=== PATIENT | female | born 1950 | race Caucasian/White ===

== ENCOUNTER 2017-05-29 13:49 | Inpatient (IN) | payer MEDICARE, OTHER, SELFPAY ==
[2017-05-29] VITALS (7 sets, daily range): BP systolic 123–148; BP diastolic 69–90; PULSE 71–97; RESP 14–24; TEMP 36.8–37.7; O2SAT 93–97; BMI 26.6; BMI 25.5
--- NOTE | 2017-05-29 13:55 | RAD_ITS ---
STUDY: X-RAY CHEST REASON FOR EXAM: Female, 66 years old. Fever after chemotherapy treatment for small cell lung cancer. TECHNIQUE: PA and lateral views of the chest. COMPARISON: May 13, 2017. FINDINGS: Cardiac monitoring leads are present. Right-sided PICC line is present with the tip the catheter in the atriocaval region. The lungs are clear and expanded. There is no demonstrated pleural abnormality. Normal size heart. Normal mediastinum and tj. There is prominence of the pulmonary hilar arteries without peripheral pulmonary vascular congestion. There is atherosclerotic tortuosity of the aortic arch and descending thoracic aorta. There is demineralization of the osseous structures. Appears to be mild compression of a lower thoracic vertebral body. There is no demonstrated abnormality of the visualized soft tissue structures of the upper abdomen. RAD/Chest PA and Lateral IMPRESSION: 1. No radiographic evidence of acute cardiopulmonary disease. 2. The pulmonary mass is not well seen on this study. Electronically Signed: Shirin Hunt MD at 15:57 EST , Service support ,
--- NOTE | 2017-05-29 14:17 | EKG12_ITS ---
Test Reason : FEVER SOB Blood Pressure : / mmHG Vent. Rate : 092 BPM Atrial Rate : 092 BPM P-R Int : 132 ms QRS Dur : 084 ms QT Int : 382 ms P-R-T Axes : 081 064 078 degrees QTc Int : 472 ms Normal sinus rhythm Normal ECG Confirmed by BRITNEY HOUSE, LINO ([id number]), movie editor LILLIANA CALVO ([id number] on 06/01/2017 10:39:03 AM Referred By: ARTUR Confirmed By:LINO TAN MD
[2017-05-29] MEDS: Ondansetron 4 MG/2 ML Vial IV (14:48)
[2017-05-29] MEDS: 0.9% Normal Saline 1,000 ML 999 ML IV (14:48)
[2017-05-29] MEDS: Acetaminophen 650 MG/20 ML UDC PO (14:54)
[2017-05-29 15:05] LABS: Absolute Lymphocyte Count 0.08 X10^3/ul (0.83-4.51); Absolute Neutrophil Count 0.1 X10^3/uL (2.0-7.7); Basophil# 0.01 X10^3/uL; Hematocrit 17.9 % (37-47); Lymphocyte # 0.08 X10^3/ul (4.0); Mean Corp Hgb Conc 33.5 g/gl (32-36); Mean Corpuscular Hgb 28.2 pg (27.0-32.0); Mean Platelet Vol. 9.3 fl (6.2-12.0); Monocyte# 0.03 X10^3/uL; Neutrophil # 0.09 X10^3/uL (2.7-7.7); Platelet Count 16 K/mm3 (150-450); RBC Distribution Width CV 16.6 % (11.6-14.6); RBC Distribution Width SD 51.3 fl (35.1-43.9); Red Blood Count 2.13 M/mm3 (4.2-5.4)
[2017-05-29 15:06] LABS: AST(SGOT) 8 U/L (15-37); Alanine Aminotransfer ALT/SGPT 15 U/L (12-78); Albumin, Serum 2.5 g/dL (3.4-5.0); Alkaline Phosphatase 75 U/L (45-117); Anion Gap 9 (5-15); BUN 16 mg/dL (7-18); Calcium,Total 7.7 mg/dL (8.5-10.1); Chloride 103 mmol/L (98-107); Creatinine, Serum 0.67 mg/dL (0.55-1.02); EST Glomerular Filtration Rate 94 mL/min (>60); Est Glom Filt Rate - Afr Amer 114 mL/min (>60); Estimated Creatinine Clearance 84.44 ml/min; Globulin 2.6 g/dL (2.2-4.2); Glucose 107 mg/dL (70-110); Magnesium 1.4 mg/dL (1.6-2.6); Phosphorus 2.3 mg/dL (2.5-4.9); Potassium 3.1 mmol/L (3.5-5.1); Protein, Total 5.1 g/dL (6.4-8.2); Sodium Level 140 mmol/L (136-145)
[2017-05-29 15:08] LABS: POSITIVE COUNT YES; POSITIVE DIFFERENTIAL YES; POSITIVE MORPHOLOGY YES; White Blood Count 0.3 K/mm3 (4.4-11.0)
[2017-05-29 15:09] LABS: International Normalized Ratio 1.3; Prothrombin Time (Protime)PT. 15.7 SECONDS (11.7-14.9)
[2017-05-29 15:10] LABS: Differential Indicated SCAN CRITERIA MET; Lactic Acid 0.7 mmol/L (0.4-2.0); Partial Thromboplast Time 31.7 Seconds (24.1-36.2)
--- NOTE | 2017-05-29 15:12 | ED.RN ---
DR. SIDDIQUI AWARE OF ABNORMAL LABS- WBC-0.3, HGB 6.0. PLT 16
[2017-05-29 15:48] LABS: Basophil 4 % (0-1); Lymphocyte 26 % (19-41); Monocyte 13 % (0-10); Neutrophil-Band 6 % (0-5); Neutrophil-Segmented 51 % (47-70); Total Cells Counted 100 (MANUAL DIFF)
[2017-05-29 15:49] LABS: Hypochromasia 1+
[2017-05-29 15:50] LABS: Platelet Estimate MKD DEC (ADEQ); Red Cell Morphology N CYTIC NORMAL (NORM C&C)
--- NOTE | 2017-05-29 16:12 | ED.VISSUMM ---
- ER Visit Summary Date of Service: 05/29/17 Chief Complaint: Fever History of Present Illness: The patient is a [address] Soto and Dr. Swan. She has a history of small cell lung cancer and is on chemotherapy. Her last dose of chemo was 8 days ago. States that today she developed a fever to 101.2?. She reports that she has a chronic sore throat that is unchanged. She has left ear pain is 4 out of 10 in severity. She reports that she has a cough productive clear sputum. She denies shortness of breath with this. She denies any abdominal pain. States she has been nauseated and vomited 6 times today. No blood in her emesis. She denies any diarrhea. No dysuria or frequency. She does complain of generalized weakness. Patient reports on the way to the emergency department she had an episode of chest pain while driving that was 8 out of 10 at worst and she is pain-free currently. It lasted approximately 5 minutes. There was associated shortness of breath. Physical Examination: Vitals: Stable. Afebrile. General: Well-nourished and well-developed. Head: Normocephalic atraumatic. Neck: Supple, no lymphadenopathy. No JVD. Nontender. Cardiovascular: Regular rate and rhythm. No murmurs. Respiratory: No respiratory distress. Clear to auscultation bilaterally. Abdominal: Soft, mild diffuse tenderness to palpation, nondistended, normal bowel sounds. No guarding, rebound, or peritoneal signs. Back: Nontender. Extremities: Nontender, no edema. Skin: Normal color, no rash. Neurologic: Alert and oriented ?3. Cranial nerves II through XII are intact. Normal strength and sensation. Psych: Normal affect. Test Results: Chest x-ray is normal. EKG is sinus at 92 with no acute changes. Troponin 0 0.06. LFTs marked for total protein of 5.1 and albumin 2.5, AST of 8. INR is 1.3. PTT is 31.7. Lactic acid is 0.7. Influenza is negative. Phosphorus is 2.3. Magnesium is 1.4. Chem-7 is marked for potassium 3.1 calcium 7.7. CBC shows a white count of 0.3 with 36% segmented neutrophils giving an absolute neutrophil count of 108. H&H of 6.0 and 17.9, platelets of 16. Emergency Department Course and Treatment: Patient had an IV placed. She was given Tylenol p.o., morphine and Zofran IV, blood cultures were obtained and the patient was given meropenem IV. Treatment Plan: Patient was discussed with Dr. Vuong and Dr. Gonzalez. She will be admitted to the hospital for further evaluation and treatment. She was typed and crossed for 2 units of packed red blood cells. Disposition: Admitted in serious condition. Impression: 1. Neutropenic fever. 2. Pancytopenia. 3. Anemia. 4. Small cell lung cancer on chemotherapy. This note was generated with [employer] dictation software. It may contain incorrect words, spelling, and punctuation that were not noted in review of the chart prior to signing ED Disposition - Plan for ED Patient: Chief Complaint: Fever Referrals: Mihir Swan DO [Primary Care Provider] -
[2017-05-29 16:30] LABS: Color, Urine Yellow (Yellow); Glucose, Dipstick Normal (Normal); Ketone-Dipstick 5 mg/dl (Negative); Leukocyte Esterase-Dipstick 25 /ul (Negative); Nitrite-Dipstick Negative (Negative); Occult Blood-Urine 25 /ul (Negative); Protein-Dipstick 500 mg/dl (Negative); Urine Bilirubin Dipstick Negative (Negative); Urine Clarity Sl. Cloudy (Clear); Urine Urobilinogen 1 mg/dl (Normal)
[2017-05-29 16:47] LABS: Bacteria 2+ /hpf (None Seen); Red Blood Cells-Urine 0-5 SEEN /hpf (0-5); Squamous Epithelial Cells - UA 0-5 SEEN /hpf (5-10); White Blood Cells 0-5 SEEN /hpf (0-5)
[2017-05-29 16:48] LABS: Amorphous Sediment 1+; Hyaline Cast 0-5 SEEN /lpf (0-5); Mucous, Urine RARE /hpf (<or=2+)
--- NOTE | 2017-05-29 18:02 | HP.PCM_ITS ---
Problem List (1) Neutropenic fever Status: Acute (2) Pancytopenia Status: Chronic (3) HTN (hypertension) Status: Chronic (4) GERD (gastroesophageal reflux disease) Status: Chronic (5) Small cell lung cancer Status: Chronic (6) Afib Status: Chronic (7) COPD (chronic obstructive pulmonary disease) Status: Acute History of Present Illness Date of Admission: 05/29/17 Chief Complaint: fever The patient is a 66 year old F with a hx of small cell lung cancer, patient of Dr. Soto, last chemo 8 days ago, last radiation 5 days ago, who presented to the ER with fever of 101 today at home. She was found to be pancytopenic with marked reduction in leukocytes, absolute neutrophils, hemoglobin, and platelets. She was here with neutropenic fever about 2 weeks ago as well, and was treating with meropenem transitioned to levaquin, neulasta. She currently has no SOB, but does have cough and chest pain she states is from the tumor pressing on her esophagus. She has been having difficulty swallowing foods, liquids, and her pills. She vomits her pills back up and has been vomiting at least 6 times today. She has been placed on antacids and karafate but has not felt any relief. She has also had watery diarrhea. She reports dysuria as well. She has no abdominal pain. No reported blood in stool or vomit. [] Past Medical History Past Medical History (Chronic Problems): Chronic Problems Small cell lung cancer (Chronic) Pancytopenia (Chronic) Afib (Chronic) HTN (hypertension) (Chronic) GERD (gastroesophageal reflux disease) (Chronic) Allergies oxycodone Adverse Reaction (Verified 05/26/17 12:51) Vomiting Home Medications: Ambulatory Orders Medication Instructions Recorded Ondansetron [Zofran Odt] 4 mg PO Q8H PRN PRN #10 tablet 06/13/16 Fluticasone 0.05% [Flonase Nasal 2 spray NASAL DAILY PRN PRN 05/05/17 Dike] Lisinopril 20 mg PO DAILY 05/05/17 Metoprolol Succinate [Toprol Xl] 75 mg PO DAILY 05/05/17 Omeprazole [Prilosec] 20 mg PO DAILY 05/05/17 Sertraline HCl [Zoloft] 25 mg PO DAILY 05/05/17 Tramadol HCl [Ultram] 50 mg PO Q6H PRN PRN 05/05/17 Triamcinolone 0.025% Cream 1 applic TOPICAL TID 05/05/17 [Kenalog] Mineral Oil/Petrolatum Cr 1 applic TOPICAL 4X/DAY PRN PRN 05/07/17 [Aquaphor] Rivaroxaban [Xarelto] 25 mg PO DAILY 05/29/17 Surgical History: cholecystectomy, hysterectomy Psychiatric History: No pertinent psych hx 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 Denies: Chills, Weight Change HEENT: Denies: Head Aches, Sinus Congestion, Sinus Drainage Cardiovascular: Reports: Chest Pain. Denies: Chest Pressure, Chest Tightness, Heaviness, Palpitations, Syncope Respiratory: Reports: Cough. Denies: Shortness of Breath, Shortness of breath at rest, Sputum production Gastrointestinal: Reports: Abdominal Pain. Denies: Nausea, Vomiting Genitourinary: Denies: Dysuria Musculoskeletal: Denies: Joint Pain, Joint Tenderness Skin: Denies: Rash, Wounds Neurological: Denies: Numbness, Tingling, Focal weakness Psychiatric: Denies: Anxiety, Depression, Homicidal Ideations, Suicidal Ideations Hematologic/ Lymphatic: Denies: Easy Bruising, Easy Bleeding VTE Information - Inpt Only VTE Present on Admission: No VTE Mechan Device Prophylaxis: SCD's VTE Pharm Prophylaxis ordered?: No Reason prophylaxis not ordered:: Medical Contraindication Patient Problems: Active and Suspected Problems COPD (chronic obstructive pulmonary disease) (Acute) - Physical Exam General: Alert, Oriented x3, Cooperative, - - frail, malnourished HEENT: Atraumatic, PERRLA, EOMI, Normocephalic Neck: Supple, No JVD, Negative Carotid Bruits Lungs: Normal air movement, Rales - fine crackles BL bases, Wheezes Cardiovascular: Regular rate, No murmurs Abdomen: Bowel Sounds Present, Soft, Non Tender Extremities: No edema, Capillary Refill Less than 3 Seconds Skin: No rashes, No breakdown Musculoskeletal: No Tenderness to Palpation of Joints or Extremities Neurological: Cranial nerves II-XII grossly intact Psych/Mental Status: Normal Affect, Appropriate, Alert and oriented to time, place, person, mood and affect Vital Signs Temp Pulse Resp BP Pulse Ox 98.9 F 82 19 H 123/69 H 93 05/29/17 17:27 05/29/17 17:27 05/29/17 17:27 05/29/17 17:27 05/29/17 17:27 Oxygen Delivery Method Room Air Weight: 79.379 kg Body Mass Index (BMI) 26.6 Intake and Output for Last 24 Hours 05/27/17 05/28/17 05/29/17 23:59 23:59 23:59 Intake Total 0 / 0 Balance 0 / 0 Microbiology Past 72 Hours 05/29/17 14:10 Influenza Types A,B Direct FA (ANA) - Final Mucosa - Nasopharyngeal Laboratory Tests Past 24 Hrs 05/29/17 05/29/17 05/29/17 14:30 14:30 14:30 WBC 0.3 L* RBC 2.13 L Hgb 6.0 L Hct 17.9 L MCV 84.0 MCH 28.2 MCHC 33.5 RDW 16.6 H RDW Differential 51.3 H Plt Count 16 L* MPV 9.3 Immature Gran % (Auto) 16.000 H Neut % (Auto) 36.0 L Lymph % (Auto) 32.0 [place] % (Auto) 12.0 H Eos % (Auto) 0.0 Baso % (Auto) 4.0 H Absolute Neuts (auto) 0.1 L Absolute Lymphs (auto) 0.08 L Total Counted 100 Neutrophils % (Manual) 51 Band Neutrophils % 6 H Lymphocytes % (Manual) 26 Monocytes % (Manual) 13 H Basophils % (Manual) 4 H Diff Path Review May foll Platelet Estimate MKD DEC RBC Morphology N CYTIC Hypochromasia 1+ PT 15.7 H INR 1.3 APTT 31.7 Sodium 140 Potassium 3.1 L Chloride 103 Carbon Dioxide 28.0 Anion Gap 9 BUN 16 Creatinine 0.67 Estim Creat Clear Calc 84.44 Est GFR (MDRD) Af Amer 114 Est GFR (MDRD) Non-Af 94 BUN/Creatinine Ratio 24.0 H Glucose 107 Lactic Acid Calcium 7.7 L Phosphorus 2.3 L Magnesium 1.4 L Total Bilirubin 0.80 AST 8 L ALT 15 Alkaline Phosphatase 75 Troponin I 0.06 Total Protein 5.1 L Albumin 2.5 L Globulin 2.6 Albumin/Globulin Ratio 1.0 Urine Color Urine Clarity Urine pH Ur Specific Devers Urine Protein Urine Glucose (UA) Urine Ketones Urine Occult Blood Urine Nitrite Urine Bilirubin Urine Urobilinogen Ur Leukocyte Esterase Urine RBC Urine WBC Ur Squamous Epith Cells Amorphous Sediment Urine Bacteria Hyaline Casts Urine Mucus Blood Type Antibody Screen Crossmatch 05/29/17 05/29/17 05/29/17 14:30 15:40 16:15 WBC RBC Hgb Hct MCV MCH MCHC RDW RDW Differential Plt Count MPV Immature Gran % (Auto) Neut % (Auto) Lymph % (Auto) [place] % (Auto) Eos % (Auto) Baso % (Auto) Absolute Neuts (auto) Absolute Lymphs (auto) Total Counted Neutrophils % (Manual) Band Neutrophils % Lymphocytes % (Manual) Monocytes % (Manual) Basophils % (Manual) Diff Path Review Platelet Estimate RBC Morphology Hypochromasia PT INR APTT Sodium Potassium Chloride Carbon Dioxide Anion Gap BUN Creatinine Estim Creat Clear Calc Est GFR (MDRD) Af Amer Est GFR (MDRD) Non-Af BUN/Creatinine Ratio Glucose Lactic Acid 0.7 Calcium Phosphorus Magnesium Total Bilirubin AST ALT Alkaline Phosphatase Troponin I Total Protein Albumin Globulin Albumin/Globulin Ratio Urine Color Yellow Urine Clarity Sl. Cloudy Urine pH 5.0 Ur Specific [place] 1.020 Urine Protein 500 H Urine Glucose (UA) Normal Urine Ketones 5 H Urine Occult Blood 25 H Urine Nitrite Negative Urine Bilirubin Negative Urine Urobilinogen 1 H Ur Leukocyte Esterase 25 H Urine RBC 0-5 SEEN Urine WBC 0-5 SEEN Ur Squamous Epith Cells 0-5 SEEN Amorphous Sediment 1+ Urine Bacteria 2+ Hyaline Casts 0-5 SEEN Urine Mucus RARE Blood Type A POSITIVE Antibody Screen NEGATIVE Crossmatch See Detail Assessment/Plan Active and Suspected Problems COPD (chronic obstructive pulmonary disease) (Acute) 1. Neutropenic fever - 2/2 chemo/radiation from [place] lung cancer - pt of Dr. Soot. Will consult. Start meropenem. Check urine culture, UA+, + dysuria, also send stool for C diff as she has had watery diarrhea and been on broad spectrum abx with recent hospital admission for the same. She has a cough but negative XR , wheezy on exam. She is at risk of aspiration with reported dysphagia and multiple episodes of vomiting. LA negative at this time. -WBC 0.3, abs neuts 0.1. 2. Pancytopenia - granix, transfuse PRBCs x 2 units per ER, transfuse platelets Plts 16 Hgb 6.0 no active bleeding 3. COPD - wheezy, duonebs, IS, defer steroids. No O2 requirement currently. 4. Hypokalemia, hypophosphatemia, hypomagnesemia - replete all and recheck in AM 5. Dysphagia - ST eval. 6. GERD - home meds 7. PAF - rate controlled, Hold Xarelto with marked anemia/thrombocytopenia 8. HTN - stable DVT ppx : SCDs, chemoppx contraindicated DC planning: PTOTST This patient was seen by Khris Church PA-C under the supervision of Doctor Gonzalez
[2017-05-29] MEDS: 0.9% Normal Saline 1,000 ML 125 ML IV (19:39)
[2017-05-29] MEDS: TBO-FILGRASTIM 480 MCG/0.8 ML ML SC (19:44)
[2017-05-29] MEDS: 0.9% NaCl PICC Flush IV (21:20)
[2017-05-29] MEDS: Atenolol 25 MG Tablet PO (21:28)
[2017-05-30] VITALS (15 sets, daily range): BP systolic 131–158; BP diastolic 73–96; PULSE 69–97; RESP 16–20; TEMP 36.8–37.7; O2SAT 95–98
[2017-05-30] MEDS: BENZOCAINE/MENTHOL 1 LOZENGE 2 LOZENGE MUCOUS MEM (01:44)
[2017-05-30] MEDS: guaiFENesin 10 ML UDC (200MG/10ML) PO ×3 (01:44→17:32)
[2017-05-30] MEDS: 0.9% NaCl PICC Flush IV ×7 (04:29→15:52)
--- NOTE | 2017-05-30 04:36 | NURSING ---
vital signs documented on tar are for the wrong time. unable to edit to correct.
[2017-05-30 07:17] LABS: ALB/GLOB Ratio 0.9 RATIO (0.9-2.4); AST(SGOT) 11 U/L (15-37); Alanine Aminotransfer ALT/SGPT 15 U/L (12-78); Albumin, Serum 2.3 g/dL (3.4-5.0); Alkaline Phosphatase 77 U/L (45-117); Anion Gap 9 (5-15); BUN 16 mg/dL (7-18); BUN/Creat Ratio 26.1 RATIO (10-20); Calcium,Total 7.4 mg/dL (8.5-10.1); Chloride 107 mmol/L (98-107); Creatinine, Serum 0.61 mg/dL (0.55-1.02); EST Glomerular Filtration Rate 104 mL/min (>60); Est Glom Filt Rate - Afr Amer 126 mL/min (>60); Estimated Creatinine Clearance 92.75 ml/min; Globulin 2.7 g/dL (2.2-4.2); Glucose 108 mg/dL (70-110); Magnesium 2.1 mg/dL (1.6-2.6); Phosphorus 3.9 mg/dL (2.5-4.9); Potassium 3.7 mmol/L (3.5-5.1); Sodium Level 143 mmol/L (136-145)
[2017-05-30 07:22] LABS: Hemoglobin 7.7 g/dl (12.0-15.0); Mean Corp Hgb Conc 33.5 g/gl (32-36); Mean Corpuscular Hgb 28.8 pg (27.0-32.0); Mean Corpuscular Volume 86.1 fL (81-99); Mean Platelet Vol. 9.2 fl (6.2-12.0); Platelet Count 40 K/mm3 (150-450); RBC Distribution Width CV 15.7 % (11.6-14.6); RBC Distribution Width SD 49.5 fl (35.1-43.9); Red Blood Count 2.67 M/mm3 (4.2-5.4)
[2017-05-30 07:24] LABS: White Blood Count 0.3 K/mm3 (4.4-11.0)
[2017-05-30 07:25] LABS: Differential Indicated MANUAL DIFF; POSITIVE COUNT YES; POSITIVE DIFFERENTIAL YES; POSITIVE MORPHOLOGY YES
[2017-05-30 07:53] LABS: Lymphocyte 23 % (19-41); Monocyte 17 % (0-10); Neutrophil-Band 2 % (0-5); Neutrophil-Segmented 58 % (47-70); Total Cells Counted 100 (MANUAL DIFF)
[2017-05-30 07:54] LABS: Platelet Estimate MOD (ADEQ); Platelet Morphology LARG; Red Cell Morphology NORM C+C NORMAL (NORM C&C)
[2017-05-30 07:55] LABS: Absolute Lymphocyte Count 0.07 X10^3/ul (0.83-4.51); Absolute Neutrophil Count 0.2 X10^3/uL (2.0-7.7)
[2017-05-30] MEDS: Atenolol 25 MG Tablet PO (09:54)
[2017-05-30] MEDS: Lisinopril 20 MG Tablet PO (09:54)
[2017-05-30] MEDS: Sertraline 50 MG Tablet 25 MG PO (09:54)
[2017-05-30] MEDS: TBO-FILGRASTIM 480 MCG/0.8 ML ML SC (09:54)
[2017-05-30] MEDS: 0.9% Normal Saline 1,000 ML 125 ML IV ×2 (10:48→22:02)
--- NOTE | 2017-05-30 13:33 | PN_ITS ---
Patient Problems: Active and Suspected Problems COPD (chronic obstructive pulmonary disease) (Acute) Subjective: Pt has remained afebrile since admission. She continues to have a sore throat, cough, and mild dysuria. She denies SOB and has had no BM since admission. She feels only slightly better. She does however report no further nausea/vomiting or diarrhea - Physical Exam General: Alert, Oriented x3, Cooperative HEENT: Atraumatic, PERRLA, EOMI, Normocephalic Neck: Supple, No JVD, Negative Carotid Bruits Lungs: Clear to auscultation - no further wheezing heard today, Normal air movement Cardiovascular: Regular rate, No murmurs Abdomen: Bowel Sounds Present, Soft, Non Tender Extremities: No edema, Capillary Refill Less than 3 Seconds Skin: No rashes, No breakdown, - - pallor is less prominent Musculoskeletal: No Tenderness to Palpation of Joints or Extremities Neurological: Cranial nerves II-XII grossly intact Psych/Mental Status: Normal Affect, Appropriate Vital Signs Temp Pulse Resp BP Pulse Ox 98.3 F 79 18 145/84 H 97 05/30/17 12:30 05/30/17 12:30 05/30/17 12:30 05/30/17 12:30 05/30/17 12:30 Oxygen Delivery Method Room Air Weight: 76.2 kg Body Mass Index (BMI) 25.5 Intake and Output for Last 24 Hours 05/28/17 05/29/17 05/30/17 23:59 23:59 23:59 Intake Total 400 / 400 2728 / 2728 Output Total 575 / 575 Balance 400 / 400 2153 / 2153 Laboratory Tests Past 24 Hrs 05/30/17 05/30/17 06:40 06:40 WBC 0.3 L* RBC 2.67 L Hgb 7.7 L Hct 23.0 L MCV 86.1 MCH 28.8 MCHC 33.5 RDW 15.7 H RDW Differential 49.5 H Plt Count 40 L* MPV 9.2 Neut % (Auto) Not Reportable Absolute Neuts (auto) 0.2 L Absolute Lymphs (auto) 0.07 L Total Counted 100 Neutrophils % (Manual) 58 Band Neutrophils % 2 Lymphocytes % (Manual) 23 Monocytes % (Manual) 17 H Diff Path Review May foll Platelet Estimate MOD Plt Morphology Comment LARG RBC Morphology NORM C+C Sodium 143 Potassium 3.7 Chloride 107 Carbon Dioxide 27.0 Anion Gap 9 BUN 16 Creatinine 0.61 Estim Creat Clear Calc 92.75 Est GFR (MDRD) Af Amer 126 Est GFR (MDRD) Non-Af 104 BUN/Creatinine Ratio 26.1 H Glucose 108 Calcium 7.4 L Phosphorus 3.9 Magnesium 2.1 Total Bilirubin 1.00 AST 11 L ALT 15 Alkaline Phosphatase 77 Total Protein 5.0 L Albumin 2.3 L Globulin 2.7 Albumin/Globulin Ratio 0.9 Assessment/Plan Active and Suspected Problems COPD (chronic obstructive pulmonary disease) (Acute) 1. Neutropenic fever - 2/2 chemo/radiation from [place] lung cancer - Now afebrile. pt of Dr. Soto - consulted. meropenem. Check urine culture, UA+, + dysuria, She has a cough but negative XR, wheezy on exam. She is at risk of aspiration with reported dysphagia and multiple episodes of vomiting. No further vomiting or diarrhea. LA negative. -WBC 0.3, abs neuts 0.2. 2. Pancytopenia - granix, s/p platelets and 2 units prbc WBCs/Neuts minimal change Hgb 6.0-7.7 Plt 16-40 3. COPD - wheezy, duonebs, IS, defer steroids. No O2 requirement currently. 4. Hypokalemia, hypophosphatemia, hypomagnesemia - replete all and recheck in AM 5. Dysphagia - ST eval. 6. GERD - home meds 7. PAF - rate controlled, not in fib on monitor. Hold Xarelto with marked anemia /thrombocytopenia 8. HTN - stable 9. Radiation esophagitis - will try bmx solution today. No thrush present on exam. DVT ppx : SCDs, chemoppx contraindicated DC planning: PTOTST This patient was seen by Khris Church PA-C under the supervision of Doctor Gonzalez
--- NOTE | 2017-05-30 13:52 | PCM.CONS.GEN ---
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 Diaggnosed in Mar 2017 and has been receiving chemotherapy with Cisplatinum and etoposide with Radiation with a curative intent. The patient revived her 3rs cycle 10 days back and did not get any growth factor support. She completed the RT 1 week ago. The patient comes in with fevers since past 24 hrs and was noted to be neutropenic with WBC count of 0.3 and plts of 14K with a HB of 6.2. Started on filgrastim and meropanam. The patient having symptoms of radiation esophagitis. Having difficulty bringing out sputum as well. No dysurea, No diarrhea, Nochest pain and sob. The patient was admitted 3 weeks back for similar episode of neutropenic fevers. She did not get any neulasta with the last cycle. Transfused 1 unit of blood and platelets yesterday, History of atrial fibrillation when the diagnosis of the lung cancer was made, On Xetalto. Past Medical History Past Medical History (Chronic Problems): Chronic Problems Small cell lung cancer (Chronic) Pancytopenia (Chronic) Afib (Chronic) HTN (hypertension) (Chronic) GERD (gastroesophageal reflux disease) (Chronic) Allergies oxycodone Adverse Reaction (Verified 05/26/17 12:51) Vomiting Home Medications: Ambulatory Orders Medication Instructions Recorded Ondansetron [Zofran Odt] 4 mg PO Q8H PRN PRN #10 tablet 06/13/16 Fluticasone 0.05% [Flonase Nasal 2 spray NASAL DAILY PRN PRN 05/05/17 [place]] Lisinopril 20 mg PO DAILY 05/05/17 Metoprolol Succinate [Toprol Xl] 75 mg PO DAILY 05/05/17 Omeprazole [Prilosec] 20 mg PO DAILY 05/05/17 Sertraline HCl [Zoloft] 25 mg PO DAILY 05/05/17 Tramadol HCl [Ultram] 50 mg PO Q6H PRN PRN 05/05/17 Triamcinolone 0.025% Cream 1 applic TOPICAL TID 05/05/17 [Kenalog] Mineral Oil/Petrolatum Cr 1 applic TOPICAL 4X/DAY PRN PRN 05/07/17 [Aquaphor] Rivaroxaban [Xarelto] 25 mg PO DAILY 05/29/17 Sucralfate [Carafate] 10 ml PO 4X/DAY 05/30/17 Surgical History: cholecystectomy, hysterectomy 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 Pain not well controlled on the current regimine. Patient Problems: Active and Suspected Problems COPD (chronic obstructive pulmonary disease) (Acute) - Physical Exam General: Alert, Oriented x3, Cooperative HEENT: Atraumatic, PERRLA, EOMI, Normocephalic Neck: Supple, No JVD, Negative Carotid Bruits Lungs: Clear to auscultation, Normal air movement Cardiovascular: Regular rate, No murmurs Abdomen: Bowel Sounds Present, Soft, Non Tender Extremities: No edema, Capillary Refill Less than 3 Seconds Skin: No rashes, No breakdown Musculoskeletal: No Tenderness to Palpation of Joints or Extremities Neurological: Cranial nerves II-XII grossly intact Psych/Mental Status: Normal Affect, Appropriate Vital Signs Temp Pulse Resp BP Pulse Ox 98.3 F 79 18 145/84 H 97 05/30/17 12:30 05/30/17 12:30 05/30/17 12:30 05/30/17 12:30 05/30/17 12:30 Oxygen Delivery Method Room Air Weight: 76.2 kg Body Mass Index (BMI) 25.5 Intake and Output for Last 24 Hours 05/28/17 05/29/17 05/30/17 23:59 23:59 23:59 Intake Total 400 / 400 2728 / 2728 Output Total 575 / 575 Balance 400 / 400 2153 / 2153 Laboratory Tests Past 24 Hrs 05/30/17 05/30/17 06:40 06:40 WBC 0.3 L* RBC 2.67 L Hgb 7.7 L Hct 23.0 L MCV 86.1 MCH 28.8 MCHC 33.5 RDW 15.7 H RDW Differential 49.5 H Plt Count 40 L* MPV 9.2 Neut % (Auto) Not Reportable Absolute Neuts (auto) 0.2 L Absolute Lymphs (auto) 0.07 L Total Counted 100 Neutrophils % (Manual) 58 Band Neutrophils % 2 Lymphocytes % (Manual) 23 Monocytes % (Manual) 17 H Diff Path Review May foll Platelet Estimate MOD Plt Morphology Comment LARG RBC Morphology NORM C+C Sodium 143 Potassium 3.7 Chloride 107 Carbon Dioxide 27.0 Anion Gap 9 BUN 16 Creatinine 0.61 Estim Creat Clear Calc 92.75 Est GFR (MDRD) Af Amer 126 Est GFR (MDRD) Non-Af 104 BUN/Creatinine Ratio 26.1 H Glucose 108 Calcium 7.4 L Phosphorus 3.9 Magnesium 2.1 Total Bilirubin 1.00 AST 11 L ALT 15 Alkaline Phosphatase 77 Total Protein 5.0 L Albumin 2.3 L Globulin 2.7 Albumin/Globulin Ratio 0.9 Assessment/Plan Active and Suspected Problems COPD (chronic obstructive pulmonary disease) (Acute) 1. Small cell lung cancer . Limited stage . On chemotherapy with cisplatinum and etoposide. Completed 3 cycles of therepy with RT. 2. Neutropenic fevers. Pancultured. Results pending. Continue with the meropenam and filgrastim. 3. Radiation esophagitis. BMX +carafate. Start duragesic for pain control with roxanol. 4. H/O [place] fibrillation. Hold xeralto will the platelets are above 50 K Code Visit Inpatient E&M: 29189 Init Hosp L3
--- NOTE | 2017-05-30 14:03 | CON.PCM_ITS ---
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 Diaggnosed in Mar 2017 and has been receiving chemotherapy with Cisplatinum and etoposide with Radiation with a curative intent. The patient revived her 3rs cycle 10 days back and did not get any growth factor support. She completed the RT 1 week ago. The patient comes in with fevers since past 24 hrs and was noted to be neutropenic with WBC count of 0.3 and plts of 14K with a HB of 6.2. Started on filgrastim and meropanam. The patient having symptoms of radiation esophagitis. Having difficulty bringing out sputum as well. No dysurea, No diarrhea, Nochest pain and sob. The patient was admitted 3 weeks back for similar episode of neutropenic fevers. She did not get any neulasta with the last cycle. Transfused 1 unit of blood and platelets yesterday, History of atrial fibrillation when the diagnosis of the lung cancer was made, On Xetalto. Past Medical History Past Medical History (Chronic Problems): Chronic Problems Small cell lung cancer (Chronic) Pancytopenia (Chronic) Afib (Chronic) HTN (hypertension) (Chronic) GERD (gastroesophageal reflux disease) (Chronic) Allergies oxycodone Adverse Reaction (Verified 05/26/17 12:51) Vomiting Home Medications: Ambulatory Orders Medication Instructions Recorded Ondansetron [Zofran Odt] 4 mg PO Q8H PRN PRN #10 tablet 06/13/16 Fluticasone 0.05% [Flonase Nasal 2 spray NASAL DAILY PRN PRN 05/05/17 [place]] Lisinopril 20 mg PO DAILY 05/05/17 Metoprolol Succinate [Toprol Xl] 75 mg PO DAILY 05/05/17 Omeprazole [Prilosec] 20 mg PO DAILY 05/05/17 Sertraline HCl [Zoloft] 25 mg PO DAILY 05/05/17 Tramadol HCl [Ultram] 50 mg PO Q6H PRN PRN 05/05/17 Triamcinolone 0.025% Cream 1 applic TOPICAL TID 05/05/17 [Kenalog] Mineral Oil/Petrolatum Cr 1 applic TOPICAL 4X/DAY PRN PRN 05/07/17 [Aquaphor] Rivaroxaban [Xarelto] 25 mg PO DAILY 05/29/17 Sucralfate [Carafate] 10 ml PO 4X/DAY 05/30/17 Surgical History: cholecystectomy, hysterectomy Psychiatric History: No pertinent psych hx 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 Pain not well controlled on the current regimine. Patient Problems: Active and Suspected Problems COPD (chronic obstructive pulmonary disease) (Acute) - Physical Exam General: Alert, Oriented x3, Cooperative HEENT: Atraumatic, PERRLA, EOMI, Normocephalic Neck: Supple, No JVD, Negative Carotid Bruits Lungs: Clear to auscultation, Normal air movement Cardiovascular: Regular rate, No murmurs Abdomen: Bowel Sounds Present, Soft, Non Tender Extremities: No edema, Capillary Refill Less than 3 Seconds Skin: No rashes, No breakdown Musculoskeletal: No Tenderness to Palpation of Joints or Extremities Neurological: Cranial nerves II-XII grossly intact Psych/Mental Status: Normal Affect, Appropriate Vital Signs Temp Pulse Resp BP Pulse Ox 98.3 F 79 18 145/84 H 97 05/30/17 12:30 05/30/17 12:30 05/30/17 12:30 05/30/17 12:30 05/30/17 12:30 Oxygen Delivery Method Room Air Weight: 76.2 kg Body Mass Index (BMI) 25.5 Intake and Output for Last 24 Hours 05/28/17 05/29/17 05/30/17 23:59 23:59 23:59 Intake Total 400 / 400 2728 / 2728 Output Total 575 / 575 Balance 400 / 400 2153 / 2153 Laboratory Tests Past 24 Hrs 05/30/17 05/30/17 06:40 06:40 WBC 0.3 L* RBC 2.67 L Hgb 7.7 L Hct 23.0 L MCV 86.1 MCH 28.8 MCHC 33.5 RDW 15.7 H RDW Differential 49.5 H Plt Count 40 L* MPV 9.2 Neut % (Auto) Not Reportable Absolute Neuts (auto) 0.2 L Absolute Lymphs (auto) 0.07 L Total Counted 100 Neutrophils % (Manual) 58 Band Neutrophils % 2 Lymphocytes % (Manual) 23 Monocytes % (Manual) 17 H Diff Path Review May foll Platelet Estimate MOD Plt Morphology Comment LARG RBC Morphology NORM C+C Sodium 143 Potassium 3.7 Chloride 107 Carbon Dioxide 27.0 Anion Gap 9 BUN 16 Creatinine 0.61 Estim Creat Clear Calc 92.75 Est GFR (MDRD) Af Amer 126 Est GFR (MDRD) Non-Af 104 BUN/Creatinine Ratio 26.1 H Glucose 108 Calcium 7.4 L Phosphorus 3.9 Magnesium 2.1 Total Bilirubin 1.00 AST 11 L ALT 15 Alkaline Phosphatase 77 Total Protein 5.0 L Albumin 2.3 L Globulin 2.7 Albumin/Globulin Ratio 0.9 Assessment/Plan Active and Suspected Problems COPD (chronic obstructive pulmonary disease) (Acute) 1. Small cell lung cancer . Limited stage . On chemotherapy with cisplatinum and etoposide. Completed 3 cycles of therepy with RT. 2. Neutropenic fevers. Pancultured. Results pending. Continue with the meropenam and filgrastim. 3. Radiation esophagitis. BMX +carafate. Start duragesic for pain control with roxanol. 4. H/O [place] fibrillation. Hold xeralto will the platelets are above 50 K Code Visit Inpatient E&M: 73780 Init Hosp L3
[2017-05-30] MEDS: fentaNYL 25 MCG Patch TRANSDERM. (14:20)
[2017-05-31] VITALS (9 sets, daily range): BP systolic 117–159; BP diastolic 63–94; PULSE 74–137; RESP 18–20; TEMP 36.6–37; O2SAT 94–99
[2017-05-31] MEDS: guaiFENesin 10 ML UDC (200MG/10ML) PO ×2 (01:58→08:23)
[2017-05-31] MEDS: 0.9% NaCl PICC Flush IV ×5 (05:19→16:32)
[2017-05-31] MEDS: 0.9% Normal Saline 1,000 ML 125 ML IV ×3 (05:25→21:53)
[2017-05-31 06:11] LABS: Anion Gap 7 (5-15); BUN 15 mg/dL (7-18); BUN/Creat Ratio 25.6 RATIO (10-20); Calcium,Total 7.5 mg/dL (8.5-10.1); Chloride 108 mmol/L (98-107); Creatinine, Serum 0.58 mg/dL (0.55-1.02); EST Glomerular Filtration Rate 110 mL/min (>60); Est Glom Filt Rate - Afr Amer 133 mL/min (>60); Estimated Creatinine Clearance 97.55 ml/min; Glucose 95 mg/dL (70-110); Potassium 3.4 mmol/L (3.5-5.1); Sodium Level 142 mmol/L (136-145)
[2017-05-31 06:14] LABS: Absolute Lymphocyte Count 0.11 X10^3/ul (0.83-4.51); Absolute Neutrophil Count 0.1 X10^3/uL (2.0-7.7); Basophil# 0.01 X10^3/uL; Eosinophil# 0.01 X10^3/uL; Hematocrit 21.2 % (37-47); Hemoglobin 7.1 g/dl (12.0-15.0); Lymphocyte # 0.11 X10^3/ul (4.0); Mean Corp Hgb Conc 33.5 g/gl (32-36); Mean Corpuscular Hgb 29.6 pg (27.0-32.0); Mean Corpuscular Volume 88.3 fL (81-99); Mean Platelet Vol. 9.8 fl (6.2-12.0); Monocyte# 0.06 X10^3/uL; Neutrophil # 0.06 X10^3/uL (2.7-7.7); RBC Distribution Width CV 15.3 % (11.6-14.6); RBC Distribution Width SD 47.2 fl (35.1-43.9)
[2017-05-31 06:32] LABS: Differential Indicated SCAN CRITERIA MET; POSITIVE COUNT YES; POSITIVE DIFFERENTIAL YES; POSITIVE MORPHOLOGY YES; Platelet Count 30 K/mm3 (150-450); White Blood Count 0.3 K/mm3 (4.4-11.0)
[2017-05-31 06:51] LABS: Differential Comment SCANNED
[2017-05-31] MEDS: BENZOCAINE/MENTHOL 1 LOZENGE 2 LOZENGE MUCOUS MEM (08:20)
[2017-05-31] MEDS: Atenolol 25 MG Tablet PO (08:22)
[2017-05-31] MEDS: Sertraline 50 MG Tablet 25 MG PO (08:22)
[2017-05-31] MEDS: Lisinopril 20 MG Tablet PO (08:22)
[2017-05-31] MEDS: Ondansetron 4 MG/2 ML Vial IV (08:23)
--- NOTE | 2017-05-31 09:53 | RAD_ITS ---
STUDY: X-RAY CHEST REASON FOR EXAM: Female, 66 years old. Cough. Neutropenic fever and anemia. TECHNIQUE: AP and lateral views of the chest. COMPARISON: Comparison is made with prior study dated May 29, 2017. FINDINGS: A right-sided PICC line catheter is in situ. The tip is at the junction of superior vena cava and right atrium. Hyperinflation. No acute infiltration is seen. Blunting of both cause phrenic angles posteriorly. Normal size heart. Normal mediastinum and tj. Normal visualized pulmonary arteries. Normal visualized aortic arch and descending thoracic aorta. Normal visualized thoracic spine. There is degenerative osteoarthritis of the bilateral shoulders. There is no demonstrated abnormality of the visualized soft tissue structures of the upper abdomen. RAD/Chest PA and Lateral IMPRESSION: Hyperinflation. No acute infiltrate is seen. Electronically Signed: Parminder Riggs MD at 10:30 EST Tel [phone], Service support ,
[2017-05-31] MEDS: Acetaminophen 650 MG/20 ML UDC PO (10:39)
[2017-05-31] MEDS: TBO-FILGRASTIM 480 MCG/0.8 ML ML SC (10:40)
--- NOTE | 2017-05-31 13:05 | PCM.PROGNOTE ---
Patient Problems: Active and Suspected Problems COPD (chronic obstructive pulmonary disease) (Acute) Subjective: Urinary discomfort continues. Pt also coughed up some yellow mucus this AM. No fevers or chills. Overall she feels better. No dizziness or LH. No diarrhea, no vomiting. Still some nausea. Still with painful swallowing. Passed swallow eval. - Physical Exam General: Alert, Oriented x3, Cooperative HEENT: Atraumatic, PERRLA, EOMI, Normocephalic Neck: Supple, No JVD, Negative Carotid Bruits Lungs: Clear to auscultation, Normal air movement, Wheezes - there is a wheeze over the LSB anteriorly, clear throughout rest of lungs. Cardiovascular: Regular rate, No murmurs Abdomen: Bowel Sounds Present, Soft, Non Tender Extremities: No edema, Capillary Refill Less than 3 Seconds Skin: No rashes, No breakdown Musculoskeletal: No Tenderness to Palpation of Joints or Extremities Neurological: Cranial nerves II-XII grossly intact Psych/Mental Status: Normal Affect, Appropriate Vital Signs Temp Pulse Resp BP Pulse Ox 98.2 F 110 H 20 H 150/63 H 94 05/31/17 08:09 05/31/17 08:09 05/31/17 08:09 05/31/17 08:09 05/31/17 08:09 Oxygen Delivery Method Room Air Weight: 76.2 kg Body Mass Index (BMI) 25.5 Intake and Output for Last 24 Hours 05/29/17 05/30/17 05/31/17 23:59 23:59 23:59 Intake Total 400 / 400 3548 / 3548 1681 / 1681 Output Total 575 / 575 400 / 400 Balance 400 / 400 2973 / 2973 1281 / 1281 Laboratory Tests Past 24 Hrs 05/31/17 05/31/17 05:25 05:25 WBC 0.3 L* RBC 2.40 L Hgb 7.1 L Hct 21.2 L MCV 88.3 MCH 29.6 MCHC 33.5 RDW 15.3 H RDW Differential 47.2 H Plt Count 30 L* MPV 9.8 Immature Gran % (Auto) 0.000 Neut % (Auto) 24.0 L Lymph % (Auto) 44.0 H [place] % (Auto) 24.0 H Eos % (Auto) 4.0 Baso % (Auto) 4.0 H Absolute Neuts (auto) 0.1 L Absolute Lymphs (auto) 0.11 L Total Counted Not Reportable Differential Comment SCANNED Diff Path Review August foll Sodium 142 Potassium 3.4 L Chloride 108 H Carbon Dioxide 27.0 Anion Gap 7 BUN 15 Creatinine 0.58 Estim Creat Clear Calc 97.55 Est GFR (MDRD) Af Amer 133 Est GFR (MDRD) Non-Af 110 BUN/Creatinine Ratio 25.6 H Glucose 95 Calcium 7.5 L Assessment/Plan Active and Suspected Problems COPD (chronic obstructive pulmonary disease) (Acute) 1. Neutropenic fever - 2/2 chemo/radiation from [place] lung cancer - Now afebrile. pt of Dr. Soto - consulted. meropenem. Check urine culture, UA+, + dysuria, however her urine culture has no growth. She has a cough but negative XR, wheezy on exam. No further vomiting or diarrhea. LA negative. -WBC 0.3, abs neuts back to 0.1 -Repeat CXR. 2. Pancytopenia - granix, s/p platelets and 2 units prbc WBCs/Neuts without significant change. Hgb 6.0-7.7 Plt 16-40-30 3. COPD - respiratory status stable. duonebs, IS, defer steroids. No O2 requirement currently. 4. Hypokalemia, hypophosphatemia, hypomagnesemia - repleted 5. 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 improved with bmx 6. GERD - home meds 7. PAF - rate controlled, not in fib on monitor. Hold Xarelto with marked anemia/thrombocytopenia. She was changed to atenolol as it is a smaller and easier to swallow. 8. HTN - stable DVT ppx : SCDs, chemoppx contraindicated DC planning: PTOTST This patient was seen by Khris Church PA-C under the supervision of Doctor Alexandra
--- NOTE | 2017-05-31 14:16 | EKG12_ITS ---
Test Reason : CONVERTED TO NSR Blood Pressure : / mmHG Vent. Rate : 074 BPM Atrial Rate : 074 BPM P-R Int : 136 ms QRS Dur : 084 ms QT Int : 410 ms P-R-T Axes : 062 048 068 degrees QTc Int : 455 ms Normal sinus rhythm Normal ECG When compared with ECG of 31-MAY-2017 14:35, MANUAL COMPARISON REQUIRED, DATA IS UNCONFIRMED Confirmed by GUZMAN WEATHERS ([id number]), editor producer LILLIANA CALVO ([id number]) on 06/03/2017 12:03:50 PM Referred By: JACQUELINE Confirmed By:GUZMAN WEATHERS
[2017-05-31 15:49] LABS: Magnesium 1.7 mg/dL (1.6-2.6)
--- NOTE | 2017-05-31 16:15 | ECHOD_ITS ---
Reason For Study: AFIB/FLUTTER Procedure This was a 2D Doppler, Color Flow transthoracic echocardiogram. The exam was of poor technical quality due to diminished acoustic windows. The study was technically difficult. Exam performed portable in patient room. Left Ventricle Normal LV size. Apical false tendon noted. Left ventricular systolic function is normal. The estimated ejection fraction is 55 %. No regional wall motion abnormalities noted. Right Ventricle Normal RV size. Normal systolic function. Atria The left atrium is mildly enlarged. Normal right atrium. Aneurysmal atrial septum. No doppler evidence for ASD. Bubble contrast study negative for right to left interatrial shunt. Mitral Valve There is mild mitral annular calcification. Anterior leaflet diffuse mitral valve thickening. Mild- Moderate (1-2+) mitral valve insufficiency. Tricuspid Valve Normal tricuspid valve. Trivial tricuspid valve insufficiency. Right ventricular systolic pressure estimated to be 28 mmHg. Aortic Valve The aortic valve is not well visualized. Pulmonic Valve The pulmonic valve is not well visualized. Great Vessels The aortic root is not well visualized. Pericardium/Pleural No pericardial effusion. Medication Performed a rapid injection of agitated mix of 9 cc saline and 1cc air to assess for atrial septal defect. MMode/2D Measurements & Calculations LVIDd: 5.9 cm IVSd: 1.0 cm LA dimension: 3.6 cm LVIDs: 4.2 cm LVPWd: 1.1 cm RVDd: 2.8 cm FS: 27.6 % LAV(MOD-bp): 77.6 ml LA A4 area: 20.8 cm2 RA A4 area: 19.4 cm2 LAV(MOD-sp2): 86.5 ml LAV(MOD-sp4): 60.1 ml Doppler Measurements & Calculations MV E max butch: 119.5 cm/sec Lat Peak E' Butch: 10.3 cm/sec Med Peak E' Butch: 10.9 cm/sec MV A max butch: 102.9 cm/sec E/E' lat: 11.6 E/E' med: 11.0 MV E/A: 1.2 Ao V2 max: 146.1 cm/sec LV V1 max: 97.1 cm/sec PA V2 max: 100.1 cm/sec Ao max P.5 mmHg LV V1 max P.8 mmHg TR max butch: 248.6 cm/sec TR max P.9 mmHg Interpretation Summary The study was technically difficult. Left ventricular systolic function is normal. The estimated ejection fraction is 55 %. Apical false tendon noted. The left atrium is mildly enlarged. Aneurysmal atrial septum. There is mild mitral annular calcification. Anterior leaflet diffuse mitral valve thickening. Mild-Moderate (1-2+) mitral valve insufficiency. Trivial tricuspid valve insufficiency. Right ventricular systolic pressure estimated to be 28 mmHg. Bubble contrast study negative for right to left interatrial shunt. Ordering Physician: Sandra Alexandra Referring Physician: Rashad Soto Performed By: Ana Zaragoza RDCS, RVT
[2017-05-31] MEDS: dilTIAZem 25 MG/5 ML Vial 20 MG IV BOLUS (16:30)
[2017-05-31 16:45] LABS: Thyroid Stim Hormone (TSH) 1.03 uIU/mL (0.358-3.74)
--- NOTE | 2017-05-31 17:39 | EKG12_ITS ---
Test Reason : TACHY Blood Pressure : / mmHG Vent. Rate : 129 BPM Atrial Rate : 138 BPM P-R Int : 000 ms QRS Dur : 082 ms QT Int : 328 ms P-R-T Axes : 000 050 051 degrees QTc Int : 480 ms Atrial fibrillation Abnormal ECG Confirmed by BRITNEY HOUSE, LINO ([id number]), desk editor LILLIANA CALVO ([id number] on 06/09/2017 2:33:34 PM Referred By: REINA Confirmed By:LINO TAN MD
[2017-06-01] VITALS (19 sets, daily range): BP systolic 135–180; BP diastolic 47–99; PULSE 72–140; RESP 16–20; TEMP 36.4–37.3; O2SAT 95–100
[2017-06-01 06:13] LABS: Anion Gap 5 (5-15); BUN 13 mg/dL (7-18); BUN/Creat Ratio 23.8 RATIO (10-20); Calcium,Total 7.7 mg/dL (8.5-10.1); Chloride 112 mmol/L (98-107); Creatinine, Serum 0.55 mg/dL (0.55-1.02); EST Glomerular Filtration Rate 119 mL/min (>60); Est Glom Filt Rate - Afr Amer 144 mL/min (>60); Estimated Creatinine Clearance 102.87 ml/min; Glucose 101 mg/dL (70-110); Potassium 3.4 mmol/L (3.5-5.1); Sodium Level 145 mmol/L (136-145)
[2017-06-01] MEDS: 0.9% NaCl PICC Flush IV ×4 (06:16→22:47)
[2017-06-01] MEDS: 0.9% Normal Saline 1,000 ML 125 ML IV ×3 (06:16→22:46)
[2017-06-01 06:19] LABS: Absolute Lymphocyte Count 0.12 X10^3/ul (0.83-4.51); Absolute Neutrophil Count 0.1 X10^3/uL (2.0-7.7); Eosinophil# 0.01 X10^3/uL; Eosinophils% 2.9 % (0-5); Hematocrit 21.3 % (37-47); Lymphocyte # 0.12 X10^3/ul (4.0); Lymphocyte % 35.3 % (19-41); Mean Corp Hgb Conc 32.9 g/gl (32-36); Mean Corpuscular Hgb 29.2 pg (27.0-32.0); Mean Corpuscular Volume 88.8 fL (81-99); Mean Platelet Vol. 10.2 fl (6.2-12.0); Monocyte# 0.12 X10^3/uL; Monocyte% 35.3 % (0-10); Neutrophil # 0.09 X10^3/uL (2.7-7.7); Neutrophil % 26.5 % (47-70); RBC Distribution Width CV 15.3 % (11.6-14.6); RBC Distribution Width SD 48.1 fl (35.1-43.9)
[2017-06-01 06:30] LABS: Platelet Count 23 K/mm3 (150-450); White Blood Count 0.3 K/mm3 (4.4-11.0)
[2017-06-01 06:31] LABS: Differential Indicated SCAN CRITERIA MET; POSITIVE COUNT YES; POSITIVE DIFFERENTIAL YES; POSITIVE MORPHOLOGY YES
[2017-06-01 07:05] LABS: Differential Comment SCAN; Platelet Estimate MKD DEC (ADEQ)
[2017-06-01 09:48] LABS: Pathologist Review Reviewed
[2017-06-01] MEDS: Lisinopril 20 MG Tablet PO (09:48)
[2017-06-01] MEDS: Atenolol 25 MG Tablet PO (09:49)
[2017-06-01] MEDS: Sertraline 50 MG Tablet 25 MG PO (09:50)
[2017-06-01 09:52] LABS: Pathologist Review Reviewed
[2017-06-01 10:03] LABS: Pathologist Review Reviewed
--- NOTE | 2017-06-01 11:45 | NURSING ---
Pt ambulated to the bathroom to wipe down with a back pack. She laid back down in bed after wiping down and then vomited and said That was too much for one day.
[2017-06-01] MEDS: TBO-FILGRASTIM 480 MCG/0.8 ML ML SC (12:42)
--- NOTE | 2017-06-01 13:16 | CASEMGMT ---
READMISSION NOTE: Patient was previously admitted on 05/07/17 - 05/10/17 for neutropenic fever. 05/29/17: Patient admitted with neutropenic fever, anemia and thrombocytopenia. No change in demographics, care providers, pharmacy. Patient states she wears oxygen at home with a rate of 2-3 lpm. Patient denies HHS and DME needs. Patient states she does not yet have a living will/poa but that she has set up arrangements to begin planning. Disposition Plan: Patient states she would like to return home with support of family. RN CM will need to continue to follow for transition needs.
--- NOTE | 2017-06-01 14:22 | PCM.PROGNOTE ---
Patient Problems: Active and Suspected Problems Neutropenic fever (Acute) COPD (chronic obstructive pulmonary disease) (Acute) Subjective: Patient still complain of esophagitis pain with swallowing. So has nausea, but no diarrhea. No fever since admission. Blood cultures & urine culture also negative. No clinical bleeding despite thrombocytopenia - Physical Exam General: Alert, Oriented x3 HEENT: Atraumatic, PERRLA, EOMI Oral: Moist Mucosa, No Gingival or Mucosal Lesions/ Ulcerations, - - no thrush Neck: Supple, No JVD Lungs: Clear to auscultation Cardiovascular: Regular rate, Regular Rhythm Abdomen: Bowel Sounds Present, Soft, Non Tender, Non-Distended Extremities: No clubbing, No cyanosis, No edema Skin: No rashes Lymphatic: No Cervical, Supraclavicular, or Inguinal Adenopathy Neurological: Neuro grossly intact Vital Signs Temp Pulse Resp BP Pulse Ox 98.4 F 72 16 159/88 H 97 06/01/17 13:03 06/01/17 13:03 06/01/17 13:03 06/01/17 13:03 06/01/17 13:03 Oxygen Flow Rate 3 Oxygen Delivery Method Room Air Weight: 167 lb 15.876 oz Body Mass Index (BMI) 25.5 Intake and Output for Last 24 Hours 05/30/17 05/31/17 06/01/17 23:59 23:59 23:59 Intake Total 3548 / 3548 4637 / 4637 1160 / 1160 Output Total 575 / 575 700 / 700 350 / 350 Balance 2973 / 2973 3937 / 3937 810 / 810 Laboratory Tests Past 24 Hrs 05/30/17 05/31/17 05/31/17 06:40 05:25 05:25 WBC RBC Hgb Hct MCV MCH MCHC RDW RDW Differential Plt Count MPV Immature Gran % (Auto) Neut % (Auto) Lymph % (Auto) [place] % (Auto) Eos % (Auto) Baso % (Auto) Absolute Neuts (auto) Absolute Lymphs (auto) Total Counted Differential Comment Diff Path Review Reviewed Reviewed Platelet Estimate Sodium Potassium Chloride Carbon Dioxide Anion Gap BUN Creatinine Estim Creat Clear Calc Est GFR (MDRD) Af Amer Est GFR (MDRD) Non-Af BUN/Creatinine Ratio Glucose Calcium Magnesium 1.7 TSH 05/31/17 06/01/17 06/01/17 05:25 05:45 05:45 WBC 0.3 L* RBC 2.40 L Hgb 7.0 L Hct 21.3 L MCV 88.8 MCH 29.2 MCHC 32.9 RDW 15.3 H RDW Differential 48.1 H Plt Count 23 L* MPV 10.2 Immature Gran % (Auto) 0.000 Neut % (Auto) 26.5 L Lymph % (Auto) 35.3 [place] % (Auto) 35.3 H Eos % (Auto) 2.9 Baso % (Auto) 0.0 Absolute Neuts (auto) 0.1 L Absolute Lymphs (auto) 0.12 L Total Counted Not Reportable Differential Comment SCAN Diff Path Review May foll Platelet Estimate MKD DEC Sodium 145 Potassium 3.4 L Chloride 112 H Carbon Dioxide 28.0 Anion Gap 5 BUN 13 Creatinine 0.55 Estim Creat Clear Calc 102.87 Est GFR (MDRD) Af Amer 144 Est GFR (MDRD) Non-Af 119 BUN/Creatinine Ratio 23.8 H Glucose 101 Calcium 7.7 L Magnesium TSH 1.03 Assessment/Plan Active and Suspected Problems Neutropenic fever (Acute) COPD (chronic obstructive pulmonary disease) (Acute) 1) neutropenic fever- afebrile on broad-spectrum antibiotics. - Cultures are negative so far. Plan: - Continue antibiotics & G-CSF - Monitor CBC 2) pancytopenia secondary to chemotherapy & XRT for limited small cell lung cancer Plan: - Blood transfusion today for symptomatic anemia - Give platelet transfusion if platelet < 10,000 or for clinical bleeding 3) esophagitis secondary to chemotherapy and radiation Plan: - Continue morphine & Carafate suspension - BMX suspension when necessary - Nutrition consult 4) small cell lung cancer status post chemotherapy and radiation - Hypokalemia secondary to chemotherapy Plan: - Replace potassium - Follow-up with Dr. Soto next week.
[2017-06-01] MEDS: Ondansetron 4 MG/2 ML Vial IV (15:30)
[2017-06-01 16:47] LABS: Pathologist Review Reviewed
--- NOTE | 2017-06-01 16:51 | PN_ITS ---
Patient Problems: Active and Suspected Problems Neutropenic fever (Acute) COPD (chronic obstructive pulmonary disease) (Acute) Subjective: Patient continues to have the difficulty swallowing pills and refused her potassium this morning spite offering to grind it up. She has significant pain with swallowing of anything at this point. She is coughing up some mucus still today. No shortness of breath. No fevers or chills. She did have an episode of nausea and vomiting this morning as well. No blood reported. No diarrhea. She still reports that overall she feels somewhat better. - Physical Exam General: Alert, Oriented x3, Cooperative HEENT: Atraumatic, PERRLA, EOMI, Normocephalic Neck: Supple, No JVD, Negative Carotid Bruits Lungs: Clear to auscultation, Normal air movement Cardiovascular: Regular rate, No murmurs Abdomen: Bowel Sounds Present, Soft, Non Tender Extremities: No edema, Capillary Refill Less than 3 Seconds Skin: No rashes, No breakdown Musculoskeletal: No Tenderness to Palpation of Joints or Extremities Neurological: Cranial nerves II-XII grossly intact Psych/Mental Status: Normal Affect, Appropriate, Alert and oriented to time, place, person, mood and affect Vital Signs Temp Pulse Resp BP Pulse Ox 98.9 F 85 16 170/90 H 96 06/01/17 15:18 06/01/17 15:18 06/01/17 15:18 06/01/17 15:18 06/01/17 15:18 Oxygen Flow Rate 3 Oxygen Delivery Method Room Air Weight: 76.2 kg Body Mass Index (BMI) 25.5 Intake and Output for Last 24 Hours 05/30/17 05/31/17 06/01/17 23:59 23:59 23:59 Intake Total 3548 / 3548 4637 / 4637 2433 / 2433 Output Total 575 / 575 700 / 700 350 / 350 Balance 2973 / 2973 3937 / 3937 2083 / 2083 Laboratory Tests Past 24 Hrs 05/30/17 05/31/17 05/31/17 06:40 05:25 05:25 WBC RBC Hgb Hct MCV MCH MCHC RDW RDW Differential Plt Count MPV Immature Gran % (Auto) Neut % (Auto) Lymph % (Auto) [place] % (Auto) Eos % (Auto) Baso % (Auto) Absolute Neuts (auto) Absolute Lymphs (auto) Total Counted Differential Comment Diff Path Review Reviewed Reviewed Platelet Estimate Sodium Potassium Chloride Carbon Dioxide Anion Gap BUN Creatinine Estim Creat Clear Calc Est GFR (MDRD) Af Amer Est GFR (MDRD) Non-Af BUN/Creatinine Ratio Glucose Calcium TSH 1.03 06/01/17 06/01/17 05:45 05:45 WBC 0.3 L* RBC 2.40 L Hgb 7.0 L Hct 21.3 L MCV 88.8 MCH 29.2 MCHC 32.9 RDW 15.3 H RDW Differential 48.1 H Plt Count 23 L* MPV 10.2 Immature Gran % (Auto) 0.000 Neut % (Auto) 26.5 L Lymph % (Auto) 35.3 [place] % (Auto) 35.3 H Eos % (Auto) 2.9 Baso % (Auto) 0.0 Absolute Neuts (auto) 0.1 L Absolute Lymphs (auto) 0.12 L Total Counted Not Reportable Differential Comment SCAN Diff Path Review May foll Platelet Estimate MKD DEC Sodium 145 Potassium 3.4 L Chloride 112 H Carbon Dioxide 28.0 Anion Gap 5 BUN 13 Creatinine 0.55 Estim Creat Clear Calc 102.87 Est GFR (MDRD) Af Amer 144 Est GFR (MDRD) Non-Af 119 BUN/Creatinine Ratio 23.8 H Glucose 101 Calcium 7.7 L TSH Assessment/Plan Active and Suspected Problems Neutropenic fever (Acute) COPD (chronic obstructive pulmonary disease) (Acute) 1. Neutropenic fever - 2/2 chemo/radiation from [place] lung cancer - Now afebrile. pt of Dr. Soto - Dr. Mays following. meropenem will be discontinued as her cultures are all negative at this point and she will be transitioned to levaquin. She has a cough but negative XR. She has some crackles in her right base but her repeat XR remains negative - suspect some atelectasis. Some vomiting today. -If she does not tolerate the PO levaquin she may need placed on liquid antibiotics. If this is the case will plan to discuss with the pharmacist in the AM. -WBC 0.3, abs neuts back to 0.1 -Repeat CXR negative 2. Pancytopenia - granix, s/p platelets and 2 units prbc, followed by another 1 unit transfused today. Per discussion with Dr. Mays today, her platelet platelets should increase on their own and currently there is no need for transfusing more platelets, however if they continue to drop there is a concern that she may be having esophageal bleeding. WBCs/Neuts without significant change. Hgb 7.0 - transfuse 1 unit prbc Plt 16-40-30-23 3. PAF/AF with RVR - patient transferred to PCU yesterday for AF with RVR treated with diltiazem bolus. Now NSR, atenolol increased. Hold Xarelto with marked anemia/thrombocytopenia. She was changed to atenolol as it is a smaller and easier to swallow. 4. COPD - respiratory status stable. duonebs, IS, defer steroids. No O2 requirement currently. 5. Hypokalemia, hypophosphatemia, hypomagnesemia - pt refused potassium today. Will need liquid potassium. 6. 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 improved with bmx, however remains significant. Monitor for bleeding. 7. GERD - home meds 8. HTN - remains elevated. Start low dose norvasc. DVT ppx : SCDs, chemoppx contraindicated DC planning: PTOTST This patient was seen by Khris Church PA-C under the supervision of Doctor Alexandra
--- NOTE | 2017-06-01 18:20 | NURSING ---
REVIEWED Shamir GUTIERREZ'S CHARTING.
[2017-06-01] MEDS: guaiFENesin 10 ML UDC (200MG/10ML) PO (19:47)
--- NOTE | 2017-06-01 21:02 | EKG12_ITS ---
Test Reason : RHYTHM CHANGE Blood Pressure : / mmHG Vent. Rate : 142 BPM Atrial Rate : 125 BPM P-R Int : 000 ms QRS Dur : 082 ms QT Int : 322 ms P-R-T Axes : 000 068 029 degrees QTc Int : 495 ms Atrial fibrillation Nonspecific ST and T wave abnormality Abnormal ECG When compared with ECG of 31-MAY-2017 17:24, MANUAL COMPARISON REQUIRED, DATA IS UNCONFIRMED Confirmed by TOYIN HOUSE, LINETTE ([id number]), newspaper or periodical editor LILLIANA CALVO ([id number]) on 06/08/2017 8:55:26 AM Referred By: VIVIAN Confirmed By:LINETTE DEAL MD
[2017-06-01] MEDS: dilTIAZem 25 MG/5 ML Vial 20 MG IV BOLUS (22:46)
[2017-06-02] VITALS (33 sets, daily range): BP systolic 116–165; BP diastolic 64–120; PULSE 64–125; RESP 14–21; TEMP 36.4–36.9; O2SAT 95–100; BMI 25.5
--- NOTE | 2017-06-02 | EKG12_ITS ---
Test Reason : RHYTHM Blood Pressure : / mmHG Vent. Rate : 069 BPM Atrial Rate : 069 BPM P-R Int : 144 ms QRS Dur : 080 ms QT Int : 432 ms P-R-T Axes : 081 063 081 degrees QTc Int : 462 ms Normal sinus rhythm Normal ECG When compared with ECG of 02-JUN-2017 00:43, MANUAL COMPARISON REQUIRED, DATA IS UNCONFIRMED Confirmed by TOYIN HOUSE, LINETTE ([id number]), development editor LILLIANA CALVO ([id number]) on 06/08/2017 8:48:22 AM Referred By: VIVIAN Confirmed By:LINETTE DEAL MD
[2017-06-02 06:11] LABS: Absolute Lymphocyte Count 0.16 X10^3/ul (0.83-4.51); Absolute Neutrophil Count 0.3 X10^3/uL (2.0-7.7); Eosinophil# 0.01 X10^3/uL; Eosinophils% 1.2 % (0-5); Hematocrit 22.8 % (37-47); Hemoglobin 7.7 g/dl (12.0-15.0); Lymphocyte # 0.16 X10^3/ul (4.0); Lymphocyte % 19.5 % (19-41); Mean Corp Hgb Conc 33.8 g/gl (32-36); Mean Corpuscular Hgb 29.5 pg (27.0-32.0); Mean Corpuscular Volume 87.4 fL (81-99); Monocyte# 0.22 X10^3/uL; Monocyte% 26.8 % (0-10); Neutrophil # 0.33 X10^3/uL (2.7-7.7); Neutrophil % 40.3 % (47-70); RBC Distribution Width CV 15.2 % (11.6-14.6); RBC Distribution Width SD 46.3 fl (35.1-43.9); Red Blood Count 2.61 M/mm3 (4.2-5.4)
[2017-06-02 06:14] LABS: Differential Indicated SCAN CRITERIA MET; POSITIVE COUNT YES; POSITIVE DIFFERENTIAL YES; POSITIVE MORPHOLOGY YES; Platelet Count 15 K/mm3 (150-450); White Blood Count 0.8 K/mm3 (4.4-11.0)
[2017-06-02] MEDS: levoFLOXacin 750 MG Tablet PO (06:33)
[2017-06-02] MEDS: 0.9% Normal Saline 1,000 ML 125 ML IV ×3 (06:33→23:22)
[2017-06-02] MEDS: dilTIAZem 25 MG/5 ML Vial 10 MG IV BOLUS (06:33)
[2017-06-02] MEDS: 0.9% NaCl PICC Flush IV ×3 (06:35→17:07)
[2017-06-02 06:46] LABS: Anion Gap 6 (5-15); BUN 10 mg/dL (7-18); BUN/Creat Ratio 22.7 RATIO (10-20); Calcium,Total 7.5 mg/dL (8.5-10.1); Chloride 110 mmol/L (98-107); Creatinine, Serum 0.44 mg/dL (0.55-1.02); EST Glomerular Filtration Rate 152 mL/min (>60); Est Glom Filt Rate - Afr Amer 184 mL/min (>60); Estimated Creatinine Clearance 128.59 ml/min; Glucose 90 mg/dL (70-110); Potassium 2.7 mmol/L (3.5-5.1); Sodium Level 144 mmol/L (136-145)
[2017-06-02 06:57] LABS: Differential Comment SCAN; Platelet Estimate MKD DEC (ADEQ)
--- NOTE | 2017-06-02 09:03 | EKG12_ITS ---
Test Reason : RYTHYM CHANGE Blood Pressure : / mmHG Vent. Rate : 088 BPM Atrial Rate : 088 BPM P-R Int : 150 ms QRS Dur : 086 ms QT Int : 390 ms P-R-T Axes : 077 052 066 degrees QTc Int : 471 ms Normal sinus rhythm Normal ECG When compared with ECG of 01-JUN-2017 21:28, MANUAL COMPARISON REQUIRED, DATA IS UNCONFIRMED Confirmed by TOYIN HOUSE, LINETTE ([id number]), supervising editor trailer LILLIANA CALVO ([id number]) on 06/08/2017 8:47:25 AM Referred By: VIVIAN Confirmed By:LINETTE DEAL MD
[2017-06-02] MEDS: Atenolol 50 MG Tablet PO (09:26)
[2017-06-02] MEDS: amLODIPine 2.5 MG Tablet PO (09:26)
[2017-06-02] MEDS: Sertraline 50 MG Tablet 25 MG PO (09:26)
[2017-06-02] MEDS: TBO-FILGRASTIM 480 MCG/0.8 ML ML SC (09:27)
[2017-06-02] MEDS: Lisinopril 20 MG Tablet PO (09:27)
[2017-06-02 09:33] LABS: Magnesium 1.2 mg/dL (1.6-2.6); Phosphorus 1.9 mg/dL (2.5-4.9)
[2017-06-02 10:41] LABS: Pathologist Review Reviewed
[2017-06-02] MEDS: Pantoprazole Sodium 40 MG Tablet PO ×2 (10:47→21:24)
[2017-06-02] MEDS: dilTIAZem CD 120 MG Capsule PO (10:47)
--- NOTE | 2017-06-02 13:55 | PCM.CONS.C ---
Problem List (1) Small cell lung cancer Status: Chronic (2) Afib Status: Chronic (3) HTN (hypertension) Status: Chronic Reason for Consult Date of Consultation: 06/02/17 Reason for Consultation: Paroxysmal atrial fibrillation, non-small cell lung cancer, hypertension History of Present Illness: The patient is a 66 year old F, who presented in March 2017 with palpitations and was found to be in atrial fibrillation. At that time she was also found to have newly discovered small lung cancer, and has undergone x-ray therapy and completed that phase of her treatment. She is currently undergoing chemotherapy and is undergone 9 days so far and has approximately 3 days to go. Patient is keenly aware when she goes in and out of atrial fibrillation. In addition the patient is a previous smoker of approximately 1-1/2 packs per day for the past 40 years, nondiabetic, positive for hypertension. To her knowledge she has never had a stress test or a catheterization. Patient is recently been admitted for neutropenic fever after she developed a fever of 101 with an unknown source. She was found while being admitted to have paroxysmal atrial fibrillation requiring intermittent doses of IV Cardizem therapy. She is currently in normal sinus rhythm. Her EKG during atrial fibrillation showed atrial fibrillation with rapid ventricular response, nonspecific ST and T-wave changes, no ST elevation noted. Patient underwent an echocardiogram on 06/01/17 which showed an EF of 55-60%, mild to moderate mitral regurgitation, RVSP of 20 mmHg, with a negative bubble study. The patient also was found to be significantly anemic, thrombocytopenic, hypokalemic, and hypomagnesemic. It appears that her atrial fibrillation occurs when she has low potassium and low magnesium. [] Past Medical History Allergies/Adverse Reactions: Allergies oxycodone Adverse Reaction (Verified 05/26/17 12:51) Vomiting Home Medications: Ambulatory Orders Medication Instructions Recorded Ondansetron [Zofran Odt] 4 mg PO Q8H PRN PRN #10 tablet 06/13/16 Fluticasone 0.05% [Flonase Nasal 2 spray NASAL DAILY PRN PRN 05/05/17 [place]] Lisinopril 20 mg PO DAILY 05/05/17 Metoprolol Succinate [Toprol Xl] 75 mg PO DAILY 05/05/17 Omeprazole [Prilosec] 20 mg PO DAILY 05/05/17 Sertraline HCl [Zoloft] 25 mg PO DAILY 05/05/17 Tramadol HCl [Ultram] 50 mg PO Q6H PRN PRN 05/05/17 Triamcinolone 0.025% Cream 1 applic TOPICAL TID 05/05/17 [Kenalog] Mineral Oil/Petrolatum Cr 1 applic TOPICAL 4X/DAY PRN PRN 05/07/17 [Aquaphor] Rivaroxaban [Xarelto] 25 mg PO DAILY 05/29/17 Sucralfate [Carafate] 10 ml PO 4X/DAY 05/30/17 Past Medical History (Chronic Problems): Chronic Problems Small cell lung cancer (Chronic) Pancytopenia (Chronic) Afib (Chronic) HTN (hypertension) (Chronic) GERD (gastroesophageal reflux disease) (Chronic) Surgical History: cholecystectomy, hysterectomy Psychiatric History: No pertinent psych hx 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 INSTRUCTOR history - *Family History Paternal History Items: Diabetes, Heart Disease Maternal History Items: - - RA Lives: Spouse/ Significant Other Smoking Status: Former smoker Tobacco Use: Non-smoker Alcohol: None Drugs: None Review of Systems - Review of Systems General: Reports: Fever, Fatigue, Malaise Cardiovascular: Denies: Chest Discomfort, Shortness of Breath, Orthopnea, PND, Peripheral Edema, Palpitations, Lightheadedness, Dizziness, Near Syncope, Syncope Respiratory: Denies: Cough, Sputum Production, Hemoptysis Gastrointestinal: Denies: Hematemesis, Hematochezia, Melena Genitourinary: Denies: Dysuria, Hematuria Skin: Denies: Rash Subjectve: Patient laying in bed, answers questions appropriately. No acute distress. Objective: Vital Signs Temp Pulse Resp BP Pulse Ox 98.5 F 74 20 H 134/80 H 99 06/02/17 12:10 06/02/17 12:10 06/02/17 12:10 06/02/17 12:10 06/02/17 12:10 Oxygen Flow Rate 2 Oxygen Delivery Method Nasal Cannula Weight: 167 lb 15.876 oz Body Mass Index (BMI) 25.5 Intake and Output for Last 24 Hours 05/31/17 06/01/17 06/02/17 23:59 23:59 23:59 Intake Total 4637 / 4637 4346 / 4346 1951 / 1951 Output Total 700 / 700 800 / 800 600 / 600 Balance 3937 / 3937 3546 / 3546 1352 / 1352 General: Awake, Alert, Oriented x 3 HEENT: PERRL, EOMI, Sclera Non Icteric Neck: Supple, Good ROM, No Lymph Node Enlargement Lungs: Clear to auscultation Cardiovascular: Regular Rhythm, Normal S1, Normal S2, No Rubs, No Gallops Murmur Murmur: Grade 2/6, Holosystolic Vascular: No Carotid Bruits, Normal Femoral Pulses, Normal Radial Pulses, Normal Dorsalis Pedal Pulse, Normal Posterior Tibial Pulses Abdomen: Bowel Sounds Present, Soft, Non Tender, No HSM, No Organomegaly Extremities: No Cyanosis, No Clubbing, No edema Neurological: No Focal Motor or Sensory Deficit 06/02/17 05:55: WBC 0.8 L*, RBC 2.61 L, Hgb 7.7 L, Hct 22.8 L, MCV 87.4, MCH 29.5, MCHC 33.8, RDW 15.2 H, RDW Differential 46.3 H, Plt Count 15 L*, MPV 9.0, Immature Gran % (Auto) 12.200 H, Neut % (Auto) 40.3 L, Lymph % (Auto) 19.5, [place] % (Auto) 26.8 H, Eos % (Auto) 1.2, Baso % (Auto) 0.0, Absolute Neuts (auto) 0.3 L, Total Counted Not Reportable 06/02/17 05:55: Sodium 144, Potassium 2.7 L*, Chloride 110 H, Carbon Dioxide 28.0, Anion Gap 6, BUN 10, Creatinine 0.44 L, Est GFR (MDRD) Af Amer 184, Est GFR (MDRD) Non-Af 152, BUN/Creatinine Ratio 22.7 H, Glucose 90, Calcium 7.5 L 06/02/17 05:55: Phosphorus 1.9 L, Magnesium 1.2 L Rhythm: Currently normal sinus rhythm. EKG: Normal sinus rhythm, normal axis, within normal limits. EKG dated 06/01/17 showed atrial fibrillation with RVR and nonspecific ST and T-wave changes. ECHO: As above Stress Test: Cardiac Cath: PCI: CT Surgery: Holter monitor: EPS: PPM: CXR: Chest CT Scan: Assessment/Plan 1. Paroxysmal atrial fibrillation: The patient has a history of paroxysmal atrial fibrillation which was her original presenting symptoms in March 2017 at which time she was discovered to have small cell lung cancer. Patient is neutropenic from her chemotherapy as well as thrombocytopenic. I would not recommend anticoagulation at this time given her low platelets. Patient appears to oscillate between normal sinus rhythm and atrial fibrillation when she becomes hypomagnesemic and hypokalemic. Recommend keeping her potassium above 4.0 and her magnesium of 2.0 going forward. She may need to postpone her chemotherapy until she has recovered. I would not recommend any further cardiac testing such as stress testing or catheterization at this time. She appears to be responding well to Cardizem, would recommend transitioning her to Cardizem CD 120 mg p.o. daily and titrating up from there. Her TSH appears to be normal at this time. Her echocardiogram shows normal LV function, mild to moderate mitral regurgitation and normal pulmonary pressures. 2. Thank you very much for the opportunity to participate in the cardiac care of your patient. Consultation time took place between 130 and 2:05 PM. Code Visit Inpatient E&M: 92164 Init Hosp L2
--- NOTE | 2017-06-02 14:15 | PN_ITS ---
Patient Problems: Active and Suspected Problems COPD (chronic obstructive pulmonary disease) (Acute) Subjective: Pt continues to have vomiting, significant pain in the throat with any swallowing. She only ate a few bites of soft food yesterday, she did not take her potassium yesterday. Regardless she states she feels slightly better. No fevers or chills. She is still coughing up mucus. She denies noticing any blood or rust colored sputum and has not noticed any blood in her vomitus. No BM yesterday or today. - Physical Exam General: Alert, Oriented x3, Cooperative HEENT: Atraumatic, PERRLA, EOMI, Normocephalic Neck: Supple, No JVD, Negative Carotid Bruits Lungs: Clear to auscultation, Normal air movement Cardiovascular: Regular rate, Regular Rhythm, No murmurs Abdomen: Bowel Sounds Present, Soft, Non Tender Extremities: No edema, Capillary Refill Less than 3 Seconds Skin: No rashes, No breakdown Musculoskeletal: No Tenderness to Palpation of Joints or Extremities Neurological: Cranial nerves II-XII grossly intact Psych/Mental Status: Normal Affect, Appropriate, Alert and oriented to time, place, person, mood and affect Vital Signs Temp Pulse Resp BP Pulse Ox 98.5 F 74 20 H 134/80 H 99 06/02/17 12:10 06/02/17 12:10 06/02/17 12:10 06/02/17 12:10 06/02/17 12:10 Oxygen Flow Rate 2 Oxygen Delivery Method Nasal Cannula Weight: 76.2 kg Body Mass Index (BMI) 25.5 Intake and Output for Last 24 Hours 05/31/17 06/01/17 06/02/17 23:59 23:59 23:59 Intake Total 4637 / 4637 4346 / 4346 1951 / 1951 Output Total 700 / 700 800 / 800 600 / 600 Balance 3937 / 3937 3546 / 3546 1352 / 1352 Laboratory Tests Past 24 Hrs 06/01/17 06/02/17 06/02/17 05:45 05:55 05:55 WBC 0.8 L* RBC 2.61 L Hgb 7.7 L Hct 22.8 L MCV 87.4 MCH 29.5 MCHC 33.8 RDW 15.2 H RDW Differential 46.3 H Plt Count 15 L* MPV 9.0 Immature Gran % (Auto) 12.200 H Neut % (Auto) 40.3 L Lymph % (Auto) 19.5 [place] % (Auto) 26.8 H Eos % (Auto) 1.2 Baso % (Auto) 0.0 Absolute Neuts (auto) 0.3 L Absolute Lymphs (auto) 0.16 L Total Counted Not Reportable Differential Comment SCAN Diff Path Review Reviewed Reviewed Platelet Estimate MKD DEC Sodium 144 Potassium 2.7 L* Chloride 110 H Carbon Dioxide 28.0 Anion Gap 6 BUN 10 Creatinine 0.44 L Estim Creat Clear Calc 128.59 Est GFR (MDRD) Af Amer 184 Est GFR (MDRD) Non-Af 152 BUN/Creatinine Ratio 22.7 H Glucose 90 Calcium 7.5 L Phosphorus Magnesium 06/02/17 05:55 WBC RBC Hgb Hct MCV MCH MCHC RDW RDW Differential Plt Count MPV Immature Gran % (Auto) Neut % (Auto) Lymph % (Auto) [place] % (Auto) Eos % (Auto) Baso % (Auto) Absolute Neuts (auto) Absolute Lymphs (auto) Total Counted Differential Comment Diff Path Review Platelet Estimate Sodium Potassium Chloride Carbon Dioxide Anion Gap BUN Creatinine Estim Creat Clear Calc Est GFR (MDRD) Af Amer Est GFR (MDRD) Non-Af BUN/Creatinine Ratio Glucose Calcium Phosphorus 1.9 L Magnesium 1.2 L Assessment/Plan Active and Suspected Problems COPD (chronic obstructive pulmonary disease) (Acute) 1. Neutropenic fever - 2/2 chemo/radiation from [place] lung cancer - Now afebrile. pt of Dr. Soto - Dr. Mays following. meropenem will be discontinued as her cultures are all negative at this point and she will be transitioned to levaquin. She has a cough but negative XR. She has some crackles in her right base but her repeat XR remains negative - suspect some atelectasis. Continues to vomit and have severe pain and difficulty eating and swallowing pills. -She is not tolerating large pills and cannot swallow the Levaquin. I called the pharmacy and talk to Gigi who did advise that the Levaquin could be crushed however this will probably taste terrible and she has had significant GI upset, we do have liquid Omnicef, Augmentin, and azithromycin we could use instead. Will await oncology recommendation for duration and type of dosing -WBC improved slightly to 0.8, abs neuts 0.3 2. Pancytopenia - granix, s/p platelets and 3 units prbc. Per onc, her platelet platelets should increase on their own and currently there is no need for transfusing more platelets, however if they continue to drop there is a concern that she may be having esophageal bleeding - he has not seen any blood in cough or vomitus. WBCs/Neuts without significant change. Hgb 7.0 - transfuse 1 unit prbc Plt continue to decline to 3. PAF/AF with RVR -initially converted with diltiazem bolus, overnight she developed further A. fib with RVR and was given additional boluses followed by being placed on a Cardizem drip. She then converted on the Cardizem drip her atenolol was discontinued and she was started on oral Cardizem. Will place a consult to cardiology for recommendation going forward. 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 Kerr. 4. COPD - respiratory status stable. duonebs, IS, defer steroids. No O2 requirement currently. 5. Hypokalemia, hypophosphatemia, hypomagnesemia - IV potassium given. Will need PO potassium effervescent if she needs to go home on potassium. Mag and phos are low again so will replete these as well and recheck in AM. She needs to eat more. 6. 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 improved with bmx, however remains significant. Monitor for bleeding. 7. GERD -PPI, Carafate 8. HTN - remains elevated. Start low Norvasc started DVT ppx : SCDs, chemoppx contraindicated DC planning: PTOTST This patient was seen by Khris Church PA-C under the supervision of Doctor Alexandra
[2017-06-02] MEDS: fentaNYL 25 MCG Patch TRANSDERM. (14:29)
--- NOTE | 2017-06-02 14:34 | NURSING ---
FLUSHED OLD [place] PATCH DOWN TOILET. H. DRAKE WITNESS.
--- NOTE | 2017-06-02 17:21 | PCM.PROGNOTE ---
Patient Problems: Active and Suspected Problems COPD (chronic obstructive pulmonary disease) (Acute) Subjective: Patient is slowly improving overall. She still has esophagitis with nausea and pain, able to swallow better today with no active bleeding. - Physical Exam General: Alert, Oriented x3, Cooperative, No apparent distress Oral: Moist Mucosa, No Gingival or Mucosal Lesions/ Ulcerations Neck: Supple, No JVD Lungs: Clear to auscultation, Normal air movement Cardiovascular: Irregular Rate Abdomen: Bowel Sounds Present, Soft, Non Tender, Non-Distended Extremities: No clubbing, No cyanosis, No edema Skin: No rashes Lymphatic: No Cervical, Supraclavicular, or Inguinal Adenopathy Neurological: Neuro grossly intact Psych/Mental Status: Normal Affect Vital Signs Temp Pulse Resp BP Pulse Ox 98.4 F 77 18 148/76 H 99 06/02/17 17:08 06/02/17 17:08 06/02/17 17:08 06/02/17 17:08 06/02/17 17:08 Oxygen Flow Rate 2 Oxygen Delivery Method Nasal Cannula Weight: 167 lb 15.876 oz Body Mass Index (BMI) 25.5 Intake and Output for Last 24 Hours 05/31/17 06/01/17 06/02/17 23:59 23:59 23:59 Intake Total 4637 / 4637 4346 / 4346 2969 / 2969 Output Total 700 / 700 800 / 800 1100 / 1100 Balance 3937 / 3937 3546 / 3546 1869 / 1869 Laboratory Tests Past 24 Hrs 06/02/17 06/02/17 06/02/17 05:55 05:55 05:55 WBC 0.8 L* RBC 2.61 L Hgb 7.7 L Hct 22.8 L MCV 87.4 MCH 29.5 MCHC 33.8 RDW 15.2 H RDW Differential 46.3 H Plt Count 15 L* MPV 9.0 Immature Gran % (Auto) 12.200 H Neut % (Auto) 40.3 L Lymph % (Auto) 19.5 [place] % (Auto) 26.8 H Eos % (Auto) 1.2 Baso % (Auto) 0.0 Absolute Neuts (auto) 0.3 L Absolute Lymphs (auto) 0.16 L Total Counted Not Reportable Differential Comment SCAN Diff Path Review Reviewed Platelet Estimate MKD DEC Sodium 144 Potassium 2.7 L* Chloride 110 H Carbon Dioxide 28.0 Anion Gap 6 BUN 10 Creatinine 0.44 L Estim Creat Clear Calc 128.59 Est GFR (MDRD) Af Amer 184 Est GFR (MDRD) Non-Af 152 BUN/Creatinine Ratio 22.7 H Glucose 90 Calcium 7.5 L Phosphorus 1.9 L Magnesium 1.2 L Assessment/Plan Active and Suspected Problems COPD (chronic obstructive pulmonary disease) (Acute) 1) neutropenic fever- afebrile on broad-spectrum antibiotics. - Cultures are negative so far & WBC improving. Plan: - Continue antibiotics & G-CSF - Monitor CBC 2) pancytopenia secondary to chemotherapy & XRT for limited small cell lung cancer Plan: - Blood and platelet transfusion today 3) esophagitis secondary to chemotherapy and radiation Protein malnutrition. Plan: - Continue Morphine & Carafate suspension - BMX suspension when necessary - Nutrition consult 4) small cell lung cancer status post chemotherapy and radiation - Hypokalemia secondary to chemotherapy Plan: - Replace potassium - Follow-up with Dr. Soto next week.
--- NOTE | 2017-06-02 18:35 | PCM.CONS.GEN ---
Problem List (1) Radiation esophagitis Status: Acute (2) GERD (gastroesophageal reflux disease) Status: Chronic Reason for Consult Date of Consultation: 06/02/17 History of Present Illness: The patient is a 66 year old F who was admitted on May 29, 2017 with neutropenic fever. I have been asked to see this patient by physician child welfare assistant Khris Church for upper endoscopy for suspected radiation esophagitis and upper GI bleed causing progressive anemia and thrombocytopenia. Electronic copy of my surgical consult will be present in the chart. according to the patient she had 3 months of twice daily radiation treatment because of small cell lung cancer. She states that after the first month she complained of significant dysphasia. She states that she was treated with proton pump inhibitors and Carafate with out improvement. She finds it very difficult to swallow. On this presentation she was found to be pancytopenic. This is felt to be secondary to radiation and chemotherapy. The patient has had nausea with some emesis. She says that she has not had hematemesis. I am instructed however that oncology and primary care believe that the patient's worsening thrombocytopenia is secondary to ongoing blood loss and suspected radiation esophagitis with esophageal bleeding. The patient has not had a recent upper endoscopy at least not one since she started the radiation chemotherapy for her lung cancer. In addition she has chronic atrial fibrillation. She is not on anticoagulation due to her severe thrombocytopenia. She has hypertension. She presented with hypokalemia and hypomagnesemia and hypophosphatemia. Today her white blood cell count was 0.8 thousand and her hemoglobin 7.7 and hematocrit 22.8 and platelet count 15,000 Past Medical History Past Medical History (Chronic Problems): Chronic Problems Small cell lung cancer (Chronic) Pancytopenia (Chronic) Afib (Chronic) HTN (hypertension) (Chronic) GERD (gastroesophageal reflux disease) (Chronic) Allergies oxycodone Adverse Reaction (Verified 05/26/17 12:51) Vomiting Home Medications: Ambulatory Orders Medication Instructions Recorded Ondansetron [Zofran Odt] 4 mg PO Q8H PRN PRN #10 tablet 06/13/16 Fluticasone 0.05% [Flonase Nasal 2 spray NASAL DAILY PRN PRN 05/05/17 [place]] Lisinopril 20 mg PO DAILY 05/05/17 Metoprolol Succinate [Toprol Xl] 75 mg PO DAILY 05/05/17 Omeprazole [Prilosec] 20 mg PO DAILY 05/05/17 Sertraline HCl [Zoloft] 25 mg PO DAILY 05/05/17 Tramadol HCl [Ultram] 50 mg PO Q6H PRN PRN 05/05/17 Triamcinolone 0.025% Cream 1 applic TOPICAL TID 05/05/17 [Kenalog] Mineral Oil/Petrolatum Cr 1 applic TOPICAL 4X/DAY PRN PRN 05/07/17 [Aquaphor] Rivaroxaban [Xarelto] 25 mg PO DAILY 05/29/17 Sucralfate [Carafate] 10 ml PO 4X/DAY 05/30/17 Surgical History: cholecystectomy, hysterectomy Psychiatric History: No pertinent psych hx 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 Denies: Hematemesis, Hematochezia Neurological: Denies: Balance problems Patient Problems: Active and Suspected Problems Radiation esophagitis (Acute) COPD (chronic obstructive pulmonary disease) (Acute) - Physical Exam General: Alert, Oriented x3, - - Cachectic HEENT: - - Hair loss noted Lungs: Clear to auscultation Cardiovascular: Irregular Rate Abdomen: Bowel Sounds Present, Soft, Non Tender, Non-Distended Extremities: No Calf Tenderness Neurological: Cranial nerves II-XII grossly intact Psych/Mental Status: Normal Affect Vital Signs Temp Pulse Resp BP Pulse Ox 98.4 F 77 18 148/76 H 99 06/02/17 17:08 06/02/17 17:08 06/02/17 17:08 06/02/17 17:08 06/02/17 17:08 Oxygen Flow Rate 2 Oxygen Delivery Method Nasal Cannula Weight: 167 lb 15.876 oz Body Mass Index (BMI) 25.5 Intake and Output for Last 24 Hours 05/31/17 06/01/17 06/02/17 23:59 23:59 23:59 Intake Total 4637 / 4637 4346 / 4346 2969 / 2969 Output Total 700 / 700 800 / 800 1100 / 1100 Balance 3937 / 3937 3546 / 3546 1869 / 1869 Laboratory Tests Past 24 Hrs 06/02/17 06/02/17 06/02/17 05:55 05:55 05:55 WBC 0.8 L* RBC 2.61 L Hgb 7.7 L Hct 22.8 L MCV 87.4 MCH 29.5 MCHC 33.8 RDW 15.2 H RDW Differential 46.3 H Plt Count 15 L* MPV 9.0 Immature Gran % (Auto) 12.200 H Neut % (Auto) 40.3 L Lymph % (Auto) 19.5 [place] % (Auto) 26.8 H Eos % (Auto) 1.2 Baso % (Auto) 0.0 Absolute Neuts (auto) 0.3 L Absolute Lymphs (auto) 0.16 L Total Counted Not Reportable Differential Comment SCAN Diff Path Review Reviewed Platelet Estimate MKD DEC Sodium 144 Potassium 2.7 L* Chloride 110 H Carbon Dioxide 28.0 Anion Gap 6 BUN 10 Creatinine 0.44 L Estim Creat Clear Calc 128.59 Est GFR (MDRD) Af Amer 184 Est GFR (MDRD) Non-Af 152 BUN/Creatinine Ratio 22.7 H Glucose 90 Calcium 7.5 L Phosphorus 1.9 L Magnesium 1.2 L Blood Type 06/02/17 06/02/17 18:05 18:05 WBC RBC Hgb Hct MCV MCH MCHC RDW RDW Differential Plt Count MPV Immature Gran % (Auto) Neut % (Auto) Lymph % (Auto) [place] % (Auto) Eos % (Auto) Baso % (Auto) Absolute Neuts (auto) Absolute Lymphs (auto) Total Counted Differential Comment Diff Path Review Platelet Estimate Sodium Potassium Chloride Carbon Dioxide Anion Gap BUN Creatinine Estim Creat Clear Calc Est GFR (MDRD) Af Amer Est GFR (MDRD) Non-Af BUN/Creatinine Ratio Glucose Calcium Phosphorus Pending Magnesium Pending Blood Type Pending Assessment/Plan Active and Suspected Problems Radiation esophagitis (Acute) COPD (chronic obstructive pulmonary disease) (Acute) Patient with pancytopenia secondary to chemotherapy and radiation. It sounds like starting after her very first month of radiation treatment that she developed significant dysphasia which is now been ongoing for at least 3 months. There is no hematemesis. The patient since admission has not moved her bowels so it is unlikely that she is having a significant upper GI bleed. It is unlikely that she has bleeding that is perpetuating her thrombocytopenia and much more likely that it is chemotherapy induced. That being said she has not had an upper endoscopy since the onset of her suspected radiation esophagitis. Her current symptoms may be complicated by candidiasis. I believe that it would be reasonable to attempt a diagnostic esophagogastroduodenoscopy. The patient is aware to the technique, benefits, risks, alternatives. She ate beef tips and mashed potatoes today which has been more than she has been able to do recently. Because of her food intake and lack of n.p.o. status I canceled the procedure for today and will reschedule for tomorrow morning. Appreciate the opportunity of assisting with her surgical care Stefan Dominguez M.D., F.A.C.S.
[2017-06-02 18:40] LABS: Phosphorus 1.8 mg/dL (2.5-4.9)
[2017-06-03] VITALS (23 sets, daily range): BP systolic 136–169; BP diastolic 78–94; PULSE 64–118; RESP 16–18; TEMP 35.9–37.6; O2SAT 91–99
[2017-06-03 00:30] LABS: BUN 11 mg/dL (7-18); BUN/Creat Ratio 21.7 RATIO (10-20); Calcium,Total 7.6 mg/dL (8.5-10.1); Chloride 109 mmol/L (98-107); Creatinine, Serum 0.51 mg/dL (0.55-1.02); EST Glomerular Filtration Rate 129 mL/min (>60); Est Glom Filt Rate - Afr Amer 156 mL/min (>60); Estimated Creatinine Clearance 110.94 ml/min; Glucose 112 mg/dL (70-110); Magnesium 1.8 mg/dL (1.6-2.6); Phosphorus 1.6 mg/dL (2.5-4.9); Potassium 3.2 mmol/L (3.5-5.1); Sodium Level 145 mmol/L (136-145)
[2017-06-03 00:31] LABS: Anion Gap 9 (5-15)
[2017-06-03] MEDS: 0.9% NaCl PICC Flush IV ×6 (01:18→14:10)
[2017-06-03 05:30] LABS: Hematocrit 26.4 % (37-47); Mean Corp Hgb Conc 34.1 g/gl (32-36); Mean Corpuscular Hgb 29.9 pg (27.0-32.0); Mean Corpuscular Volume 87.7 fL (81-99); Mean Platelet Vol. 9.7 fl (6.2-12.0); RBC Distribution Width SD 46.1 fl (35.1-43.9); Red Blood Count 3.01 M/mm3 (4.2-5.4); White Blood Count 2.1 K/mm3 (4.4-11.0)
[2017-06-03 05:32] LABS: Differential Indicated MANUAL DIFF; POSITIVE COUNT YES; POSITIVE DIFFERENTIAL YES; POSITIVE MORPHOLOGY YES; Platelet Count 45 K/mm3 (150-450)
[2017-06-03 05:35] LABS: Anion Gap 8 (5-15); BUN 12 mg/dL (7-18); BUN/Creat Ratio 24.5 RATIO (10-20); Calcium,Total 7.6 mg/dL (8.5-10.1); Chloride 109 mmol/L (98-107); Creatinine, Serum 0.49 mg/dL (0.55-1.02); EST Glomerular Filtration Rate 135 mL/min (>60); Est Glom Filt Rate - Afr Amer 163 mL/min (>60); Estimated Creatinine Clearance 115.47 ml/min; Glucose 97 mg/dL (70-110); Potassium 3.2 mmol/L (3.5-5.1); Sodium Level 144 mmol/L (136-145)
[2017-06-03 05:50] LABS: Phosphorus 2.4 mg/dL (2.5-4.9)
[2017-06-03 06:07] LABS: International Normalized Ratio 1.2; Prothrombin Time (Protime)PT. 14.6 SECONDS (11.7-14.9)
[2017-06-03 06:08] LABS: Partial Thromboplast Time 37.5 Seconds (24.1-36.2)
[2017-06-03 06:34] LABS: Eosinophil 2 % (0-5); Lymphocyte 10 % (19-41); Monocyte 6 % (0-10); Neutrophil-Band 20 % (0-5); Neutrophil-Segmented 62 % (47-70); Total Cells Counted 50 (MANUAL DIFF)
[2017-06-03 06:35] LABS: Anisocytosis 1+; Hypochromasia 1+; Platelet Estimate MKD DEC (ADEQ); Polychromasia 1+
[2017-06-03 06:36] LABS: Microcytosis 1+
[2017-06-03 06:38] LABS: Absolute Lymphocyte Count 0.21 X10^3/ul (0.83-4.51); Absolute Neutrophil Count 1.7 X10^3/uL (2.0-7.7)
--- NOTE | 2017-06-03 06:40 | EGD_PTH ---
PATIENT: MESSI CEBALLOS LOC: U U#:[id number] AGE/SX: 66/F ROOM: [facility] RE05/29/[address]: Dr. Sandra Alexandra MD : [id number] BED: 1 DIS: 06/06/2017 SPEC #: [id number] RECD: 06/03/17 09:36 STATUS: TATYANA REValerie #: [id number] DENNIS: 06/03/17 06:[address]: Stefan Dominguez DEPT: SURGICAL PATHOLOGY RECD BY: Kyree Shen ENTERED: 06/03/17 10:05 SP TYPE: EGD BIOPSY OTHR DR: MD Dr. Josh Rose MD Dr. Mir Ali, MD Dr. Mark Stutzman DO Dr. Mihir Gonzalez, DO Tissues: A - Duodenum, NOS B - Gastric mucous membrane C - Esophageal mucous membrane D - Esophageal mucous membrane Procedures: Special Stain Group I Surgery Specimen Level IV AFB Stain (control) GMS Stain (control) Comments: @ Ordering doctor for RADHA edited from to @ dagmar JUNG at 06/03/17 1504 @ Submitting doctor edited from to @ dagmar JUNG at 06/03/17 1504 HEADER OPERATION: EGD with biopsy PRE-OP DIAGNOSIS: Radiation esophagitis TISSUE SUBMITTED: A ? Biopsy duodenum, B ? Biopsy antrum, C ? Biopsy distal esophagus, D ? Biopsy mid esophagus MICROSCOPIC DIAGNOSIS A. Duodenum, biopsy: No pathologic diagnosis. B. Gastric antrum, biopsy: Minimal chronic inflammation. C. Distal esophagus, biopsy: Fragments of benign squamous mucosa. No evidence of esophagitis. D. Mid esophagus, biopsy: Fibrinopurulent material with fungal organisms consistent with kushal. No evidence of malignancy. AM:stacy 06/04/17 COMMENT The specimen contains no squamous epithelium. An array of fragments of fibrous tissue is present. The specimen primarily consists of fibrinopurulent material. Clinical correlation is necessary. D. AFB and GMS stains with matched controls were used in the evaluation of this case and reveal kushal organisms. Acid fast bacilli are not present. MICROSCOPIC DESCRIPTION Slides are reviewed. GROSS DESCRIPTION A - Received in fixative is one container labeled with the patient's name and designated biopsy duodenum. The specimen consists of one irregular fragment of light major soft tissue that measures 0.3 x 0.2 x 0.1 cm. The specimen is totally submitted in one cassette. B - Received in fixative is one container labeled with the patient's name and designated biopsy antrum. The specimen consists of one irregular fragment of light major soft tissue that measures 0.3 x 0.2 x 0.1 cm. The specimen is totally submitted in one cassette. C - Received in fixative is one container labeled with the patient's name and designated distal esophagus. The specimen consists of one irregular fragment of light major soft tissue that measures 0.3 x 0.3 x 0.1 cm. The specimen is totally submitted in one cassette. D - Received in fixative is one container labeled with the patient's name and designated mid esophagus. The specimen consists of multiple irregular fragments of light major soft tissue that in aggregate measure 1.5 x 0.2 x 0.1 cm. The specimen is totally submitted in one cassette. / SJ:stacy 06/03/17 TC:2 CPT: 33369 x4, 24405 x2
--- NOTE | 2017-06-03 06:56 | PCM.OPRPT ---
Problem List (1) Radiation esophagitis Status: Acute (2) GERD (gastroesophageal reflux disease) Status: Chronic Report of Operation Date of Procedure: 06/03/17 Pre-Operative Diagnosis: Dysphasia and radiation esophagitis Post-Operative Diagnosis: Mid esophagus findings consistent with radiation esophagitis. Moderate hiatal hernia. Friable esophageal tissues. Antral gastritis Surgery/Procedure Performed:: Esophagogastroduodenoscopy with duodenal and antral and distal esophageal and mid esophageal biopsies with distal esophageal epinephrine injection Description of Surgical Findings:: Timeout and informed consent was obtained. 66-year-old female was taken to the endoscopy suite. She received 25 mg Demerol and 1 mg of Versed is intravenous sedation. Videogastroscope was inserted into this outlet inlet. Advanced without difficulty. There was some mucosal slough mucousy tissue in the midesophagus which had to be cleared with water. Was able to advance the scope to the junction at 40 cm. Moderate hiatal hernia noted. EG junction had no bleeding at the time of visualization with the scope. The scope was advanced in the stomach diffuse bile staining was noted of the stomach with erythema of the antrum. The scope was advanced into the pylorus. Minimal changes of the duodenum noted. Duodenal biopsy obtained. The scope withdrawn back in the stomach antral biopsy obtained. Scope was retroflexed there is evidence of the hernia and now friability of the distal esophagus with bleeding noted around the scope. The scope was withdrawn there was some slight mucosal tears of the distal esophagus that were bleeding. I then used epinephrine injection total of 5 cc in this area to resolve that bleeding. Irrigation demonstrated resolution. Patient did develop a mild hypertensive tachycardic response. She was carefully observed as the procedure was then expeditiously completed. In the midesophagus there is a diffuse mucosal sloughing photographs were obtained. Biopsies were obtained but the mucosa simply wanted to slough. There is no excessive bleeding in the midesophagus at the site of the esophagitis. There was no bleeding at the initiation of the scope it was simply the scope passing through the GE junction that caused the friability and tear. Procedure was completed. The patient states that she was feeling improved with the scope out. Heart rate blood pressure resolving. Patient appear to be hemodynamically stable. She will be observed. Impression Midesophagus changes consistent with radiation esophagitis. Biopsies obtained will inspect for possible Sidra infection. Hiatal hernia. Very friable distal esophageal tissues just with passage of the scope bleeding occurred there but there was no bleeding at the initiation of the procedure. Antral gastritis. Biopsies are pending. Recommend ongoing maximization of her medical care. I do not suspect that upper GI bleeding was the source of her anemia or thrombocytopenia. Stefan Dominguez M.D., F.A.C.S. Type of Anesthesia:: IV Sedation
--- NOTE | 2017-06-03 07:50 | NURSING ---
return from EGD
--- NOTE | 2017-06-03 07:57 | RAD_ITS ---
STUDY: X-RAY CHEST REASON FOR EXAM: Female, 66 years old. Shortness of breath. Neutropenic fever. TECHNIQUE: PA and lateral views of the chest. COMPARISON: Comparison is made with prior study dated May 31, 2017. FINDINGS: EKG electrodes are seen. A right-sided PICC line catheter is seen with the tip at the junction of the superior vena cava and right atrium. EKG electrodes are seen. There now is evidence of blunting of both costophrenic angles posteriorly as well as a mild degree of increased markings at both lung bases likely worse on the left side suggestive bibasilar atelectasis. Stable mild degree of increased markings in the right upper lobe. Normal size heart. Normal mediastinum and tj. Normal visualized pulmonary arteries. There is atherosclerotic tortuosity of the aortic arch and descending thoracic aorta. There is demineralization of the osseous structures. Normal visualized ribs, clavicles, and shoulders. There is no demonstrated abnormality of the visualized soft tissue structures of the upper abdomen. RAD/Chest PA and Lateral IMPRESSION: Blunting of both costophrenic angles with increased markings at the lung bases suggests bibasilar atelectasis and/or early infiltrates. Stable mild increased markings in the right upper lobe. Electronically Signed: Parminder Riggs MD at 12:31 EST Tel [phone], Service support ,
--- NOTE | 2017-06-03 08:04 | PN_ITS ---
Patient Problems: Active and Suspected Problems Radiation esophagitis (Acute) COPD (chronic obstructive pulmonary disease) (Acute) Subjective: She is slowly improving. No active bleeding on EGD except for radiation- induced esophagitis and gastritis. Patient has some cough and shortness of breath this morning. No fever. Blood Counts also slowly improving. - Physical Exam General: No apparent distress Oral: No Gingival or Mucosal Lesions/ Ulcerations Neck: Supple, No JVD Lungs: Diminished, Rhonchi Cardiovascular: Regular rate, Regular Rhythm Abdomen: Bowel Sounds Present, Soft, Non Tender, Non-Distended Extremities: No clubbing, No cyanosis, No edema Skin: No rashes Lymphatic: No Cervical, Supraclavicular, or Inguinal Adenopathy Neurological: Neuro grossly intact Vital Signs Temp Pulse Resp BP Pulse Ox 98.5 F 104 H 18 142/78 H 94 06/03/17 07:31 06/03/17 07:31 06/03/17 07:31 06/03/17 07:31 06/03/17 07:31 Oxygen Flow Rate 4 Oxygen Delivery Method Nasal Cannula Weight: 167 lb 15.876 oz Body Mass Index (BMI) 25.5 Intake and Output for Last 24 Hours 06/01/17 06/02/17 06/03/17 23:59 23:59 23:59 Intake Total 4346 / 4346 3867 / 3867 1414 / 1414 Output Total 800 / 800 1100 / 1100 550 / 550 Balance 3546 / 3546 2767 / 2767 864 / 864 Laboratory Tests Past 24 Hrs 06/02/17 06/02/17 06/02/17 05:55 05:55 18:05 WBC RBC Hgb Hct MCV MCH MCHC RDW RDW Differential Plt Count MPV Neut % (Auto) Absolute Neuts (auto) Absolute Lymphs (auto) Total Counted Neutrophils % (Manual) Band Neutrophils % Lymphocytes % (Manual) Monocytes % (Manual) Eosinophils % (Manual) Diff Path Review Reviewed Platelet Estimate Polychromasia Hypochromasia Anisocytosis Microcytosis PT INR APTT Sodium Potassium Chloride Carbon Dioxide Anion Gap BUN Creatinine Estim Creat Clear Calc Est GFR (MDRD) Af Amer Est GFR (MDRD) Non-Af BUN/Creatinine Ratio Glucose Calcium Phosphorus 1.9 L 1.8 L Magnesium 1.2 L 2.0 Blood Type A1 Antigen Typing Rho(D) Type Antibody Screen Crossmatch 06/02/17 06/02/17 06/03/17 18:05 18:05 00:10 WBC RBC Hgb Hct MCV MCH MCHC RDW RDW Differential Plt Count MPV Neut % (Auto) Absolute Neuts (auto) Absolute Lymphs (auto) Total Counted Neutrophils % (Manual) Band Neutrophils % Lymphocytes % (Manual) Monocytes % (Manual) Eosinophils % (Manual) Diff Path Review Platelet Estimate Polychromasia Hypochromasia Anisocytosis Microcytosis PT INR APTT Sodium 145 Potassium 3.2 L Chloride 109 H Carbon Dioxide 27.0 Anion Gap 9 BUN 11 Creatinine 0.51 L Estim Creat Clear Calc 110.94 Est GFR (MDRD) Af Amer 156 Est GFR (MDRD) Non-Af 129 BUN/Creatinine Ratio 21.7 H Glucose 112 H Calcium 7.6 L Phosphorus 1.6 L Magnesium 1.8 Blood Type A POSITIVE Cancelled A1 Antigen Typing Cancelled Rho(D) Type Cancelled Antibody Screen NEGATIVE Crossmatch See Detail 06/03/17 06/03/17 06/03/17 05:05 05:05 05:05 WBC 2.1 L RBC 3.01 L Hgb 9.0 L Hct 26.4 L MCV 87.7 MCH 29.9 MCHC 34.1 RDW 15.0 H RDW Differential 46.1 H Plt Count 45 L* MPV 9.7 Neut % (Auto) Not Reportable Absolute Neuts (auto) 1.7 L Absolute Lymphs (auto) 0.21 L Total Counted 50 Neutrophils % (Manual) 62 Band Neutrophils % 20 H Lymphocytes % (Manual) 10 L Monocytes % (Manual) 6 Eosinophils % (Manual) 2 Diff Path Review May foll Platelet Estimate MKD DEC Polychromasia 1+ Hypochromasia 1+ Anisocytosis 1+ Microcytosis 1+ PT 14.6 INR 1.2 APTT 37.5 H Sodium 144 Potassium 3.2 L Chloride 109 H Carbon Dioxide 27.0 Anion Gap 8 BUN 12 Creatinine 0.49 L Estim Creat Clear Calc 115.47 Est GFR (MDRD) Af Amer 163 Est GFR (MDRD) Non-Af 135 BUN/Creatinine Ratio 24.5 H Glucose 97 Calcium 7.6 L Phosphorus Magnesium Blood Type A1 Antigen Typing Rho(D) Type Antibody Screen Crossmatch 06/03/17 05:05 WBC RBC Hgb Hct MCV MCH MCHC RDW RDW Differential Plt Count MPV Neut % (Auto) Absolute Neuts (auto) Absolute Lymphs (auto) Total Counted Neutrophils % (Manual) Band Neutrophils % Lymphocytes % (Manual) Monocytes % (Manual) Eosinophils % (Manual) Diff Path Review Platelet Estimate Polychromasia Hypochromasia Anisocytosis Microcytosis PT INR APTT Sodium Potassium Chloride Carbon Dioxide Anion Gap BUN Creatinine Estim Creat Clear Calc Est GFR (MDRD) Af Amer Est GFR (MDRD) Non-Af BUN/Creatinine Ratio Glucose Calcium Phosphorus 2.4 L Magnesium Blood Type A1 Antigen Typing Rho(D) Type Antibody Screen Crossmatch Assessment/Plan Active and Suspected Problems Radiation esophagitis (Acute) COPD (chronic obstructive pulmonary disease) (Acute) 1) neutropenic fever- afebrile on broad-spectrum antibiotics. - Cultures are negative so far & WBC improving. Plan: - Continue G-CSF; his continue if ANC > 1500 - Monitor CBC 2) pancytopenia secondary to chemotherapy & XRT for limited small cell lung cancer Plan: - Repeat chest x-ray today for shortness of breath - If chest x-ray is normal, then DC antibiotics. 3) esophagitis secondary to chemotherapy and radiation Protein malnutrition. Plan: - Continue Morphine & Carafate suspension - BMX suspension when necessary - Nutrition consult 4) small cell lung cancer status post chemotherapy and radiation - Hypokalemia secondary to chemotherapy Plan: - Replace potassium - Follow-up with Dr. Soto next week.
--- NOTE | 2017-06-03 08:46 | NURSING ---
off floor for CXR
--- NOTE | 2017-06-03 08:57 | PN.CARD_ITS ---
Subjectve: Patient had EGD this morning, telemetry showed normal sinus rhythm with 70 run of wide-complex tachycardia. Patient did receive some mild local injected at the due to bleeding and friability during EGD. This may explain her wide- complex tachycardia and hypertension this morning. No chest pain or anginal symptoms. Chest x-ray pending. Objective: Vital Signs Temp Pulse Resp BP Pulse Ox 98.5 F 104 H 18 142/78 H 94 06/03/17 07:31 06/03/17 07:31 06/03/17 07:31 06/03/17 07:31 06/03/17 07:31 Oxygen Flow Rate 2 Oxygen Delivery Method Nasal Cannula Weight: 167 lb 15.876 oz Body Mass Index (BMI) 25.5 Intake and Output for Last 24 Hours 06/01/17 06/02/17 06/03/17 23:59 23:59 23:59 Intake Total 4346 / 4346 3867 / 3867 1414 / 1414 Output Total 800 / 800 1100 / 1100 550 / 550 Balance 3546 / 3546 2767 / 2767 864 / 864 General: Awake, Alert, Oriented x 3 HEENT: PERRL, EOMI, Sclera Non Icteric Neck: Supple, Good ROM, No Lymph Node Enlargement Lungs: Clear to auscultation Cardiovascular: Regular Rhythm, Normal S1, Normal S2, No Murmurs, No Rubs, No Gallops Vascular: No Carotid Bruits, Normal Femoral Pulses, Normal Radial Pulses, Normal Dorsalis Pedal Pulse, Normal Posterior Tibial Pulses Abdomen: Bowel Sounds Present, Soft, Non Tender, No HSM, No Organomegaly Extremities: No Cyanosis, No Clubbing, No edema Neurological: No Focal Motor or Sensory Deficit 06/02/17 05:55: Phosphorus 1.9 L, Magnesium 1.2 L 06/02/17 18:05: Phosphorus 1.8 L, Magnesium 2.0 06/03/17 00:10: Sodium 145, Potassium 3.2 L, Chloride 109 H, Carbon Dioxide 27.0 , Anion Gap 9, BUN 11, Creatinine 0.51 L, Est GFR (MDRD) Af Amer 156, Est GFR ( MDRD) Non-Af 129, BUN/Creatinine Ratio 21.7 H, Glucose 112 H, Calcium 7.6 L, Phosphorus 1.6 L, Magnesium 1.8 06/03/17 05:05: WBC 2.1 L, RBC 3.01 L, Hgb 9.0 L, Hct 26.4 L, MCV 87.7, MCH 29.9 , MCHC 34.1, RDW 15.0 H, RDW Differential 46.1 H, Plt Count 45 L*, MPV 9.7, Neut % (Auto) Not Reportable, Absolute Neuts (auto) 1.7 L, Total Counted 50, Neutrophils % (Manual) 62, Band Neutrophils % 20 H, Lymphocytes % (Manual) 10 L , Monocytes % (Manual) 6, Eosinophils % (Manual) 2 06/03/17 05:05: Sodium 144, Potassium 3.2 L, Chloride 109 H, Carbon Dioxide 27.0 , Anion Gap 8, BUN 12, Creatinine 0.49 L, Est GFR (MDRD) Af Amer 163, Est GFR ( MDRD) Non-Af 135, BUN/Creatinine Ratio 24.5 H, Glucose 97, Calcium 7.6 L 06/03/17 05:05: PT 14.6, INR 1.2, APTT 37.5 H 06/03/17 05:05: Phosphorus 2.4 L Rhythm: EKG: ECHO: Stress Test: Cardiac Cath: PCI: CT Surgery: Holter monitor: EPS: PPM: CXR: Chest CT Scan: Assessment/Plan 1. Paroxysmal atrial fibrillation: The patient has a history of paroxysmal atrial fibrillation which was her original presenting symptoms in March 2017 at which time she was discovered to have small cell lung cancer. Patient is neutropenic from her chemotherapy as well as thrombocytopenic, however these are improving as of today's labs.. I would not recommend anticoagulation at this time given her low platelets. Patient appears to oscillate between normal sinus rhythm and atrial fibrillation when she becomes hypomagnesemic and hypokalemic. Recommend keeping her potassium above 4.0 and her magnesium of 2.0 going forward. She may need to postpone her chemotherapy until she has recovered. I would not recommend any further cardiac testing such as stress testing or catheterization at this time. She appears to be responding well to Cardizem, would recommend transitioning her to Cardizem CD 120 mg p.o. daily and titrating up from there. Her TSH appears to be normal at this time. Her echocardiogram shows normal LV function, mild to moderate mitral regurgitation and normal pulmonary pressures. 2. Thank you very much for the opportunity to participate in the cardiac care of your patient. We will sign off. Please call with any questions. Code Visit Inpatient E&M: 79321 Subs Hosp L2
[2017-06-03] MEDS: 0.9% Normal Saline 1,000 ML 125 ML IV ×2 (10:49→23:14)
[2017-06-03 13:15] LABS: Pathologist Review Reviewed
[2017-06-03] MEDS: TBO-FILGRASTIM 480 MCG/0.8 ML ML SC (13:33)
[2017-06-03 14:33] LABS: Hematocrit 26.7 % (37-47); Hemoglobin 9.2 g/dl (12.0-15.0); Mean Corp Hgb Conc 34.5 g/gl (32-36); Mean Corpuscular Hgb 29.9 pg (27.0-32.0); Mean Corpuscular Volume 86.7 fL (81-99); Mean Platelet Vol. 9.8 fl (6.2-12.0); RBC Distribution Width CV 15.1 % (11.6-14.6); RBC Distribution Width SD 45.7 fl (35.1-43.9); Red Blood Count 3.08 M/mm3 (4.2-5.4); White Blood Count 3.1 K/mm3 (4.4-11.0)
[2017-06-03 14:35] LABS: Platelet Count 39 K/mm3 (150-450); Scan Indicated on CBC? Y/N YES- FLAGS NOTED
[2017-06-03 14:49] LABS: Differential Comment SCANNED
--- NOTE | 2017-06-03 15:31 | PN_ITS ---
Patient Problems: Active and Suspected Problems Radiation esophagitis (Acute) COPD (chronic obstructive pulmonary disease) (Acute) Subjective: Patient seen and examined. Patient denies fever, chills. Denies nausea, vomiting. Complains of difficulty swallowing pills. Complains of generalized fatigue. Denies other complaints. - Physical Exam General: Alert, Oriented x3, Cooperative, No apparent distress HEENT: Atraumatic, PERRLA, EOMI, Normocephalic Oral: Dry Mucosa Neck: Supple, No JVD, Negative Carotid Bruits Lungs: Clear to auscultation, Diminished Cardiovascular: Regular rate, Regular Rhythm, Normal S1, Normal S2, No murmurs Abdomen: Bowel Sounds Present, Soft, Non Tender, Non-Distended Extremities: No clubbing, No cyanosis, No edema, Capillary Refill Less than 3 Seconds Skin: No rashes, No breakdown Musculoskeletal: No Tenderness to Palpation of Joints or Extremities Neurological: Cranial nerves II-XII grossly intact, Neuro grossly intact Psych/Mental Status: Normal Affect, Appropriate Vital Signs Temp Pulse Resp BP Pulse Ox 98.8 F 90 18 140/78 H 93 06/03/17 08:00 06/03/17 08:00 06/03/17 08:00 06/03/17 08:00 06/03/17 08:00 Oxygen Flow Rate 2 Oxygen Delivery Method Nasal Cannula Weight: 76.2 kg Body Mass Index (BMI) 25.5 Intake and Output for Last 24 Hours 06/01/17 06/02/17 06/03/17 23:59 23:59 23:59 Intake Total 4346 / 4346 3867 / 3867 1675 / 1675 Output Total 800 / 800 1100 / 1100 550 / 550 Balance 3546 / 3546 2767 / 2767 1125 / 1125 Laboratory Tests Past 24 Hrs 06/02/17 06/02/17 06/02/17 18:05 18:05 18:05 WBC RBC Hgb Hct MCV MCH MCHC RDW RDW Differential Plt Count MPV Neut % (Auto) Absolute Neuts (auto) Absolute Lymphs (auto) Total Counted Neutrophils % (Manual) Band Neutrophils % Lymphocytes % (Manual) Monocytes % (Manual) Eosinophils % (Manual) Differential Comment Diff Path Review Platelet Estimate Polychromasia Hypochromasia Anisocytosis Microcytosis PT INR APTT Sodium Potassium Chloride Carbon Dioxide Anion Gap BUN Creatinine Estim Creat Clear Calc Est GFR (MDRD) Af Amer Est GFR (MDRD) Non-Af BUN/Creatinine Ratio Glucose Calcium Phosphorus 1.8 L Magnesium 2.0 Blood Type A POSITIVE Cancelled A1 Antigen Typing Cancelled Rho(D) Type Cancelled Antibody Screen NEGATIVE Crossmatch See Detail 06/03/17 06/03/17 06/03/17 00:10 05:05 05:05 WBC 2.1 L RBC 3.01 L Hgb 9.0 L Hct 26.4 L MCV 87.7 MCH 29.9 MCHC 34.1 RDW 15.0 H RDW Differential 46.1 H Plt Count 45 L* MPV 9.7 Neut % (Auto) Not Reportable Absolute Neuts (auto) 1.7 L Absolute Lymphs (auto) 0.21 L Total Counted 50 Neutrophils % (Manual) 62 Band Neutrophils % 20 H Lymphocytes % (Manual) 10 L Monocytes % (Manual) 6 Eosinophils % (Manual) 2 Differential Comment Diff Path Review Reviewed Platelet Estimate MKD DEC Polychromasia 1+ Hypochromasia 1+ Anisocytosis 1+ Microcytosis 1+ PT INR APTT Sodium 145 144 Potassium 3.2 L 3.2 L Chloride 109 H 109 H Carbon Dioxide 27.0 27.0 Anion Gap 9 8 BUN 11 12 Creatinine 0.51 L 0.49 L Estim Creat Clear Calc 110.94 115.47 Est GFR (MDRD) Af Amer 156 163 Est GFR (MDRD) Non-Af 129 135 BUN/Creatinine Ratio 21.7 H 24.5 H Glucose 112 H 97 Calcium 7.6 L 7.6 L Phosphorus 1.6 L Magnesium 1.8 Blood Type A1 Antigen Typing Rho(D) Type Antibody Screen Crossmatch 06/03/17 06/03/17 06/03/17 05:05 05:05 14:20 WBC 3.1 L RBC 3.08 L Hgb 9.2 L Hct 26.7 L MCV 86.7 MCH 29.9 MCHC 34.5 RDW 15.1 H RDW Differential 45.7 H Plt Count 39 L* MPV 9.8 Neut % (Auto) Absolute Neuts (auto) Absolute Lymphs (auto) Total Counted Neutrophils % (Manual) Band Neutrophils % Lymphocytes % (Manual) Monocytes % (Manual) Eosinophils % (Manual) Differential Comment SCANNED Diff Path Review May foll Platelet Estimate Polychromasia Hypochromasia Anisocytosis Microcytosis PT 14.6 INR 1.2 APTT 37.5 H Sodium Potassium Chloride Carbon Dioxide Anion Gap BUN Creatinine Estim Creat Clear Calc Est GFR (MDRD) Af Amer Est GFR (MDRD) Non-Af BUN/Creatinine Ratio Glucose Calcium Phosphorus 2.4 L Magnesium Blood Type A1 Antigen Typing Rho(D) Type Antibody Screen Crossmatch Assessment/Plan Active and Suspected Problems Radiation esophagitis (Acute) COPD (chronic obstructive pulmonary disease) (Acute) Patient is a 66-year-old female admitted 05/29/2017 due to fever. Patient follows with Dr. Soto for small cell lung cancer, currently undergoing chemo and radiation. Her other past medical history includes hypertension, GERD, COPD , paroxysmal atrial fibrillation. 1. Neutropenic fever, unclear etiology-suspected secondary to chemotherapy and radiation. Patient is currently undergoing treatment for small cell lung cancer. No further fever. Dr. Mays following. Patient transitioned to IV Levaquin given difficulty swallowing pills. WBC improved to 3.1. Repeat chest x-ray this morning shows increased markings at the lung bases suggestive of bibasilar atelectasis and/or early infiltrates. Stable mild increased markings in the right upper lobe. 2. Pancytopenia-secondary to chemotherapy and radiation. Patient received platelets and packed red blood cells during admission. Continue granix. Hold off on further platelets given no source of acute bleeding. Patient underwent EGD to 118 which showed radiation esophagitis and moderate hiatal hernia. No source of acute bleeding. Biopsies were taken, pending. Continue to monitor CBC. 3. Oral pharyngeal dysphagia secondary to radiation esophagitis-patient continues to have difficulty swallowing pills. Patient was seen by speech therapy yesterday and patient did well with regular diet and thin liquids. However, patient has been refusing to take any pills for nursing staff today. Cookie swallow ordered which will take place tomorrow. 4. Paroxysmal atrial fibrillation-patient had episode of RVR during admission which was corrected with Cardizem bolus. Heart rate currently sinus rhythm. Cardiology consulted. Patient will continue Cardizem 120 mg daily and continue to monitor. Echocardiogram shows an estimated ejection fraction of 55%, apical fall stent is noted, mildly enlarged left atrium, mild to moderate mitral valve insufficiency, trivial tricuspid valve insufficiency, RVSP estimated to be 28 mmHg. 5. COPD-no acute exacerbation. Continue albuterol DuoNeb aerosols. 6. GERD-continue PPI, Carafate. 7. Hypertension-stable, continue current regimen. Discharge planning-Consult made to palliative care. DVT prophylaxis- SCDs. This patient was seen by VENKAT Hammond under the supervision of Dr. Alexandra.
--- NOTE | 2017-06-03 17:05 | NURSING ---
pt refused ed on AFib, not feeling good enough today let me sleep please
[2017-06-04] VITALS (39 sets, daily range): BP systolic 118–168; BP diastolic 71–129; PULSE 81–157; RESP 13–22; TEMP 36.7–37.6; O2SAT 93–99
[2017-06-04] MEDS: 0.9% NaCl PICC Flush IV ×4 (03:21→20:29)
[2017-06-04 05:34] LABS: Absolute Lymphocyte Count 0.19 X10^3/ul (0.83-4.51); Absolute Neutrophil Count 2.9 X10^3/uL (2.0-7.7); Eosinophil# 0.01 X10^3/uL; Eosinophils% 0.3 % (0-5); Hematocrit 27.1 % (37-47); Hemoglobin 9.2 g/dl (12.0-15.0); Lymphocyte # 0.19 X10^3/ul (4.0); Lymphocyte % 5.4 % (19-41); Mean Corp Hgb Conc 33.9 g/gl (32-36); Mean Corpuscular Hgb 29.3 pg (27.0-32.0); Mean Corpuscular Volume 86.3 fL (81-99); Mean Platelet Vol. 9.1 fl (6.2-12.0); Monocyte# 0.29 X10^3/uL; Monocyte% 8.3 % (0-10); Neutrophil # 2.93 X10^3/uL (2.7-7.7); Neutrophil % 83.4 % (47-70); RBC Distribution Width CV 15.2 % (11.6-14.6); RBC Distribution Width SD 46.2 fl (35.1-43.9); Red Blood Count 3.14 M/mm3 (4.2-5.4); White Blood Count 3.5 K/mm3 (4.4-11.0)
[2017-06-04 05:38] LABS: Differential Indicated SCAN CRITERIA MET; POSITIVE COUNT YES; POSITIVE DIFFERENTIAL YES; POSITIVE MORPHOLOGY YES; Platelet Count 32 K/mm3 (150-450)
[2017-06-04 05:48] LABS: Anion Gap 6 (5-15); BUN 10 mg/dL (7-18); BUN/Creat Ratio 22.4 RATIO (10-20); Calcium,Total 7.6 mg/dL (8.5-10.1); Chloride 106 mmol/L (98-107); Creatinine, Serum 0.45 mg/dL (0.55-1.02); EST Glomerular Filtration Rate 150 mL/min (>60); Est Glom Filt Rate - Afr Amer 181 mL/min (>60); Estimated Creatinine Clearance 125.73 ml/min; Glucose 100 mg/dL (70-110); Magnesium 1.4 mg/dL (1.6-2.6); Phosphorus 1.7 mg/dL (2.5-4.9); Potassium 2.7 mmol/L (3.5-5.1); Sodium Level 141 mmol/L (136-145)
[2017-06-04 06:33] LABS: Differential Comment SCAN; Platelet Estimate MKD DEC (ADEQ)
[2017-06-04] MEDS: dilTIAZem 25 MG/5 ML Vial 20 MG IV BOLUS (07:42)
--- NOTE | 2017-06-04 08:01 | EKG12_ITS ---
Test Reason : Blood Pressure : / mmHG Vent. Rate : 097 BPM Atrial Rate : 097 BPM P-R Int : 148 ms QRS Dur : 086 ms QT Int : 402 ms P-R-T Axes : 082 072 075 degrees QTc Int : 510 ms Normal sinus rhythm Prolonged QT Abnormal ECG Confirmed by BRITNEY HOUSE, LINO ([id number]), desk editor LILLIANA CALVO ([id number] on 06/09/2017 3:04:45 PM Referred By: ZIGGY Confirmed By:LINO TAN MD
--- NOTE | 2017-06-04 08:12 | PN_ITS ---
Patient Problems: Active and Suspected Problems Radiation esophagitis (Acute) COPD (chronic obstructive pulmonary disease) (Acute) Subjective: Slowly improving. Mild pain with swallowing. She still has some cough and shortness of breath. Remained afebrile on Levaquin. He has some nausea and vomiting this morning. No diarrhea or bleeding. - Physical Exam General: Alert, Oriented x3 HEENT: Atraumatic, PERRLA, EOMI Oral: No Gingival or Mucosal Lesions/ Ulcerations Neck: Supple, No JVD Lungs: Diminished, Wheezes Cardiovascular: Regular rate, Regular Rhythm Abdomen: Bowel Sounds Present, Soft, Non Tender, Non-Distended Extremities: No clubbing, No cyanosis, No edema Skin: No rashes Musculoskeletal: No Muscle Wasting Lymphatic: No Cervical, Supraclavicular, or Inguinal Adenopathy Neurological: Neuro grossly intact Psych/Mental Status: Normal Affect Vital Signs Temp Pulse Resp BP Pulse Ox 98.3 F 98 15 153/85 H 95 06/04/17 04:29 06/04/17 04:29 06/04/17 04:29 06/04/17 04:29 06/04/17 04:29 Oxygen Flow Rate 2 Oxygen Delivery Method Nasal Cannula Weight: 167 lb 15.876 oz Body Mass Index (BMI) 25.5 Intake and Output for Last 24 Hours 06/02/17 06/03/17 06/04/17 23:59 23:59 23:59 Intake Total 3867 / 3867 2549 / 2549 1612 / 1612 Output Total 1100 / 1100 1450 / 1450 1250 / 1250 Balance 2767 / 2767 1099 / 1099 362 / 362 Laboratory Tests Past 24 Hrs 06/03/17 06/03/17 06/04/17 05:05 14:20 05:15 WBC 3.1 L 3.5 L RBC 3.08 L 3.14 L Hgb 9.2 L 9.2 L Hct 26.7 L 27.1 L MCV 86.7 86.3 MCH 29.9 29.3 MCHC 34.5 33.9 RDW 15.1 H 15.2 H RDW Differential 45.7 H 46.2 H Plt Count 39 L* 32 L* MPV 9.8 9.1 Immature Gran % (Auto) 2.600 H Neut % (Auto) 83.4 H Lymph % (Auto) 5.4 L [place] % (Auto) 8.3 Eos % (Auto) 0.3 Baso % (Auto) 0.0 Absolute Neuts (auto) 2.9 Absolute Lymphs (auto) 0.19 L Total Counted Not Reportable Differential Comment SCANNED SCAN Diff Path Review Reviewed August foll August foll Platelet Estimate MKD DEC Sodium Potassium Chloride Carbon Dioxide Anion Gap BUN Creatinine Estim Creat Clear Calc Est GFR (MDRD) Af Amer Est GFR (MDRD) Non-Af BUN/Creatinine Ratio Glucose Calcium Phosphorus Magnesium 06/04/17 05:15 WBC RBC Hgb Hct MCV MCH MCHC RDW RDW Differential Plt Count MPV Immature Gran % (Auto) Neut % (Auto) Lymph % (Auto) [place] % (Auto) Eos % (Auto) Baso % (Auto) Absolute Neuts (auto) Absolute Lymphs (auto) Total Counted Differential Comment Diff Path Review Platelet Estimate Sodium 141 Potassium 2.7 L* Chloride 106 Carbon Dioxide 29.0 Anion Gap 6 BUN 10 Creatinine 0.45 L Estim Creat Clear Calc 125.73 Est GFR (MDRD) Af Amer 181 Est GFR (MDRD) Non-Af 150 BUN/Creatinine Ratio 22.4 H Glucose 100 Calcium 7.6 L Phosphorus 1.7 L Magnesium 1.4 L Assessment/Plan Active and Suspected Problems Radiation esophagitis (Acute) COPD (chronic obstructive pulmonary disease) (Acute) 1) neutropenic fever- afebrile on broad-spectrum antibiotics. - Cultures are negative so far & WBC improving. 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 No need for blood or platelet transfusion. 3) esophagitis secondary to chemotherapy and radiation Protein malnutrition. Plan: - Continue Morphine & Carafate suspension - BMX suspension when necessary - Nutrition consult 4) small cell lung cancer status post chemotherapy and radiation - Hypokalemia secondary to chemotherapy - Cough and shortness of breath 2/2 atelectasis & reactive airway disease? Plan: - Replace potassium & Mg - Incentive spirometer and breathing treatment - Swallowing study today - Follow-up with Dr. Soto next week. Possible discharge home this weekend.
[2017-06-04] MEDS: dilTIAZem CD 120 MG Capsule PO (08:32)
--- NOTE | 2017-06-04 08:46 | NURSING ---
0830 pt vomited shortly after giving PO Cardizem. Did not see pill in emesis. Will monitor.
[2017-06-04] MEDS: 0.9% Normal Saline 1,000 ML 125 ML IV ×2 (09:09→17:57)
--- NOTE | 2017-06-04 09:27 | EKG12_ITS ---
Test Reason : Blood Pressure : / mmHG Vent. Rate : 139 BPM Atrial Rate : 147 BPM P-R Int : 000 ms QRS Dur : 082 ms QT Int : 338 ms P-R-T Axes : 000 066 069 degrees QTc Int : 514 ms Atrial fibrillation Nonspecific ST abnormality Abnormal ECG Confirmed by BRITNEY HOUSE, LINO ([id number]), editor city LILLIANA CALVO ([id number] on 06/09/2017 3:05:33 PM Referred By: ZIGGY Confirmed By:LINO TAN MD
[2017-06-04] MEDS: TBO-FILGRASTIM 480 MCG/0.8 ML ML SC (11:10)
--- NOTE | 2017-06-04 12:48 | PN_ITS ---
Patient Problems: Active and Suspected Problems Radiation esophagitis (Acute) COPD (chronic obstructive pulmonary disease) (Acute) Subjective: Patient seen and examined. Continues to have nausea and emesis, although greatly improved. States since she had EGD, she has had increased difficulty swallowing and is not able to swallow pills. Patient is to have cookie swallow this afternoon. Discussed with patient and palliative care/hospice. She states she has not yet given this much thought but is open to talking with palliative care. She denies fever, chills. Denies chest pain, shortness of breath. Denies other complaints. - Physical Exam General: Alert, Oriented x3, Cooperative, No apparent distress HEENT: Atraumatic, PERRLA, EOMI, Normocephalic Oral: Dry Mucosa Neck: Supple, No JVD, Negative Carotid Bruits Lungs: Clear to auscultation, Diminished Cardiovascular: Normal S1, Normal S2, No murmurs, Tachycardic, - - a. fib Abdomen: Bowel Sounds Present, Soft, Non Tender, Non-Distended Extremities: No clubbing, No cyanosis, No edema, Capillary Refill Less than 3 Seconds Skin: No rashes, No breakdown Musculoskeletal: No Tenderness to Palpation of Joints or Extremities Neurological: Cranial nerves II-XII grossly intact, Neuro grossly intact Psych/Mental Status: Normal Affect, Appropriate Vital Signs Temp Pulse Resp BP Pulse Ox 98.3 F 113 H 17 144/92 H 98 06/04/17 10:00 06/04/17 12:24 06/04/17 10:30 06/04/17 10:30 06/04/17 10:30 Oxygen Flow Rate 2 Oxygen Delivery Method Nasal Cannula Weight: 76.2 kg Body Mass Index (BMI) 25.5 Intake and Output for Last 24 Hours 06/02/17 06/03/17 06/04/17 23:59 23:59 23:59 Intake Total 3867 / 3867 2549 / 2549 1612 / 1612 Output Total 1100 / 1100 1450 / 1450 1250 / 1250 Balance 2767 / 2767 1099 / 1099 362 / 362 Laboratory Tests Past 24 Hrs 06/03/17 06/03/17 06/04/17 05:05 14:20 05:15 WBC 3.1 L 3.5 L RBC 3.08 L 3.14 L Hgb 9.2 L 9.2 L Hct 26.7 L 27.1 L MCV 86.7 86.3 MCH 29.9 29.3 MCHC 34.5 33.9 RDW 15.1 H 15.2 H RDW Differential 45.7 H 46.2 H Plt Count 39 L* 32 L* MPV 9.8 9.1 Immature Gran % (Auto) 2.600 H Neut % (Auto) 83.4 H Lymph % (Auto) 5.4 L [place] % (Auto) 8.3 Eos % (Auto) 0.3 Baso % (Auto) 0.0 Absolute Neuts (auto) 2.9 Absolute Lymphs (auto) 0.19 L Total Counted Not Reportable Differential Comment SCANNED SCAN Diff Path Review Reviewed August foll Platelet Estimate MKD DEC Sodium Potassium Chloride Carbon Dioxide Anion Gap BUN Creatinine Estim Creat Clear Calc Est GFR (MDRD) Af Amer Est GFR (MDRD) Non-Af BUN/Creatinine Ratio Glucose Calcium Phosphorus Magnesium 06/04/17 05:15 WBC RBC Hgb Hct MCV MCH MCHC RDW RDW Differential Plt Count MPV Immature Gran % (Auto) Neut % (Auto) Lymph % (Auto) [place] % (Auto) Eos % (Auto) Baso % (Auto) Absolute Neuts (auto) Absolute Lymphs (auto) Total Counted Differential Comment Diff Path Review Platelet Estimate Sodium 141 Potassium 2.7 L* Chloride 106 Carbon Dioxide 29.0 Anion Gap 6 BUN 10 Creatinine 0.45 L Estim Creat Clear Calc 125.73 Est GFR (MDRD) Af Amer 181 Est GFR (MDRD) Non-Af 150 BUN/Creatinine Ratio 22.4 H Glucose 100 Calcium 7.6 L Phosphorus 1.7 L Magnesium 1.4 L Assessment/Plan Active and Suspected Problems Radiation esophagitis (Acute) COPD (chronic obstructive pulmonary disease) (Acute) Patient is a 66-year-old female admitted 05/29/2017 due to fever. Patient follows with Dr. Soto for small cell lung cancer, currently undergoing chemo and radiation. Her other past medical history includes hypertension, GERD, COPD , paroxysmal atrial fibrillation. 1. Neutropenic fever, unclear etiology-suspected secondary to chemotherapy and radiation. Patient is currently undergoing treatment for small cell lung cancer. No further fever. Dr. Mays following. Patient transitioned to IV Levaquin given difficulty swallowing pills. WBC improved to 3.5. Repeat chest x-ray showed increased markings at the lung bases suggestive of bibasilar atelectasis and/or early infiltrates. Stable mild increased markings in the right upper lobe. 2. Pancytopenia-secondary to chemotherapy and radiation. Patient received platelets and packed red blood cells during admission. Continue granix. Hold off on further platelets given no source of acute bleeding. Patient underwent EGD 06/03/17 which showed radiation esophagitis and moderate hiatal hernia. No source of acute bleeding. Biopsies were taken, pending. Continue to monitor CBC. 3. Oral pharyngeal dysphagia secondary to radiation esophagitis-patient continues to have difficulty swallowing pills. Cookie swallow ordered which will take place this afternoon. 4. Paroxysmal atrial fibrillation-patient has had recurrent episodes of A. fib with RVR. Patient's heart rate 150s-160s this morning. She was started on IV Cardizem drip and converted back to sinus rhythm. Cardiology following. Patient previously placed on oral Cardizem which she reportedly did not take yesterday morning due to difficulty swallowing. Continue Cardizem 120 mg daily and continue to monitor. Echocardiogram shows an estimated ejection fraction of 55%, apical fall stent is noted, mildly enlarged left atrium, mild to moderate mitral valve insufficiency, trivial tricuspid valve insufficiency, RVSP estimated to be 28 mmHg. 5. COPD-no acute exacerbation. Continue albuterol DuoNeb aerosols. 6. GERD-continue PPI, Carafate. 7. Hypertension-stable, continue current regimen. Discharge planning-Consult made to palliative care. Plan to DC tomorrow. DVT prophylaxis- SCDs. This patient was seen by VENKAT Hammond under the supervision of Dr. Alexandra.
[2017-06-04] MEDS: Ipratropium/Albuterol Sulfate 3 ML AMPUL.NEB INHALATION ×2 (13:11→19:32)
--- NOTE | 2017-06-04 14:10 | RAD_ITS ---
STUDY: SWALLOWING STUDY REASON FOR EXAM: Female, 66 years old. Dysphasia. History of small cell lung cancer. TECHNIQUE: The examination was performed with Speech Pathology in attendance. Under fluoroscopic observation, the patient ingested thin barium, thick barium, barium pudding, and barium coated cracker. FLUOROSCOPY TIME: 1:41 minutes/seconds. 1562 spot images were obtained. RADIOLOGIST INVOLVEMENT: Radiologist was present and providing direct supervision. COMPARISON: None. FINDINGS: The following was observed during swallowing of the various mixtures of barium: Thin Barium: There was no evidence of aspiration or laryngeal penetration. Thick Barium: There was no evidence of aspiration or laryngeal penetration. Barium Pudding: There was no evidence of aspiration or laryngeal penetration. Barium Coated Cracker: There was no evidence of aspiration or laryngeal penetration. There is evidence of reflux from the esophagus into the hypopharynx. The patient was unable to swallow a 12 mm tablet of barium. RAD/Swallowing Function w/Video IMPRESSION: Normal tailored barium swallow study. Retrograde reflux from the esophagus into the hypopharynx. The swallow study findings were discussed with the patient by the speech pathologist at the conclusion of the examination. Please see speech pathology report for more information and recommendations. Electronically Signed: Parminder Riggs MD at 14:49 EST Tel [phone], Service support ,
--- NOTE | 2017-06-04 14:10 | SP.MBSS_ITS ---
PRIMARY / SECONDARY DIAGNOSIS: dysphagia (R13.10) REFERRING PHYSICIAN: Dr. Sandra Alexandra MD CURRENT DIET: regular textures, thin liquids DENTITION: WFL MENTAL STATUS: WNL RESPIRATORY STATUS: O2 via room air PREVIOUS MODIFIED BARIUM SWALLOW STUDY: none REASON FOR REFERRAL: Patient is a 66 year old female referred for a modified barium swallow (MBS) study to objectively assess the Patients oropharyngeal swallow function under fluoroscopy secondary to the diagnosis of radiation esophagitis with odynophagia associated with chemoradiation targeting limited stage small cell cancer involving the left supraclavicular LNs and a left literary agent hilar and suprahilar mass diagnosed in March 2017. Physician report details ongoing intake difficulties, including 06/03/2017 difficulty with pills getting suck in the back of her throat, subsequently transitioned to clear liquid diet with recommendations for MBS completion. Both the Patient and Patients family have reported dysphagia with both solids and liquids, gradual / progressing presentation, reports odynophagia with substernal discomfort, frequent belching required to facilitate clearance, intermittent reflux into oral cavity, leading to suboptimal PO intake / hydration, all indicative of esophageal dysfunction. Patient further reports recent prolonged intubation (3-4 days) in March during admission to [facility]. Subjective bedside assessment suggests esophageal dysphagia, MBS recommended upon completion of BSE, recent barium swallow study completed, unlikely to glean any beneficial information; suspected benefit from upper endoscopy to identify presence / extent of esophageal stricture / ulceration impacting PO intake. 03/08/2017 CT soft tissue revealed 3.4 cm x 3.1 cm x 3.7 cm soft tissue mass in the anterior superior mediastinum arising at the level of the aortic arch and extends in between the left common carotid artery and left subclavian artery. 03/08/2017 barium swallow study unremarkable; Patient ingested a 12 mm tablet of barium with tablet is trapped at the gastroesophageal junction. 05/29/2017 CXR revealed no radiographic evidence of acute cardiopulmonary disease; pulmonary mass is not well seen on this study. 05/31/2017 CXR revealed hyperinflation; no acute infiltrate is seen. 06/03/2017 esophagogastroduodenoscopy with duodenal and antral and distal esophageal and mid esophageal biopsies with distal esophageal epinephrine injection revealed midesophagus changes consistent with radiation esophagitis; biopsies obtained will inspect for possible Sidra infection; hiatal hernia; very friable distal esophageal MEDICAL HISTORY: Small cell lung cancer with chemoradiation intervention, pancytopenia, atrial fibrillation, hypertension, gastroesophageal reflux disease STUDY FINDINGS: Patient participated in a Modified Barium Swallow (MBS) study on 06/04/2017. Dr. Riggs was the radiologist present for this evaluation. This study was recorded in the lateral view and images were sent to PACs for storage. The following consistencies were presented to this patient for analysis of oropharyngeal swallow function: thin liquids, pudding, along with trials of 12mm tablet. Results of the MBS are as follows: PENETRATION / ASPIRATION SCALE ([place]): 1 = does not enter airway 2 = enters airway/above vocal folds/ejected 3 = enters airway/above vocal folds/not ejected 4 = enters airway/contacts vocal folds/ejected 5 = enters airway/contacts vocal folds/not ejected 6 = enters airway/below vocal folds/ejected 7 = enters airway/below vocal folds/not ejected despite effort 8 = enters airway/below vocal folds/no effort PENETRATION / ASPIRATION SCALE (SCORE): Thin liquids via cup (single sip): 1 Thin liquids via cup (single sip): 1 Pudding via spoon: 1 Pudding with 12mm tablet: 1* Thin liquids with 12 mm tablet: 1*, 2 * unable to complete ingestion of tablet post prandial penetration of esophageal regurgitation, leading to emesis, no contrast post emesis IMPRESSION: DIAGNOSIS: mild oropharyngeal dysphagia (R13.12), severe pharyngoesophageal dysphagia (R13.14) ORAL PHASE CHARACTERIZED BY: LABIAL SEAL: no labial escape TONGUE CONTROL DURING BOLUS MANIPULATION: intermittent posterior escape of less than half of bolus BOLUS TRANSPORT / LINGUAL MOTION: repetitive/disorganized tongue motion during trials including 12mm tablet only, suspect exacerbation associated with phagophobia; otherwise mild slowed tongue motion ORAL RESIDUE: trace residue lining oral structures PHARYNGEAL PHASE CHARACTERIZED BY: INITIATION OF PHARYNGEAL SWALLOW: bolus head in pyriforms at first hyoid excursion SOFT PALATE ELEVATION: no bolus between soft palate and pharyngeal wall LARYNGEAL ELEVATION: complete superior movement of thyroid cartilage with complete approximation of arytenoids cartilage to epiglottic petiole ANTERIOR HYOID EXCURSION: partial anterior movement EPIGLOTTIC MOVEMENT: complete epiglottic inversion LARYNGEAL VESTIBULE CLOSURE AT HEIGHT OF SWALLOW: complete laryngeal vestibule closure with no air/contrast in laryngeal vestibule PHARYNGEAL STRIPPING WAVE: pharyngeal stripping wave present / complete PHARYNGOESOPHAGEAL SEGMENT OPENING: partial distension and partial duration; partial obstruction of flow TONGUE BASE RETRACTION: no contrast between tongue base and posterior pharyngeal wall PHARYNGEAL RESIDUE: trace residue within or on pharyngeal structures immediately post deglutition; rather significant collection of residue within or on pharyngeal structures FOLLOWING reflux through the pharyngoesophageal segment collecting within the pyriforms ESOPHAGEAL PHASE CHARACTERIZED BY: ESOPHAGEAL BOLUS CLEARANCE IN THE UPRIGHT POSITION: esophageal retention with retrograde flow through PES across all trials, with reflux at times occurring immediately post deglutition while the airway was still in the process of opening, resulting in post prandial penetration, eliciting strong gag reflex eventually leading to emesis and cessation of trials EFFECTS OF TREATMENT STRATEGIES ATTEMPTED: Reduced bolus size = ineffective Tablet with purees = ineffective DIET TEXTURE RECOMMENDATIONS: Cannot definitively identify appropriate diet texture recommendations, with no difference in tolerance between all textures. May require considerations for NPO status and alternative means of nutrition COMPENSATORY STRATEGIES RECOMMENDED: If PO intake is desired, would provide supervision, seated upright at 90 degrees during PO intake, remain upright for 30-60 minutes post meal (GERD precaution) INTERPRETATION OF RESULTS: Patient presents with mild oropharyngeal dysphagia (R13.12) and severe pharyngoesophageal dysphagia (R13.14) secondary to the diagnosis of radiation esophagitis with odynophagia associated with chemoradiation targeting limited stage small cell cancer. Oral phase primarily marked by intermittent suboptimal lingual control with noted intermittent premature bolus loss and mild slowing of oral phase bolus transport; noted uptake in premature bolus loss quantity with inconsistent lingual movements and rather early elicitation of the gag reflex (mid oral cavity) during bolus trials including a barium tablet, likely associated with phagophobia, with the Patient reporting significant anxiety prior to and following the study. Pharyngeal phase marked by rather consistent delayed pharyngeal swallow onset timing; adequate closure of the airway during deglutition; and mild reduction in pharyngoesophageal segment relaxation / duration of relaxation, though adequate pharyngeal motility, with no penetration or aspiration during the initial act of deglutition. Esophageal phase marked by retention with retrograde flow through PES across all trials, with reflux at times occurring immediately post deglutition while the airway was still in the process of opening, resulting in post prandial penetration, eliciting strong gag reflex eventually leading to emesis and cessation of trials. Esophageal findings not dissimilar to similar in nature to those with more severe radiation esophagitis, with subjective analysis similar to objective findings under fluoroscopy with exception of uptake in severity of noted esophageal reflux. Would attribute persistent sensation of bolus stasis during ingestion of pills to globus sensation vs. oropharyngeal stasis, as the Patients swallow function was relatively functional when excluding esophageal phase findings. RECOMMENDATIONS: Unable to determine least restrictive means of nutrition based on the findings obtained under fluoroscopy. If the current severity of reflux persists, the Patient is at risk for not only immediate post prandial penetration and aspiration of esophageal contents, but also tracheobronchial aspiration of gastroesophageal contents, as the Patients gag reflex is clearly maintained, with multiple bouts of emesis reported this date with attempted deglutition. The Patient is at higher risk of malnutrition and dehydration due to the marked impact on PO intake safety and quantity. May need to consider alternative means of nutrition within the near future, as the Patients current presentation clearly is not sufficient to assume that the Patient can consume an adequate amount of nutrition by mouth safely. Patient requires continued intensive skilled speech-language intervention targeting continued diet texture management and training and implementation of recommended compensatory strategies; though overall limited impact is to be expected with involvement. If reflux improves, can proceed with diet texture advancement at bedside. ADDITIONAL COMMENTS/RECOMMENDATIONS: Results and recommendations were discussed with the Patient immediately following MBS completion, with the Patient verbalizing understanding and agreement with all recommendations and education provided. IMAGE COUNT: [id number]
--- NOTE | 2017-06-04 14:23 | CASEMGMT ---
SW spoke with STICKER OPERATOR Sachi and she said she spoke with patient about Palliative and she was in agreement with talking with them. SW attempted to talk with patient, but she was not in the room. SW will check back with patient. She did tell Sachi she wanted her son to be a part of the discussion. Laurence BARRIENTOS MSW
[2017-06-04 15:23] LABS: Pathologist Review Reviewed
[2017-06-04 15:26] LABS: Pathologist Review Reviewed
--- NOTE | 2017-06-04 15:46 | CASEMGMT ---
AQUILINO spoke to ARTI Karimi who said that she spoke to patient about Palliative Care and she is in agreement with talking with them. AQUILINO faxed the referral and called [facility] with referral. They will follow up with patient. Plan: referral made to Palliative Care. Laurence BARRIENTOS MSW
--- NOTE | 2017-06-04 18:34 | PCM.PN.SRG ---
Patient Problems: Active and Suspected Problems Radiation esophagitis (Acute) COPD (chronic obstructive pulmonary disease) (Acute) Subjective: No hematemesis, no melena, no stools. Pt has retrosternal pain as she has had since almost the start of her chemo/radiation Swallow c/w reflux Severe thrombocytopenia persists - Physical Exam Vital Signs Temp Pulse Resp BP Pulse Ox 99.6 F H 88 19 H 161/87 H 96 06/04/17 18:04 06/04/17 18:04 06/04/17 18:04 06/04/17 18:04 06/04/17 18:04 Oxygen Flow Rate 2 Oxygen Delivery Method Nasal Cannula Weight: 167 lb 15.876 oz Body Mass Index (BMI) 25.5 Intake and Output for Last 24 Hours 06/02/17 06/03/17 06/04/17 23:59 23:59 23:59 Intake Total 3867 / 3867 2549 / 2549 3546 / 3546 Output Total 1100 / 1100 1450 / 1450 2725 / 2725 Balance 2767 / 2767 1099 / 1099 821 / 821 Laboratory Tests Past 24 Hrs 06/03/17 06/04/17 06/04/17 14:20 05:15 05:15 WBC 3.5 L RBC 3.14 L Hgb 9.2 L Hct 27.1 L MCV 86.3 MCH 29.3 MCHC 33.9 RDW 15.2 H RDW Differential 46.2 H Plt Count 32 L* MPV 9.1 Immature Gran % (Auto) 2.600 H Neut % (Auto) 83.4 H Lymph % (Auto) 5.4 L [place] % (Auto) 8.3 Eos % (Auto) 0.3 Baso % (Auto) 0.0 Absolute Neuts (auto) 2.9 Absolute Lymphs (auto) 0.19 L Total Counted Not Reportable Differential Comment SCAN Diff Path Review Reviewed Reviewed Platelet Estimate MKD DEC Sodium 141 Potassium 2.7 L* Chloride 106 Carbon Dioxide 29.0 Anion Gap 6 BUN 10 Creatinine 0.45 L Estim Creat Clear Calc 125.73 Est GFR (MDRD) Af Amer 181 Est GFR (MDRD) Non-Af 150 BUN/Creatinine Ratio 22.4 H Glucose 100 Calcium 7.6 L Phosphorus 1.7 L Magnesium 1.4 L Assessment/Plan Active and Suspected Problems Radiation esophagitis (Acute) COPD (chronic obstructive pulmonary disease) (Acute) Just the passage of the endoscope past her GE junction caused bleeding. Pathology from mid esophagus is pending I do not recommend a PEG tube out of significant concerns for hemorrhage without means of operative correction She needs to have maximization of medical care and her pancytopenia needs to have an opportunity to recover If required, could consider TPN via PICC line If she recovers in the future, could consider an outpt PEG prior to further oncology treatment.
--- NOTE | 2017-06-04 18:38 | PN.SURG_ITS ---
Patient Problems: Active and Suspected Problems Radiation esophagitis (Acute) COPD (chronic obstructive pulmonary disease) (Acute) Subjective: No hematemesis, no melena, no stools. Pt has retrosternal pain as she has had since almost the start of her chemo/ radiation Swallow c/w reflux Severe thrombocytopenia persists - Physical Exam Vital Signs Temp Pulse Resp BP Pulse Ox 99.6 F H 88 19 H 161/87 H 96 06/04/17 18:04 06/04/17 18:04 06/04/17 18:04 06/04/17 18:04 06/04/17 18:04 Oxygen Flow Rate 2 Oxygen Delivery Method Nasal Cannula Weight: 167 lb 15.876 oz Body Mass Index (BMI) 25.5 Intake and Output for Last 24 Hours 06/02/17 06/03/17 06/04/17 23:59 23:59 23:59 Intake Total 3867 / 3867 2549 / 2549 3546 / 3546 Output Total 1100 / 1100 1450 / 1450 2725 / 2725 Balance 2767 / 2767 1099 / 1099 821 / 821 Laboratory Tests Past 24 Hrs 06/03/17 06/04/17 06/04/17 14:20 05:15 05:15 WBC 3.5 L RBC 3.14 L Hgb 9.2 L Hct 27.1 L MCV 86.3 MCH 29.3 MCHC 33.9 RDW 15.2 H RDW Differential 46.2 H Plt Count 32 L* MPV 9.1 Immature Gran % (Auto) 2.600 H Neut % (Auto) 83.4 H Lymph % (Auto) 5.4 L [place] % (Auto) 8.3 Eos % (Auto) 0.3 Baso % (Auto) 0.0 Absolute Neuts (auto) 2.9 Absolute Lymphs (auto) 0.19 L Total Counted Not Reportable Differential Comment SCAN Diff Path Review Reviewed Reviewed Platelet Estimate MKD DEC Sodium 141 Potassium 2.7 L* Chloride 106 Carbon Dioxide 29.0 Anion Gap 6 BUN 10 Creatinine 0.45 L Estim Creat Clear Calc 125.73 Est GFR (MDRD) Af Amer 181 Est GFR (MDRD) Non-Af 150 BUN/Creatinine Ratio 22.4 H Glucose 100 Calcium 7.6 L Phosphorus 1.7 L Magnesium 1.4 L Assessment/Plan Active and Suspected Problems Radiation esophagitis (Acute) COPD (chronic obstructive pulmonary disease) (Acute) Just the passage of the endoscope past her GE junction caused bleeding. Pathology from mid esophagus is pending I do not recommend a PEG tube out of significant concerns for hemorrhage without means of operative correction She needs to have maximization of medical care and her pancytopenia needs to have an opportunity to recover If required, could consider TPN via PICC line If she recovers in the future, could consider an outpt PEG prior to further oncology treatment.
[2017-06-04] MEDS: Ondansetron 4 MG/2 ML Vial IV (20:18)
[2017-06-04 21:02] LABS: Magnesium 1.7 mg/dL (1.6-2.6); Phosphorus 2.4 mg/dL (2.5-4.9); Potassium 2.5 mmol/L (3.5-5.1)
[2017-06-04] MEDS: Pantoprazole Sodium 40 MG Tablet PO (22:40)
[2017-06-05] VITALS (25 sets, daily range): BP systolic 123–153; BP diastolic 72–88; PULSE 78–106; RESP 12–21; TEMP 36.7–36.9; O2SAT 95–97
[2017-06-05] MEDS: guaiFENesin 10 ML UDC (200MG/10ML) PO (04:26)
[2017-06-05] MEDS: 0.9% NaCl PICC Flush IV ×3 (05:37→21:56)
[2017-06-05 05:54] LABS: Absolute Lymphocyte Count 0.29 X10^3/ul (0.83-4.51); Absolute Neutrophil Count 1.7 X10^3/uL (2.0-7.7); Basophil# 0.01 X10^3/uL; Basophil% 0.5 % (0-1); Eosinophil# 0.01 X10^3/uL; Eosinophils% 0.5 % (0-5); Hematocrit 24.7 % (37-47); Hemoglobin 8.5 g/dl (12.0-15.0); Lymphocyte # 0.29 X10^3/ul (4.0); Lymphocyte % 13.4 % (19-41); Mean Corp Hgb Conc 34.4 g/gl (32-36); Mean Corpuscular Hgb 29.7 pg (27.0-32.0); Mean Corpuscular Volume 86.4 fL (81-99); Mean Platelet Vol. 9.8 fl (6.2-12.0); Monocyte# 0.17 X10^3/uL; Monocyte% 7.8 % (0-10); Neutrophil # 1.67 X10^3/uL (2.7-7.7); Neutrophil % 76.9 % (47-70); RBC Distribution Width CV 15.4 % (11.6-14.6); RBC Distribution Width SD 46.5 fl (35.1-43.9); Red Blood Count 2.86 M/mm3 (4.2-5.4); White Blood Count 2.2 K/mm3 (4.4-11.0)
[2017-06-05] MEDS: 0.9% Normal Saline 1,000 ML 125 ML IV (05:56)
[2017-06-05 06:07] LABS: Anion Gap 10 (5-15); BUN 7 mg/dL (7-18); BUN/Creat Ratio 17.5 RATIO (10-20); Calcium,Total 7.6 mg/dL (8.5-10.1); Chloride 103 mmol/L (98-107); EST Glomerular Filtration Rate 170 mL/min (>60); Est Glom Filt Rate - Afr Amer 206 mL/min (>60); Estimated Creatinine Clearance 141.45 ml/min; Glucose 98 mg/dL (74-106); Magnesium 1.5 mg/dL (1.6-2.6); Phosphorus 2.8 mg/dL (2.5-4.9); Potassium 3.1 mmol/L (3.5-5.1); Sodium Level 141 mmol/L (136-145)
[2017-06-05 06:22] LABS: Differential Indicated SCAN CRITERIA MET; POSITIVE COUNT YES; POSITIVE DIFFERENTIAL YES; POSITIVE MORPHOLOGY YES; Platelet Count 26 K/mm3 (150-450)
[2017-06-05 06:43] LABS: Platelet Estimate MKD DEC (ADEQ)
[2017-06-05] MEDS: Ipratropium/Albuterol Sulfate 3 ML AMPUL.NEB INHALATION ×3 (06:55→19:00)
[2017-06-05] MEDS: Magnesium Oxide 400 MG Tablet PO (08:38)
[2017-06-05] MEDS: Na Biphos/Potassium Phosphate PACKET 1 PACKET PO ×4 (08:39→21:56)
[2017-06-05] MEDS: dilTIAZem CD 120 MG Capsule PO (08:42)
[2017-06-05] MEDS: Pantoprazole Sodium 40 MG Tablet PO ×2 (08:45→21:57)
[2017-06-05] MEDS: Sertraline 50 MG Tablet 25 MG PO (08:45)
[2017-06-05] MEDS: amLODIPine 2.5 MG Tablet PO (08:45)
[2017-06-05] MEDS: Lisinopril 20 MG Tablet PO (08:45)
[2017-06-05] MEDS: Spironolactone 25 MG Tablet PO (08:49)
[2017-06-05] MEDS: TBO-FILGRASTIM 480 MCG/0.8 ML ML SC (08:49)
[2017-06-05] MEDS: Metoclopramide 10 MG/10 ML UDC 5 MG PO ×2 (11:29→16:09)
[2017-06-05] MEDS: dilTIAZem 60 MG Tablet PO (11:29)
--- NOTE | 2017-06-05 13:19 | CASEMGMT ---
Addendum entered by Sunny Lane 06/05/17 14:14: PT worked with pt. Recommendation is for further skilled therapy either home with HHS or if pt not able to have assistance at home, possible SNF. Original Note: Addendum entered by Sunny Lane 06/05/17 13:40: Pt is agreeable to [facility] or [facility] if needed. Original Note: Pt presented on 05/29/16 with fevers, anemia, WBC 0.3. Treatment for small cell carcinoma outpt including radiation and chemotherapy. [employer] suggestion that pt may be dc'd this weekend, recommending Home Health. Reviewed PT notes, has not worked with physical therapy since evaluation on 06/01/17. Per nursing pt is getting up to [facility]. Pt states she feels very weak and short of breath with activity. 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 is able to ambulate, do self care, but cannot tolerate activity for long. discussed that if pt returns home, she would need rest and to care for self. Children work during the day and cannot be with pt. Discussed Home Health services for patient and vocational aide assistance for if needed. Also noted Palliative Care is coming this afternoon. Discussed that Palliative Care would be beneficial service, however this does not provide aide services to home on dc- this could be provided through home health or private pay. Pt also considered TCU for short term stay. -CM will f/u on Wednesday if pt is still in house to re-evaluate dc needs. If pt is discharged Wednesday and home health is recommended, will need to be set up on Wednesday. Please leave message with CLAUDIA Fiedls CM @ ext [phone]
[2017-06-05] MEDS: fentaNYL 25 MCG Patch TRANSDERM. (13:42)
--- NOTE | 2017-06-05 13:51 | NURSING ---
1345: FLUSHED OLD FENTYNAL PATCH DOWN THE TOILET. Billie BRUNNER RN WITNESSED.
--- NOTE | 2017-06-05 15:09 | PCM.PROGNOTE ---
Patient Problems: Active and Suspected Problems Radiation esophagitis (Acute) COPD (chronic obstructive pulmonary disease) (Acute) Subjective: Patient seen and examined. Much more alert appearing today. States she feels improved overall. She was able to swallow small pills this morning and is able to intake liquids without difficulty. The patient is to meet with palliative care this afternoon. She denies other complaints. - Physical Exam General: Alert, Oriented x3, Cooperative, No apparent distress HEENT: Atraumatic, PERRLA, EOMI, Normocephalic Oral: Dry Mucosa Neck: Supple, No JVD, Negative Carotid Bruits Lungs: Clear to auscultation, Diminished Cardiovascular: Regular rate, Regular Rhythm, Normal S1, Normal S2, No murmurs Abdomen: Bowel Sounds Present, Soft, Non Tender, Non-Distended Extremities: No clubbing, No cyanosis, No edema, Capillary Refill Less than 3 Seconds Skin: No rashes, No breakdown Musculoskeletal: No Tenderness to Palpation of Joints or Extremities Neurological: Cranial nerves II-XII grossly intact, Neuro grossly intact Psych/Mental Status: Normal Affect, Appropriate Vital Signs Temp Pulse Resp BP Pulse Ox 98.2 F 84 20 H 148/83 H 95 06/05/17 11:00 06/05/17 13:27 06/05/17 13:27 06/05/17 11:00 06/05/17 11:00 Oxygen Flow Rate 2 Oxygen Delivery Method Nasal Cannula Weight: 76.2 kg Body Mass Index (BMI) 25.5 Intake and Output for Last 24 Hours 06/03/17 06/04/17 06/05/17 23:59 23:59 23:59 Intake Total 2549 / 2549 3546 / 3546 2595.1 / 2595.1 Output Total 1450 / 1450 2725 / 2725 1050 / 1050 Balance 1099 / 1099 821 / 821 1545.1 / 1545.1 Laboratory Tests Past 24 Hrs 06/03/17 06/04/17 06/04/17 14:20 05:15 20:30 WBC RBC Hgb Hct MCV MCH MCHC RDW RDW Differential Plt Count MPV Immature Gran % (Auto) Neut % (Auto) Lymph % (Auto) [place] % (Auto) Eos % (Auto) Baso % (Auto) Absolute Neuts (auto) Absolute Lymphs (auto) Total Counted Differential Comment Diff Path Review Reviewed Reviewed Platelet Estimate Sodium Potassium 2.5 L* Chloride Carbon Dioxide Anion Gap BUN Creatinine Estim Creat Clear Calc Est GFR (MDRD) Af Amer Est GFR (MDRD) Non-Af BUN/Creatinine Ratio Glucose Calcium Phosphorus 2.4 L Magnesium 1.7 06/05/17 06/05/17 05:30 05:30 WBC 2.2 L RBC 2.86 L Hgb 8.5 L Hct 24.7 L MCV 86.4 MCH 29.7 MCHC 34.4 RDW 15.4 H RDW Differential 46.5 H Plt Count 26 L* MPV 9.8 Immature Gran % (Auto) 0.900 Neut % (Auto) 76.9 H Lymph % (Auto) 13.4 L [place] % (Auto) 7.8 Eos % (Auto) 0.5 Baso % (Auto) 0.5 Absolute Neuts (auto) 1.7 L Absolute Lymphs (auto) 0.29 L Total Counted Not Reportable Differential Comment Diff Path Review May foll Platelet Estimate MKD DEC Sodium 141 Potassium 3.1 L Chloride 103 Carbon Dioxide 28.0 Anion Gap 10 BUN 7 Creatinine 0.40 L Estim Creat Clear Calc 141.45 Est GFR (MDRD) Af Amer 206 Est GFR (MDRD) Non-Af 170 BUN/Creatinine Ratio 17.5 Glucose 98 Calcium 7.6 L Phosphorus 2.8 Magnesium 1.5 L Assessment/Plan Active and Suspected Problems Radiation esophagitis (Acute) COPD (chronic obstructive pulmonary disease) (Acute) Patient is a 66-year-old female admitted 05/29/2017 due to fever. Patient follows with Dr. Soto for small cell lung cancer, currently undergoing chemo and radiation. Her other past medical history includes hypertension, GERD, COPD, paroxysmal atrial fibrillation. 1. Neutropenic fever, unclear etiology-suspected secondary to chemotherapy and radiation. Patient is currently undergoing treatment for small cell lung cancer. No further fever. Dr. Mays following. Continue IV Levaquin given difficulty swallowing pills. Repeat chest x-ray showed increased markings at the lung bases suggestive of bibasilar atelectasis and/or early infiltrates. Stable mild increased markings in the right upper lobe. 2. Pancytopenia-secondary to chemotherapy and radiation. Patient received platelets and packed red blood cells during admission. Continue granix. Hold off on further platelets given no source of acute bleeding. Patient underwent EGD 06/03/17 which showed radiation esophagitis and moderate hiatal hernia. No source of acute bleeding. Biopsies were taken, pending. Continue to monitor CBC. 3. 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 Study showed normal barium swallow study. Did note retrograde reflux from the esophagus into the hypopharynx. She will continue Protonix 40 mg twice daily. Continue speech therapy. She is progressing with her diet as tolerated and is improving. Feel her acute difficulty swallowing is related to recent EGD. Patient has had chronic dysphasia prior to admission. 4. Paroxysmal atrial fibrillation-patient has had recurrent episodes of A. fib with RVR. Patient has received IV Cardizem bolus and drip during admission. She was again taken off Cardizem drip due to converted to sinus rhythm and oral Cardizem was increased. She previously missed her morning Cardizem dose yesterday due to difficulty swallowing which is when she went back into atrial fibrillation. Heart rate and rhythm now stable. Continue Cardizem 180 mg daily. Echocardiogram shows an estimated ejection fraction of 55%, apical fall stent is noted, mildly enlarged left atrium, mild to moderate mitral valve insufficiency, trivial tricuspid valve insufficiency, RVSP estimated to be 28 mmHg. 5. COPD-no acute exacerbation. Continue albuterol DuoNeb aerosols. 6. GERD-continue PPI, Carafate. 7. Hypertension-stable, continue current regimen. 8. Electrolyte imbalance-potassium, magnesium, phosphorus replaced. Continue to monitor. Discharge planning-Patient is stable for discharge per oncology perspective. Discharge pending tolerance of oral intake. Patient is to meet with palliative care this afternoon. She may also require home health/short-term SNF. Pending physical therapy evaluation. DVT prophylaxis- SCDs. This patient was seen by VENKAT Hammond under the supervision of Dr. Alexandra.
[2017-06-05 20:46] LABS: Magnesium 2.1 mg/dL (1.6-2.6); Phosphorus 1.9 mg/dL (2.5-4.9); Potassium 3.7 mmol/L (3.5-5.1)
[2017-06-06] VITALS (10 sets, daily range): BP systolic 147–153; BP diastolic 81–91; PULSE 89–104; RESP 16–21; TEMP 36.6–36.8; O2SAT 95–96
[2017-06-06] MEDS: 0.9% NaCl PICC Flush IV ×5 (03:41→16:05)
[2017-06-06] MEDS: Metoclopramide 10 MG/10 ML UDC 5 MG PO ×2 (06:07→11:52)
[2017-06-06] MEDS: Ipratropium/Albuterol Sulfate 3 ML AMPUL.NEB INHALATION (06:56)
[2017-06-06 08:00] LABS: Absolute Lymphocyte Count 0.26 X10^3/ul (0.83-4.51); Absolute Neutrophil Count 2.2 X10^3/uL (2.0-7.7); Eosinophil# 0.02 X10^3/uL; Eosinophils% 0.7 % (0-5); Hematocrit 27.7 % (37-47); Hemoglobin 9.2 g/dl (12.0-15.0); Lymphocyte # 0.26 X10^3/ul (4.0); Lymphocyte % 9.5 % (19-41); Mean Corp Hgb Conc 33.2 g/gl (32-36); Mean Corpuscular Hgb 28.8 pg (27.0-32.0); Mean Corpuscular Volume 86.8 fL (81-99); Mean Platelet Vol. 9.6 fl (6.2-12.0); Monocyte# 0.27 X10^3/uL; Monocyte% 9.9 % (0-10); Neutrophil # 2.17 X10^3/uL (2.7-7.7); Neutrophil % 79.5 % (47-70); RBC Distribution Width CV 16.1 % (11.6-14.6); RBC Distribution Width SD 50.7 fl (35.1-43.9); Red Blood Count 3.19 M/mm3 (4.2-5.4); White Blood Count 2.7 K/mm3 (4.4-11.0)
[2017-06-06 08:02] LABS: Differential Indicated SCAN CRITERIA MET; POSITIVE COUNT YES; POSITIVE DIFFERENTIAL YES; POSITIVE MORPHOLOGY YES; Platelet Count 22 K/mm3 (150-450)
[2017-06-06 08:24] LABS: Anion Gap 8 (5-15); BUN 5 mg/dL (7-18); BUN/Creat Ratio 9.9 RATIO (10-20); Calcium,Total 8.2 mg/dL (8.5-10.1); Chloride 103 mmol/L (98-107); Creatinine, Serum 0.51 mg/dL (0.55-1.02); EST Glomerular Filtration Rate 129 mL/min (>60); Est Glom Filt Rate - Afr Amer 156 mL/min (>60); Estimated Creatinine Clearance 110.94 ml/min; Glucose 92 mg/dL (74-106); Magnesium 1.8 mg/dL (1.6-2.6); Phosphorus 2.7 mg/dL (2.5-4.9); Potassium 3.6 mmol/L (3.5-5.1); Sodium Level 139 mmol/L (136-145)
[2017-06-06] MEDS: Na Biphos/Potassium Phosphate PACKET 1 PACKET PO ×2 (09:08→11:51)
[2017-06-06] MEDS: Magnesium Oxide 400 MG Tablet PO (09:08)
[2017-06-06 09:09] LABS: Differential Comment SCAN; Platelet Estimate MKD DEC (ADEQ)
[2017-06-06] MEDS: Spironolactone 25 MG Tablet PO (09:09)
[2017-06-06] MEDS: amLODIPine 2.5 MG Tablet PO (09:10)
[2017-06-06] MEDS: Lisinopril 20 MG Tablet PO (09:10)
[2017-06-06] MEDS: Pantoprazole Sodium 40 MG Tablet PO (09:10)
[2017-06-06] MEDS: Sertraline 50 MG Tablet 25 MG PO (09:11)
[2017-06-06] MEDS: dilTIAZem CD 180 MG Capsule PO (09:23)
--- NOTE | 2017-06-06 09:46 | PCM.DC ---
- Discharge Diagnoses Current Active Problems: Current Active and Chronic Problems Radiation esophagitis (Acute) COPD (chronic obstructive pulmonary disease) (Acute) You will use the following diet at home:: No restrictions, Other - Sit upright 90 degrees during oral intake and remain sitting upright 60 mintutes after meals. Your food should be the consistency of: Puree Your liquids should be the consistency of: Regular/Thin Discharge Activity: Return to Normal Activity - As tolerated., May not drive while taking narcotic pain medications. Call your doctor if you observe: Fever of 101 or Higher, Shortness of breath, Dizziness, Fainting spells, Chest pain, Increased palpitations (irregular heartbeat) Additional Instructions: Please have labwork completed as you normally do tomorrow, 06/07/17. Your potassium, magnesium and phosphorus have been low and will need to be monitored. You were placed on supplementation at discharge. You received granix injection during admission. This will need ordered by Dr. Soto at discharge. Allergies/Adverse Reactions: Allergies oxycodone Adverse Reaction (Verified 05/26/17 12:51) Vomiting Medications to take at Discharge Ondansetron [Zofran Odt] 4 mg PO Q8H PRN PRN #10 tablet 06/13/16 Fluticasone 0.05% [Flonase Nasal [place]] 2 spray NASAL DAILY PRN PRN 05/05/17 Lisinopril 20 mg PO DAILY 05/05/17 Sertraline HCl [Zoloft] 25 mg PO DAILY 05/05/17 Tramadol HCl [Ultram] 50 mg PO Q6H PRN PRN 05/05/17 Triamcinolone 0.025% Cream [Kenalog] 1 applic TOPICAL TID 05/05/17 Mineral Oil/Petrolatum Cr [Aquaphor] 1 applic TOPICAL 4X/DAY PRN PRN 05/07/17 Sucralfate [Carafate] 10 ml PO 4X/DAY 05/30/17 Amlodipine [Norvasc] 2.5 mg PO DAILY #30 tab 06/06/17 Diltiazem CD [Cardizem CD] 180 mg PO DAILY #30 cap 06/06/17 Fentanyl [Duragesic] 25 mcg TRANSDERM. Q3D #2 patch 06/06/17 Magnesium Oxide [Mag-Ox 400] 400 mg PO DAILYCM #30 tab 06/06/17 Metoclopramide [Reglan Solution] 5 mg PO TIDAC #90 udc 06/06/17 MorphINE Soln [Roxanol] 10 mg PO Q4H PRN PRN #12 po.syringe 06/06/17 Na Biphos/Potassium Phosphate [Neutra-Phos Packet] 1 packet PO 4X/DAYCM #120 packet 06/06/17 Pantoprazole Sodium [Protonix] 40 mg PO BID #60 tab 06/06/17 Potassium Cloride Effervescent [Potassium Chl 25 Meq Eff (For Liquid)] 50 meq PO BIDCM #120 tablet.eff 06/06/17 Spironolactone [Aldactone] 25 mg PO DAILY #30 tab 06/06/17 The following prescriptions were given: MorphINE Soln [Roxanol] 10 mg PO Q4H PRN PRN #12 po.syringe PRN Reason: Severe Pain (-02/09) Amlodipine [Norvasc] 2.5 mg PO DAILY #30 tab Diltiazem CD [Cardizem CD] 180 mg PO DAILY #30 cap Fentanyl [Duragesic] 25 mcg TRANSDERM. Q3D #2 patch Magnesium Oxide [Mag-Ox 400] 400 mg PO DAILYCM #30 tab Metoclopramide [Reglan Solution] 5 mg PO TIDAC #90 udc Spironolactone [Aldactone] 25 mg PO DAILY #30 tab Pantoprazole Sodium [Protonix] 40 mg PO BID #60 tab Potassium Cloride Effervescent [Potassium Chl 25 Meq Eff (For Liquid)] 50 meq PO BIDCM #120 tablet.eff Na Biphos/Potassium Phosphate [Neutra-Phos Packet] 1 packet PO 4X/DAYCM #120 packet Primary Care Physician: Mihir Swan DO [Primary Care Provider] - Please follow up with your Primary Care Physician in: 1-2 Weeks Please Follow Up With: Rashad Soto DO When: As scheduled 06/07/17. Please Follow Up With: Josh Anderson MD When: 1-2 Weeks Proposed Discharge Date: 06/06/17
--- NOTE | 2017-06-06 10:33 | DS.PCM_ITS ---
Discharge Date and Diagnosis Date of Admission: 05/29/17 Date of Discharge: 06/06/17 - Primary Discharge Diagnosis Active and Suspected Problems 1. Neutropenic fever suspected secondary to chemotherapy and radiation as a result of small cell lung CA. 2. Pancytopenia secondary to chemotherapy and radiation. 3. Acute on chronic oral pharyngeal dysphasia secondary to radiation esophagitis 4. Paroxysmal atrial fibrillation with RVR 5. Electrolyte imbalance-secondary to chemotherapy. - Secondary Discharge Diagnosis Chronic Problems Small cell lung cancer (Chronic) Pancytopenia (Chronic) Afib (Chronic) HTN (hypertension) (Chronic) GERD (gastroesophageal reflux disease) (Chronic) COPD Hospital Course and Treatment Imaging Results: Diagnostic Data Chest X-Ray 06/03/17 07:57 IMPRESSION: Blunting of both costophrenic angles with increased markings at the lung bases suggests bibasilar atelectasis and/or early infiltrates. Stable mild increased markings in the right upper lobe. Electronically Signed: Parminder Riggs MD at 12:31 EST Tel [phone], Service support , Videofluoroscopic Swallow 06/04/17 14:10 IMPRESSION: Normal tailored barium swallow study. Retrograde reflux from the esophagus into the hypopharynx. The swallow study findings were discussed with the patient by the speech pathologist at the conclusion of the examination. Please see speech pathology report for more information and recommendations. Electronically Signed: Parminder Riggs MD at 14:49 EST Tel [phone], Service support , Dr. Mays- Oncology Dr. Anderson- Cardiology Dr. Dominguez- General surgery Operations: None Procedures: 2-D Echocardiogram, - - Videofluoroscopic swallow/modified barium swallow Summary of Care Provided: Patient is a 66-year-old female admitted 05/29/2017 due to fever. Patient follows with Dr. Soto for small cell lung cancer, currently undergoing chemo and radiation. Her other past medical history includes hypertension, GERD, COPD , paroxysmal atrial fibrillation. 1. Neutropenic fever-suspected secondary to chemotherapy and radiation. Patient is currently undergoing treatment for small cell lung cancer. No further fever. Patient follows with Dr. Soto. Chest x-ray showed increased markings at the lung bases suggestive of bibasilar atelectasis and/or early infiltrates. Stable mild increased markings in the right upper lobe. Patient received oral and IV Levaquin during admission. Continue IV Levaquin given difficulty swallowing pills. Repeat chest x-ray showed increased markings at the lung bases suggestive of bibasilar atelectasis and/or early infiltrates. Stable mild increased markings in the right upper lobe. 2. Pancytopenia-secondary to chemotherapy and radiation. Patient received platelets and packed red blood cells during admission. Continue granix at discharge to be ordered by oncology. Patient underwent EGD 06/03/17 which showed radiation esophagitis and moderate hiatal hernia. No source of acute bleeding. No further platelet administration was found to be necessary given no acute source of bleeding. Continue to monitor CBC as outpatient. 3. Acute on chronic oral pharyngeal dysphagia secondary to radiation esophagitis-patient underwent cookie swallow 06/04/17. Study showed normal barium swallow study. Did note retrograde reflux from the esophagus into the hypopharynx. She will continue Protonix 40 mg twice daily. Continue speech therapy. She is tolerating pur?ed diet without difficulty. Suspect acute swallowing difficulty is secondary to EGD procedure. 4. Paroxysmal atrial fibrillation-patient has had recurrent episodes of A. fib with RVR. Heart rate now in sinus rhythm. Patient received IV Cardizem bolus and Cardizem drip during admission. She will continue Cardizem 180 mg daily. She will follow-up with Dr. Anderson in 1-2 weeks as outpatient. Echocardiogram shows an estimated ejection fraction of 55%, apical fall stent is noted, mildly enlarged left atrium, mild to moderate mitral valve insufficiency, trivial tricuspid valve insufficiency, RVSP estimated to be 28 mmHg. 5. COPD-no acute exacerbation. 6. GERD-continue PPI, Carafate. 7. Hypertension-stable, continue current regimen. 8. Electrolyte imbalance-potassium, magnesium, phosphorus replaced. Patient will go home on daily supplementation. Continue to monitor electrolytes as outpatient by oncology. General: Alert, Oriented x3, Cooperative, No apparent distress HEENT: Atraumatic, PERRLA, EOMI, Normocephalic Oral: Dry Mucosa Neck: Supple, No JVD, Negative Carotid Bruits Lungs: Clear to auscultation, Diminished Cardiovascular: Regular rate, Regular Rhythm, Normal S1, Normal S2, No murmurs Abdomen: Bowel Sounds Present, Soft, Non Tender, Non-Distended Extremities: No clubbing, No cyanosis, No edema, Capillary Refill Less than 3 Seconds Skin: No rashes, No breakdown Musculoskeletal: No Tenderness to Palpation of Joints or Extremities Neurological: Cranial nerves II-XII grossly intact, Neuro grossly intact Psych/Mental Status: Normal Affect, Appropriate Patient seen and examined prior to discharge. Physical assessment as noted above. Patient is tolerating pur?ed diet without difficulty. She has routine lab work with oncology Wednesday, Wednesday, Wednesday. She will follow-up with oncology tomorrow, 06/07/17 for labwork and oncology appointment. Patient is stable for discharge home with home health. This patient was seen by VENKAT Hammond under the supervision of Dr. Alexandra. Discharge Diet: - - No restrictions, Other - Sit upright 90 degrees during oral intake and remain sitting upright 60 mintutes after meals. Pur?e consistency, thin liquids. Discharge Activity: Return to Normal Activity - As tolerated., May not drive while taking narcotic pain medications. Call your doctor if you observe: Fever of 101 or Higher, Shortness of breath, Dizziness, Fainting spells, Chest pain, Increased palpitations (irregular heartbeat) Home Medications: Medications to take at Discharge Ondansetron [Zofran Odt] 4 mg PO Q8H PRN PRN #10 tablet 06/13/16 Fluticasone 0.05% [Flonase Nasal [place]] 2 spray NASAL DAILY PRN PRN 05/05/17 Lisinopril 20 mg PO DAILY 05/05/17 Sertraline HCl [Zoloft] 25 mg PO DAILY 05/05/17 Tramadol HCl [Ultram] 50 mg PO Q6H PRN PRN 05/05/17 Triamcinolone 0.025% Cream [Kenalog] 1 applic TOPICAL TID 05/05/17 Mineral Oil/Petrolatum Cr [Aquaphor] 1 applic TOPICAL 4X/DAY PRN PRN 05/07/17 Sucralfate [Carafate] 10 ml PO 4X/DAY 05/30/17 Amlodipine [Norvasc] 2.5 mg PO DAILY #30 tab 06/06/17 Diltiazem CD [Cardizem CD] 180 mg PO DAILY #30 cap 06/06/17 Fentanyl [Duragesic] 25 mcg TRANSDERM. Q3D #2 patch 06/06/17 Magnesium Oxide [Mag-Ox 400] 400 mg PO DAILYCM #30 tab 06/06/17 Metoclopramide [Reglan Solution] 5 mg PO TIDAC #90 udc 06/06/17 MorphINE Soln [Roxanol] 10 mg PO Q4H PRN PRN #12 po.syringe 06/06/17 Na Biphos/Potassium Phosphate [Neutra-Phos Packet] 1 packet PO 4X/DAYCM #120 packet 06/06/17 Pantoprazole Sodium [Protonix] 40 mg PO BID #60 tab 06/06/17 Potassium Cloride Effervescent [Potassium Chl 25 Meq Eff (For Liquid)] 50 meq PO BIDCM #120 tablet.eff 06/06/17 Spironolactone [Aldactone] 25 mg PO DAILY #30 tab 06/06/17 Following Prescrptions Were Given to Patient: MorphINE Soln [Roxanol] 10 mg PO Q4H PRN PRN #12 po.syringe PRN Reason: Severe Pain (6-02/09) Amlodipine [Norvasc] 2.5 mg PO DAILY #30 tab Diltiazem CD [Cardizem CD] 180 mg PO DAILY #30 cap Fentanyl [Duragesic] 25 mcg TRANSDERM. Q3D #2 patch Magnesium Oxide [Mag-Ox 400] 400 mg PO DAILYCM #30 tab Metoclopramide [Reglan Solution] 5 mg PO TIDAC #90 udc Spironolactone [Aldactone] 25 mg PO DAILY #30 tab Pantoprazole Sodium [Protonix] 40 mg PO BID #60 tab Potassium Cloride Effervescent [Potassium Chl 25 Meq Eff (For Liquid)] 50 meq PO BIDCM #120 tablet.eff Na Biphos/Potassium Phosphate [Neutra-Phos Packet] 1 packet PO 4X/DAYCM #120 packet Primary Care Physician: Mihir Swan DO [Primary Care Provider] - Please follow up with your Primary Care Physician in: 1-2 Weeks Please Follow Up With: Rashad Soto DO When: As scheduled 06/07/17. Please Follow Up With: Josh Anderson MD When: 1-2 Weeks Disposition: Home with Home Health Minutes spent on discharge:: 35 Patient Condition:: Stable Meaningful Use Info Meaningful Use Diagnoses (Choose all that apply): None applicable
[2017-06-06] MEDS: TBO-FILGRASTIM 480 MCG/0.8 ML ML SC (10:38)
[2017-06-07 15:06] LABS: Pathologist Review Reviewed
[2017-06-07 15:10] LABS: Pathologist Review Reviewed
--- NOTE | 2017-06-07 16:01 | CASEMGMT ---
This RN CM placed call to pt at this time in regards to HHC. Pt states that she has not decided yet whether she needs it or not and states that she will contact this RN CM tomorrow if she thinks she does. Pt states no concerns since she was discharged yesterday. SStanca TAYLOR CM
== END 2017-06-06 16:12 | disposition home or self-care (01) | DRG 809 ==
LOC: ED 14:07 → MS3 18:03 → MS2 18:19 → PCU 06-01 08:23
PROVIDERS: Physician Assistant; Surgery; Admitting Provider Internal Medicine; Emergency Provider Emergency Medicine; Family Provider Family Medicine; PCP Family Medicine; Visit Provider Family Medicine
PROC: 0DB68ZX Excision of Stomach, Via Natural or Artificial Opening Endoscopic, Diagnostic (ICD-10-PCS; principal; 2017-06-03 06:25)
DX: D70.1 Agranulocytosis secondary to cancer chemotherapy (principal); C34.90 Malignant neoplasm of unspecified part of unspecified bronchus or lung; J96.11 Chronic respiratory failure with hypoxia; E46 Unspecified protein-calorie malnutrition; I48.0 Paroxysmal atrial fibrillation; E83.39 Other disorders of phosphorus metabolism; E83.42 Hypomagnesemia; R13.12 Dysphagia, oropharyngeal phase; J44.9 Chronic obstructive pulmonary disease, unspecified; T45.1X5A Adverse effect of antineoplastic and immunosuppressive drugs, initial encounter; R50.81 Fever presenting with conditions classified elsewhere; E87.6 Hypokalemia; Z79.899 Other long term (current) drug therapy; Z87.891 Personal history of nicotine dependence; K21.0 Gastro-esophageal reflux disease with esophagitis; I10 Essential (primary) hypertension; D61.818 Other pancytopenia; K20.8 Other esophagitis; Y84.2 Radiological procedure and radiotherapy as the cause of abnormal reaction of the patient, or of later complication, without mention of misadventure at the time of the procedure; E78.5 Hyperlipidemia, unspecified; Z68.25 Body mass index [BMI] 25.0-25.9, adult; K44.9 Diaphragmatic hernia without obstruction or gangrene; K29.60 Other gastritis without bleeding
CPT/HCPCS: 36415; 36592; 71046; 74230; 80048; 80053; 81001; 83605; 83735; 84100; 84132; 84443; 84484; 85025; 85027; 85610; 85730; 86644; 86850; 86900; 86920; 86922; 86965; 87040; 87086; 87804; 88305; 88312; 92526; 92610; 92611; 93005; 93306; 94640; 94762; 97110; 97116; 97162; 97165; 97530; 97802; 99282; J2185; J7030; J7040; J7050; P9016; P9035; P9037; P9040; A4216; J1447; J2405; J3490

== ENCOUNTER → 2017-06-09 11:54 | Outpatient (CLI) | payer MEDICARE, OTHER, SELFPAY ==
[2017-06-09 11:08] LABS: Phosphorus 2.8 mg/dL (2.5-4.9)
[2017-06-09 12:04] VITALS: BP 164/85; PULSE 80; RESP 16; TEMP 36.4; O2SAT 98; BMI 27.5
== END ==
PROVIDERS: Family Provider Family Medicine; PCP Family Medicine; Visit Provider Internal Medicine Hematology & Oncology
DX: E87.6 Hypokalemia (principal); E83.42 Hypomagnesemia; C34.90 Malignant neoplasm of unspecified part of unspecified bronchus or lung
CPT/HCPCS: 96365; 96366 ×2; 96367; 84100; 86850; 86900; 86920; 86922

== ENCOUNTER → 2017-06-10 08:32 | Outpatient (CLI) | payer MEDICARE, OTHER, SELFPAY ==
[2017-06-10 08:40] VITALS: BP 150/94; PULSE 90; RESP 20; TEMP 36.7; O2SAT 98; BMI 27.5
[2017-06-10 09:25] VITALS: BP 141/77; PULSE 80; RESP 18; TEMP 37; O2SAT 97
[2017-06-10 10:19] VITALS: BP 153/85; PULSE 79; RESP 18; TEMP 36.5; O2SAT 96
[2017-06-10 11:58] VITALS: BP 148/84; PULSE 80; RESP 16; TEMP 36.4; O2SAT 96
== END ==
PROVIDERS: Family Provider Family Medicine; PCP Family Medicine; Visit Provider Internal Medicine Hematology & Oncology
DX: Z51.89 Encounter for other specified aftercare (principal)
CPT/HCPCS: 36430; 86850; 86900; 86920; 86922; J7040; P9016; A4216

== ENCOUNTER → 2017-06-11 09:48 | Outpatient (CLI) | payer MEDICARE, OTHER, SELFPAY ==
[2017-06-05 10:00] VITALS: BP 142/83
[2017-06-10 08:40] VITALS: BMI 27.5
[2017-06-10 11:58] VITALS: BP 148/84
[2017-06-11 10:25] VITALS: BP 155/86; PULSE 73; RESP 18; TEMP 36.3; O2SAT 100; BMI 25.2
== END ==
PROVIDERS: Family Provider Family Medicine; PCP Family Medicine; Visit Provider Internal Medicine Hematology & Oncology
DX: E87.6 Hypokalemia (principal); E83.42 Hypomagnesemia; C34.90 Malignant neoplasm of unspecified part of unspecified bronchus or lung
CPT/HCPCS: 96365; 96366; 96367; J7050; A4216

== ENCOUNTER → 2017-06-14 09:48 | Outpatient (CLI) | payer MEDICARE, OTHER, SELFPAY ==
[2017-06-14 09:55] VITALS: BP 143/78; PULSE 59; RESP 16; TEMP 37.4; O2SAT 98; BMI 25.2
== END ==
PROVIDERS: Family Provider Family Medicine; PCP Family Medicine; Visit Provider Internal Medicine Hematology & Oncology
DX: E83.42 Hypomagnesemia (principal); E87.6 Hypokalemia; C34.90 Malignant neoplasm of unspecified part of unspecified bronchus or lung
CPT/HCPCS: 96365; 96366 ×2; 96367; J7040; A4216

== ENCOUNTER → 2017-06-16 10:46 | Outpatient (CLI) | payer MEDICARE, OTHER, SELFPAY ==
[2017-06-16 10:54] VITALS: BP 148/75; PULSE 51; RESP 16; TEMP 36.2; O2SAT 99; BMI 25.2
== END ==
PROVIDERS: Family Provider Family Medicine; PCP Family Medicine; Visit Provider Internal Medicine Hematology & Oncology
DX: E83.42 Hypomagnesemia (principal); E87.6 Hypokalemia; C34.90 Malignant neoplasm of unspecified part of unspecified bronchus or lung
CPT/HCPCS: 96365; 96366 ×2; 96367

== ENCOUNTER → 2017-06-22 09:21 | Outpatient (CLI) | payer MEDICARE, OTHER, SELFPAY ==
[2017-06-22] VITALS (7 sets, daily range): BP systolic 136–154; BP diastolic 81–88; PULSE 58–70; RESP 16–18; TEMP 36.4–37.1; O2SAT 97–99; BMI 22.9
== END ==
PROVIDERS: Family Provider Family Medicine; PCP Family Medicine; Visit Provider Internal Medicine Hematology & Oncology
DX: D64.81 Anemia due to antineoplastic chemotherapy (principal)
CPT/HCPCS: 36430; 86850; 86900; 86920; 86922; J7040; J7050; P9016; A4216

== ENCOUNTER 2017-06-24 09:50 | Day surgery (SDC) | payer MEDICARE, OTHER, SELFPAY ==
[2017-06-24] VITALS (11 sets, daily range): BP systolic 162–185; BP diastolic 85–99; PULSE 48–62; RESP 14–16; TEMP 36.8–37.3; O2SAT 98–100; BMI 22.4
[2017-06-24 10:29] LABS: Hematocrit 35.2 % (37-47); Hemoglobin 12.1 g/dl (12.0-15.0); Mean Corp Hgb Conc 34.4 g/gl (32-36); Mean Corpuscular Hgb 29.6 pg (27.0-32.0); Mean Corpuscular Volume 86.1 fL (81-99); Mean Platelet Vol. 9.5 fl (6.2-12.0); Platelet Count 172 K/mm3 (150-450); RBC Distribution Width CV 15.6 % (11.6-14.6); RBC Distribution Width SD 45.4 fl (35.1-43.9); Red Blood Count 4.09 M/mm3 (4.2-5.4); White Blood Count 2.7 K/mm3 (4.4-11.0)
[2017-06-24 10:32] LABS: Scan Indicated on CBC? Y/N NO
--- NOTE | 2017-06-24 11:49 | OP.PCM_ITS ---
Problem List (1) Monilial esophagitis Status: Acute Report of Operation Date of Procedure: 06/24/17 Pre-Operative Diagnosis: Monilial esophagitis/radiation esophagitis Post-Operative Diagnosis: Same Surgery/Procedure Performed:: Esophagogastroduodenoscopy with percutaneous endoscopic gastrostomy tube placement Description of Surgical Findings:: Timeout and informed consent was obtained. 66-year-old female was taken to the endoscopy suite. Her oropharynx anesthetized with Cetacaine. She was placed in left loud skin position. Anesthesia provided monitored anesthesia care. Flexible GF gastroscope was inserted into the esophageal inlet. That appear to be clear of disease. The proximal distal esophagus not remarkable except for small hiatal hernia. The midesophagus did demonstrate some mild esophagitis this is been previously biopsied and was consistent with monilial esophagitis. Patient's changes currently are likely a combination of that and post radiation change. There is significant improvement noted from the previous examination. EG junction is at 40 cm. The scope was easily advanced in the stomach. A small amount of bile staining within the stomach. The scope was advanced through the duodenum. Slight tortuosity of the duodenal bulb but I did not see any evidence of bleeding or ulceration. Mucosa appeared to be normal. The scope was withdrawn back to the stomach retroflexed the EG junction small hiatal hernia noted. The cardia was not remarkable. The scope was placed in antegrade viewing position. The abdomen was trans-palpated there was excellent light reflex and excellent trans-palpation. The abdomen was prepped with ChloraPrep. 2% lidocaine was used as local anesthetic a total of 8 cc was used. A small stab incision was created. The introducing needle was advanced through the abdominal wall directly under visualization into the stomach. The wire was inserted and grasped with a snare. The wire was exited through the mouth. The 20 [place] gastrostomy tube was lubricated and placed over the wire. It was brought out to approximately 4 cm. There appear to be good apposition. The external bolster was applied. The external clamp was applied. The external tube connector was applied. Sterile dressings were applied. Endoscopic visualization demonstrated excellent position of the tube with no bleeding. She tolerated procedure well was taken to the recovery or insect condition no apparent complication. Impression Successful percutaneous endoscopic gastrostomy tube placement. Procedure was initiated with scope insertion at 1124 and was completed at 1140. Stefan Dominguez M.D., F.A.C.S. Type of Anesthesia:: MAC
== END 2017-06-24 15:30 | disposition home or self-care (01) ==
LOC: EN 09:50 → AC 09:51
PROVIDERS: Family Provider Family Medicine; PCP Family Medicine; Visit Provider Surgery
PROC: 0DJ08ZZ Inspection of Upper Intestinal Tract, Via Natural or Artificial Opening Endoscopic (ICD-10-PCS; CPT 43235; principal; 2017-06-24 10:55)
DX: B37.81 Candidal esophagitis (principal); K20.8 Other esophagitis; C34.90 Malignant neoplasm of unspecified part of unspecified bronchus or lung; J96.11 Chronic respiratory failure with hypoxia; Z87.891 Personal history of nicotine dependence; K44.9 Diaphragmatic hernia without obstruction or gangrene; J44.9 Chronic obstructive pulmonary disease, unspecified; D61.818 Other pancytopenia; F32.9 Major depressive disorder, single episode, unspecified; I48.0 Paroxysmal atrial fibrillation; I10 Essential (primary) hypertension; K21.9 Gastro-esophageal reflux disease without esophagitis; Z79.899 Other long term (current) drug therapy; Z99.81 Dependence on supplemental oxygen; Z71.3 Dietary counseling and surveillance; Z68.23 Body mass index [BMI] 23.0-23.9, adult
CPT/HCPCS: 43246; 85027; 97802; J7120; A4216

== ENCOUNTER → 2017-07-13 11:39 | Outpatient (CLI) | payer MEDICARE, OTHER, SELFPAY ==
[2017-07-13 12:21] VITALS: BP 154/90; PULSE 73; RESP 18; TEMP 36.5; O2SAT 100; BMI 23.4
[2017-07-13 12:34] LABS: Hematocrit 27.3 % (37-47); Mean Corpuscular Hgb 29.3 pg (27.0-32.0); Mean Corpuscular Volume 88.9 fL (81-99); Platelet Count 146 K/mm3 (150-450); RBC Distribution Width CV 17.9 % (11.6-14.6); RBC Distribution Width SD 57.8 fl (35.1-43.9); Red Blood Count 3.07 M/mm3 (4.2-5.4); White Blood Count 3.1 K/mm3 (4.4-11.0)
[2017-07-13 12:35] LABS: Scan Indicated on CBC? Y/N NO
[2017-07-13 13:05] LABS: BUN 17 mg/dL (7-18); Calcium,Total 8.2 mg/dL (8.5-10.1); Chloride 107 mmol/L (98-107); Creatinine, Serum 0.94 mg/dL (0.55-1.02); EST Glomerular Filtration Rate 63 mL/min (>60); Est Glom Filt Rate - Afr Amer 76 mL/min (>60); Estimated Creatinine Clearance 60.19 ml/min; Glucose 93 mg/dL (74-106); Magnesium 1.7 mg/dL (1.6-2.6); Potassium 3.1 mmol/L (3.5-5.1); Sodium Level 143 mmol/L (136-145)
[2017-07-13 16:08] VITALS: BP 161/88; PULSE 77; RESP 18; TEMP 36.3; O2SAT 99
[2017-07-13 17:37] LABS: Protein, Urine (Random) 152.5 mg/dL (<11.9); Protein:Creat Ratio 1809 mg/g CRE (0-200)
[2017-07-14 09:52] LABS: Vitamin D,25 Hydroxy 30.8 ng/mL (29.95-100.01)
[2017-07-14 16:09] LABS: PROEL- A/G Ratio 1.4 (0.7-1.7); PROEL- Albumin 3.3 g/dL (2.9-4.4); PROEL- Alpha-1 Globulin 0.3 g/dL (0.0-0.4); PROEL- Alpha-2 Globulin 0.7 g/dL (0.4-1.0); PROEL- Beta Globulin 0.9 g/dL (0.7-1.3); PROEL- Gamma Globulin 0.4 g/dL (0.4-1.8); PROEL- Globulin, Total 2.3 g/dL (2.2-3.9); PROEL- TOTAL PROTEIN 5.6 g/dL (6.0-8.5)
[2017-07-15 16:10] LABS: PROELU- Albumin, Urine 66.6 % (.); PROELU- Alpha-2-Globulin,Ur 8.6 % (.); PROELU- Gamma Globulin, Ur 4.8 % (.)
== END ==
PROVIDERS: Family Provider Family Medicine; PCP Family Medicine; Visit Provider Internal Medicine Hematology & Oncology
DX: E83.42 Hypomagnesemia (principal); E87.6 Hypokalemia; C34.90 Malignant neoplasm of unspecified part of unspecified bronchus or lung; E55.9 Vitamin D deficiency, unspecified; N18.2 Chronic kidney disease, stage 2 (mild); D63.1 Anemia in chronic kidney disease; D47.2 Monoclonal gammopathy
CPT/HCPCS: 96365; 96366 ×3; 96367; 36415; 80069; 82306; 82570; 83735; 84156; 84165; 84166; 85027; J7050; A4216

== ENCOUNTER 2017-07-17 17:24 | Inpatient (IN) | payer MEDICARE, OTHER, SELFPAY ==
[2017-07-17 17:25] VITALS: BP 182/99; PULSE 99; RESP 22; TEMP 36.4; O2SAT 95; BMI 23.3
--- NOTE | 2017-07-17 17:44 | NURSING ---
NO LW OR POA
--- NOTE | 2017-07-17 17:45 | CT_ITS ---
STUDY: CT BRAIN WITHOUT CONTRAST REASON FOR EXAM: Female, 66 years old. Headache nausea and vomiting, history of throat and lung cancer RADIATION DOSAGE (If Supplied By Facility): CTDIvol = ( 44.99 ) mGy, DLP = ( 745.49 ) mGycm TECHNIQUE: Transaxial CT imaging of the brain was performed without administration of intravenous contrast material. Individualized dose optimization techniques were used for this CT. COMPARISON: None. FINDINGS: Normal soft tissue structures. Normal calvarium. Normal size ventricles and extra-axial spaces for the patient's age. Normal white matter tracts of the cerebral hemispheres. Normal basal ganglia and thalami. Normal brainstem. Normal cerebellum. There is no intracranial hemorrhage. There are no findings of an acute ischemic infarction. Normal visualized paranasal sinuses. CT/Brain/Head without Contrast IMPRESSION: Normal unenhanced CT scan of the brain. Electronically Signed: Tan Rowley MD at 19:06 EDT , Service support ,
--- NOTE | 2017-07-17 17:50 | ED.VISSUMM ---
- ER Visit Summary Date of Service: 07/17/17 Chief Complaint: Headache History of Present Illness: The patient is a 66 F presenting with headache ?1 month. She states the pain has gradually been worsening. She had vomiting today. She states she vomited approximately 30 times. Denies abdominal pain. She has a history of migraine headaches. She is scheduled for an MRI on Wednesday to evaluate this headache. She has a history of small cell lung cancer and finished chemotherapy in June. She denies fever. Denies trauma. Denies other complaints. Physical Examination: Vitals are stable. Patient is afebrile. Alert no acute distress. HEENT exam is unremarkable. Neck is supple. No meningismus Lungs are clear and equal bilaterally. Heart is regular rate and rhythm. Abdomen is soft nontender nondistended. Extremities are unremarkable. Skin is warm and dry. No focal neurologic deficit. Remainder of exam is unremarkable. Emergency Department Course and Treatment: Patient was given Compazine, Benadryl IV. CBC shows white count of 4.3, hemoglobin 8.5, platelets 123. Chemistries show potassium 3.2, glucose 139. Magnesium is 1.5, phosphorus 3.0. CT head showed no acute process. Patient continues to have nausea. She is given Phenergan IV. She is given potassium replacement. She continues to be nauseated and does not feel well enough to go home. Discussed with Dr. Alexandra for admission. Disposition: Admission Impression: Headache, nausea vomiting, hypokalemia, hypomagnesemia This note was generated with [employer] dictation software. It may contain incorrect words, spelling, and punctuation that were not noted in review of the chart prior to signing ED Disposition - Plan for ED Patient: Chief Complaint: Headache
[2017-07-17] MEDS: 0.9% Normal Saline 1,000 ML 1000 ML IV (17:57)
[2017-07-17] MEDS: proCHLORPERazine 10 MG/2 ML Vial IV (17:57)
[2017-07-17] MEDS: DiphenhydrAMINE 50 MG/ML Syringe 25 MG IV (17:58)
[2017-07-17 18:17] LABS: Absolute Lymphocyte Count 0.35 X10^3/ul (0.83-4.51); Absolute Neutrophil Count 3.8 X10^3/uL (2.0-7.7); Basophil# 0.01 X10^3/uL; Basophil% 0.2 % (0-1); Differential Indicated SCAN CRITERIA MET; Eosinophil# 0.01 X10^3/uL; Eosinophils% 0.2 % (0-5); Hemoglobin 8.5 g/dl (12.0-15.0); Lymphocyte # 0.35 X10^3/ul (4.0); Lymphocyte % 8.2 % (19-41); Mean Corp Hgb Conc 32.7 g/gl (32-36); Mean Corpuscular Hgb 29.5 pg (27.0-32.0); Mean Corpuscular Volume 90.3 fL (81-99); Monocyte# 0.15 X10^3/uL; Monocyte% 3.5 % (0-10); Neutrophil # 3.75 X10^3/uL (2.7-7.7); Neutrophil % 87.9 % (47-70); POSITIVE COUNT NO; POSITIVE DIFFERENTIAL YES; POSITIVE MORPHOLOGY NO; Platelet Count 123 K/mm3 (150-450); RBC Distribution Width CV 18.1 % (11.6-14.6); RBC Distribution Width SD 60.1 fl (35.1-43.9); Red Blood Count 2.88 M/mm3 (4.2-5.4); White Blood Count 4.3 K/mm3 (4.4-11.0)
[2017-07-17 18:24] LABS: Anion Gap 11 (5-15); BUN 10 mg/dL (7-18); BUN/Creat Ratio 16.2 RATIO (10-20); Calcium,Total 8.7 mg/dL (8.5-10.1); Chloride 104 mmol/L (98-107); Creatinine, Serum 0.62 mg/dL (0.55-1.02); EST Glomerular Filtration Rate 103 mL/min (>60); Est Glom Filt Rate - Afr Amer 124 mL/min (>60); Estimated Creatinine Clearance 91.26 ml/min; Glucose 139 mg/dL (74-106); Magnesium 1.5 mg/dL (1.6-2.6); Potassium 3.2 mmol/L (3.5-5.1); Sodium Level 142 mmol/L (136-145)
[2017-07-17 19:31] VITALS: BP 172/76; PULSE 78; RESP 18; O2SAT 99
[2017-07-17 20:03] LABS: Anisocytosis 2+; Differential Comment SCANNED; Platelet Estimate SLT DEC (ADEQ); Poikilocytosis 1+
--- NOTE | 2017-07-17 21:21 | PCM.HP.STD ---
Problem List (1) Monilial esophagitis Status: Chronic (2) Radiation esophagitis Status: Chronic (3) Small cell lung cancer Status: Chronic (4) Pancytopenia Status: Chronic (5) Afib Status: Chronic Qualifiers: Atrial fibrillation type: paroxysmal Qualified Code(s): I48.0 - Paroxysmal atrial fibrillation (6) HTN (hypertension) Status: Chronic Qualifiers: Hypertension type: essential hypertension Qualified Code(s): I10 - Essential (primary) hypertension (7) GERD (gastroesophageal reflux disease) Status: Chronic Qualifiers: Esophagitis presence: with esophagitis Qualified Code(s): K21.0 - Gastro-esophageal reflux disease with esophagitis (8) COPD (chronic obstructive pulmonary disease) Status: Chronic Qualifiers: COPD type: unspecified COPD Qualified Code(s): J44.9 - Chronic obstructive pulmonary disease, unspecified (9) Intractable nausea and vomiting Status: Acute Qualifiers: Vomiting type: unspecified Qualified Code(s): R11.2 - Nausea with vomiting, unspecified (10) Migraine Status: Acute Qualifiers: Migraine type: unspecified Status migrainosus presence: with status migrainosus Intractability: intractable Qualified Code(s): G43.911 - Migraine, unspecified, intractable, with status migrainosus History of Present Illness Date of Admission: 07/17/17 Chief Complaint: Intractable N/V, Headache The patient is a 66 y/o F w/ PMHx: Hx Migraine, Chronic COPD, Former Tobacco use, HTN, HLD, PAF, GERD, Pancytopenia, SC Lung CA undergoing chemotherapy and radiation, recent 06/06/17 admission/discharge w/ neutropenic fever suspected secondary to her chemotherapy and radiation therapy with acute on chronic OP dysphagia secondary to radiation esophagitis with eventual PEG tube placement outpatient who now re-presents to the [facility] ED on 07/17/17 w/ history of ongoing moderate diffuse throbbing headache x 1 month, acutely worsened over the last 24 hours w/ associated nausea, emesis, photophobia and phonophobia. In the ED work-up included T 97.6, HR 99-->78, BP 182/99-->172/76, RR 22-->18, 95% on RA, CBC w/ WBC 4.3, Hgb 8.5, Plts 123 without marked shift, BMP w/ K 3.2, glucose 139, Mag 1.5, phos 3, CT head with no acute findings. In the ED patient administered NS 1L, phenergan, compazine, benadryl, potassium supplementation. Past Medical History Past Medical History (Chronic Problems): Chronic Problems (Last Reviewed 06/21/17 @ 12:17 by Barbara Tian) Monilial esophagitis (Chronic) Radiation esophagitis (Chronic) Small cell lung cancer (Chronic) Pancytopenia (Chronic) Afib (Chronic) HTN (hypertension) (Chronic) GERD (gastroesophageal reflux disease) (Chronic) COPD (chronic obstructive pulmonary disease) (Chronic) Allergies oxycodone Adverse Reaction (Verified 07/17/17 17:27) Vomiting Home Medications: Ambulatory Orders Medication Instructions Recorded Ondansetron [Zofran Odt] 4 mg PO Q8H PRN PRN #10 tab 06/13/16 Lisinopril 20 mg PO DAILY 05/05/17 Sertraline HCl [Zoloft] 25 mg PO DAILY 05/05/17 Tramadol HCl [Ultram] 50 mg PO Q6H PRN PRN 05/05/17 Sucralfate [Carafate] 10 ml PO 4X/DAY 05/30/17 Na Biphos/Potassium Phosphate 1 packet PO 4X/DAYCM #120 packet 06/06/17 [Neutra-Phos Packet] Potassium Cloride Effervescent 50 meq PO BIDCM #120 tablet.eff 06/06/17 [Potassium Chl 25 Meq Eff (For Liquid)] fluconazole 200 mg tablet 200 mg PO BID #28 tab 06/08/17 cholecalciferol (vitamin D3) 5,000 5,000 unit PO QDAY 06/21/17 unit capsule loratadine 10 mg tablet 10 mg PO QDAY 06/21/17 metoprolol tartrate 50 mg tablet 100 mg PO QDAY 06/21/17 multivitamin tablet 1 tab PO QDAY 06/21/17 Albuterol IH (ProAir) [Proair Hfa 2 puff INHALATION Q4H PRN PRN 06/24/17 (SP)Vent Pts] Fluticasone 0.05% [Flonase Nasal 2 spray NASAL DAILY 06/24/17 [place]] Pantoprazole Sodium [Protonix] 40 mg PO DAILY 06/24/17 Surgical History: cholecystectomy, hysterectomy - SHARON w/ BL RENNY, - - PEG placement. Psychiatric History: No pertinent psych hx WHITEWASHER History: No pertinent WHITEWASHER history Lives: Spouse/ Significant Other Smoking Status: Former smoker Tobacco Use: Non-smoker Alcohol: None Drugs: None - *Family History Paternal History Items: Diabetes, Heart Disease Maternal History Items: - - RA Review of Systems Constitutional: Reports: Anorexia, Malaise, Weakness, Fatigue. Denies: Chills, Fever, Weight Change HEENT: Reports: Difficulty Swallowing, Head Aches, Sore Throat. Denies: Sinus Congestion, Sinus Drainage Cardiovascular: Denies: Chest Pain, Palpitations Respiratory: Denies: Cough, Shortness of breath at rest, Sputum production Gastrointestinal: Reports: Nausea, Vomiting. Denies: Abdominal Pain Genitourinary: Denies: Dysuria Musculoskeletal: Denies: Joint Pain, Joint Tenderness Skin: Denies: Rash, Wounds Neurological: Denies: Numbness, Tingling, Focal weakness Psychiatric: Denies: Anxiety, Depression, Homicidal Ideations, Suicidal Ideations Hematologic/ Lymphatic: Reports: Anemia, Easy Bruising, Easy Bleeding VTE Information - Inpt Only VTE Present on Admission: No VTE Mechan Device Prophylaxis: SCD's VTE Pharm Prophylaxis ordered?: No Reason prophylaxis not ordered:: Medical Contraindication Patient Problems: Active and Suspected Problems (Last Reviewed 06/21/17 @ 12:17 by Barbara Tian) Intractable nausea and vomiting (Acute) Migraine (Acute) Subjective: Seated upright in the ED bed, room dark, TV for family very low, fatigued appearing. Objective: Physical Examination: General: awake, alert, oriented x 3 and cooperative, seated upright in the ED bed, ill appearing. Skin: normal color, turgor, no icterus, cyanosis. HEENT: AT/NC, EOMI, deferred pupillary assessment given severity of migraine w/ photophobia, dry MM, no carotid bruits or JVD noted. Lungs: CTA bilaterally, moderate effort, moderate decrease BL bases, no rales, ronchi or wheezing. Heart: Regular rate and rhythm; no gallop, rub audible. Abdomen: soft, NTTP, PEG in place, ND, hypoactive BS, no HSM. Extremities: no cyanosis, clubbing, mild BL ankle edema. Neurological: patient awake, alert, oriented x 3; cognitive function intact; cranial nerves II-XII grossly normal, moving all 4 extremities, no focal deficits, strength severely globally decreased secondary to acute presentation. Psychiatric: affect appears flat, fatigued, no acute evidence of depressive or anxiety feelings. - Physical Exam Vital Signs Temp Pulse Resp BP Pulse Ox 97.6 F L 78 18 172/76 H 99 07/17/17 17:25 07/17/17 19:31 07/17/17 19:31 07/17/17 19:31 07/17/17 19:31 Oxygen Delivery Method Room Air Weight: 153 lb 6.4 oz Body Mass Index (BMI) 23.3 Laboratory Tests Past 24 Hrs 07/17/17 07/17/17 07/17/17 18:00 18:00 18:00 WBC 4.3 L RBC 2.88 L Hgb 8.5 L Hct 26.0 L MCV 90.3 MCH 29.5 MCHC 32.7 RDW 18.1 H RDW Differential 60.1 H Plt Count 123 L MPV 9.0 Immature Gran % (Auto) 0.000 Neut % (Auto) 87.9 H Lymph % (Auto) 8.[address] [place] % (Auto) 3.5 Eos % (Auto) 0.2 Baso % (Auto) 0.2 Absolute Neuts (auto) 3.8 Absolute Lymphs (auto) 0.35 L Total Counted Not Reportable Differential Comment SCANNED Platelet Estimate SLT DEC Poikilocytosis 1+ Anisocytosis 2+ Sodium 142 Potassium 3.2 L Chloride 104 Carbon Dioxide 27.0 Anion Gap 11 BUN 10 Creatinine 0.62 Estim Creat Clear Calc 91.26 Est GFR (MDRD) Af Amer 124 Est GFR (MDRD) Non-Af 103 BUN/Creatinine Ratio 16.2 Glucose 139 H Calcium 8.7 Phosphorus 3.0 Magnesium 1.5 L Assessment/Plan Active and Suspected Problems (Last Reviewed 06/21/17 @ 12:17 by Barbara Tian) Intractable nausea and vomiting (Acute) Migraine (Acute) The patient is a 66 y/o F w/ PMHx: Hx Migraine, Chronic COPD, Former Tobacco use, HTN, HLD, PAF, GERD, Pancytopenia, SC Lung CA undergoing chemotherapy and radiation, recent 06/06/17 admission/discharge w/ neutropenic fever suspected secondary to her chemotherapy and radiation therapy with acute on chronic OP dysphagia secondary to radiation esophagitis with eventual PEG tube placement outpatient who now re-presents to the [facility] ED on 07/17/17 w/ history of ongoing moderate diffuse throbbing headache x 1 month, acutely worsened over the last 24 hours w/ associated nausea, emesis, photophobia and phonophobia. (1) Acute Persistent Intractable Migraine: Will admit to [facility], avoid aggressive narcotic therapy give this may exacerbate migraine, initiate IV VPA 500mg Q6 hours, IV Decadron 4mg Q6 hours, IV Toradol 30mg Q6 hours and PO Neurontin 100mg TID with meals initially and increase as needed. Given history will additionally obtain MRI Brain with and without. If VILLAR improves then will plan discharge to home on regimen including Depakote ER 500mg QHS, Neurontin 300mg TID with meals x 1 week, Medrol dose pack, Imitrex prn with Neurology follow-up in 2 weeks. (2) Electrolyte Disturbances: Frequent electrolyte disturbance history, potassium 3.2, magnesium 1.5, administered oral potassium in the ED, will administer IV mag aggressively, repeat mag and phos in AM, continue supplementation w/ neutraphos, mag, potassium oral per home regimen if tolerated. Trend BMP. History of PAF w/ RVR recurrence if Mag < 2, K < 4. (3) SC Lung CA: Recent chemotherapy and radiation, following w/ Dr. Soto, recent 06/06/17 admission with neutropenic fever, no source, felt likely secondary to chemotherapeutic agents/radiation. MRI Brain ordered as noted per #1. Mag, phos supplementation as noted. (4) Paroxsymal atrial fibrillation: ECHO w/ normal LV systolic function, EF 55%, left atrium mildly enlarged, atrial septum aneurysmal, mild to moderate MV insufficiency, trivial TV insufficiency, RVSP 28 mmHg, bubble contrast study negative for right to left interatrial shunt. Continue to aggressively administer electrolytes as needed with goal mag >2, K >4. Maintain on metoprolol regimen. Not on anticoagulation (xarelto prior) secondary to pancytopenia. (5) Chronic Pancytopenia: Admission CBC w/ WBC 4.3, Hgb 8.5, Plts 123 without marked shift, stable, improved from prior, trend CBC. Prior admission w/ plt, PRBC transfusion needs. Will maintain transfusion parameters w/ goal Hgb > 7 and Plts > 10,000 in the setting of no bleeding. Hold chemoprophylaxis given history. 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 Dominguez with noted findings consistent with radiation esophagitis with a moderate hiatal hernia and friable esophageal tissues as well as antral gastritis. 06/24/[address] PEG tube placed per Dr. Weber but not using, possible d/c soon she notes. Maintain on regular diet as she notes prior was tolerating with advise of clears and ADAT. Maintain on PPI, sucralafate, fluconazole. (7) Chronic COPD: ATC duonebs, PRN albuterol, HOB, IS parameters. (8) Hypertension: Maintain on home regimen lisinopril, metoprolol, PRN hydralazine. (9) Hyperlipidemia: Not on agent, defer. (10) Anxiety and Depression: Maintain on home sertraline regimen. (11) GERD: PPI. (12) DVT Prophylaxis: SCDs, defer chemoprophylaxis given pancytopenia. Code Visit Inpatient E&M: 00611 Init Hosp L3
--- NOTE | 2017-07-17 21:33 | HP.PCM_ITS ---
Problem List (1) Monilial esophagitis Status: Chronic (2) Radiation esophagitis Status: Chronic (3) Small cell lung cancer Status: Chronic (4) Pancytopenia Status: Chronic (5) Afib Status: Chronic Qualifiers: Atrial fibrillation type: paroxysmal Qualified Code(s): I48.0 - Paroxysmal atrial fibrillation (6) HTN (hypertension) Status: Chronic Qualifiers: Hypertension type: essential hypertension Qualified Code(s): I10 - Essential (primary) hypertension (7) GERD (gastroesophageal reflux disease) Status: Chronic Qualifiers: Esophagitis presence: with esophagitis Qualified Code(s): K21.0 - Gastro- esophageal reflux disease with esophagitis (8) COPD (chronic obstructive pulmonary disease) Status: Chronic Qualifiers: COPD type: unspecified COPD Qualified Code(s): J44.9 - Chronic obstructive pulmonary disease, unspecified (9) Intractable nausea and vomiting Status: Acute Qualifiers: Vomiting type: unspecified Qualified Code(s): R11.2 - Nausea with vomiting , unspecified (10) Migraine Status: Acute Qualifiers: Migraine type: unspecified Status migrainosus presence: with status migrainosus Intractability: intractable Qualified Code(s): G43.911 - Migraine, unspecified, intractable, with status migrainosus History of Present Illness Date of Admission: 07/17/17 Chief Complaint: Intractable N/V, Headache The patient is a 66 y/o F w/ PMHx: Hx Migraine, Chronic COPD, Former Tobacco use , HTN, HLD, PAF, GERD, Pancytopenia, SC Lung CA undergoing chemotherapy and radiation, recent 06/06/17 admission/discharge w/ neutropenic fever suspected secondary to her chemotherapy and radiation therapy with acute on chronic OP dysphagia secondary to radiation esophagitis with eventual PEG tube placement outpatient who now re-presents to the [facility] ED on 07/17/17 w/ history of ongoing moderate diffuse throbbing headache x 1 month, acutely worsened over the last 24 hours w/ associated nausea, emesis, photophobia and phonophobia. In the ED work-up included T 97.6, HR 99-->78, BP 182/99-->172/76, RR 22-->18, 95% on RA, CBC w/ WBC 4.3, Hgb 8.5, Plts 123 without marked shift, BMP w/ K 3.2, glucose 139, Mag 1.5, phos 3, CT head with no acute findings. In the ED patient administered NS 1L, phenergan, compazine, benadryl, potassium supplementation. Past Medical History Past Medical History (Chronic Problems): Chronic Problems (Last Reviewed 06/21/17 @ 12:17 by Barbara Tian) Monilial esophagitis (Chronic) Radiation esophagitis (Chronic) Small cell lung cancer (Chronic) Pancytopenia (Chronic) Afib (Chronic) HTN (hypertension) (Chronic) GERD (gastroesophageal reflux disease) (Chronic) COPD (chronic obstructive pulmonary disease) (Chronic) Allergies oxycodone Adverse Reaction (Verified 07/17/17 17:27) Vomiting Home Medications: Ambulatory Orders Medication Instructions Recorded Ondansetron [Zofran Odt] 4 mg PO Q8H PRN PRN #10 tab 06/13/16 Lisinopril 20 mg PO DAILY 05/05/17 Sertraline HCl [Zoloft] 25 mg PO DAILY 05/05/17 Tramadol HCl [Ultram] 50 mg PO Q6H PRN PRN 05/05/17 Sucralfate [Carafate] 10 ml PO 4X/DAY 05/30/17 Na Biphos/Potassium Phosphate 1 packet PO 4X/DAYCM #120 packet 06/06/17 [Neutra-Phos Packet] Potassium Cloride Effervescent 50 meq PO BIDCM #120 tablet.eff 06/06/17 [Potassium Chl 25 Meq Eff (For Liquid)] fluconazole 200 mg tablet 200 mg PO BID #28 tab 06/08/17 cholecalciferol (vitamin D3) 5,000 5,000 unit PO QDAY 06/21/17 unit capsule loratadine 10 mg tablet 10 mg PO QDAY 06/21/17 metoprolol tartrate 50 mg tablet 100 mg PO QDAY 06/21/17 multivitamin tablet 1 tab PO QDAY 06/21/17 Albuterol IH (ProAir) [Proair Hfa 2 puff INHALATION Q4H PRN PRN 06/24/17 (SP)Vent Pts] Fluticasone 0.05% [Flonase Nasal 2 spray NASAL DAILY 06/24/17 [place]] Pantoprazole Sodium [Protonix] 40 mg PO DAILY 06/24/17 Surgical History: cholecystectomy, hysterectomy - SHARON w/ BL RENNY, - - PEG placement. 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 Denies: Chills, Fever, Weight Change HEENT: Reports: Difficulty Swallowing, Head Aches, Sore Throat. Denies: Sinus Congestion, Sinus Drainage Cardiovascular: Denies: Chest Pain, Palpitations Respiratory: Denies: Cough, Shortness of breath at rest, Sputum production Gastrointestinal: Reports: Nausea, Vomiting. Denies: Abdominal Pain Genitourinary: Denies: Dysuria Musculoskeletal: Denies: Joint Pain, Joint Tenderness Skin: Denies: Rash, Wounds Neurological: Denies: Numbness, Tingling, Focal weakness Psychiatric: Denies: Anxiety, Depression, Homicidal Ideations, Suicidal Ideations Hematologic/ Lymphatic: Reports: Anemia, Easy Bruising, Easy Bleeding VTE Information - Inpt Only VTE Present on Admission: No VTE Mechan Device Prophylaxis: SCD's VTE Pharm Prophylaxis ordered?: No Reason prophylaxis not ordered:: Medical Contraindication Patient Problems: Active and Suspected Problems (Last Reviewed 06/21/17 @ 12:17 by Barbara Tian) Intractable nausea and vomiting (Acute) Migraine (Acute) Subjective: Seated upright in the ED bed, room dark, TV for family very low, fatigued appearing. Objective: Physical Examination: General: awake, alert, oriented x 3 and cooperative, seated upright in the ED bed, ill appearing. Skin: normal color, turgor, no icterus, cyanosis. HEENT: AT/NC, EOMI, deferred pupillary assessment given severity of migraine w/ photophobia, dry MM, no carotid bruits or JVD noted. Lungs: CTA bilaterally, moderate effort, moderate decrease BL bases, no rales, ronchi or wheezing. Heart: Regular rate and rhythm; no gallop, rub audible. Abdomen: soft, NTTP, PEG in place, ND, hypoactive BS, no HSM. Extremities: no cyanosis, clubbing, mild BL ankle edema. Neurological: patient awake, alert, oriented x 3; cognitive function intact; cranial nerves II-XII grossly normal, moving all 4 extremities, no focal deficits, strength severely globally decreased secondary to acute presentation. Psychiatric: affect appears flat, fatigued, no acute evidence of depressive or anxiety feelings. - Physical Exam Vital Signs Temp Pulse Resp BP Pulse Ox 97.6 F L 78 18 172/76 H 99 07/17/17 17:25 07/17/17 19:31 07/17/17 19:31 07/17/17 19:31 07/17/17 19:31 Oxygen Delivery Method Room Air Weight: 153 lb 6.4 oz Body Mass Index (BMI) 23.3 Laboratory Tests Past 24 Hrs 07/17/17 07/17/17 07/17/17 18:00 18:00 18:00 WBC 4.3 L RBC 2.88 L Hgb 8.5 L Hct 26.0 L MCV 90.3 MCH 29.5 MCHC 32.7 RDW 18.1 H RDW Differential 60.1 H Plt Count 123 L MPV 9.0 Immature Gran % (Auto) 0.000 Neut % (Auto) 87.9 H Lymph % (Auto) 8.2 L Andrew % (Auto) 3.5 Eos % (Auto) 0.2 Baso % (Auto) 0.2 Absolute Neuts (auto) 3.8 Absolute Lymphs (auto) 0.35 L Total Counted Not Reportable Differential Comment SCANNED Platelet Estimate SLT DEC Poikilocytosis 1+ Anisocytosis 2+ Sodium 142 Potassium 3.2 L Chloride 104 Carbon Dioxide 27.0 Anion Gap 11 BUN 10 Creatinine 0.62 Estim Creat Clear Calc 91.26 Est GFR (MDRD) Af Amer 124 Est GFR (MDRD) Non-Af 103 BUN/Creatinine Ratio 16.2 Glucose 139 H Calcium 8.7 Phosphorus 3.0 Magnesium 1.5 L Assessment/Plan Active and Suspected Problems (Last Reviewed 06/21/17 @ 12:17 by Barbara Tian) Intractable nausea and vomiting (Acute) Migraine (Acute) The patient is a 66 y/o F w/ PMHx: Hx Migraine, Chronic COPD, Former Tobacco use , HTN, HLD, PAF, GERD, Pancytopenia, SC Lung CA undergoing chemotherapy and radiation, recent 06/06/17 admission/discharge w/ neutropenic fever suspected secondary to her chemotherapy and radiation therapy with acute on chronic OP dysphagia secondary to radiation esophagitis with eventual PEG tube placement outpatient who now re-presents to the [facility] ED on 07/17/17 w/ history of ongoing moderate diffuse throbbing headache x 1 month, acutely worsened over the last 24 hours w/ associated nausea, emesis, photophobia and phonophobia. (1) Acute Persistent Intractable Migraine: Will admit to MS, avoid aggressive narcotic therapy give this may exacerbate migraine, initiate IV VPA 500mg Q6 hours, IV Decadron 4mg Q6 hours, IV Toradol 30mg Q6 hours and PO Neurontin 100mg TID with meals initially and increase as needed. Given history will additionally obtain MRI Brain with and without. If VILLAR improves then will plan discharge to home on regimen including Depakote ER 500mg QHS, Neurontin 300mg TID with meals x 1 week, Medrol dose pack, Imitrex prn with Neurology follow-up in 2 weeks. (2) Electrolyte Disturbances: Frequent electrolyte disturbance history, potassium 3.2, magnesium 1.5, administered oral potassium in the ED, will administer IV mag aggressively, repeat mag and phos in AM, continue supplementation w/ neutraphos, mag, potassium oral per home regimen if tolerated. Trend BMP. History of PAF w/ RVR recurrence if Mag < 2, K < 4. (3) SC Lung CA: Recent chemotherapy and radiation, following w/ Dr. Soto, recent 06/06/17 admission with neutropenic fever, no source, felt likely secondary to chemotherapeutic agents/radiation. MRI Brain ordered as noted per # 1. Mag, phos supplementation as noted. (4) Paroxsymal atrial fibrillation: ECHO w/ normal LV systolic function, EF 55% , left atrium mildly enlarged, atrial septum aneurysmal, mild to moderate MV insufficiency, trivial TV insufficiency, RVSP 28 mmHg, bubble contrast study negative for right to left interatrial shunt. Continue to aggressively administer electrolytes as needed with goal mag >2, K >4. Maintain on metoprolol regimen. Not on anticoagulation (xarelto prior) secondary to pancytopenia. (5) Chronic Pancytopenia: Admission CBC w/ WBC 4.3, Hgb 8.5, Plts 123 without marked shift, stable, improved from prior, trend CBC. Prior admission w/ plt, PRBC transfusion needs. Will maintain transfusion parameters w/ goal Hgb > 7 and Plts > 10,000 in the setting of no bleeding. Hold chemoprophylaxis given history. 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 Dominguez with noted findings consistent with radiation esophagitis with a moderate hiatal hernia and friable esophageal tissues as well as antral gastritis. 06/24/17 PEG tube placed per Dr. Weber but not using, possible d/c soon she notes. Maintain on regular diet as she notes prior was tolerating with advise of clears and ADAT. Maintain on PPI, sucralafate, fluconazole. (7) Chronic COPD: ATC duonebs, PRN albuterol, HOB, IS parameters. (8) Hypertension: Maintain on home regimen lisinopril, metoprolol, PRN hydralazine. (9) Hyperlipidemia: Not on agent, defer. (10) Anxiety and Depression: Maintain on home sertraline regimen. (11) GERD: PPI. (12) DVT Prophylaxis: SCDs, defer chemoprophylaxis given pancytopenia. Code Visit Inpatient E&M: 20031 Init Hosp L3
--- NOTE | 2017-07-17 21:38 | ED.RN ---
po k+ changed to iv k+ d/t pt poor swallowing ability and upset stomach
[2017-07-17 21:42] VITALS: BP 165/81; BP 173/82; PULSE 90; PULSE 92; RESP 16; RESP 18; O2SAT 95; O2SAT 96
[2017-07-17 22:52] VITALS: BP 150/82; PULSE 82; RESP 20; TEMP 36.9; O2SAT 100
[2017-07-17 22:53] VITALS: BMI 23.9
[2017-07-17 23:10] VITALS: PULSE 87
[2017-07-17 23:11] VITALS: BMI 24.0
[2017-07-17] MEDS: 0.9% Normal Saline 1,000 ML 999 ML IV (23:31)
[2017-07-18] VITALS (13 sets, daily range): BP systolic 138–155; BP diastolic 64–76; PULSE 67–139; RESP 18–21; TEMP 36.4–36.9; O2SAT 93–100
[2017-07-18] MEDS: Ipratropium/Albuterol Sulfate 3 ML AMPUL.NEB INHALATION ×3 (00:20→13:47)
[2017-07-18] MEDS: 0.9% NaCl PICC Flush IV ×5 (00:42→12:42)
[2017-07-18] MEDS: Ondansetron 4 MG/2 ML Vial IV (00:42)
[2017-07-18] MEDS: 0.9% Normal Saline 1,000 ML 150 ML IV ×3 (00:53→12:44)
[2017-07-18] MEDS: Gabapentin 100 MG Capsule PO ×3 (00:54→14:04)
[2017-07-18] MEDS: Na Biphos/Potassium Phosphate PACKET 1 PACKET PO ×3 (00:54→14:06)
[2017-07-18] MEDS: Ketorolac 30 MG/ML Syringe IV (00:55)
[2017-07-18] MEDS: Fluconazole 100 MG Tablet 200 MG PO ×2 (00:56→10:03)
[2017-07-18] MEDS: Sucralfate 1 GM Tablet PO ×3 (00:58→14:06)
--- NOTE | 2017-07-18 02:34 | NURSING ---
Pt states uses tube feed at home for extra nutrients. States that she can't remember the name of it at this time but that she can have someone from home find out tomorrow.
[2017-07-18] MEDS: Rivaroxaban 20 MG Tablet PO (06:54)
[2017-07-18 07:01] LABS: Absolute Lymphocyte Count 0.23 X10^3/ul (0.83-4.51); Absolute Neutrophil Count 3.7 X10^3/uL (2.0-7.7); Basophil# 0.01 X10^3/uL; Basophil% 0.2 % (0-1); Differential Indicated SCAN CRITERIA MET; Eosinophil# 0.01 X10^3/uL; Eosinophils% 0.2 % (0-5); Hematocrit 23.5 % (37-47); Hemoglobin 7.7 g/dl (12.0-15.0); Lymphocyte # 0.23 X10^3/ul (4.0); Lymphocyte % 5.7 % (19-41); Mean Corp Hgb Conc 32.8 g/gl (32-36); Mean Corpuscular Hgb 30.3 pg (27.0-32.0); Mean Corpuscular Volume 92.5 fL (81-99); Mean Platelet Vol. 8.7 fl (6.2-12.0); Monocyte# 0.08 X10^3/uL; Neutrophil % 91.9 % (47-70); POSITIVE COUNT NO; POSITIVE DIFFERENTIAL YES; POSITIVE MORPHOLOGY NO; Platelet Count 124 K/mm3 (150-450); RBC Distribution Width CV 18.3 % (11.6-14.6); Red Blood Count 2.54 M/mm3 (4.2-5.4)
[2017-07-18 07:11] LABS: Anion Gap 8 (5-15); BUN 10 mg/dL (7-18); BUN/Creat Ratio 14.2 RATIO (10-20); Calcium,Total 7.9 mg/dL (8.5-10.1); Chloride 109 mmol/L (98-107); EST Glomerular Filtration Rate 88 mL/min (>60); Est Glom Filt Rate - Afr Amer 107 mL/min (>60); Estimated Creatinine Clearance 80.83 ml/min; Glucose 127 mg/dL (74-106); Magnesium 2.9 mg/dL (1.6-2.6); Phosphorus 2.9 mg/dL (2.5-4.9); Potassium 3.9 mmol/L (3.5-5.1); Sodium Level 143 mmol/L (136-145)
[2017-07-18] MEDS: Fluticasone 0.05% 1 SPRAY NASAL.SRY 2 SPRAY NASAL (10:03)
[2017-07-18] MEDS: Pantoprazole Sodium 40 MG Tablet PO (10:05)
[2017-07-18] MEDS: Sertraline 50 MG Tablet 25 MG PO (10:05)
[2017-07-18] MEDS: Lisinopril 20 MG Tablet PO (10:06)
[2017-07-18] MEDS: Metoprolol Tartrate 100 MG Tablet PO (10:07)
[2017-07-18] MEDS: Loratadine 10 MG Tablet PO (10:08)
[2017-07-18] MEDS: Multivitamins,Therapeutic Tablet 1 TABLET PO (10:09)
--- NOTE | 2017-07-18 12:14 | NURSING ---
This nurse went to give pt the Carafate and pt was already eating an early lunch since she did not have breakfast. Will wait 2 hours from when she finishes to give her Carafate.
--- NOTE | 2017-07-18 13:54 | PCM.DC ---
- Discharge Diagnoses Current Active Problems: Current Active and Chronic Problems (Last Reviewed 06/21/17 @ 12:17 by Barbara Tian) Intractable nausea and vomiting (Acute) Migraine (Acute) You will use the following diet at home:: Regular Discharge Activity: Return to Normal Activity Allergies/Adverse Reactions: Allergies oxycodone Adverse Reaction (Verified 07/17/17 17:27) Vomiting Medications to take at Discharge Ondansetron [Zofran Odt] 4 mg PO Q8H PRN PRN #10 tab 06/13/16 Lisinopril 20 mg PO DAILY 05/05/17 Sertraline HCl [Zoloft] 25 mg PO DAILY 05/05/17 Tramadol HCl [Ultram] 50 mg PO Q6H PRN PRN 05/05/17 Sucralfate [Carafate] 10 ml PO 4X/DAY 05/30/17 Na Biphos/Potassium Phosphate [Neutra-Phos Packet] 1 packet PO 4X/DAYCM #120 packet 06/06/17 Potassium Cloride Effervescent [Potassium Chl 25 Meq Eff (For Liquid)] 50 meq PO BIDCM #120 tablet.eff 06/06/17 fluconazole 200 mg tablet 200 mg PO BID #28 tab 06/08/17 cholecalciferol (vitamin D3) 5,000 unit capsule 5,000 unit PO DAILY 06/21/17 loratadine 10 mg tablet 10 mg PO DAILY 06/21/17 metoprolol tartrate 50 mg tablet 100 mg PO DAILY 06/21/17 Albuterol IH (ProAir) [Proair Hfa] 2 puff INHALATION Q4H PRN PRN 06/24/17 Fluticasone 0.05% [Flonase Nasal [place]] 2 spray NASAL DAILY 06/24/17 Pantoprazole Sodium [Protonix] 40 mg PO DAILY 06/24/17 Rivaroxaban [Xarelto] 20 mg PO DAILY 07/17/17 Divalproex Sodium [Depakote ER] 500 mg PO QHS #30 tab 07/18/17 Gabapentin [Neurontin] 100 mg PO TIDCM #90 cap 07/18/17 MethylPREDNISolone DosePak [Medrol DosePak] 4 mg PO UD #1 box 07/18/17 Sumatriptan Succinate [Imitrex] 50 mg PO Q2H PRN #9 tab 07/18/17 The following prescriptions were given: Divalproex Sodium [Depakote ER] 500 mg PO QHS #30 tab MethylPREDNISolone DosePak [Medrol DosePak] 4 mg PO UD #1 box Sumatriptan Succinate [Imitrex] 50 mg PO Q2H PRN #9 tab PRN Reason: Migraine Symptoms Gabapentin [Neurontin] 100 mg PO TIDCM #90 cap Primary Care Physician: Mihir Swan DO [Primary Care Provider] - Please follow up with your Primary Care Physician in: in 1 to 2 weeks. Please Follow Up With: Rashad Soto DO When: As scheduled, 07/19/17.
--- NOTE | 2017-07-18 13:58 | PCM.DC.SUM ---
Discharge Date and Diagnosis - Problem List Patient Problems: Active and Suspected Problems (Last Reviewed 06/21/17 @ 12:17 by Barbara Tian) Intractable nausea and vomiting (Acute) Migraine (Acute) Date of Admission: 07/17/17 Date of Discharge: 07/18/17 - Primary Discharge Diagnosis Active and Suspected Problems (Last Reviewed 06/21/17 @ 12:17 by Barbara Tian) Intractable nausea and vomiting (Acute) Migraine (Acute) - Secondary Discharge Diagnosis Chronic Problems (Last Reviewed 06/21/17 @ 12:17 by Barbara Tian) Monilial esophagitis (Chronic) Radiation esophagitis (Chronic) Small cell lung cancer (Chronic) Pancytopenia (Chronic) Afib (Chronic) HTN (hypertension) (Chronic) GERD (gastroesophageal reflux disease) (Chronic) COPD (chronic obstructive pulmonary disease) (Chronic) Hospital Course and Treatment Imaging Results: Diagnostic Data Brain CT 07/17/17 17:45 IMPRESSION: Normal unenhanced CT scan of the brain. Electronically Signed: Tan Rowley MD at 19:06 EDT , Service support , No technical assistance consultant. Operations: None Procedures: None Summary of Care Provided: The patient is a 66 y/o F w/ PMHx: Hx Migraine, Chronic COPD, Former Tobacco use, HTN, HLD, PAF, GERD, Pancytopenia, SC Lung CA undergoing chemotherapy and radiation, recent 06/06/17 admission/discharge w/ neutropenic fever suspected secondary to her chemotherapy and radiation therapy with acute on chronic OP dysphagia secondary to radiation esophagitis with eventual PEG tube placement outpatient who now re-presents to the [facility] ED on 07/17/17 w/ history of ongoing moderate diffuse throbbing headache x 1 month, acutely worsened over the last 24 hours w/ associated nausea, emesis, photophobia and phonophobia. She was started on gabapentin, Depakote, and Decadron IV, along with analgesics. She responded well, became headache free the following day. Plan to discharge home with current medication, but adjust dosage for outpatient. Depakote ER 500 mg po qhs, Neurontin 100 mg po tid, Imitrex 50 mg po q2h x 2 prn migraine, and medrol dose pack. Consider neurology follow up if she has more episodes of migraine. She has follow up appointment with Dr. Soto, who is planning for MRI to make decision on cranial irradiation tomorrow. Advise her to keep the appointment and do MRI of head at their facility for ease of continuity of care. (1) Acute Persistent Intractable Migraine: Will admit to MS, avoid aggressive narcotic therapy give this may exacerbate migraine, initiate IV VPA 500mg Q6 hours, IV Decadron 4mg Q6 hours, IV Toradol 30mg Q6 hours and PO Neurontin 100mg TID with meals initially and increase as needed. (2) Electrolyte Disturbances: Frequent electrolyte disturbance history, potassium 3.2, magnesium 1.5, administered oral potassium in the ED, will administer IV mag aggressively, repeat mag and phos in AM, continue supplementation w/ neutraphos, mag, potassium oral per home regimen if tolerated. Trend BMP. History of PAF w/ RVR recurrence if Mag < 2, K < 4. (3) SC Lung CA: Recent chemotherapy and radiation, following w/ Dr. Soto, recent 06/06/17 admission with neutropenic fever, no source, felt likely secondary to chemotherapeutic agents/radiation. MRI Brain ordered as noted per #1. Mag, phos supplementation as noted. (4) Paroxsymal atrial fibrillation: ECHO w/ normal LV systolic function, EF 55%, left atrium mildly enlarged, atrial septum aneurysmal, mild to moderate MV insufficiency, trivial TV insufficiency, RVSP 28 mmHg, bubble contrast study negative for right to left interatrial shunt. Continue to aggressively administer electrolytes as needed with goal mag >2, K >4. Maintain on metoprolol regimen. Not on anticoagulation (xarelto prior) secondary to pancytopenia. (5) Chronic Pancytopenia: Admission CBC w/ WBC 4.3, Hgb 8.5, Plts 123 without marked shift, stable, improved from prior, trend CBC. Prior admission w/ plt, PRBC transfusion needs. Will maintain transfusion parameters w/ goal Hgb > 7 and Plts > 10,000 in the setting of no bleeding. Hold chemoprophylaxis given history. 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 Dominguez with noted findings consistent with radiation esophagitis with a moderate hiatal hernia and friable esophageal tissues as well as antral gastritis. 06/24/17 PEG tube placed per Dr. Weber but not using, possible d/c soon she notes. Maintain on regular diet as she notes prior was tolerating with advise of clears and ADAT. Maintain on PPI, sucralafate, fluconazole. (7) Chronic COPD: ATC duonebs, PRN albuterol, HOB, IS parameters. (8) Hypertension: Maintain on home regimen lisinopril, metoprolol, PRN hydralazine. (9) Hyperlipidemia: Not on agent, defer. (10) Anxiety and Depression: Maintain on home sertraline regimen. (11) GERD: PPI. (12) DVT Prophylaxis: SCDs, defer chemoprophylaxis given pancytopenia. Discharge Diet: No Restrictions Discharge Activity: Return to Normal Activity Home Medications: Medications to take at Discharge Ondansetron [Zofran Odt] 4 mg PO Q8H PRN PRN #10 tab 06/13/16 Lisinopril 20 mg PO DAILY 05/05/17 Sertraline HCl [Zoloft] 25 mg PO DAILY 05/05/17 Tramadol HCl [Ultram] 50 mg PO Q6H PRN PRN 05/05/17 Sucralfate [Carafate] 10 ml PO 4X/DAY 05/30/17 Na Biphos/Potassium Phosphate [Neutra-Phos Packet] 1 packet PO 4X/DAYCM #120 packet 06/06/17 Potassium Cloride Effervescent [Potassium Chl 25 Meq Eff (For Liquid)] 50 meq PO BIDCM #120 tablet.eff 06/06/17 fluconazole 200 mg tablet 200 mg PO BID #28 tab 06/08/17 cholecalciferol (vitamin D3) 5,000 unit capsule 5,000 unit PO DAILY 06/21/17 loratadine 10 mg tablet 10 mg PO DAILY 06/21/17 metoprolol tartrate 50 mg tablet 100 mg PO DAILY 06/21/17 Albuterol IH (ProAir) [Proair Hfa] 2 puff INHALATION Q4H PRN PRN 06/24/17 Fluticasone 0.05% [Flonase Nasal [place]] 2 spray NASAL DAILY 06/24/17 Pantoprazole Sodium [Protonix] 40 mg PO DAILY 06/24/17 Rivaroxaban [Xarelto] 20 mg PO DAILY 07/17/17 Divalproex Sodium [Depakote ER] 500 mg PO QHS #30 tab 07/18/17 Gabapentin [Neurontin] 100 mg PO TIDCM #90 cap 07/18/17 MethylPREDNISolone DosePak [Medrol DosePak] 4 mg PO UD #1 box 07/18/17 Sumatriptan Succinate [Imitrex] 50 mg PO Q2H PRN #9 tab 07/18/17 Following Prescrptions Were Given to Patient: Divalproex Sodium [Depakote ER] 500 mg PO QHS #30 tab MethylPREDNISolone DosePak [Medrol DosePak] 4 mg PO UD #1 box Sumatriptan Succinate [Imitrex] 50 mg PO Q2H PRN #9 tab PRN Reason: Migraine Symptoms Gabapentin [Neurontin] 100 mg PO TIDCM #90 cap Primary Care Physician: Mihir Swan DO [Primary Care Provider] - Please follow up with your Primary Care Physician in: in 1 to 2 weeks. Please Follow Up With: Rashad Soto DO When: As scheduled, 07/19/17. Disposition: Home Medical Necessity - Tobacco Use Smoking Status: Former smoker Tobacco Use: Non-smoker Meaningful Use Info Meaningful Use Diagnoses (Choose all that apply): None applicable Code Visit Inpatient E&M: 15534 Disch Hosp
--- NOTE | 2017-07-18 14:02 | CPS ---
Started by nursing
--- NOTE | 2017-07-18 14:04 | DS.PCM_ITS ---
Discharge Date and Diagnosis - Problem List Patient Problems: Active and Suspected Problems (Last Reviewed 06/21/17 @ 12:17 by Barbara Tian) Intractable nausea and vomiting (Acute) Migraine (Acute) Date of Admission: 07/17/17 Date of Discharge: 07/18/17 - Primary Discharge Diagnosis Active and Suspected Problems (Last Reviewed 06/21/17 @ 12:17 by Barbara Tian) Intractable nausea and vomiting (Acute) Migraine (Acute) - Secondary Discharge Diagnosis Chronic Problems (Last Reviewed 06/21/17 @ 12:17 by Barbara Tian) Monilial esophagitis (Chronic) Radiation esophagitis (Chronic) Small cell lung cancer (Chronic) Pancytopenia (Chronic) Afib (Chronic) HTN (hypertension) (Chronic) GERD (gastroesophageal reflux disease) (Chronic) COPD (chronic obstructive pulmonary disease) (Chronic) Hospital Course and Treatment Imaging Results: Diagnostic Data Brain CT 07/17/17 17:45 IMPRESSION: Normal unenhanced CT scan of the brain. Electronically Signed: Tan Rowley MD at 19:06 EDT , Service support , No toy consultant. Operations: None Procedures: None Summary of Care Provided: The patient is a 66 y/o F w/ PMHx: Hx Migraine, Chronic COPD, Former Tobacco use , HTN, HLD, PAF, GERD, Pancytopenia, SC Lung CA undergoing chemotherapy and radiation, recent 06/06/17 admission/discharge w/ neutropenic fever suspected secondary to her chemotherapy and radiation therapy with acute on chronic OP dysphagia secondary to radiation esophagitis with eventual PEG tube placement outpatient who now re-presents to the [facility] ED on 07/17/17 w/ history of ongoing moderate diffuse throbbing headache x 1 month, acutely worsened over the last 24 hours w/ associated nausea, emesis, photophobia and phonophobia. She was started on gabapentin, Depakote, and Decadron IV, along with analgesics. She responded well, became headache free the following day. Plan to discharge home with current medication, but adjust dosage for outpatient. Depakote ER 500 mg po qhs, Neurontin 100 mg po tid, Imitrex 50 mg po q2h x 2 prn migraine, and medrol dose pack. Consider neurology follow up if she has more episodes of migraine. She has follow up appointment with Dr. Soto, who is planning for MRI to make decision on cranial irradiation tomorrow. Advise her to keep the appointment and do MRI of head at their facility for ease of continuity of care. (1) Acute Persistent Intractable Migraine: Will admit to MS, avoid aggressive narcotic therapy give this may exacerbate migraine, initiate IV VPA 500mg Q6 hours, IV Decadron 4mg Q6 hours, IV Toradol 30mg Q6 hours and PO Neurontin 100mg TID with meals initially and increase as needed. (2) Electrolyte Disturbances: Frequent electrolyte disturbance history, potassium 3.2, magnesium 1.5, administered oral potassium in the ED, will administer IV mag aggressively, repeat mag and phos in AM, continue supplementation w/ neutraphos, mag, potassium oral per home regimen if tolerated. Trend BMP. History of PAF w/ RVR recurrence if Mag < 2, K < 4. (3) SC Lung CA: Recent chemotherapy and radiation, following w/ Dr. Soto, recent 06/06/17 admission with neutropenic fever, no source, felt likely secondary to chemotherapeutic agents/radiation. MRI Brain ordered as noted per # 1. Mag, phos supplementation as noted. (4) Paroxsymal atrial fibrillation: ECHO w/ normal LV systolic function, EF 55% , left atrium mildly enlarged, atrial septum aneurysmal, mild to moderate MV insufficiency, trivial TV insufficiency, RVSP 28 mmHg, bubble contrast study negative for right to left interatrial shunt. Continue to aggressively administer electrolytes as needed with goal mag >2, K >4. Maintain on metoprolol regimen. Not on anticoagulation (xarelto prior) secondary to pancytopenia. (5) Chronic Pancytopenia: Admission CBC w/ WBC 4.3, Hgb 8.5, Plts 123 without marked shift, stable, improved from prior, trend CBC. Prior admission w/ plt, PRBC transfusion needs. Will maintain transfusion parameters w/ goal Hgb > 7 and Plts > 10,000 in the setting of no bleeding. Hold chemoprophylaxis given history. 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 Dominguez with noted findings consistent with radiation esophagitis with a moderate hiatal hernia and friable esophageal tissues as well as antral gastritis. 06/24/17 PEG tube placed per Dr. Weber but not using, possible d/c soon she notes. Maintain on regular diet as she notes prior was tolerating with advise of clears and ADAT. Maintain on PPI, sucralafate, fluconazole. (7) Chronic COPD: ATC duonebs, PRN albuterol, HOB, IS parameters. (8) Hypertension: Maintain on home regimen lisinopril, metoprolol, PRN hydralazine. (9) Hyperlipidemia: Not on agent, defer. (10) Anxiety and Depression: Maintain on home sertraline regimen. (11) GERD: PPI. (12) DVT Prophylaxis: SCDs, defer chemoprophylaxis given pancytopenia. Discharge Diet: No Restrictions Discharge Activity: Return to Normal Activity Home Medications: Medications to take at Discharge Ondansetron [Zofran Odt] 4 mg PO Q8H PRN PRN #10 tab 06/13/16 Lisinopril 20 mg PO DAILY 05/05/17 Sertraline HCl [Zoloft] 25 mg PO DAILY 05/05/17 Tramadol HCl [Ultram] 50 mg PO Q6H PRN PRN 05/05/17 Sucralfate [Carafate] 10 ml PO 4X/DAY 05/30/17 Na Biphos/Potassium Phosphate [Neutra-Phos Packet] 1 packet PO 4X/DAYCM #120 packet 06/06/17 Potassium [place] Effervescent [Potassium Chl 25 Meq Eff (For Liquid)] 50 meq PO BIDCM #120 tablet.eff 06/06/17 fluconazole 200 mg tablet 200 mg PO BID #28 tab 06/08/17 cholecalciferol (vitamin D3) 5,000 unit capsule 5,000 unit PO DAILY 06/21/17 loratadine 10 mg tablet 10 mg PO DAILY 06/21/17 metoprolol tartrate 50 mg tablet 100 mg PO DAILY 06/21/17 Albuterol IH (ProAir) [Proair Hfa] 2 puff INHALATION Q4H PRN PRN 06/24/17 Fluticasone 0.05% [Flonase Nasal [place]] 2 spray NASAL DAILY 06/24/17 Pantoprazole Sodium [Protonix] 40 mg PO DAILY 06/24/17 Rivaroxaban [Xarelto] 20 mg PO DAILY 07/17/17 Divalproex Sodium [Depakote ER] 500 mg PO QHS #30 tab 07/18/17 Gabapentin [Neurontin] 100 mg PO TIDCM #90 cap 07/18/17 MethylPREDNISolone DosePak [Medrol DosePak] 4 mg PO UD #1 box 07/18/17 Sumatriptan Succinate [Imitrex] 50 mg PO Q2H PRN #9 tab 07/18/17 Following Prescrptions Were Given to Patient: Divalproex Sodium [Depakote ER] 500 mg PO QHS #30 tab MethylPREDNISolone DosePak [Medrol DosePak] 4 mg PO UD #1 box Sumatriptan Succinate [Imitrex] 50 mg PO Q2H PRN #9 tab PRN Reason: Migraine Symptoms Gabapentin [Neurontin] 100 mg PO TIDCM #90 cap Primary Care Physician: Mihir Swan DO [Primary Care Provider] - Please follow up with your Primary Care Physician in: in 1 to 2 weeks. Please Follow Up With: Rashad Soto DO When: As scheduled, 07/19/17. Disposition: Home Medical Necessity - Tobacco Use Smoking Status: Former smoker Tobacco Use: Non-smoker Meaningful Use Info Meaningful Use Diagnoses (Choose all that apply): None applicable Code Visit Inpatient E&M: 80568 Disch Hosp
== END 2017-07-18 15:49 | disposition home or self-care (01) | DRG 103 ==
LOC: ED 20:01 → MS3 21:49
PROVIDERS: Admitting Provider Family Medicine; Emergency Provider Emergency Medicine; Family Provider Family Medicine; PCP Family Medicine; Visit Provider Hospitalist
DX: G43.919 Migraine, unspecified, intractable, without status migrainosus (principal); D61.818 Other pancytopenia; I48.0 Paroxysmal atrial fibrillation; C34.90 Malignant neoplasm of unspecified part of unspecified bronchus or lung; J44.9 Chronic obstructive pulmonary disease, unspecified; E83.42 Hypomagnesemia; Z93.1 Gastrostomy status; R13.12 Dysphagia, oropharyngeal phase; E87.6 Hypokalemia; Z87.891 Personal history of nicotine dependence; K21.9 Gastro-esophageal reflux disease without esophagitis; I10 Essential (primary) hypertension; K20.8 Other esophagitis; Y84.2 Radiological procedure and radiotherapy as the cause of abnormal reaction of the patient, or of later complication, without mention of misadventure at the time of the procedure; F41.9 Anxiety disorder, unspecified; F32.9 Major depressive disorder, single episode, unspecified
CPT/HCPCS: 36592; 70450; 80048; 83735; 84100; 85025; 94640; 97802; 99284; J7030; J7050; A4216; J2405

== ENCOUNTER → 2017-07-27 09:19 | Outpatient (CLI) | payer MEDICARE, OTHER, SELFPAY ==
[2017-07-27 09:27] VITALS: BP 138/88; PULSE 122; RESP 18; TEMP 36.2; O2SAT 98; BMI 24.5
[2017-07-27 10:10] VITALS: BP 137/82; PULSE 78; RESP 16; TEMP 36.5; O2SAT 97
[2017-07-27 11:10] VITALS: BP 148/74; PULSE 66; RESP 16; TEMP 36.6; O2SAT 98
[2017-07-27 11:56] VITALS: BP 149/91; PULSE 63; RESP 16; TEMP 36.8; O2SAT 98
== END ==
PROVIDERS: Family Provider Family Medicine; PCP Family Medicine; Visit Provider Internal Medicine Hematology & Oncology
DX: D64.9 Anemia, unspecified (principal)
CPT/HCPCS: 36430; 86850; 86900; 86920; 86922; J7050; P9016; A4216

== ENCOUNTER 2017-08-07 21:24 | Inpatient (IN) | payer MEDICARE, OTHER, SELFPAY ==
[2017-08-07 21:24] VITALS: BP 190/102; PULSE 89; RESP 20; TEMP 37.9; O2SAT 95; BMI 25.8
--- NOTE | 2017-08-07 22:12 | EKG12_ITS ---
Test Reason : PALPITATIONS Blood Pressure : / mmHG Vent. Rate : 071 BPM Atrial Rate : 071 BPM P-R Int : 146 ms QRS Dur : 082 ms QT Int : 408 ms P-R-T Axes : 079 073 088 degrees QTc Int : 443 ms Normal sinus rhythm Normal ECG Confirmed by TOYIN HOUSE, LINETTE ([id number]), food editor LILLIANA CALVO ([id number] on 08/10/2017 8:47:49 AM Referred By: MINI Confirmed By:LINETTE DEAL MD
--- NOTE | 2017-08-07 22:16 | ED.DCSUM_ITS ---
- ER Visit Summary Date of Service: 08/07/17 Chief Complaint: Dyspnea, cough History of Present Illness: The patient is a 66 F progressive dyspnea and cough for the past week. Increased wheezing. Diagnosed with small cell lung cancer this past March. Status post chemo, finished in June. Followed by Dr. Soto. Does wear home oxygen. Denies history of COPD or asthma. Remote tobacco, quit approximately 5 years ago. Denies fever, chills, sweats. States feeding tube removed a week ago due to gaining weight. No vomiting or diarrhea. Denies chest pains. Denies any productive sputum. Patient noted she is concerned she had A. fib symptoms. Diagnosed A. fib after her cancer, on metoprolol and Xarelto. Physical Examination: General: Alert and oriented ?3, no acute distress HEENT: Normocephalic, atraumatic. Moist mucosa membranes Neck: supple, nontender. Cardiovascular: Regular rate and rhythm, no murmurs Respiratory: Mild inspiratory and expiratory wheeze on left. No distress Abdomen: Soft, nontender, nondistended. Orifice epigastric clean, dry, intact. Extremities: Nontender, no edema, pulses intact ?4 Neuro: no focal neurological deficits. Test Results: EKG sinus rate of [address] changes. X-ray T-wave inversion in leads II. Chest x-ray negative. CBC white count 3.2. Hemoglobin 7.4. Creatinine 0.89. Urine leukocytes 100. White blood cell 25-50. Emergency Department Course and Treatment: Patient elevated temperature exam. Chest x-ray negative for infiltrates. Urine did note signs of infection however she is not symptomatic. Urine culture sent. Lab work noted white blood cell 3.2. Hemoglobin 7.4. His chronic from previous labs. EKG no acute findings. With patient's cancer history of progressive symptoms, CT of the chest was obtained showed no infiltrates. There is bilateral pleural effusions. Reevaluation symptoms were improving. However upon ambulation per nursing, patient's pulse ox dropped to 86% heart rate went to 125 and patient was symptomatic. Secondary to this do feel she will benefit from inpatient management. Spoke with hospitalist, Dr. Alexandra, states patient does have a previous diagnosis of COPD. Secondary that she will be placed on Rocephin and Zithromax for treatment. She will evaluate for admission. Treatment Plan: [] Disposition: Admission Impression: 1. COPD exacerbation 2. Hypoxemia 3. Pleural effusions bilaterally 4. Small cell lung cancer 5. Anemia This note was generated with [employer] dictation software. It may contain incorrect words, spelling, and punctuation that were not noted in review of the chart prior to signing ED Disposition - Plan for ED Patient: Disposition: Acute Care Hospital [facility] Chief Complaint: Palpitations Diagnosis: COPD exacerbation, Hypoxemia, Pleural effusion, Anemia, Small cell lung cancer Referrals: Mihir Swan DO [Primary Care Provider] -
[2017-08-07] MEDS: Ipratropium/Albuterol Sulfate 3 ML AMPUL.NEB INHALATION (22:28)
[2017-08-07 22:30] VITALS: PULSE 72; RESP 22
[2017-08-07 22:31] LABS: Absolute Lymphocyte Count 0.36 X10^3/ul (0.83-4.51); Absolute Neutrophil Count 2.4 X10^3/uL (2.0-7.7); Basophil# 0.01 X10^3/uL; Basophil% 0.3 % (0-1); Eosinophil# 0.07 X10^3/uL; Eosinophils% 2.2 % (0-5); Hematocrit 23.4 % (37-47); Hemoglobin 7.4 g/dl (12.0-15.0); Lymphocyte # 0.36 X10^3/ul (4.0); Lymphocyte % 11.3 % (19-41); Mean Corp Hgb Conc 31.6 g/gl (32-36); Mean Corpuscular Hgb 30.8 pg (27.0-32.0); Mean Corpuscular Volume 97.5 fL (81-99); Mean Platelet Vol. 8.8 fl (6.2-12.0); Monocyte# 0.33 X10^3/uL; Monocyte% 10.3 % (0-10); Neutrophil # 2.43 X10^3/uL (2.7-7.7); Neutrophil % 75.9 % (47-70); Platelet Count 75 K/mm3 (150-450); RBC Distribution Width CV 21.1 % (11.6-14.6); RBC Distribution Width SD 75.3 fl (35.1-43.9); White Blood Count 3.2 K/mm3 (4.4-11.0)
[2017-08-07 22:36] LABS: Differential Indicated SCAN CRITERIA MET; POSITIVE COUNT NO; POSITIVE DIFFERENTIAL YES; POSITIVE MORPHOLOGY YES
--- NOTE | 2017-08-07 22:38 | RAD_ITS ---
STUDY: X-RAY CHEST REASON FOR EXAM: Female, 66 years old. Shortness of breath TECHNIQUE: Frontal and lateral views of the chest COMPARISON: 06/03/2017 FINDINGS: There is a right-sided PICC line with its tip in the superior vena cava. There are stable emphysematous changes in the lungs. The lungs are otherwise clear. There are no pleural effusions. There is no pneumothorax. The heart is normal in size. The visualized osseous structures are within normal limits. RAD/Chest PA and Lateral IMPRESSION: No acute thoracic pathology. Electronically Signed: Ethan Oliver, at 23:33 EDT Tel , Service support ,
[2017-08-07 22:51] LABS: ALB/GLOB Ratio 1.2 RATIO (0.9-2.4); AST(SGOT) 24 U/L (15-37); Alanine Aminotransfer ALT/SGPT 44 U/L (13-56); Albumin, Serum 2.9 g/dL (3.2-5.0); Alkaline Phosphatase 101 U/L (45-117); Anion Gap 8 (5-15); BUN 16 mg/dL (7-18); Chloride 111 mmol/L (98-107); Creatinine, Serum 0.89 mg/dL (0.55-1.02); EST Glomerular Filtration Rate 67 mL/min (>60); Est Glom Filt Rate - Afr Amer 82 mL/min (>60); Estimated Creatinine Clearance 63.57 ml/min; Globulin 2.5 g/dL (2.2-4.2); Glucose 102 mg/dL (74-106); Potassium 3.9 mmol/L (3.5-5.1); Protein, Total 5.4 g/dL (6.4-8.2); Sodium Level 147 mmol/L (136-145)
[2017-08-07 23:06] LABS: Anisocytosis RARE; Macrocytosis RARE; Platelet Estimate MKD DEC (ADEQ)
[2017-08-07 23:10] LABS: Bacteria 0 SEEN /hpf (None Seen); Mucous, Urine 0 SEEN /hpf (<or=2+)
[2017-08-07 23:16] LABS: Color, Urine Yellow (Yellow); Glucose, Dipstick Normal (Normal); Ketone-Dipstick Negative (Negative); Leukocyte Esterase-Dipstick 100 /ul (Negative); Nitrite-Dipstick Negative (Negative); Occult Blood-Urine 25 /ul (Negative); Protein-Dipstick 100 mg/dl (Negative); Specific Gravity, Urine 1.015 (1.002-1.030); Urine Bilirubin Dipstick Negative (Negative); Urine Clarity Sl. Cloudy (Clear); Urine Urobilinogen Normal (Normal)
[2017-08-07 23:21] LABS: Hyaline Cast 0-5 SEEN /lpf (0-5)
[2017-08-07 23:22] LABS: Squamous Epithelial Cells - UA 0-5 SEEN /hpf (5-10)
[2017-08-07 23:23] LABS: Red Blood Cells-Urine 0-5 SEEN /hpf (0-5); White Blood Cells 25-50 SEEN /hpf (0-5)
[2017-08-08] VITALS (19 sets, daily range): BP systolic 117–169; BP diastolic 70–90; PULSE 70–97; RESP 16–20; TEMP 36.7–37.1; O2SAT 91–99; BMI 24.5; BMI 25.8
--- NOTE | 2017-08-08 03:00 | PCM.HP.STD ---
Problem List (1) Monilial esophagitis Status: Chronic (2) Migraine Status: Chronic Qualifiers: Migraine type: unspecified Status migrainosus presence: without status migrainosus Intractability: not intractable Qualified Code(s): G43.909 - Migraine, unspecified, not intractable, without status migrainosus (3) Malnourished Status: Chronic Qualifiers: Malnutrition type: protein-calorie malnutrition Protein-calorie malnutrition severity: severe Qualified Code(s): E43 - Unspecified severe protein-calorie malnutrition (4) S/P cholecystectomy Status: Chronic (5) S/P bilateral oophorectomy Status: Chronic (6) S/P hysterectomy Status: Chronic (7) Radiation esophagitis Status: Chronic (8) Small cell lung cancer Status: Chronic (9) Pancytopenia Status: Chronic (10) Afib Status: Chronic Qualifiers: (11) HTN (hypertension) Status: Chronic Qualifiers: Hypertension type: essential hypertension Qualified Code(s): I10 - Essential (primary) hypertension (12) GERD (gastroesophageal reflux disease) Status: Chronic Qualifiers: Esophagitis presence: with esophagitis Qualified Code(s): K21.0 - Gastro-esophageal reflux disease with esophagitis (13) COPD (chronic obstructive pulmonary disease) Status: Chronic Qualifiers: COPD type: unspecified COPD Qualified Code(s): J44.9 - Chronic obstructive pulmonary disease, unspecified History of Present Illness Date of Admission: 08/08/17 Chief Complaint: Palpitations, Dyspnea, Cough, Wheezing The patient is a 66 y/o F w/ PMHx: Hx Migraine, Chronic COPD w/ intermittent usage of oxygen, Former Tobacco use, HTN, HLD, PAF, GERD, Pancytopenia, SC Lung CA undergoing chemotherapy and radiation, several recent admissions 06/06/17 and 07/17/17 with treatment for acute on chronic OP dysphagia secondary to radiation esophagitis with eventual PEG tube placement outpatient and intractable N/V with migraine who now re-presents to the [facility] ED on 08/08/17 w/ complaint of intermittent palpitations, worsened dyspnea with increased primarily dry cough with wheezing intermittently and low grade temperature x ~ 1 week, noting dyspnea worse with exertional attempts. In the ED work-up included T 100.3, HR 80s, BP 190/102, RR 20, 95% on RA-->In the ED with ambulation she dropped to 86% on 2L NC, HR 120s, CBC w/ WBC 3.2, Hgb 7.4 (7-8), Plts 75 (80-120s, low 05/2017 admission 20-40s) with ANC 2.4, CMP w/ Na 147, Chl 111, UA w/ 25 occult blood, WBC 25-50, SEC 0-5, 0 urine bacteria, CXR without acute findings, CTPA without evidence of PE, mild congestion, moderate sized BL pleural effusions. Past Medical History Past Medical History (Chronic Problems): Chronic Problems (Last Reviewed 08/02/17 @ 13:09 by Ana Garza) Monilial esophagitis (Chronic) Migraine (Chronic) Malnourished (Chronic) S/P cholecystectomy (Chronic) S/P bilateral oophorectomy (Chronic) S/P hysterectomy (Chronic) Radiation esophagitis (Chronic) Small cell lung cancer (Chronic) Pancytopenia (Chronic) Afib (Chronic) HTN (hypertension) (Chronic) GERD (gastroesophageal reflux disease) (Chronic) COPD (chronic obstructive pulmonary disease) (Chronic) Allergies oxycodone Adverse Reaction (Verified 08/07/17 21:28) Vomiting Home Medications: Ambulatory Orders Medication Instructions Recorded Ondansetron [Zofran Odt] 4 mg PO Q8H PRN PRN #10 tab 06/13/16 Lisinopril 20 mg PO DAILY 05/05/17 Sertraline HCl [Zoloft] 25 mg PO DAILY 05/05/17 Tramadol HCl [Ultram] 50 mg PO Q6H PRN PRN 05/05/17 Sucralfate [Carafate] 10 ml PO TID 05/30/17 Na Biphos/Potassium Phosphate 1 packet PO 4X/DAYCM #120 packet 06/06/17 [Neutra-Phos Packet] cholecalciferol (vitamin D3) 5,000 5,000 unit PO DAILY 06/21/17 unit capsule loratadine 10 mg tablet 10 mg PO DAILY PRN 06/21/17 metoprolol tartrate 50 mg tablet 100 mg PO DAILY 06/21/17 Albuterol IH (ProAir) [Proair Hfa] 2 puff INHALATION Q4H PRN PRN 06/24/17 Fluticasone 0.05% [Flonase Nasal 2 spray NASAL DAILY 06/24/17 [place]] Pantoprazole Sodium [Protonix] 40 mg PO DAILY 06/24/17 Rivaroxaban [Xarelto] 20 mg PO DAILY 07/17/17 Divalproex Sodium [Depakote ER] 500 mg PO QHS #30 tab 07/18/17 Gabapentin [Neurontin] 100 mg PO TIDCM #90 cap 07/18/17 Sumatriptan Succinate [Imitrex] 50 mg PO Q2H PRN #9 tab 07/18/17 Magnesium Oxide [Mag-Ox 400] 400 mg PO DAILY 08/07/17 Potassium Chloride [K-Dur] 40 meq PO BID 08/07/17 Surgical History: cholecystectomy, hysterectomy - SHARON w/ BL RENNY, - - PEG placement. Psychiatric History: No pertinent psych hx BUSHEL GIRL History: No pertinent BUSHEL GIRL history Lives: Spouse/ Significant Other Smoking Status: Former smoker Tobacco Use: Non-smoker Alcohol: None Drugs: None - *Family History Paternal History Items: Diabetes, Heart Disease Maternal History Items: - - RA Review of Systems Constitutional: Reports: Fever, Malaise, Weakness, Fatigue. Denies: Chills, Weight Change HEENT: Reports: Sore Throat. Denies: Head Aches, Sinus Congestion, Sinus Drainage Cardiovascular: Denies: Chest Pain, Palpitations Respiratory: Reports: Cough, Shortness of Breath, Shortness of breath at rest, Shortness of breath upon exertion, Wheezing. Denies: Sputum production Gastrointestinal: Denies: Abdominal Pain, Nausea, Vomiting Genitourinary: Denies: Dysuria Musculoskeletal: Denies: Joint Pain, Joint Tenderness Skin: Denies: Rash, Wounds Neurological: Denies: Numbness, Tingling, Focal weakness Psychiatric: Reports: Anxiety, Depression. Denies: Homicidal Ideations, Suicidal Ideations Hematologic/ Lymphatic: Reports: Anemia, Easy Bruising, Easy Bleeding VTE Information - Inpt Only VTE Present on Admission: No VTE Mechan Device Prophylaxis: SCD's VTE Pharm Prophylaxis ordered?: No Reason prophylaxis not ordered:: Medical Contraindication - Recent 08/07/17 xarelto, holding regimen for possible thoracentesis. Patient Problems: Active and Suspected Problems (Last Reviewed 08/02/17 @ 13:09 by Ana Garza) COPD exacerbation (Acute) Hypoxemia (Acute) Pleural effusion (Acute) Anemia (Acute) Subjective: Laying in the ED bed, fatigued appearance, NAD. Objective: Physical Examination: General: awake, alert, oriented x 3 and cooperative, laying in the ED bed in no apparent distress, fatigued appearance. Skin: normal color, turgor, no icterus, cyanosis except occasional various staged ecchymoses. HEENT: AT/NC, EOMI, PERRLA, MMM, no carotid bruits or JVD noted. Lungs: Severely diminished throughout, > bases, rales to mid lung BL posteriorly, occasional soft distant end expiratory wheeze posteriorly. Heart: Currently regular rate and rhythm; no gallop, rub audible. Abdomen: soft, s/p recent PEG tube removal, NTTP, ND, normal BS, no HSM. Extremities: no cyanosis, clubbing, or edema. Neurological: patient awake, alert, oriented x 3; cognitive function intact; pupils equally reactive to light and accomodation; cranial nerves II-XII grossly normal, moving all 4 extremities, no focal deficits, strength severely globally decreased. Psychiatric: affect appears fatigued, no acute evidence of depressive or anxiety feelings. - Physical Exam Vital Signs Temp Pulse Resp BP Pulse Ox 100.3 F H 83 20 H 190/102 H 97 08/07/17 21:24 08/08/17 02:32 08/08/17 02:32 08/07/17 21:24 08/08/17 02:32 Oxygen Flow Rate (L/min) 2 Oxygen Delivery Method Room Air Weight: 169 lb 12.095 oz Body Mass Index (BMI) 25.8 Laboratory Tests Past 24 Hrs 08/07/17 08/07/17 08/07/17 22:22 22:22 23:07 WBC 3.2 L RBC 2.40 L Hgb 7.4 L Hct 23.4 L MCV 97.5 MCH 30.8 MCHC 31.6 L RDW 21.1 H RDW Differential 75.3 H Plt Count 75 L MPV 8.8 Immature Gran % (Auto) 0.000 Neut % (Auto) 75.9 H Lymph % (Auto) 11.3 L [place] % (Auto) 10.3 H Eos % (Auto) 2.2 Baso % (Auto) 0.3 Absolute Neuts (auto) 2.4 Absolute Lymphs (auto) 0.36 L Total Counted Not Reportable Differential Comment SEE COMMENT Platelet Estimate MKD DEC Anisocytosis RARE Macrocytosis RARE Sodium 147 H Potassium 3.9 Chloride 111 H Carbon Dioxide 28.0 Anion Gap 8 BUN 16 Creatinine 0.89 Estim Creat Clear Calc 63.57 Est GFR (MDRD) Af Amer 82 Est GFR (MDRD) Non-Af 67 BUN/Creatinine Ratio 18.0 Glucose 102 Calcium 8.0 L Total Bilirubin 0.30 AST 24 ALT 44 Alkaline Phosphatase 101 Total Protein 5.4 L Albumin 2.9 L Globulin 2.5 Albumin/Globulin Ratio 1.2 Urine Color Yellow Urine Clarity Sl. Cloudy Urine pH 6.0 Ur Specific [place] 1.015 Urine Protein 100 H Urine Glucose (UA) Normal Urine Ketones Negative Urine Occult Blood 25 H Urine Nitrite Negative Urine Bilirubin Negative Urine Urobilinogen Normal Ur Leukocyte Esterase 100 H Urine RBC 0-5 SEEN Urine WBC 25-50 SEEN Ur Squamous Epith Cells 0-5 SEEN Urine Bacteria 0 SEEN Hyaline Casts 0-5 SEEN Urine Mucus 0 SEEN Assessment/Plan Active and Suspected Problems (Last Reviewed 08/02/17 @ 13:09 by Ana Garza) COPD exacerbation (Acute) Hypoxemia (Acute) Pleural effusion (Acute) Anemia (Acute) The patient is a 66 y/o F w/ PMHx: Hx Migraine, Chronic COPD w/ intermittent usage of oxygen, Former Tobacco use, HTN, HLD, PAF, GERD, Pancytopenia, SC Lung CA undergoing chemotherapy and radiation, several recent admissions 06/06/17 and 07/17/17 with treatment for acute on chronic OP dysphagia secondary to radiation esophagitis with eventual PEG tube placement outpatient and intractable N/V with migraine who now re-presents to the [facility] ED on 08/08/17 w/ complaint of intermittent palpitations, worsened dyspnea with increased primarily dry cough with wheezing intermittently and low grade temperature x ~ 1 week. (1) Dyspnea, Worse with Exertion, Wheezing, Suspected Multifactorial, Secondary to Mild Bronchitis/COPD exacerbation, BL Moderate Pleural Effusions: Will admit to PCU, maintain on oxygen with wean as tolerated to room air, continue ATC duonebs, PRN albuterol, IV methylprednisolone, HOB, IS parameters, IV Rocephin/Azithromycin given underlying history and ? concurrent UTI with pending sputum cultures, respiratory viral panel, Pulmonary consultation, will hold xarelto upon admission for possible thoracentesis needs pending Pulmonary service assessment. If preference to de-escalate abx regimen, defer to Pulmonary. (2) ? Acute UTI: Low grade temperature, UA remarkable but no dysuria complaint, UCx pending, as noted maintained on IV Rocephin for concurrent COPD presentation, monitor I/Os, transition as able pending sensitivities and speciation. (3) Paroxsymal atrial fibrillation: Recent evaluation w/ ECHO w/ normal LV systolic function, EF 55%, left atrium mildly enlarged, atrial septum aneurysmal, mild to moderate MV insufficiency, trivial TV insufficiency, RVSP 28 mmHg, bubble contrast study negative for right to left interatrial shunt. Continue to aggressively administer electrolytes as needed with goal mag >2, K >4. Maintain on metoprolol, hold xarelto for possible thoracentesis needs. (4) Chronic Pancytopenia: Admission CBC w/ WBC 3.2, Hgb 7.4 (7-8), Plts 75 (80-120s, low 05/2017 admission 20-40s) with ANC 2.4. Prior admission w/ plt, PRBC transfusion needs. Will maintain transfusion parameters w/ goal Hgb > 7 and Plts > 10,000 in the setting of no bleeding. 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 Dominguez with noted findings consistent with radiation esophagitis with a moderate hiatal hernia and friable esophageal tissues as well as antral gastritis. 06/24/17 PEG tube placed per Dr. Weber but not used, removed per Dr. Dominguez 08/02/17. Maintain on regular diet, PPI, sucralafate, fluconazole. Speech consulted. (6) SC Lung CA: Recent chemotherapy and radiation, following w/ Dr. Soto, recent admissions this year secondary to neutropenic fever felt likely secondary to chemotherapeutic agents/radiation. Mag and phos pending. Dr. Soto consulted. (7) Chronic Migraines: Recent admission w/ start on depakote, continue home depakote 500 mg q HS regimen. (8) Hypertension: Maintain on home regimen lisinopril, metoprolol, PRN hydralazine. (9) Hyperlipidemia: Not on agent, defer. (10) Anxiety and Depression: Maintain on home sertraline regimen. (11) GERD: PPI, carafate. (12) Severe Protein-Calorie Malnutrition: Evidenced per ongoing weight loss, muscle and fat loss, nutrition consulted. (13) DVT Prophylaxis: SCDs, hold xarelto for possible thoracentesis needs. (14) CODE status: Discussed CODE status at length including difference between FULL code, DNR-CCA and DNR-CC status. Following discussions about the differences in these status, requested FULL CODE. Advanced Care Planning Face to Face Time: 16 minutes. Code Visit Inpatient E&M: 83104 Init Hosp L3 Procedures: 53647 Advncd Care Plan 30 Min
--- NOTE | 2017-08-08 03:11 | HP.PCM_ITS ---
Problem List (1) Monilial esophagitis Status: Chronic (2) Migraine Status: Chronic Qualifiers: Migraine type: unspecified Status migrainosus presence: without status migrainosus Intractability: not intractable Qualified Code(s): G43.909 - Migraine, unspecified, not intractable, without status migrainosus (3) Malnourished Status: Chronic Qualifiers: Malnutrition type: protein-calorie malnutrition Protein-calorie malnutrition severity: severe Qualified Code(s): E43 - Unspecified severe protein-calorie malnutrition (4) S/P cholecystectomy Status: Chronic (5) S/P bilateral oophorectomy Status: Chronic (6) S/P hysterectomy Status: Chronic (7) Radiation esophagitis Status: Chronic (8) Small cell lung cancer Status: Chronic (9) Pancytopenia Status: Chronic (10) Afib Status: Chronic Qualifiers: (11) HTN (hypertension) Status: Chronic Qualifiers: Hypertension type: essential hypertension Qualified Code(s): I10 - Essential (primary) hypertension (12) GERD (gastroesophageal reflux disease) Status: Chronic Qualifiers: Esophagitis presence: with esophagitis Qualified Code(s): K21.0 - Gastro- esophageal reflux disease with esophagitis (13) COPD (chronic obstructive pulmonary disease) Status: Chronic Qualifiers: COPD type: unspecified COPD Qualified Code(s): J44.9 - Chronic obstructive pulmonary disease, unspecified History of Present Illness Date of Admission: 08/08/17 Chief Complaint: Palpitations, Dyspnea, Cough, Wheezing The patient is a 66 y/o F w/ PMHx: Hx Migraine, Chronic COPD w/ intermittent usage of oxygen, Former Tobacco use, HTN, HLD, PAF, GERD, Pancytopenia, SC Lung CA undergoing chemotherapy and radiation, several recent admissions 06/06/17 and with treatment for acute on chronic OP dysphagia secondary to radiation esophagitis with eventual PEG tube placement outpatient and intractable N/V with migraine who now re-presents to the [facility] ED on 08/08/17 w/ complaint of intermittent palpitations, worsened dyspnea with increased primarily dry cough with wheezing intermittently and low grade temperature x ~ 1 week, noting dyspnea worse with exertional attempts. In the ED work-up included T 100.3, HR 80s, BP 190/102, RR 20, 95% on RA-->In the ED with ambulation she dropped to 86 % on 2L NC, HR 120s, CBC w/ WBC 3.2, Hgb 7.4 (7-8), Plts 75 (80-120s, low 2017 admission 20-40s) with ANC 2.4, CMP w/ Na 147, Chl 111, UA w/ 25 occult blood, WBC 25-50, SEC 0-5, 0 urine bacteria, CXR without acute findings, CTPA without evidence of PE, mild congestion, moderate sized BL pleural effusions. Past Medical History Past Medical History (Chronic Problems): Chronic Problems (Last Reviewed 08/02/17 @ 13:09 by Ana Garza) Monilial esophagitis (Chronic) Migraine (Chronic) Malnourished (Chronic) S/P cholecystectomy (Chronic) S/P bilateral oophorectomy (Chronic) S/P hysterectomy (Chronic) Radiation esophagitis (Chronic) Small cell lung cancer (Chronic) Pancytopenia (Chronic) Afib (Chronic) HTN (hypertension) (Chronic) GERD (gastroesophageal reflux disease) (Chronic) COPD (chronic obstructive pulmonary disease) (Chronic) Allergies oxycodone Adverse Reaction (Verified 08/07/17 21:28) Vomiting Home Medications: Ambulatory Orders Medication Instructions Recorded Ondansetron [Zofran Odt] 4 mg PO Q8H PRN PRN #10 tab 06/13/16 Lisinopril 20 mg PO DAILY 05/05/17 Sertraline HCl [Zoloft] 25 mg PO DAILY 05/05/17 Tramadol HCl [Ultram] 50 mg PO Q6H PRN PRN 05/05/17 Sucralfate [Carafate] 10 ml PO TID 05/30/17 Na Biphos/Potassium Phosphate 1 packet PO 4X/DAYCM #120 packet 06/06/17 [Neutra-Phos Packet] cholecalciferol (vitamin D3) 5,000 5,000 unit PO DAILY 06/21/17 unit capsule loratadine 10 mg tablet 10 mg PO DAILY PRN 06/21/17 metoprolol tartrate 50 mg tablet 100 mg PO DAILY 06/21/17 Albuterol IH (ProAir) [Proair Hfa] 2 puff INHALATION Q4H PRN PRN 06/24/17 Fluticasone 0.05% [Flonase Nasal 2 spray NASAL DAILY 06/24/17 [place]] Pantoprazole Sodium [Protonix] 40 mg PO DAILY 06/24/17 Rivaroxaban [Xarelto] 20 mg PO DAILY 07/17/17 Divalproex Sodium [Depakote ER] 500 mg PO QHS #30 tab 07/18/17 Gabapentin [Neurontin] 100 mg PO TIDCM #90 cap 07/18/17 Sumatriptan Succinate [Imitrex] 50 mg PO Q2H PRN #9 tab 07/18/17 Magnesium Oxide [Mag-Ox 400] 400 mg PO DAILY 08/07/17 Potassium Chloride [K-Dur] 40 meq PO BID 08/07/17 Surgical History: cholecystectomy, hysterectomy - SHARON w/ BL RENNY, - - PEG placement. Psychiatric History: No pertinent psych hx REGISTERED NURSE History: No pertinent REGISTERED NURSE history Lives: Spouse/ Significant Other Smoking Status: Former smoker Tobacco Use: Non-smoker Alcohol: None Drugs: None - *Family History Paternal History Items: Diabetes, Heart Disease Maternal History Items: - - RA Review of Systems Constitutional: Reports: Fever, Malaise, Weakness, Fatigue. Denies: Chills, Weight Change HEENT: Reports: Sore Throat. Denies: Head Aches, Sinus Congestion, Sinus Drainage Cardiovascular: Denies: Chest Pain, Palpitations Respiratory: Reports: Cough, Shortness of Breath, Shortness of breath at rest, Shortness of breath upon exertion, Wheezing. Denies: Sputum production Gastrointestinal: Denies: Abdominal Pain, Nausea, Vomiting Genitourinary: Denies: Dysuria Musculoskeletal: Denies: Joint Pain, Joint Tenderness Skin: Denies: Rash, Wounds Neurological: Denies: Numbness, Tingling, Focal weakness Psychiatric: Reports: Anxiety, Depression. Denies: Homicidal Ideations, Suicidal Ideations Hematologic/ Lymphatic: Reports: Anemia, Easy Bruising, Easy Bleeding VTE Information - Inpt Only VTE Present on Admission: No VTE Mechan Device Prophylaxis: SCD's VTE Pharm Prophylaxis ordered?: No Reason prophylaxis not ordered:: Medical Contraindication - Recent 08/07/17 xarelto, holding regimen for possible thoracentesis. Patient Problems: Active and Suspected Problems (Last Reviewed 08/02/17 @ 13:09 by Ana Garza) COPD exacerbation (Acute) Hypoxemia (Acute) Pleural effusion (Acute) Anemia (Acute) Subjective: Laying in the ED bed, fatigued appearance, NAD. Objective: Physical Examination: General: awake, alert, oriented x 3 and cooperative, laying in the ED bed in no apparent distress, fatigued appearance. Skin: normal color, turgor, no icterus, cyanosis except occasional various staged ecchymoses. HEENT: AT/NC, EOMI, PERRLA, MMM, no carotid bruits or JVD noted. Lungs: Severely diminished throughout, > bases, rales to mid lung BL posteriorly , occasional soft distant end expiratory wheeze posteriorly. Heart: Currently regular rate and rhythm; no gallop, rub audible. Abdomen: soft, s/p recent PEG tube removal, NTTP, ND, normal BS, no HSM. Extremities: no cyanosis, clubbing, or edema. Neurological: patient awake, alert, oriented x 3; cognitive function intact; pupils equally reactive to light and accomodation; cranial nerves II-XII grossly normal, moving all 4 extremities, no focal deficits, strength severely globally decreased. Psychiatric: affect appears fatigued, no acute evidence of depressive or anxiety feelings. - Physical Exam Vital Signs Temp Pulse Resp BP Pulse Ox 100.3 F H 83 20 H 190/102 H 97 08/07/17 21:24 08/08/17 02:32 08/08/17 02:32 08/07/17 21:24 08/08/17 02:32 Oxygen Flow Rate (L/min) 2 Oxygen Delivery Method Room Air Weight: 169 lb 12.095 oz Body Mass Index (BMI) 25.8 Laboratory Tests Past 24 Hrs 08/07/17 08/07/17 08/07/17 22:22 22:22 23:07 WBC 3.2 L RBC 2.40 L Hgb 7.4 L Hct 23.4 L MCV 97.5 MCH 30.8 MCHC 31.6 L RDW 21.1 H RDW Differential 75.3 H Plt Count 75 L MPV 8.8 Immature Gran % (Auto) 0.000 Neut % (Auto) 75.9 H Lymph % (Auto) 11.3 L [place] % (Auto) 10.3 H Eos % (Auto) 2.2 Baso % (Auto) 0.3 Absolute Neuts (auto) 2.4 Absolute Lymphs (auto) 0.36 L Total Counted Not Reportable Differential Comment SEE COMMENT Platelet Estimate MKD DEC Anisocytosis RARE Macrocytosis RARE Sodium 147 H Potassium 3.9 Chloride 111 H Carbon Dioxide 28.0 Anion Gap 8 BUN 16 Creatinine 0.89 Estim Creat Clear Calc 63.57 Est GFR (MDRD) Af Amer 82 Est GFR (MDRD) Non-Af 67 BUN/Creatinine Ratio 18.0 Glucose 102 Calcium 8.0 L Total Bilirubin 0.30 AST 24 ALT 44 Alkaline Phosphatase 101 Total Protein 5.4 L Albumin 2.9 L Globulin 2.5 Albumin/Globulin Ratio 1.2 Urine Color Yellow Urine Clarity Sl. Cloudy Urine pH 6.0 Ur Specific [place] 1.015 Urine Protein 100 H Urine Glucose (UA) Normal Urine Ketones Negative Urine Occult Blood 25 H Urine Nitrite Negative Urine Bilirubin Negative Urine Urobilinogen Normal Ur Leukocyte Esterase 100 H Urine RBC 0-5 SEEN Urine WBC 25-50 SEEN Ur Squamous Epith Cells 0-5 SEEN Urine Bacteria 0 SEEN Hyaline Casts 0-5 SEEN Urine Mucus 0 SEEN Assessment/Plan Active and Suspected Problems (Last Reviewed 08/02/17 @ 13:09 by Ana Garza) COPD exacerbation (Acute) Hypoxemia (Acute) Pleural effusion (Acute) Anemia (Acute) The patient is a 66 y/o F w/ PMHx: Hx Migraine, Chronic COPD w/ intermittent usage of oxygen, Former Tobacco use, HTN, HLD, PAF, GERD, Pancytopenia, SC Lung CA undergoing chemotherapy and radiation, several recent admissions 06/06/17 and with treatment for acute on chronic OP dysphagia secondary to radiation esophagitis with eventual PEG tube placement outpatient and intractable N/V with migraine who now re-presents to the [facility] ED on 08/08/17 w/ complaint of intermittent palpitations, worsened dyspnea with increased primarily dry cough with wheezing intermittently and low grade temperature x ~ 1 week. (1) Dyspnea, Worse with Exertion, Wheezing, Suspected Multifactorial, Secondary to Mild Bronchitis/COPD exacerbation, BL Moderate Pleural Effusions: Will admit to PCU, maintain on oxygen with wean as tolerated to room air, continue ATC duonebs, PRN albuterol, IV methylprednisolone, HOB, IS parameters, IV Rocephin/ Azithromycin given underlying history and ? concurrent UTI with pending sputum cultures, respiratory viral panel, Pulmonary consultation, will hold xarelto upon admission for possible thoracentesis needs pending Pulmonary service assessment. If preference to de-escalate abx regimen, defer to Pulmonary. (2) ? Acute UTI: Low grade temperature, UA remarkable but no dysuria complaint, UCx pending, as noted maintained on IV Rocephin for concurrent COPD presentation , monitor I/Os, transition as able pending sensitivities and speciation. (3) Paroxsymal atrial fibrillation: Recent evaluation w/ ECHO w/ normal LV systolic function, EF 55%, left atrium mildly enlarged, atrial septum aneurysmal , mild to moderate MV insufficiency, trivial TV insufficiency, RVSP 28 mmHg, bubble contrast study negative for right to left interatrial shunt. Continue to aggressively administer electrolytes as needed with goal mag >2, K >4. Maintain on metoprolol, hold xarelto for possible thoracentesis needs. (4) Chronic Pancytopenia: Admission CBC w/ WBC 3.2, Hgb 7.4 (7-8), Plts 75 (80- 120s, low 05/2017 admission 20-40s) with ANC 2.4. Prior admission w/ plt, PRBC transfusion needs. Will maintain transfusion parameters w/ goal Hgb > 7 and Plts > 10,000 in the setting of no bleeding. 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 Dominguez with noted findings consistent with radiation esophagitis with a moderate hiatal hernia and friable esophageal tissues as well as antral gastritis. 06/24/[address] PEG tube placed per Dr. Weebr but not used, removed per Dr. Dominguez 08/02/17. Maintain on regular diet, PPI, sucralafate, fluconazole. Speech consulted. (6) SC Lung CA: Recent chemotherapy and radiation, following w/ Dr. Soto, recent admissions this year secondary to neutropenic fever felt likely secondary to chemotherapeutic agents/radiation. Mag and phos pending. Dr. Soto consulted. (7) Chronic Migraines: Recent admission w/ start on depakote, continue home depakote 500 mg q HS regimen. (8) Hypertension: Maintain on home regimen lisinopril, metoprolol, PRN hydralazine. (9) Hyperlipidemia: Not on agent, defer. (10) Anxiety and Depression: Maintain on home sertraline regimen. (11) GERD: PPI, carafate. (12) Severe Protein-Calorie Malnutrition: Evidenced per ongoing weight loss, muscle and fat loss, nutrition consulted. (13) DVT Prophylaxis: SCDs, hold xarelto for possible thoracentesis needs. (14) CODE status: Discussed CODE status at length including difference between FULL code, DNR-CCA and DNR-CC status. Following discussions about the differences in these status, requested FULL CODE. Advanced Care Planning Face to Face Time: 16 minutes. Code Visit Inpatient E&M: 80948 Init Hosp L3 Procedures: 43414 Advncd Care Plan 30 Min
[2017-08-08] MEDS: Ceftriaxone 1 GM/50 ML BAG IV (03:33)
[2017-08-08 04:58] LABS: Absolute Lymphocyte Count 0.38 X10^3/ul (0.83-4.51); Absolute Neutrophil Count 2.4 X10^3/uL (2.0-7.7); Basophil# 0.01 X10^3/uL; Basophil% 0.3 % (0-1); Eosinophil# 0.04 X10^3/uL; Eosinophils% 1.3 % (0-5); Hematocrit 22.6 % (37-47); Hemoglobin 7.3 g/dl (12.0-15.0); Lymphocyte # 0.38 X10^3/ul (4.0); Lymphocyte % 12.2 % (19-41); Mean Corp Hgb Conc 32.3 g/gl (32-36); Mean Corpuscular Hgb 32.3 pg (27.0-32.0); Monocyte# 0.29 X10^3/uL; Monocyte% 9.3 % (0-10); Neutrophil % 76.9 % (47-70); POSITIVE DIFFERENTIAL YES; Platelet Count 86 K/mm3 (150-450); RBC Distribution Width CV 20.7 % (11.6-14.6); RBC Distribution Width SD 71.9 fl (35.1-43.9); Red Blood Count 2.26 M/mm3 (4.2-5.4); White Blood Count 3.1 K/mm3 (4.4-11.0)
[2017-08-08 04:59] LABS: Differential Indicated SCAN CRITERIA MET; POSITIVE COUNT NO; POSITIVE MORPHOLOGY YES
[2017-08-08] MEDS: Acetaminophen 325 MG Tablet 650 MG PO ×3 (05:04→21:29)
[2017-08-08 05:08] LABS: ALB/GLOB Ratio 1.1 RATIO (0.9-2.4); AST(SGOT) 28 U/L (15-37); Alanine Aminotransfer ALT/SGPT 43 U/L (13-56); Albumin, Serum 2.8 g/dL (3.2-5.0); Alkaline Phosphatase 94 U/L (45-117); Anion Gap 9 (5-15); BUN 12 mg/dL (7-18); BUN/Creat Ratio 16.7 RATIO (10-20); Calcium,Total 8.2 mg/dL (8.5-10.1); Chloride 105 mmol/L (98-107); Creatinine, Serum 0.72 mg/dL (0.55-1.02); EST Glomerular Filtration Rate 86 mL/min (>60); Est Glom Filt Rate - Afr Amer 104 mL/min (>60); Estimated Creatinine Clearance 78.58 ml/min; Globulin 2.5 g/dL (2.2-4.2); Glucose 103 mg/dL (74-106); Phosphorus 2.9 mg/dL (2.5-4.9); Potassium 3.5 mmol/L (3.5-5.1); Protein, Total 5.3 g/dL (6.4-8.2); Sodium Level 142 mmol/L (136-145)
[2017-08-08] MEDS: 0.9% NaCl PICC Flush IV ×4 (05:10→17:28)
[2017-08-08] MEDS: Ondansetron 4 MG/2 ML Vial IV (05:10)
[2017-08-08 05:20] LABS: Magnesium 1.6 mg/dL (1.6-2.6)
[2017-08-08 05:53] LABS: Differential Comment SCAN
[2017-08-08] MEDS: Sucralfate 1 GM Tablet PO ×3 (07:11→15:38)
[2017-08-08] MEDS: Ipratropium/Albuterol Sulfate 3 ML AMPUL.NEB INHALATION ×4 (07:11→19:40)
[2017-08-08] MEDS: guaiFENesin 1,200 MG Tablet 1200 MG PO ×2 (10:47→21:21)
[2017-08-08] MEDS: Senna/Docusate Sodium 1 Tablet 2 TABLET PO ×2 (10:47→21:21)
[2017-08-08] MEDS: Na Biphos/Potassium Phosphate PACKET 1 PACKET PO ×4 (10:47→21:21)
[2017-08-08] MEDS: Pantoprazole Sodium 40 MG Tablet PO (10:48)
[2017-08-08] MEDS: Sertraline 50 MG Tablet 25 MG PO (10:48)
[2017-08-08] MEDS: Magnesium Oxide 400 MG Tablet PO (10:48)
[2017-08-08] MEDS: Metoprolol(XL)Succ 100 MG Tablet PO (10:48)
[2017-08-08] MEDS: Lisinopril 20 MG Tablet PO (10:48)
[2017-08-08] MEDS: Fluticasone 0.05% 1 SPRAY NASAL.SRY 2 SPRAY NASAL (10:50)
[2017-08-08] MEDS: Gabapentin 100 MG Capsule PO ×3 (10:53→17:30)
[2017-08-08] MEDS: Furosemide 20 MG/2 ML VIAL IV ×2 (10:54→17:28)
--- NOTE | 2017-08-08 11:42 | PCM.CONS.GEN ---
Problem List (1) Intractable nausea and vomiting Status: Acute Qualifiers: Vomiting type: unspecified Qualified Code(s): R11.2 - Nausea with vomiting, unspecified (2) Migraine Status: Chronic Qualifiers: Migraine type: unspecified Status migrainosus presence: without status migrainosus Intractability: not intractable Qualified Code(s): G43.909 - Migraine, unspecified, not intractable, without status migrainosus (3) Hypoxemia Status: Acute (4) Anemia Status: Acute (5) S/P cholecystectomy Status: Chronic (6) S/P bilateral oophorectomy Status: Chronic (7) S/P hysterectomy Status: Chronic (8) Radiation esophagitis Status: Chronic (9) Pancytopenia Status: Chronic (10) Afib Status: Chronic Qualifiers: (11) HTN (hypertension) Status: Chronic Qualifiers: Hypertension type: essential hypertension Qualified Code(s): I10 - Essential (primary) hypertension (12) COPD (chronic obstructive pulmonary disease) Status: Chronic Qualifiers: COPD type: unspecified COPD Qualified Code(s): J44.9 - Chronic obstructive pulmonary disease, unspecified Reason for Consult Date of Consultation: 08/08/17 Reason for Consultation: Shortness of breath History of Present Illness: The patient is a 66 year old F, with past medical history listed below, who presented to [facility] on 08/08/2017 secondary to palpitations and shortness of breath. Patient has had multiple recent admissions on 08/18 and 07/17/17 secondary to dysphagia and was found to have radiation esophagitis that led to PEG placement. Patient states this has been removed at this point. Patient states that on presentation she was noted to have palpitations with worsening dyspnea and a dry cough. Patient had noted some increased lower extremity swelling over the last week or so. Patient states it would typically swell during the day and improve with sleep at night. In the emergency department, patient was noted to have a temperature of 100.3?F, hypertensive at 190/102 and 95% on room air. Patient was ambulated and saturations decreased to 86%. Blood counts were low, but in line with previous measurements. A CT of the chest was obtained showing no evidence of PE with small to moderate bilateral pleural effusions. Patient does report a long history of smoking. Patient is not a very good historian, but states that Dr. Redding had diagnosed her with lung cancer. Patient was not clear on whether this was squamous cell or small cell lung cancer. Patient states she has received chemo and radiation and has had complication with radiation esophagitis. Patient does report that she smoked in the past and has had pulmonary function testing, but is unaware of the results. Patient does believe she has COPD, but is unaware of the severity of her obstruction. Patient does not use any maintenance type of medications for her breathing issues. Patient is anticoagulated with Xarelto therapy, but denies any bleeding complications such as hemoptysis, melena or hematochezia. Patient does report some mild epistaxis associated with the use of supplemental oxygen. Past Medical History Past Medical History (Chronic Problems): Chronic Problems (Last Reviewed 08/02/17 @ 13:09 by Ana Garza) Monilial esophagitis (Chronic) Migraine (Chronic) Malnourished (Chronic) S/P cholecystectomy (Chronic) S/P bilateral oophorectomy (Chronic) S/P hysterectomy (Chronic) Radiation esophagitis (Chronic) Small cell lung cancer (Chronic) Pancytopenia (Chronic) Afib (Chronic) HTN (hypertension) (Chronic) GERD (gastroesophageal reflux disease) (Chronic) COPD (chronic obstructive pulmonary disease) (Chronic) Allergies oxycodone Adverse Reaction (Verified 08/07/17 21:28) Vomiting Home Medications: Ambulatory Orders Medication Instructions Recorded Ondansetron [Zofran Odt] 4 mg PO Q8H PRN PRN #10 tab 06/13/16 Lisinopril 20 mg PO DAILY 05/05/17 Sertraline HCl [Zoloft] 25 mg PO DAILY 05/05/17 Tramadol HCl [Ultram] 50 mg PO Q6H PRN PRN 05/05/17 Sucralfate [Carafate] 10 ml PO TID 05/30/17 Na Biphos/Potassium Phosphate 1 packet PO 4X/DAYCM #120 packet 06/06/17 [Neutra-Phos Packet] cholecalciferol (vitamin D3) 5,000 5,000 unit PO DAILY 06/21/17 unit capsule loratadine 10 mg tablet 10 mg PO DAILY PRN 06/21/17 metoprolol tartrate 50 mg tablet 100 mg PO DAILY 06/21/17 Albuterol IH (ProAir) [Proair Hfa] 2 puff INHALATION Q4H PRN PRN 06/24/17 Fluticasone 0.05% [Flonase Nasal 2 spray NASAL DAILY 06/24/17 [place]] Pantoprazole Sodium [Protonix] 40 mg PO DAILY 06/24/17 Rivaroxaban [Xarelto] 20 mg PO DAILY 07/17/17 Divalproex Sodium [Depakote ER] 500 mg PO QHS #30 tab 07/18/17 Gabapentin [Neurontin] 100 mg PO TIDCM #90 cap 07/18/17 Sumatriptan Succinate [Imitrex] 50 mg PO Q2H PRN #9 tab 07/18/17 Magnesium Oxide [Mag-Ox 400] 400 mg PO DAILY 08/07/17 Potassium Chloride [K-Dur] 40 meq PO BID 08/07/17 Surgical History: cholecystectomy, hysterectomy - SHARON w/ BL RENNY, - - PEG placement. Psychiatric History: No pertinent psych hx AMBULANCE PARAMEDIC History: No pertinent AMBULANCE PARAMEDIC history Lives: Spouse/ Significant Other Smoking Status: Former smoker Tobacco Use: Non-smoker Alcohol: None Drugs: None - *Family History Paternal History Items: Diabetes, Heart Disease Maternal History Items: - - RA Review of Systems Comment: See HPI, otherwise negative ?10 systems Patient Problems: Active and Suspected Problems (Last Reviewed 08/02/17 @ 13:09 by Ana Garza) COPD exacerbation (Acute) Hypoxemia (Acute) Pleural effusion (Acute) Anemia (Acute) Objective: All imaging was personally reviewed. CTA shows no pulmonary embolism or aortic dissection. Patient does have some mild pulmonary edema with small to moderate bilateral pleural effusions. Mild emphysematous apical changes are noted. - Physical Exam General: Alert, Oriented x3, Cooperative, No apparent distress, - - No conversational dyspnea appreciated. Appears older than stated age. Alopecia resolving. HEENT: Atraumatic, PERRLA, EOMI, Normocephalic, - - No scleral icterus or injection noted. Slightly pale mucous membranes noted. Oral: Moist Mucosa, No Gingival or Mucosal Lesions/ Ulcerations Neck: Supple, No JVD, No Nodes, Trachea Midline Lungs: No rhonchi, No wheeze, Diminished, Rales - Left base, - - Symmetric expansion. Mild dullness to percussion of bilateral posterior bases Cardiovascular: Regular rate, Regular Rhythm, Normal S1, Normal S2, No murmurs, No rub noted, No Gallop Abdomen: Bowel Sounds Present, Soft, Non Tender, Non-Distended Extremities: No clubbing, No cyanosis, No edema, Capillary Refill Less than 3 Seconds Skin: No rashes, No breakdown Musculoskeletal: No Tenderness to Palpation of Joints or Extremities Lymphatic: No Cervical, Supraclavicular, or Inguinal Adenopathy Neurological: Cranial nerves II-XII grossly intact, Neuro grossly intact Psych/Mental Status: Alert and oriented to time, place, person, mood and affect Vital Signs Temp Pulse Resp BP Pulse Ox 37.1 C 81 18 149/86 H 96 08/08/17 10:43 08/08/17 10:48 08/08/17 10:43 08/08/17 10:43 08/08/17 10:43 Oxygen Flow Rate (L/min) 2 Oxygen Delivery Method Nasal Cannula Weight: 73.5 kg Body Mass Index (BMI) 24.5 Laboratory Tests Past 24 Hrs 08/08/17 08/08/17 08/08/17 04:40 04:40 04:40 WBC 3.1 L RBC 2.26 L Hgb 7.3 L Hct 22.6 L MCV 100.0 H MCH 32.3 H MCHC 32.3 RDW 20.7 H RDW Differential 71.9 H Plt Count 86 L MPV 10.0 Immature Gran % (Auto) 0.000 Neut % (Auto) 76.9 H Lymph % (Auto) 12.2 L [place] % (Auto) 9.3 Eos % (Auto) 1.3 Baso % (Auto) 0.3 Absolute Neuts (auto) 2.4 Absolute Lymphs (auto) 0.38 L Total Counted Not Reportable Differential Comment SCAN Sodium 142 Potassium 3.5 Chloride 105 Carbon Dioxide 28.0 Anion Gap 9 BUN 12 Creatinine 0.72 Estim Creat Clear Calc 78.58 Est GFR (MDRD) Af Amer 104 Est GFR (MDRD) Non-Af 86 BUN/Creatinine Ratio 16.7 Glucose 103 Calcium 8.2 L Phosphorus 2.9 Magnesium 1.6 Total Bilirubin 0.50 AST 28 ALT 43 Alkaline Phosphatase 94 Total Protein 5.3 L Albumin 2.8 L Globulin 2.5 Albumin/Globulin Ratio 1.1 Clinical Impression(s) from Imaging Studies Chest X-Ray 08/07/17 22:38 IMPRESSION: No acute thoracic pathology. Electronically Signed: Ethan Oliver, at 23:33 EDT Tel , Service support , Chest CTA 08/08/17 22:55 IMPRESSION: No demonstrated pulmonary embolism or arterial dissection. Mild pulmonary edema. Moderate size bilateral pleural effusions. Electronically Signed: Damaris Burrell MD at 2:31 EDT Tel , Service support , Assessment/Plan Active and Suspected Problems (Last Reviewed 08/02/17 @ 13:09 by Ana Garza) COPD exacerbation (Acute) Hypoxemia (Acute) Pleural effusion (Acute) Anemia (Acute) RECOMMENDATIONS: 1. Gentle diuresis 2. Monitor with telemetry for paroxysmal A. fib with RVR 3. Consider discontinuation of IV steroids, substitute Pulmicort 4. Wean oxygen as tolerated 5. Await respiratory viral panel 6. Consider discontinuation of antibiotics if sputum culture negative IMPRESSIONS: 1. Dyspnea with bilateral pleural effusions Unclear etiology at this time. Patient is reporting palpitations with intermittent lower extremity swelling over the last week. Some concern for possible congestive heart failure as an etiology. Patient does have bilateral pleural effusions, but these appear to be small to moderate and are not associated with any obvious infiltrate. Patient does not report a history of a prodrome with productive cough, fever and shortness of breath. Patient does have apical emphysematous changes. Would recommend discontinuation of antibiotics and systemic steroids. Addition of Pulmicort would likely be acceptable. Risk of complications with thoracentesis would be significant given the small to moderate nature. It would be unlikely to have malignant pleural effusions bilaterally with limited small cell, and Raúl has been significant metastasis. Likely reasonable to attempt an empiric trial of diuretics prior to thoracentesis. If this is related to malignancy, anticipate worsening pleural effusions over the next 1-2 days. This would decrease likelihood of complications. Likely okay to continue with Xarelto therapy for now 2. COPD/small cell lung cancer Patient reports a history of small cell lung cancer that was diagnosed by ENT? Patient reports she is never seen a handyperson previously. Patient would likely benefit from outpatient pulmonary function tests and initiation on therapy. Given patient's recurrent presentations for shortness of breath, initiation of Pulmicort twice daily would be appropriate. Patient would also have significant worsening of shortness of breath as it relates to COPD given her pancytopenia. 3. Chemo induced pancytopenia/chronic migraine/hypertension/hyperlipidemia/anxiety/depression/GERD/deconditioning Complicates care, management, recovery and prognosis. Likely okay to continue with baseline medications. Code Visit Inpatient E&M: 37069 Init Hosp L2
--- NOTE | 2017-08-08 11:58 | CON.PCM_ITS ---
Problem List (1) Intractable nausea and vomiting Status: Acute Qualifiers: Vomiting type: unspecified Qualified Code(s): R11.2 - Nausea with vomiting , unspecified (2) Migraine Status: Chronic Qualifiers: Migraine type: unspecified Status migrainosus presence: without status migrainosus Intractability: not intractable Qualified Code(s): G43.909 - Migraine, unspecified, not intractable, without status migrainosus (3) Hypoxemia Status: Acute (4) Anemia Status: Acute (5) S/P cholecystectomy Status: Chronic (6) S/P bilateral oophorectomy Status: Chronic (7) S/P hysterectomy Status: Chronic (8) Radiation esophagitis Status: Chronic (9) Pancytopenia Status: Chronic (10) Afib Status: Chronic Qualifiers: (11) HTN (hypertension) Status: Chronic Qualifiers: Hypertension type: essential hypertension Qualified Code(s): I10 - Essential (primary) hypertension (12) COPD (chronic obstructive pulmonary disease) Status: Chronic Qualifiers: COPD type: unspecified COPD Qualified Code(s): J44.9 - Chronic obstructive pulmonary disease, unspecified Reason for Consult Date of Consultation: 08/08/17 Reason for Consultation: Shortness of breath History of Present Illness: The patient is a 66 year old F, with past medical history listed below, who presented to [facility] [place] on 08/08/2017 secondary to palpitations and shortness of breath. Patient has had multiple recent admissions on 08/18 and 07/17/17 secondary to dysphagia and was found to have radiation esophagitis that led to PEG placement. Patient states this has been removed at this point. Patient states that on presentation she was noted to have palpitations with worsening dyspnea and a dry cough. Patient had noted some increased lower extremity swelling over the last week or so. Patient states it would typically swell during the day and improve with sleep at night. In the emergency department, patient was noted to have a temperature of 100.3?F, hypertensive at 190/102 and 95% on room air. Patient was ambulated and saturations decreased to 86%. Blood counts were low, but in line with previous measurements. A CT of the chest was obtained showing no evidence of PE with small to moderate bilateral pleural effusions. Patient does report a long history of smoking. Patient is not a very good historian, but states that Dr. Redding had diagnosed her with lung cancer. Patient was not clear on whether this was squamous cell or small cell lung cancer. Patient states she has received chemo and radiation and has had complication with radiation esophagitis. Patient does report that she smoked in the past and has had pulmonary function testing, but is unaware of the results. Patient does believe she has COPD, but is unaware of the severity of her obstruction. Patient does not use any maintenance type of medications for her breathing issues. Patient is anticoagulated with Xarelto therapy, but denies any bleeding complications such as hemoptysis, melena or hematochezia. Patient does report some mild epistaxis associated with the use of supplemental oxygen. Past Medical History Past Medical History (Chronic Problems): Chronic Problems (Last Reviewed 08/02/17 @ 13:09 by Ana Garza) Monilial esophagitis (Chronic) Migraine (Chronic) Malnourished (Chronic) S/P cholecystectomy (Chronic) S/P bilateral oophorectomy (Chronic) S/P hysterectomy (Chronic) Radiation esophagitis (Chronic) Small cell lung cancer (Chronic) Pancytopenia (Chronic) Afib (Chronic) HTN (hypertension) (Chronic) GERD (gastroesophageal reflux disease) (Chronic) COPD (chronic obstructive pulmonary disease) (Chronic) Allergies oxycodone Adverse Reaction (Verified 08/07/17 21:28) Vomiting Home Medications: Ambulatory Orders Medication Instructions Recorded Ondansetron [Zofran Odt] 4 mg PO Q8H PRN PRN #10 tab 06/13/16 Lisinopril 20 mg PO DAILY 05/05/17 Sertraline HCl [Zoloft] 25 mg PO DAILY 05/05/17 Tramadol HCl [Ultram] 50 mg PO Q6H PRN PRN 05/05/17 Sucralfate [Carafate] 10 ml PO TID 05/30/17 Na Biphos/Potassium Phosphate 1 packet PO 4X/DAYCM #120 packet 06/06/17 [Neutra-Phos Packet] cholecalciferol (vitamin D3) 5,000 5,000 unit PO DAILY 06/21/17 unit capsule loratadine 10 mg tablet 10 mg PO DAILY PRN 06/21/17 metoprolol tartrate 50 mg tablet 100 mg PO DAILY 06/21/17 Albuterol IH (ProAir) [Proair Hfa] 2 puff INHALATION Q4H PRN PRN 06/24/17 Fluticasone 0.05% [Flonase Nasal 2 spray NASAL DAILY 06/24/17 [place]] Pantoprazole Sodium [Protonix] 40 mg PO DAILY 06/24/17 Rivaroxaban [Xarelto] 20 mg PO DAILY 07/17/17 Divalproex Sodium [Depakote ER] 500 mg PO QHS #30 tab 07/18/17 Gabapentin [Neurontin] 100 mg PO TIDCM #90 cap 07/18/17 Sumatriptan Succinate [Imitrex] 50 mg PO Q2H PRN #9 tab 07/18/17 Magnesium Oxide [Mag-Ox 400] 400 mg PO DAILY 08/07/17 Potassium Chloride [K-Dur] 40 meq PO BID 08/07/17 Surgical History: cholecystectomy, hysterectomy - SHARON w/ BL RENNY, - - PEG placement. Psychiatric History: No pertinent psych hx [employer] History: No pertinent [employer] history Lives: Spouse/ Significant Other Smoking Status: Former smoker Tobacco Use: Non-smoker Alcohol: None Drugs: None - *Family History Paternal History Items: Diabetes, Heart Disease Maternal History Items: - - RA Review of Systems Comment: See HPI, otherwise negative ?10 systems Patient Problems: Active and Suspected Problems (Last Reviewed 08/02/17 @ 13:09 by Ana Garza) COPD exacerbation (Acute) Hypoxemia (Acute) Pleural effusion (Acute) Anemia (Acute) Objective: All imaging was personally reviewed. CTA shows no pulmonary embolism or aortic dissection. Patient does have some mild pulmonary edema with small to moderate bilateral pleural effusions. Mild emphysematous apical changes are noted. - Physical Exam General: Alert, Oriented x3, Cooperative, No apparent distress, - - No conversational dyspnea appreciated. Appears older than stated age. Alopecia resolving. HEENT: Atraumatic, PERRLA, EOMI, Normocephalic, - - No scleral icterus or injection noted. Slightly pale mucous membranes noted. Oral: Moist Mucosa, No Gingival or Mucosal Lesions/ Ulcerations Neck: Supple, No JVD, No Nodes, Trachea Midline Lungs: No rhonchi, No wheeze, Diminished, Rales - Left base, - - Symmetric expansion. Mild dullness to percussion of bilateral posterior bases Cardiovascular: Regular rate, Regular Rhythm, Normal S1, Normal S2, No murmurs, No rub noted, No Gallop Abdomen: Bowel Sounds Present, Soft, Non Tender, Non-Distended Extremities: No clubbing, No cyanosis, No edema, Capillary Refill Less than 3 Seconds Skin: No rashes, No breakdown Musculoskeletal: No Tenderness to Palpation of Joints or Extremities Lymphatic: No Cervical, Supraclavicular, or Inguinal Adenopathy Neurological: Cranial nerves II-XII grossly intact, Neuro grossly intact Psych/Mental Status: Alert and oriented to time, place, person, mood and affect Vital Signs Temp Pulse Resp BP Pulse Ox 37.1 C 81 18 149/86 H 96 08/08/17 10:43 08/08/17 10:48 08/08/17 10:43 08/08/17 10:43 08/08/17 10:43 Oxygen Flow Rate (L/min) 2 Oxygen Delivery Method Nasal Cannula Weight: 73.5 kg Body Mass Index (BMI) 24.5 Laboratory Tests Past 24 Hrs 08/08/17 08/08/17 08/08/17 04:40 04:40 04:40 WBC 3.1 L RBC 2.26 L Hgb 7.3 L Hct 22.6 L MCV 100.0 H MCH 32.3 H MCHC 32.3 RDW 20.7 H RDW Differential 71.9 H Plt Count 86 L MPV 10.0 Immature Gran % (Auto) 0.000 Neut % (Auto) 76.9 H Lymph % (Auto) 12.2 L [place] % (Auto) 9.3 Eos % (Auto) 1.3 Baso % (Auto) 0.3 Absolute Neuts (auto) 2.4 Absolute Lymphs (auto) 0.38 L Total Counted Not Reportable Differential Comment SCAN Sodium 142 Potassium 3.5 Chloride 105 Carbon Dioxide 28.0 Anion Gap 9 BUN 12 Creatinine 0.72 Estim Creat Clear Calc 78.58 Est GFR (MDRD) Af Amer 104 Est GFR (MDRD) Non-Af 86 BUN/Creatinine Ratio 16.7 Glucose 103 Calcium 8.2 L Phosphorus 2.9 Magnesium 1.6 Total Bilirubin 0.50 AST 28 ALT 43 Alkaline Phosphatase 94 Total Protein 5.3 L Albumin 2.8 L Globulin 2.5 Albumin/Globulin Ratio 1.1 Clinical Impression(s) from Imaging Studies Chest X-Ray 08/07/17 22:38 IMPRESSION: No acute thoracic pathology. Electronically Signed: Ethan Oliver, at 23:33 EDT Tel , Service support , Chest CTA 08/08/17 22:55 IMPRESSION: No demonstrated pulmonary embolism or arterial dissection. Mild pulmonary edema. Moderate size bilateral pleural effusions. Electronically Signed: Damaris Burrell MD at 2:31 EDT Tel , Service support , Assessment/Plan Active and Suspected Problems (Last Reviewed 08/02/17 @ 13:09 by Ana Garza) COPD exacerbation (Acute) Hypoxemia (Acute) Pleural effusion (Acute) Anemia (Acute) RECOMMENDATIONS: 1. Gentle diuresis 2. Monitor with telemetry for paroxysmal A. fib with RVR 3. Consider discontinuation of IV steroids, substitute Pulmicort 4. Wean oxygen as tolerated 5. Await respiratory viral panel 6. Consider discontinuation of antibiotics if sputum culture negative IMPRESSIONS: 1. Dyspnea with bilateral pleural effusions Unclear etiology at this time. Patient is reporting palpitations with intermittent lower extremity swelling over the last week. Some concern for possible congestive heart failure as an etiology. Patient does have bilateral pleural effusions, but these appear to be small to moderate and are not associated with any obvious infiltrate. Patient does not report a history of a prodrome with productive cough, fever and shortness of breath. Patient does have apical emphysematous changes. Would recommend discontinuation of antibiotics and systemic steroids. Addition of Pulmicort would likely be acceptable. Risk of complications with thoracentesis would be significant given the small to moderate nature. It would be unlikely to have malignant pleural effusions bilaterally with limited small cell, and Raúl has been significant metastasis. Likely reasonable to attempt an empiric trial of diuretics prior to thoracentesis. If this is related to malignancy, anticipate worsening pleural effusions over the next 1-2 days. This would decrease likelihood of complications. Likely okay to continue with Xarelto therapy for now 2. COPD/small cell lung cancer Patient reports a history of small cell lung cancer that was diagnosed by ENT? 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 Patient would likely benefit from outpatient pulmonary function tests and initiation on therapy. Given patient's recurrent presentations for shortness of breath, initiation of Pulmicort twice daily would be appropriate. Patient would also have significant worsening of shortness of breath as it relates to COPD given her pancytopenia. 3. Chemo induced pancytopenia/chronic migraine/hypertension/hyperlipidemia/ anxiety/depression/GERD/deconditioning Complicates care, management, recovery and prognosis. Likely okay to continue with baseline medications. Code Visit Inpatient E&M: 01318 Init Hosp L2
--- NOTE | 2017-08-08 13:38 | PN_ITS ---
Patient Problems: Active and Suspected Problems (Last Reviewed 08/02/17 @ 13:09 by Ana Garza) COPD exacerbation (Acute) Hypoxemia (Acute) Pleural effusion (Acute) Anemia (Acute) Subjective: patient admitted with dyspnea, history limited stage small cell lung ca, to start prophylactic brain RT next week. received concurrent chemoradiation with DFr Masci. reviewed scans, effusions noted, unlikely jeannie be causing dyspnea. she is chronically anemic. she feels better with pulmonary toilet. agree with management, will work up anemia a bit more. - Physical Exam General: Alert, Oriented x3, Cooperative, No apparent distress HEENT: Atraumatic, PERRLA, EOMI Oral: Moist Mucosa Neck: Supple Skin: No rashes Vital Signs Temp Pulse Resp BP Pulse Ox 98.8 F 74 16 149/86 H 96 08/08/17 10:43 08/08/17 11:03 08/08/17 11:03 08/08/17 10:43 08/08/17 10:43 Oxygen Flow Rate (L/min) 2 Oxygen Delivery Method Nasal Cannula Weight: 73.5 kg Body Mass Index (BMI) 24.5 Intake and Output for Last 24 Hours 08/06/17 08/07/17 08/08/17 23:59 23:59 23:59 Intake Total 520 / 520 Balance 520 / 520 Microbiology Past 72 Hours 08/08/17 07:10 Respiratory Panel (PCR) - Final Mucosa - Nose Laboratory Tests Past 24 Hrs 08/08/17 08/08/17 08/08/17 04:40 04:40 04:40 WBC 3.1 L RBC 2.26 L Hgb 7.3 L Hct 22.6 L MCV 100.0 H MCH 32.3 H MCHC 32.3 RDW 20.7 H RDW Differential 71.9 H Plt Count 86 L MPV 10.0 Immature Gran % (Auto) 0.000 Neut % (Auto) 76.9 H Lymph % (Auto) 12.2 L [place] % (Auto) 9.3 Eos % (Auto) 1.3 Baso % (Auto) 0.3 Absolute Neuts (auto) 2.4 Absolute Lymphs (auto) 0.38 L Total Counted Not Reportable Differential Comment SCAN Sodium 142 Potassium 3.5 Chloride 105 Carbon Dioxide 28.0 Anion Gap 9 BUN 12 Creatinine 0.72 Estim Creat Clear Calc 78.58 Est GFR (MDRD) Af Amer 104 Est GFR (MDRD) Non-Af 86 BUN/Creatinine Ratio 16.7 Glucose 103 Calcium 8.2 L Phosphorus 2.9 Magnesium 1.6 Total Bilirubin 0.50 AST 28 ALT 43 Alkaline Phosphatase 94 Total Protein 5.3 L Albumin 2.8 L Globulin 2.5 Albumin/Globulin Ratio 1.1 Medical Necessity - Tobacco Use Smoking Status: Former smoker Tobacco Use: Non-smoker Assessment/Plan Active and Suspected Problems (Last Reviewed 08/02/17 @ 13:09 by Ana Garza) COPD exacerbation (Acute) Hypoxemia (Acute) Pleural effusion (Acute) Anemia (Acute)
[2017-08-08 13:53] LABS: Immature Platelet Fraction 3.7 % (1.0-7.9); RET-HE 35.9 pg (30-35); Reticulocyte Count 2.31 % (0.5-1.5)
[2017-08-08 14:09] LABS: LDH 240 U/L (84-246)
--- NOTE | 2017-08-08 15:03 | PN_ITS ---
<Khris Church - Last Filed: 08/08/17 14:49> Patient Problems: Active and Suspected Problems (Last Reviewed 08/02/17 @ 13:09 by Ana Garza) COPD exacerbation (Acute) Hypoxemia (Acute) Pleural effusion (Acute) Anemia (Acute) Subjective: Pt has been having multiple symptoms over the past several days. She has had increased SOB and cough. She has had some nausea without vomiting. She has mild dysuria. She is eating. She has had some swelling of her LE but this is improved today. She had palpitations prior to admission but has not had any since. She has had some nasal congestion but feels this only started when O2 was placed on. He completed chemo in june and plans for brain radiation soon , although she denies brain mets. She has O2 at home but only uses it PRN. She is satting well on 2 lpm. No diarrhea. She denies a hx of CHF. - Physical Exam General: Alert, Oriented x3, Cooperative HEENT: Atraumatic, PERRLA, EOMI, Normocephalic Neck: Supple, No JVD, Negative Carotid Bruits Lungs: Diminished, Rales - fine rales left lung base, Wheezes - left sided Cardiovascular: Regular rate, No murmurs Abdomen: Bowel Sounds Present, Soft, Non Tender Extremities: No edema, Capillary Refill Less than 3 Seconds Skin: No rashes, No breakdown Musculoskeletal: No Tenderness to Palpation of Joints or Extremities Neurological: Cranial nerves II-XII grossly intact Psych/Mental Status: Normal Affect, Appropriate, Alert and oriented to time, place, person, mood and affect Vital Signs Temp Pulse Resp BP Pulse Ox 98.8 F 80 16 149/86 H 96 08/08/17 10:43 08/08/17 11:30 08/08/17 11:03 08/08/17 10:43 08/08/17 10:43 Oxygen Flow Rate (L/min) 2 Oxygen Delivery Method Nasal Cannula Weight: 73.5 kg Body Mass Index (BMI) 24.5 Intake and Output for Last 24 Hours 08/06/17 08/07/17 08/08/17 23:59 23:59 23:59 Intake Total 520 / 520 Balance 520 / 520 Microbiology Past 72 Hours 08/08/17 07:10 Respiratory Panel (PCR) - Final Mucosa - Nose Laboratory Tests Past 24 Hrs 08/08/17 08/08/17 08/08/17 04:40 04:40 04:40 WBC 3.1 L RBC 2.26 L Hgb 7.3 L Hct 22.6 L MCV 100.0 H MCH 32.3 H MCHC 32.3 RDW 20.7 H RDW Differential 71.9 H Plt Count 86 L MPV 10.0 Immature Gran % (Auto) 0.000 Neut % (Auto) 76.9 H Lymph % (Auto) 12.2 L [place] % (Auto) 9.3 Eos % (Auto) 1.3 Baso % (Auto) 0.3 Absolute Neuts (auto) 2.4 Absolute Lymphs (auto) 0.38 L Total Counted Not Reportable Differential Comment SCAN Immature Plt Fraction Retic Count Immature Retic Fraction Retic Hgb Equivalent Sodium 142 Potassium 3.5 Chloride 105 Carbon Dioxide 28.0 Anion Gap 9 BUN 12 Creatinine 0.72 Estim Creat Clear Calc 78.58 Est GFR (MDRD) Af Amer 104 Est GFR (MDRD) Non-Af 86 BUN/Creatinine Ratio 16.7 Glucose 103 Calcium 8.2 L Phosphorus 2.9 Magnesium 1.6 Total Bilirubin 0.50 AST 28 ALT 43 Alkaline Phosphatase 94 Lactate Dehydrogenase Total Protein 5.3 L Albumin 2.8 L Globulin 2.5 Albumin/Globulin Ratio 1.1 Vitamin B12 08/08/17 08/08/17 08/08/17 04:40 04:40 04:40 WBC RBC Hgb Hct MCV MCH MCHC RDW RDW Differential Plt Count MPV Immature Gran % (Auto) Neut % (Auto) Lymph % (Auto) Mclean % (Auto) Eos % (Auto) Baso % (Auto) Absolute Neuts (auto) Absolute Lymphs (auto) Total Counted Differential Comment Immature Plt Fraction 3.7 Retic Count 2.31 H Immature Retic Fraction 6.80 Retic Hgb Equivalent 35.9 H Sodium Potassium Chloride Carbon Dioxide Anion Gap BUN Creatinine Estim Creat Clear Calc Est GFR (MDRD) Af Amer Est GFR (MDRD) Non-Af BUN/Creatinine Ratio Glucose Calcium Phosphorus Magnesium Total Bilirubin AST ALT Alkaline Phosphatase Lactate Dehydrogenase 240 Total Protein Albumin Globulin Albumin/Globulin Ratio Vitamin B12 Pending Medical Necessity - Tobacco Use Smoking Status: Former smoker Tobacco Use: Non-smoker Assessment/Plan Active and Suspected Problems (Last Reviewed 08/02/17 @ 13:09 by Ana S Garza) COPD exacerbation (Acute) Hypoxemia (Acute) Pleural effusion (Acute) Anemia (Acute) 1. Dyspnea with exertion - suspect mild acute diastolic CHF exacerbation - start low dose IV lasix and see how she responds. Moderate pleural effusions on CTA. Effusions ?Transudative vs exudative - no plan to tap at this time. Pulm and Oncology following. Resp panel neg. CXR neg. Echo in May of this yaer with EF 55%, RVSP 28 mmHg. 2. COPD - Per pulm DC IV steroids and abx. Start pulmicort. she is somewhat wheezy over the area of her cancer, but not throughout Taper steroids. Continue duonebs. IS. 3. Acute UTI - borderline UA. She does have mild dysuria. Continue Rocephin. Follow cultures. 4. PAF - palpitations resolved. Rate and rhythm normal. No events on tele. Continue to monitor. Xarelto held for possible thora. Per pulm will not do thora at this time. Restart xarelto. 5. Chronic pancytopenia - trend. B12 pending - macrocytic. 6. 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 PPI+Carafate. 7. 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 Completed chemo in jun. Plan for brain rads soon. Per pt no known mets and primary tumor is shrunk from chemo. 8. HTN - somewhat elevated. trend. 9. Hx Migraines - stable. 10. HLD 11. Anx/Dep 12. GERD - ppi, carafate 13. Severe protein calorie malnutrition - dietary consult DVT ppx: xarelto, restart tonight. This patient was seen by Khris Church PA-C under the supervision of Doctor Shabazz. <Harika,[place] - Last Filed: 08/08/17 16:58> - Physical Exam Vital Signs Temp Pulse Resp BP Pulse Ox 98.6 F 82 17 117/70 94 08/08/17 15:30 08/08/17 15:30 08/08/17 15:30 08/08/17 15:30 08/08/17 15:30 Oxygen Flow Rate (L/min) 2 Oxygen Delivery Method Nasal Cannula Weight: 73.5 kg Body Mass Index (BMI) 24.5 Intake and Output for Last 24 Hours 08/06/17 08/07/17 08/08/17 23:59 23:59 23:59 Intake Total 520 / 520 Balance 520 / 520 Microbiology Past 72 Hours 08/08/17 07:10 Respiratory Panel (PCR) - Final Mucosa - Nose Laboratory Tests Past 24 Hrs 08/08/17 08/08/17 08/08/17 04:40 04:40 04:40 WBC 3.1 L RBC 2.26 L Hgb 7.3 L Hct 22.6 L MCV 100.0 H MCH 32.3 H MCHC 32.3 RDW 20.7 H RDW Differential 71.9 H Plt Count 86 L MPV 10.0 Immature Gran % (Auto) 0.000 Neut % (Auto) 76.9 H Lymph % (Auto) 12.2 L [place] % (Auto) 9.3 Eos % (Auto) 1.3 Baso % (Auto) 0.3 Absolute Neuts (auto) 2.4 Absolute Lymphs (auto) 0.38 L Total Counted Not Reportable Differential Comment SCAN Immature Plt Fraction Retic Count Immature Retic Fraction Retic Hgb Equivalent Sodium 142 Potassium 3.5 Chloride 105 Carbon Dioxide 28.0 Anion Gap 9 BUN 12 Creatinine 0.72 Estim Creat Clear Calc 78.58 Est GFR (MDRD) Af Amer 104 Est GFR (MDRD) Non-Af 86 BUN/Creatinine Ratio 16.7 Glucose 103 Calcium 8.2 L Phosphorus 2.9 Magnesium 1.6 Total Bilirubin 0.50 AST 28 ALT 43 Alkaline Phosphatase 94 Lactate Dehydrogenase Total Protein 5.3 L Albumin 2.8 L Globulin 2.5 Albumin/Globulin Ratio 1.1 Vitamin B12 08/08/17 08/08/17 08/08/17 04:40 04:40 04:40 WBC RBC Hgb Hct MCV MCH MCHC RDW RDW Differential Plt Count MPV Immature Gran % (Auto) Neut % (Auto) Lymph % (Auto) [place]clean % (Auto) Eos % (Auto) Baso % (Auto) Absolute Neuts (auto) Absolute Lymphs (auto) Total Counted Differential Comment Immature Plt Fraction 3.7 Retic Count 2.31 H Immature Retic Fraction 6.80 Retic Hgb Equivalent 35.9 H Sodium Potassium Chloride Carbon Dioxide Anion Gap BUN Creatinine Estim Creat Clear Calc Est GFR (MDRD) Af Amer Est GFR (MDRD) Non-Af BUN/Creatinine Ratio Glucose Calcium Phosphorus Magnesium Total Bilirubin AST ALT Alkaline Phosphatase Lactate Dehydrogenase 240 Total Protein Albumin Globulin Albumin/Globulin Ratio Vitamin B12 Pending Assessment/Plan Patient was seen and examined dependently. Agree with the above notes, interval history, physical exam and assessment and plan as documented by physician community relations assistant Khris Church. On 2 L of oxygen, appears comfortable. Was working with speech therapist in the morning. Denies any chest pain or worsening shortness of breath. Coronal and oncology consulted for patient. I suspect her dyspnea with exertion is from a combination of COPD, chronic anemia. Probable mild acute diastolic CHF, check BNPep. However the chest CT showed bilateral effusions are small to moderate, agree with low-dose Lasix, will reevaluate total hydration status. Continue steroids for COPD exacerbation and Rocephin and follow with cultures. Also check for iron stores Appreciate all consults - notes reviewed Code Visit Procedures: Other Procedure - See Report - Non-billable rounding
[2017-08-08] MEDS: Rivaroxaban 20 MG Tablet PO (17:28)
[2017-08-08 18:11] LABS: BNP,B-Type NATRIURETIC PEPTIDE 556.2 pg/mL (0-100)
[2017-08-08 18:12] LABS: Iron 134 ug/dL (50-170); Iron Binding Capacity,Total 259 ug/dL (250-450); PERCENT IRON SATURATION 51.7 % (15.0-55.0)
[2017-08-08] MEDS: Divalproex (ER) 500 MG Tablet PO (21:20)
--- NOTE | 2017-08-08 22:55 | CT_ITS ---
STUDY: CTA CHEST REASON FOR EXAM: Female, 66 years old. SOB AND PALPITATIONS SINCE YESTERDAY AM,ELEVATED BP HX:HTN,A-FIB,COPD,LUNG AND THROAT CANCER,KIDNEY DZ STAGE 2 RADIATION DOSAGE (If Supplied By Facility): CTDIvol = ( 10.33 ) mGy, DLP = ( 722.61 ) mGycm TECHNIQUE: The examination was performed with the intravenous administration of 75ML ml of Isovue 370 contrast material. Post-processing of the angiographic images was performed, with multiplanar reformation and 3D reconstruction. Individualized dose optimization techniques were used for this CT. COMPARISON: None. FINDINGS: Normal enhancement of the main pulmonary artery and right and left pulmonary arteries. Normal enhancement of the bilateral peripheral pulmonary arteries. There is no demonstrated pulmonary embolism. Normal thoracic aorta and visualized great vessels. There is no demonstrated aortic dissection. Normal heart and pericardium. Normal mediastinum. Normal hilar regions. Normal visualized trachea and bronchi. The lungs are well expanded. Mild pulmonary edema. Mild emphysema more prominent in the upper lobes. Moderate size bilateral pleural effusions. Normal chest wall structures. Normal osseous structures. Normal visualized upper abdomen. CT/CTA Chest W/WO Contrast IMPRESSION: No demonstrated pulmonary embolism or arterial dissection. Mild pulmonary edema. Moderate size bilateral pleural effusions. Electronically Signed: Damaris Burrell MD at 2:31 EDT Tel , Service support ,
[2017-08-09] VITALS (12 sets, daily range): BP systolic 105–119; BP diastolic 59–72; PULSE 60–102; RESP 16–18; TEMP 36.6–36.8; O2SAT 93–98
[2017-08-09] MEDS: Ipratropium/Albuterol Sulfate 3 ML AMPUL.NEB INHALATION ×5 (03:30→14:48)
[2017-08-09] MEDS: 0.9% NaCl PICC Flush IV (04:46)
[2017-08-09 05:16] LABS: Absolute Lymphocyte Count 0.46 X10^3/ul (0.83-4.51); Absolute Neutrophil Count 3.7 X10^3/uL (2.0-7.7); Anion Gap 6 (5-15); BUN 22 mg/dL (7-18); BUN/Creat Ratio 24.3 RATIO (10-20); Calcium,Total 8.2 mg/dL (8.5-10.1); Chloride 103 mmol/L (98-107); EST Glomerular Filtration Rate 66 mL/min (>60); Est Glom Filt Rate - Afr Amer 80 mL/min (>60); Estimated Creatinine Clearance 62.86 ml/min; Glucose 108 mg/dL (74-106); Hematocrit 22.4 % (37-47); Hemoglobin 7.3 g/dl (12.0-15.0); Lymphocyte # 0.46 X10^3/ul (4.0); Lymphocyte % 10.1 % (19-41); Mean Corp Hgb Conc 32.6 g/gl (32-36); Mean Corpuscular Hgb 32.4 pg (27.0-32.0); Mean Corpuscular Volume 99.6 fL (81-99); Mean Platelet Vol. 9.8 fl (6.2-12.0); Monocyte# 0.44 X10^3/uL; Monocyte% 9.6 % (0-10); Neutrophil # 3.66 X10^3/uL (2.7-7.7); Neutrophil % 80.1 % (47-70); Platelet Count 84 K/mm3 (150-450); Potassium 4.6 mmol/L (3.5-5.1); RBC Distribution Width CV 20.4 % (11.6-14.6); RBC Distribution Width SD 70.8 fl (35.1-43.9); Red Blood Count 2.25 M/mm3 (4.2-5.4); Sodium Level 139 mmol/L (136-145); White Blood Count 4.6 K/mm3 (4.4-11.0)
[2017-08-09 05:18] LABS: Differential Indicated SCAN CRITERIA MET; POSITIVE COUNT NO; POSITIVE DIFFERENTIAL YES; POSITIVE MORPHOLOGY YES
[2017-08-09 06:17] LABS: Anisocytosis 3+; Differential Comment SCANNED
[2017-08-09] MEDS: Sucralfate 1 GM Tablet PO ×2 (06:26→11:21)
--- NOTE | 2017-08-09 08:13 | PCM.PROGNOTE ---
Patient Problems: Active and Suspected Problems (Last Reviewed 08/02/17 @ 13:09 by Ana Garza) COPD exacerbation (Acute) Hypoxemia (Acute) Pleural effusion (Acute) Anemia (Acute) Subjective: The patient was seen and examined at the bedside this morning. Events from the last 24 hours have been reviewed. The patient is currently afebrile, hemodynamically stable and maintaining appropriate oxygen saturations on 1 L/min via nasal cannula. The patient reports subjective improvement in her breathing quality since being admitted to the hospital. At her baseline, she does not utilize supplemental oxygen. She does report that she is supposed to start brain radiation tomorrow. Upright plain film chest x-ray repeated this morning revealed no evidence of pleural effusions. Objective: The patient's most recent lab work, culture data and imaging studies have all been personally reviewed. Urine culture is pending. Respiratory viral panel was negative. CTA chest revealed no evidence for pulmonary embolism. There was a mild degree of pulmonary edema and moderate-sized bilateral pleural effusions. 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 Surface echocardiogram from May 2017 revealed normal LV size and function with an ejection fraction of 55%. Right ventricular systolic pressure was estimated to be 28 mmHg. - Physical Exam General: Alert, Cooperative, No apparent distress HEENT: Atraumatic, PERRLA, Normocephalic Oral: No Gingival or Mucosal Lesions/ Ulcerations Neck: Supple, No Nodes, Trachea Midline Lungs: No rhonchi, No wheeze, Diminished, - - Basilar rales present Cardiovascular: Regular rate, Regular Rhythm, Normal S1, Normal S2, No murmurs Abdomen: Bowel Sounds Present, Soft, Non Tender, Non-Distended Extremities: No clubbing, No cyanosis, No edema Skin: No rashes, No breakdown Musculoskeletal: No Tenderness to Palpation of Joints or Extremities Lymphatic: No Cervical, Supraclavicular, or Inguinal Adenopathy Neurological: Neuro grossly intact Psych/Mental Status: Normal Affect, Appropriate Vital Signs Temp Pulse Resp BP Pulse Ox 98.3 F 90 16 105/66 96 08/09/17 03:15 08/09/17 07:11 08/09/17 03:30 08/09/17 03:15 08/09/17 03:15 Oxygen Flow Rate (L/min) 2 Oxygen Delivery Method Nasal Cannula Weight: 162 lb 0.636 oz Body Mass Index (BMI) 24.5 Intake and Output for Last 24 Hours 08/07/17 08/08/17 08/09/17 23:59 23:59 23:59 Intake Total 1000 / 1000 900 / 900 Balance 1000 / 1000 900 / 900 Microbiology Past 72 Hours 08/08/17 07:10 Respiratory Panel (PCR) - Final Mucosa - Nose Laboratory Tests Past 24 Hrs 08/08/17 08/08/17 08/08/17 04:40 04:40 04:40 WBC RBC Hgb Hct MCV MCH MCHC RDW RDW Differential Plt Count MPV Immature Gran % (Auto) Neut % (Auto) Lymph % (Auto) [place] % (Auto) Eos % (Auto) Baso % (Auto) Absolute Neuts (auto) Absolute Lymphs (auto) Total Counted Differential Comment Immature Plt Fraction 3.7 Anisocytosis Retic Count 2.31 H Immature Retic Fraction 6.80 Retic Hgb Equivalent 35.9 H Haptoglobin Sodium Potassium Chloride Carbon Dioxide Anion Gap BUN Creatinine Estim Creat Clear Calc Est GFR (MDRD) Af Amer Est GFR (MDRD) Non-Af BUN/Creatinine Ratio Glucose Calcium Magnesium Iron TIBC Iron Saturation Lactate Dehydrogenase 240 B-Natriuretic Peptide Vitamin B12 Pending RBC Folate Hemolysate RBC Folate Hematocrit 08/08/17 08/08/17 08/09/17 17:00 17:40 04:40 WBC RBC Hgb Hct MCV MCH MCHC RDW RDW Differential Plt Count MPV Immature Gran % (Auto) Neut % (Auto) Lymph % (Auto) [place] % (Auto) Eos % (Auto) Baso % (Auto) Absolute Neuts (auto) Absolute Lymphs (auto) Total Counted Differential Comment Immature Plt Fraction Anisocytosis Retic Count Immature Retic Fraction Retic Hgb Equivalent Haptoglobin Sodium 139 Potassium 4.6 Chloride 103 Carbon Dioxide 30.0 Anion Gap 6 BUN 22 H Creatinine 0.90 Estim Creat Clear Calc 62.86 Est GFR (MDRD) Af Amer 80 Est GFR (MDRD) Non-Af 66 BUN/Creatinine Ratio 24.3 H Glucose 108 H Calcium 8.2 L Magnesium 2.0 Iron 134 TIBC 259 Iron Saturation 51.7 Lactate Dehydrogenase B-Natriuretic Peptide 556.2 H Vitamin B12 RBC Folate Hemolysate RBC Folate Hematocrit 08/09/17 08/09/17 08/09/17 04:40 04:40 04:40 WBC 4.6 RBC 2.25 L Hgb 7.3 L Hct 22.4 L MCV 99.6 H MCH 32.4 H MCHC 32.6 RDW 20.4 H RDW Differential 70.8 H Plt Count 84 L MPV 9.8 Immature Gran % (Auto) 0.200 Neut % (Auto) 80.1 H Lymph % (Auto) 10.1 L [place] % (Auto) 9.6 Eos % (Auto) 0.0 Baso % (Auto) 0.0 Absolute Neuts (auto) 3.7 Absolute Lymphs (auto) 0.46 L Total Counted Not Reportable Differential Comment SCANNED Immature Plt Fraction Anisocytosis 3+ Retic Count Immature Retic Fraction Retic Hgb Equivalent Haptoglobin Pending Sodium Potassium Chloride Carbon Dioxide Anion Gap BUN Creatinine Estim Creat Clear Calc Est GFR (MDRD) Af Amer Est GFR (MDRD) Non-Af BUN/Creatinine Ratio Glucose Calcium Magnesium Iron TIBC Iron Saturation Lactate Dehydrogenase B-Natriuretic Peptide Vitamin B12 RBC Folate Hemolysate Pending RBC Folate Pending Hematocrit Pending Clinical Impression(s) from Imaging Studies Chest X-Ray 08/07/17 22:38 IMPRESSION: No acute thoracic pathology. Electronically Signed: Ethan Oliver at 23:33 EDT Tel , Service support , Chest CTA 08/08/17 22:55 IMPRESSION: No demonstrated pulmonary embolism or arterial dissection. Mild pulmonary edema. Moderate size bilateral pleural effusions. Electronically Signed: Damaris Burrell MD at 2:31 EDT Tel , Service support , Medical Necessity - Tobacco Use Smoking Status: Former smoker Tobacco Use: Non-smoker Assessment/Plan Active and Suspected Problems (Last Reviewed 08/02/17 @ 13:09 by Ana Garza) COPD exacerbation (Acute) Hypoxemia (Acute) Pleural effusion (Acute) Anemia (Acute) RECOMMENDATIONS: 1. Continue scheduled aerosol treatment 2. Low clinical suspicion for underlying infectious process. Okay to discontinue antibiotics from my perspective. 3. Continue attempts at diuresis. Consider transitioning from IV to p.o. formulation. 4. Wean supplemental oxygen as tolerated 5. Encourage incentive spirometer use and mobilize patient as tolerated 6. Perform walking oximetry study prior to consideration for discharge from the hospital. 7. Please have the patient follow-up in the pulmonary medicine clinic within 2 weeks of her discharge from the hospital. IMPRESSIONS: 1. Acute hypoxic respiratory insufficiency/shortness of breath secondary to bilateral pleural effusions While the patient does have underlying obstructive lung disease based upon pulmonary function testing from 2017, she did have evidence of small size dependent pleural effusions on CT chest. She has responded well from a clinical perspective to IV diuretics. There is no readily identifiable pulmonary infectious process. Okay from my perspective to discontinue antibiotics. Continue Lasix with consideration for a transition from IV to p.o. formulation today. Wean supplemental oxygen as tolerated and plan to perform a walking oximetry study prior to consideration for discharge from the hospital. Additionally, the patient has a known normocytic anemia, which may be secondary to her chemotherapy regimen. Agree with discussing with oncology as to whether or not transfusion of packed red blood cells would be appropriate at this time. 2. COPD/history of limited stage small cell lung cancer diagnosed in 2017 status post chemoradiation The patient has undergone treatment with chemo and radiation and has plans to start whole brain radiation tomorrow. The patient does have evidence of COPD on PFTs obtained in 2017. She does report being prescribed Anoro as an outpatient. Ideally, the patient should be seen in the pulmonary medicine clinic within 2 weeks of her discharge from the hospital. We can assist with ongoing management of her underlying COPD accordingly. 3. Chemotherapy-induced pancytopenia/chronic migraine/hypertension/hyperlipidemia/anxiety/depression/GERD/deconditioning Complicates care, management, recovery and prognosis. Continue home medications as indicated. This note was generated with [employer] software. It may contain incorrect words, spelling, and punctuation that were not noted in checking the note before signing. Code Visit Inpatient E&M: [id number] [facility] Hosp L3
--- NOTE | 2017-08-09 08:22 | PN_ITS ---
Patient Problems: Active and Suspected Problems (Last Reviewed 08/02/17 @ 13:09 by Ana Garza) COPD exacerbation (Acute) Hypoxemia (Acute) Pleural effusion (Acute) Anemia (Acute) Subjective: The patient was seen and examined at the bedside this morning. Events from the last 24 hours have been reviewed. The patient is currently afebrile, hemodynamically stable and maintaining appropriate oxygen saturations on 1 L/ min via nasal cannula. The patient reports subjective improvement in her breathing quality since being admitted to the hospital. At her baseline, she does not utilize supplemental oxygen. She does report that she is supposed to start brain radiation tomorrow. Upright plain film chest x-ray repeated this morning revealed no evidence of pleural effusions. Objective: The patient's most recent lab work, culture data and imaging studies have all been personally reviewed. Urine culture is pending. Respiratory viral panel was negative. CTA chest revealed no evidence for pulmonary embolism. There was a mild degree of pulmonary edema and moderate-sized bilateral pleural effusions. 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 Surface echocardiogram from May 2017 revealed normal LV size and function with an ejection fraction of 55%. Right ventricular systolic pressure was estimated to be 28 mmHg. - Physical Exam General: Alert, Cooperative, No apparent distress HEENT: Atraumatic, PERRLA, Normocephalic Oral: No Gingival or Mucosal Lesions/ Ulcerations Neck: Supple, No Nodes, Trachea Midline Lungs: No rhonchi, No wheeze, Diminished, - - Basilar rales present Cardiovascular: Regular rate, Regular Rhythm, Normal S1, Normal S2, No murmurs Abdomen: Bowel Sounds Present, Soft, Non Tender, Non-Distended Extremities: No clubbing, No cyanosis, No edema Skin: No rashes, No breakdown Musculoskeletal: No Tenderness to Palpation of Joints or Extremities Lymphatic: No Cervical, Supraclavicular, or Inguinal Adenopathy Neurological: Neuro grossly intact Psych/Mental Status: Normal Affect, Appropriate Vital Signs Temp Pulse Resp BP Pulse Ox 98.3 F 90 16 105/66 96 08/09/17 03:15 08/09/17 07:11 08/09/17 03:30 08/09/17 03:15 08/09/17 03:15 Oxygen Flow Rate (L/min) 2 Oxygen Delivery Method Nasal Cannula Weight: 162 lb 0.636 oz Body Mass Index (BMI) 24.5 Intake and Output for Last 24 Hours 08/07/17 08/08/17 08/09/17 23:59 23:59 23:59 Intake Total 1000 / 1000 900 / 900 Balance 1000 / 1000 900 / 900 Microbiology Past 72 Hours 08/08/17 07:10 Respiratory Panel (PCR) - Final Mucosa - Nose Laboratory Tests Past 24 Hrs 08/08/17 08/08/17 08/08/17 04:40 04:40 04:40 WBC RBC Hgb Hct MCV MCH MCHC RDW RDW Differential Plt Count MPV Immature Gran % (Auto) Neut % (Auto) Lymph % (Auto) [place] % (Auto) Eos % (Auto) Baso % (Auto) Absolute Neuts (auto) Absolute Lymphs (auto) Total Counted Differential Comment Immature Plt Fraction 3.7 Anisocytosis Retic Count 2.31 H Immature Retic Fraction 6.80 Retic Hgb Equivalent 35.9 H Haptoglobin Sodium Potassium Chloride Carbon Dioxide Anion Gap BUN Creatinine Estim Creat Clear Calc Est GFR (MDRD) Af Amer Est GFR (MDRD) Non-Af BUN/Creatinine Ratio Glucose Calcium Magnesium Iron TIBC Iron Saturation Lactate Dehydrogenase 240 B-Natriuretic Peptide Vitamin B12 Pending RBC Folate Hemolysate RBC Folate Hematocrit 08/08/17 08/08/17 08/09/17 17:00 17:40 04:40 WBC RBC Hgb Hct MCV MCH MCHC RDW RDW Differential Plt Count MPV Immature Gran % (Auto) Neut % (Auto) Lymph % (Auto) [place] % (Auto) Eos % (Auto) Baso % (Auto) Absolute Neuts (auto) Absolute Lymphs (auto) Total Counted Differential Comment Immature Plt Fraction Anisocytosis Retic Count Immature Retic Fraction Retic Hgb Equivalent Haptoglobin Sodium 139 Potassium 4.6 Chloride 103 Carbon Dioxide 30.0 Anion Gap 6 BUN 22 H Creatinine 0.90 Estim Creat Clear Calc 62.86 Est GFR (MDRD) Af Amer 80 Est GFR (MDRD) Non-Af 66 BUN/Creatinine Ratio 24.3 H Glucose 108 H Calcium 8.2 L Magnesium 2.0 Iron 134 TIBC 259 Iron Saturation 51.7 Lactate Dehydrogenase B-Natriuretic Peptide 556.2 H Vitamin B12 RBC Folate Hemolysate RBC Folate Hematocrit 08/09/17 08/09/17 08/09/17 04:40 04:40 04:40 WBC 4.6 RBC 2.25 L Hgb 7.3 L Hct 22.4 L MCV 99.6 H MCH 32.4 H MCHC 32.6 RDW 20.4 H RDW Differential 70.8 H Plt Count 84 L MPV 9.8 Immature Gran % (Auto) 0.200 Neut % (Auto) 80.1 H Lymph % (Auto) 10.1 L [place] % (Auto) 9.6 Eos % (Auto) 0.0 Baso % (Auto) 0.0 Absolute Neuts (auto) 3.7 Absolute Lymphs (auto) 0.46 L Total Counted Not Reportable Differential Comment SCANNED Immature Plt Fraction Anisocytosis 3+ Retic Count Immature Retic Fraction Retic Hgb Equivalent Haptoglobin Pending Sodium Potassium Chloride Carbon Dioxide Anion Gap BUN Creatinine Estim Creat Clear Calc Est GFR (MDRD) Af Amer Est GFR (MDRD) Non-Af BUN/Creatinine Ratio Glucose Calcium Magnesium Iron TIBC Iron Saturation Lactate Dehydrogenase B-Natriuretic Peptide Vitamin B12 RBC Folate Hemolysate Pending RBC Folate Pending Hematocrit Pending Clinical Impression(s) from Imaging Studies Chest X-Ray 08/07/17 22:38 IMPRESSION: No acute thoracic pathology. Electronically Signed: Ethan Oliver at 23:33 EDT Tel , Service support , Chest CTA 08/08/17 22:55 IMPRESSION: No demonstrated pulmonary embolism or arterial dissection. Mild pulmonary edema. Moderate size bilateral pleural effusions. Electronically Signed: Damaris Burrell MD at 2:31 EDT Tel , Service support , Medical Necessity - Tobacco Use Smoking Status: Former smoker Tobacco Use: Non-smoker Assessment/Plan Active and Suspected Problems (Last Reviewed 08/02/17 @ 13:09 by Ana Garza) COPD exacerbation (Acute) Hypoxemia (Acute) Pleural effusion (Acute) Anemia (Acute) RECOMMENDATIONS: 1. Continue scheduled aerosol treatment 2. Low clinical suspicion for underlying infectious process. Okay to discontinue antibiotics from my perspective. 3. Continue attempts at diuresis. Consider transitioning from IV to p.o. formulation. 4. Wean supplemental oxygen as tolerated 5. Encourage incentive spirometer use and mobilize patient as tolerated 6. Perform walking oximetry study prior to consideration for discharge from the hospital. 7. Please have the patient follow-up in the pulmonary medicine clinic within 2 weeks of her discharge from the hospital. IMPRESSIONS: 1. Acute hypoxic respiratory insufficiency/shortness of breath secondary to bilateral pleural effusions While the patient does have underlying obstructive lung disease based upon pulmonary function testing from 2017, she did have evidence of small size dependent pleural effusions on CT chest. She has responded well from a clinical perspective to IV diuretics. There is no readily identifiable pulmonary infectious process. Okay from my perspective to discontinue antibiotics. Continue Lasix with consideration for a transition from IV to p.o. formulation today. Wean supplemental oxygen as tolerated and plan to perform a walking oximetry study prior to consideration for discharge from the hospital. Additionally, the patient has a known normocytic anemia, which may be secondary to her chemotherapy regimen. Agree with discussing with oncology as to whether or not transfusion of packed red blood cells would be appropriate at this time. 2. COPD/history of limited stage small cell lung cancer diagnosed in 2017 status post chemoradiation The patient has undergone treatment with chemo and radiation and has plans to start whole brain radiation tomorrow. The patient does have evidence of COPD on PFTs obtained in 2017. She does report being prescribed Anoro as an outpatient. Ideally, the patient should be seen in the pulmonary medicine clinic within 2 weeks of her discharge from the hospital. We can assist with ongoing management of her underlying COPD accordingly. 3. Chemotherapy-induced pancytopenia/chronic migraine/hypertension/ hyperlipidemia/anxiety/depression/GERD/deconditioning Complicates care, management, recovery and prognosis. Continue home medications as indicated. This note was generated with SpringCMation software. It may contain incorrect words, spelling, and punctuation that were not noted in checking the note before signing. Code Visit Inpatient E&M: [id number] [facility] Hosp L3
[2017-08-09 08:43] LABS: Vitamin B12 424 pg/mL (211-911)
--- NOTE | 2017-08-09 08:45 | RAD_ITS ---
STUDY: X-RAY CHEST REASON FOR EXAM: Female, 66 years old. History of pleural effusion. TECHNIQUE: Single AP portable view of the chest. COMPARISON: Comparison is made with prior study dated August 07, 2017. FINDINGS: EKG electrodes are seen. A right-sided PICC line catheter is in situ. Its tip is at the junction of the superior vena cava and right atrium. Persistent increased markings at the left lung base suggestive of a left basilar atelectasis and/or infiltrate. There is no demonstrated pleural abnormality. Normal size heart. Normal mediastinum and tj. Normal visualized pulmonary arteries. There is atherosclerotic tortuosity of the aortic arch and descending thoracic aorta. Normal visualized thoracic spine. There is degenerative osteoarthritis of the bilateral shoulders. There is no demonstrated abnormality of the visualized soft tissue structures of the upper abdomen. RAD/Chest 1 View (Portable) IMPRESSION: Persistent mild increased markings at the left lung base suggestive of left basilar atelectasis and/or early infiltrate. Follow-up is recommended. Electronically Signed: Parminder Riggs MD at 11:27 EDT Tel [phone], Service support ,
[2017-08-09] MEDS: Fluticasone 0.05% 1 SPRAY NASAL.SRY 2 SPRAY NASAL (09:23)
[2017-08-09] MEDS: Gabapentin 100 MG Capsule PO ×2 (09:23→11:21)
[2017-08-09] MEDS: Furosemide 20 MG/2 ML VIAL IV (09:24)
[2017-08-09] MEDS: Magnesium Oxide 400 MG Tablet PO (09:24)
[2017-08-09] MEDS: guaiFENesin 1,200 MG Tablet 1200 MG PO (09:25)
[2017-08-09] MEDS: Senna/Docusate Sodium 1 Tablet 2 TABLET PO (09:25)
[2017-08-09] MEDS: Pantoprazole Sodium 40 MG Tablet PO (09:25)
[2017-08-09] MEDS: Metoprolol(XL)Succ 100 MG Tablet PO (09:25)
[2017-08-09] MEDS: Lisinopril 20 MG Tablet PO (09:27)
[2017-08-09] MEDS: Sertraline 50 MG Tablet 25 MG PO (09:28)
[2017-08-09] MEDS: Ceftriaxone 1 GM/50 ML BAG IV (09:31)
[2017-08-09] MEDS: Na Biphos/Potassium Phosphate PACKET 1 PACKET PO ×2 (09:32→11:22)
--- NOTE | 2017-08-09 11:54 | PCM.PROGNOTE ---
<Khris Church - Last Filed: 08/09/17 11:54> Subjective: Pt improved overnight with less SOB. She is intermittently wearing o2 now at 1 lpm. This AM she was ambulating around the room without O2 and felt that she was significantly less SOB than when she came in. She uses it intermittently at home as well. No swelling BLE. Nonproductive cough. No n/v/d/abdominal pain, f/or chills. She is somewhat dizzy/LH when she stands. Her anemia remains unchanged. - Physical Exam General: Alert, Oriented x3, Cooperative HEENT: Atraumatic, PERRLA, EOMI, Normocephalic Neck: Supple, No JVD, Negative Carotid Bruits Lungs: Normal air movement, Rales - left LL Cardiovascular: Regular rate, No murmurs Abdomen: Bowel Sounds Present, Soft, Non Tender Extremities: No edema, Capillary Refill Less than 3 Seconds Skin: No rashes, No breakdown Musculoskeletal: No Tenderness to Palpation of Joints or Extremities Neurological: Cranial nerves II-XII grossly intact Psych/Mental Status: Normal Affect, Appropriate, Alert and oriented to time, place, person, mood and affect Vital Signs Temp Pulse Resp BP Pulse Ox 98.2 F 89 16 119/72 96 08/09/17 09:15 08/09/17 10:55 08/09/17 10:55 08/09/17 09:15 08/09/17 09:15 Oxygen Flow Rate (L/min) 1 Oxygen Delivery Method Nasal Cannula Weight: 73.5 kg Body Mass Index (BMI) 24.5 Intake and Output for Last 24 Hours 08/07/17 08/08/17 08/09/17 23:59 23:59 23:59 Intake Total 1000 / 1000 900 / 900 Balance 1000 / 1000 900 / 900 Microbiology Past 72 Hours 08/08/17 07:10 Respiratory Panel (PCR) - Final Mucosa - Nose Laboratory Tests Past 24 Hrs 08/08/17 08/08/17 08/08/17 04:40 04:40 04:40 WBC RBC Hgb Hct MCV MCH MCHC RDW RDW Differential Plt Count MPV Immature Gran % (Auto) Neut % (Auto) Lymph % (Auto) Mcmullen % (Auto) Eos % (Auto) Baso % (Auto) Absolute Neuts (auto) Absolute Lymphs (auto) Total Counted Differential Comment Immature Plt Fraction 3.7 Anisocytosis Retic Count 2.31 H Immature Retic Fraction 6.80 Retic Hgb Equivalent 35.9 H Haptoglobin Sodium Potassium Chloride Carbon Dioxide Anion Gap BUN Creatinine Estim Creat Clear Calc Est GFR (MDRD) Af Amer Est GFR (MDRD) Non-Af BUN/Creatinine Ratio Glucose Calcium Magnesium Iron TIBC Iron Saturation Lactate Dehydrogenase 240 B-Natriuretic Peptide Vitamin B12 424 RBC Folate Hemolysate RBC Folate Hematocrit 08/08/17 08/08/17 08/09/17 17:00 17:40 04:40 WBC RBC Hgb Hct MCV MCH MCHC RDW RDW Differential Plt Count MPV Immature Gran % (Auto) Neut % (Auto) Lymph % (Auto) Mcmullen % (Auto) Eos % (Auto) Baso % (Auto) Absolute Neuts (auto) Absolute Lymphs (auto) Total Counted Differential Comment Immature Plt Fraction Anisocytosis Retic Count Immature Retic Fraction Retic Hgb Equivalent Haptoglobin Sodium 139 Potassium 4.6 Chloride 103 Carbon Dioxide 30.0 Anion Gap 6 BUN 22 H Creatinine 0.90 Estim Creat Clear Calc 62.86 Est GFR (MDRD) Af Amer 80 Est GFR (MDRD) Non-Af 66 BUN/Creatinine Ratio 24.3 H Glucose 108 H Calcium 8.2 L Magnesium 2.0 Iron 134 TIBC 259 Iron Saturation 51.7 Lactate Dehydrogenase B-Natriuretic Peptide 556.2 H Vitamin B12 RBC Folate Hemolysate RBC Folate Hematocrit 08/09/17 08/09/17 08/09/17 04:40 04:40 04:40 WBC 4.6 RBC 2.25 L Hgb 7.3 L Hct 22.4 L MCV 99.6 H MCH 32.4 H MCHC 32.6 RDW 20.4 H RDW Differential 70.8 H Plt Count 84 L MPV 9.8 Immature Gran % (Auto) 0.200 Neut % (Auto) 80.1 H Lymph % (Auto) 10.1 L Mcmullen % (Auto) 9.6 Eos % (Auto) 0.0 Baso % (Auto) 0.0 Absolute Neuts (auto) 3.7 Absolute Lymphs (auto) 0.46 L Total Counted Not Reportable Differential Comment SCANNED Immature Plt Fraction Anisocytosis 3+ Retic Count Immature Retic Fraction Retic Hgb Equivalent Haptoglobin Pending Sodium Potassium Chloride Carbon Dioxide Anion Gap BUN Creatinine Estim Creat Clear Calc Est GFR (MDRD) Af Amer Est GFR (MDRD) Non-Af BUN/Creatinine Ratio Glucose Calcium Magnesium Iron TIBC Iron Saturation Lactate Dehydrogenase B-Natriuretic Peptide Vitamin B12 RBC Folate Hemolysate Pending RBC Folate Pending Hematocrit Pending Medical Necessity - Tobacco Use Smoking Status: Former smoker Tobacco Use: Non-smoker Assessment/Plan 1. Dyspnea with exertion - suspect mild acute diastolic CHF exacerbation - improved with low dose lasix. Transition to 20 po bid. 2. COPD - Pulm following. continue current therapy. 3. Acute UTI - borderline UA. She does have mild dysuria. Continue Rocephin. Follow cultures -mixed GCPs. Plan to complete 5 days today keflex. 4. PAF - palpitations resolved. Rate and rhythm normal. No events on tele. Continue to monitor. Xarelto held for possible thora. Per pulm will not do thora at this time. Restart xarelto. 5. Chronic pancytopenia - trend. B12 pending - macrocytic. Defer to oncology whether she needs blood or not. This certainly could be contributing to her SOB and mild LH with ambulation. 6. 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 PPI+Carafate. 7. 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 Completed chemo in jun. Plan for brain rads soon. Per pt no known mets and primary tumor is shrunk from chemo. 8. HTN - somewhat elevated. trend. 9. Hx Migraines - stable. 10. HLD 11. Anx/Dep 12. GERD - ppi, carafate 13. Severe protein calorie malnutrition - dietary consult DVT ppx: xarelto This patient was seen by Khris Church PA-C under the supervision of Doctor Storm. <Wilver Storm - Last Filed: 08/09/17 16:52> Subjective: Seen and examined. Patient has chronic anemia - Physical Exam Lungs: Diminished - Bilateral lung bases, - - Bilateral small pleural effusion Vital Signs Temp Pulse Resp BP Pulse Ox 97.9 F 60 16 109/59 L 93 08/09/17 15:15 08/09/17 15:15 08/09/17 15:15 08/09/17 15:15 08/09/17 15:15 Oxygen Flow Rate (L/min) 1 Oxygen Delivery Method Room Air Weight: 162 lb 0.636 oz Body Mass Index (BMI) 24.5 Intake and Output for Last 24 Hours 08/07/17 08/08/17 08/09/17 23:59 23:59 23:59 Intake Total 1000 / 1000 1200 / 1200 Balance 1000 / 1000 1200 / 1200 Microbiology Past 72 Hours 08/08/17 07:10 Respiratory Panel (PCR) - Final Mucosa - Nose Laboratory Tests Past 24 Hrs 08/08/17 08/08/17 08/08/17 04:40 17:00 17:40 WBC RBC Hgb Hct MCV MCH MCHC RDW RDW Differential Plt Count MPV Immature Gran % (Auto) Neut % (Auto) Lymph % (Auto) Mcmullen % (Auto) Eos % (Auto) Baso % (Auto) Absolute Neuts (auto) Absolute Lymphs (auto) Total Counted Differential Comment Anisocytosis Haptoglobin Sodium Potassium Chloride Carbon Dioxide Anion Gap BUN Creatinine Estim Creat Clear Calc Est GFR (MDRD) Af Amer Est GFR (MDRD) Non-Af BUN/Creatinine Ratio Glucose Calcium Magnesium Iron 134 TIBC 259 Iron Saturation 51.7 B-Natriuretic Peptide 556.2 H Vitamin B12 424 RBC Folate Hemolysate RBC Folate Hematocrit 08/09/17 08/09/17 08/09/17 04:40 04:40 04:40 WBC 4.6 RBC 2.25 L Hgb 7.3 L Hct 22.4 L MCV 99.6 H MCH 32.4 H MCHC 32.6 RDW 20.4 H RDW Differential 70.8 H Plt Count 84 L MPV 9.8 Immature Gran % (Auto) 0.200 Neut % (Auto) 80.1 H Lymph % (Auto) 10.1 L Mcmullen % (Auto) 9.6 Eos % (Auto) 0.0 Baso % (Auto) 0.0 Absolute Neuts (auto) 3.7 Absolute Lymphs (auto) 0.46 L Total Counted Not Reportable Differential Comment SCANNED Anisocytosis 3+ Haptoglobin Sodium 139 Potassium 4.6 Chloride 103 Carbon Dioxide 30.0 Anion Gap 6 BUN 22 H Creatinine 0.90 Estim Creat Clear Calc 62.86 Est GFR (MDRD) Af Amer 80 Est GFR (MDRD) Non-Af 66 BUN/Creatinine Ratio 24.3 H Glucose 108 H Calcium 8.2 L Magnesium 2.0 Iron TIBC Iron Saturation B-Natriuretic Peptide Vitamin B12 RBC Folate Hemolysate Pending RBC Folate Pending Hematocrit Pending 08/09/17 04:40 WBC RBC Hgb Hct MCV MCH MCHC RDW RDW Differential Plt Count MPV Immature Gran % (Auto) Neut % (Auto) Lymph % (Auto) Mcmullen % (Auto) Eos % (Auto) Baso % (Auto) Absolute Neuts (auto) Absolute Lymphs (auto) Total Counted Differential Comment Anisocytosis Haptoglobin Pending Sodium Potassium Chloride Carbon Dioxide Anion Gap BUN Creatinine Estim Creat Clear Calc Est GFR (MDRD) Af Amer Est GFR (MDRD) Non-Af BUN/Creatinine Ratio Glucose Calcium Magnesium Iron TIBC Iron Saturation B-Natriuretic Peptide Vitamin B12 RBC Folate Hemolysate RBC Folate Hematocrit Assessment/Plan This patient was seen in conjunction with Khris BAEZ. I have independently interviewed and examined the patient and reviewed pertinent history, examination findings, laboratory and plan of management. I have reviewed the note and agree with the documented findings with the few additional points. In brief, patient is admitted for mild diastolic CHF exacerbation with bilateral pleural effusion. Discussed with the car pilot, Dr. Williamson and oncologist Dr. Mays. Please see discharge summary. I have discussed my assessment with Khris BAEZ and orders have been reviewed.
--- NOTE | 2017-08-09 13:30 | CASEMGMT ---
Face to Face with patient for initial transition planning/care coordination assessment. CLAUDIA RODRIGUEZ introduced self and role at [facility], pt voices understanding and consents to assessment at this time. Pt is sitting up in chair in no distress at this time. Pt A/O x4 at this time and answers all questions appropriately at this time. Care providers, pharmacy, and demographics verified. See attached link. Pt voices no further concerns/needs at this time. Advised pt to ask for CM if any further questions/concerns/needs arise, voice undestanding. PLAN: [place] CLADUIA RODRIGUEZ
--- NOTE | 2017-08-09 13:44 | CASEMGMT ---
Call to Coral at [facility] to notify her that pt is up for discharge at this time, voices understanding. Resumption of care order placed at this time. Janki TAYLOR CM
--- NOTE | 2017-08-09 14:37 | DCINST_ITS ---
- Discharge Diagnoses Current Active Problems: Current Active and Chronic Problems (Last Reviewed 08/02/17 @ 13:09 by Ana Garza) COPD exacerbation (Acute) Hypoxemia (Acute) Pleural effusion (Acute) Anemia (Acute) Small cell lung cancer (Chronic) You will use the following diet at home:: No restrictions, Other Your liquids should be the consistency of: Regular/Thin Discharge Activity: Return to Normal Activity Allergies/Adverse Reactions: Allergies oxycodone Adverse Reaction (Verified 08/07/17 21:28) Vomiting Medications to take at Discharge Ondansetron [Zofran Odt] 4 mg PO Q8H PRN PRN #10 tab 06/13/16 Lisinopril 20 mg PO DAILY 05/05/17 Sertraline HCl [Zoloft] 25 mg PO DAILY 05/05/17 Tramadol HCl [Ultram] 50 mg PO Q6H PRN PRN 05/05/17 Sucralfate [Carafate] 10 ml PO TID 05/30/17 Na Biphos/Potassium Phosphate [Neutra-Phos Packet] 1 packet PO 4X/DAYCM #120 packet 06/06/17 cholecalciferol (vitamin D3) 5,000 unit capsule 5,000 unit PO DAILY 06/21/17 loratadine 10 mg tablet 10 mg PO DAILY PRN 06/21/17 metoprolol tartrate 50 mg tablet 100 mg PO DAILY 06/21/17 Fluticasone 0.05% [Flonase Nasal [place]] 2 spray NASAL DAILY 06/24/17 Pantoprazole Sodium [Protonix] 40 mg PO DAILY 06/24/17 Rivaroxaban [Xarelto] 20 mg PO DAILY 07/17/17 Divalproex Sodium [Depakote ER] 500 mg PO QHS #30 tab 07/18/17 Gabapentin [Neurontin] 100 mg PO TIDCM #90 cap 07/18/17 Sumatriptan Succinate [Imitrex] 50 mg PO Q2H PRN #9 tab 07/18/17 Magnesium Oxide [Mag-Ox 400] 400 mg PO DAILY 08/07/17 Potassium Chloride [K-Dur] 40 meq PO BID 08/07/17 Albuterol IH (ProAir) [Proair Hfa] 2 puff INHALATION Q4H PRN PRN #1 inhaler 01/18 Cephalexin [Keflex] 500 mg PO Q12H #6 cap 08/09/17 Ferrous Sulfate [Iron] 325 mg PO BID #60 tab 08/09/17 Furosemide [Lasix] 20 mg PO BIDLX #60 tab 08/09/17 The following prescriptions were given: Albuterol IH (ProAir) [Proair Hfa] 2 puff INHALATION Q4H PRN PRN #1 inhaler PRN Reason: Shortness Of Breath Cephalexin [Keflex] 500 mg PO Q12H #6 cap Ferrous Sulfate [Iron] 325 mg PO BID #60 tab Furosemide [Lasix] 20 mg PO BIDLX #60 tab Primary Care Physician: Mihir Swan DO [Primary Care Provider] - Please follow up with your Primary Care Physician in: 1-2 weeks Please Follow Up With: Rashad Soto DO When: 1-2 weeks Proposed Discharge Date: 08/09/17
--- NOTE | 2017-08-09 14:38 | PCM.DC.SUM ---
<Khris Church - Last Filed: 08/09/17 14:50> Discharge Date and Diagnosis - Problem List Patient Problems: Active and Suspected Problems (Last Reviewed 08/02/17 @ 13:09 by Ana Garza) COPD exacerbation (Acute) Hypoxemia (Acute) Pleural effusion (Acute) Anemia (Acute) Date of Admission: 08/08/17 Date of Discharge: 08/09/17 - Primary Discharge Diagnosis Active and Suspected Problems (Last Reviewed 08/02/17 @ 13:09 by Ana Garza) Acute mild diastolic CHF exacerbation with moderate BL pleural effusions Acute cystitis COPD PAF Chronic pancytopenia chronic oral pharyngeal dysphagia 2/2 radiation esophagitis SC lung CA HTN HLD Anx/Dep GERD Severe protein calorie malnutrition - Secondary Discharge Diagnosis Chronic Problems (Last Reviewed 08/02/17 @ 13:09 by Ana Garza) Monilial esophagitis (Chronic) Migraine (Chronic) Malnourished (Chronic) S/P cholecystectomy (Chronic) S/P bilateral oophorectomy (Chronic) S/P hysterectomy (Chronic) Radiation esophagitis (Chronic) Small cell lung cancer (Chronic) Pancytopenia (Chronic) Afib (Chronic) HTN (hypertension) (Chronic) GERD (gastroesophageal reflux disease) (Chronic) COPD (chronic obstructive pulmonary disease) (Chronic) Hospital Course and Treatment Imaging Results: RAD/Chest PA and Lateral IMPRESSION: No acute thoracic pathology. CT/CTA Chest W/WO Contrast IMPRESSION: No demonstrated pulmonary embolism or arterial dissection. Mild pulmonary edema. Moderate size bilateral pleural effusions. RAD/Chest 1 View (Portable) IMPRESSION: Persistent mild increased markings at the left lung base suggestive of left basilar atelectasis and/or early infiltrate. Follow-up is recommended. Consults: Brittany - Oncology Brown - pulmonology Operations: None Procedures: None Summary of Care Provided: Physical exam on day of discharge: see daily progress note. Hospital course: The patient is a 66 year old F with a hx of small cell lung cancer s/p chemo with Dr. Soto, HTN, radiation esophagitis with dysphagia, pancytopenia, who presented to the ER with increased SOB, cough, palpitations, lightheadedness, intermittent BLE edema at home, and dysuria. She was found to have bilateral pleural effusions, elevated BNP, increased O2 demand, and a borderline UA. She was placed on low dose IV lasix for CHF and rocephin for UTI. Recent echo in May 2017 with EF 55%. She responded well to therapy and felt improvement by the following day. Pulmonology and oncology saw the patient and agreed with lasix for her SOB. Oncology also added that she should start PO iron, and have follow up CBC as an outpatient. She was placed on 3 more days of keflex to complete 5 days of therapy for UTI which at this time urine culture shows mixed GPCs. She should also have a BMP in one week as she will start lasix 20 PO BID. She was given a script to refill her albuterol and was also started on PO iron.. She remained in stable condition and was discharged home. She will need follow up with oncology and her PCP. This patient was seen by Khris Church PA-C under the supervision of Doctor Storm. [] Discharge Diet: 2000 mg Sodium Diet Discharge Activity: Return to Normal Activity Home Medications: Medications to take at Discharge Ondansetron [Zofran Odt] 4 mg PO Q8H PRN PRN #10 tab 06/13/16 Lisinopril 20 mg PO DAILY 05/05/17 Sertraline HCl [Zoloft] 25 mg PO DAILY 05/05/17 Tramadol HCl [Ultram] 50 mg PO Q6H PRN PRN 05/05/17 Sucralfate [Carafate] 10 ml PO TID 05/30/17 Na Biphos/Potassium Phosphate [Neutra-Phos Packet] 1 packet PO 4X/DAYCM #120 packet 06/06/17 cholecalciferol (vitamin D3) 5,000 unit capsule 5,000 unit PO DAILY 06/21/17 loratadine 10 mg tablet 10 mg PO DAILY PRN 06/21/17 metoprolol tartrate 50 mg tablet 100 mg PO DAILY 06/21/17 Fluticasone 0.05% [Flonase Nasal [place]] 2 spray NASAL DAILY 06/24/17 Pantoprazole Sodium [Protonix] 40 mg PO DAILY 06/24/17 Rivaroxaban [Xarelto] 20 mg PO DAILY 07/17/17 Divalproex Sodium [Depakote ER] 500 mg PO QHS #30 tab 07/18/17 Gabapentin [Neurontin] 100 mg PO TIDCM #90 cap 07/18/17 Sumatriptan Succinate [Imitrex] 50 mg PO Q2H PRN #9 tab 07/18/17 Magnesium Oxide [Mag-Ox 400] 400 mg PO DAILY 08/07/17 Potassium Chloride [K-Dur] 40 meq PO BID 08/07/17 Albuterol IH (ProAir) [Proair Hfa] 2 puff INHALATION Q4H PRN PRN #1 inhaler 08/09/17 Cephalexin [Keflex] 500 mg PO Q12H #6 cap 08/09/17 Ferrous Sulfate [Iron] 325 mg PO BID #60 tab 08/09/17 Furosemide [Lasix] 20 mg PO BIDLX #60 tab 08/09/17 Following Prescrptions Were Given to Patient: Albuterol IH (ProAir) [Proair Hfa] 2 puff INHALATION Q4H PRN PRN #1 inhaler PRN Reason: Shortness Of Breath Cephalexin [Keflex] 500 mg PO Q12H #6 cap Ferrous Sulfate [Iron] 325 mg PO BID #60 tab Furosemide [Lasix] 20 mg PO BIDLX #60 tab Primary Care Physician: Mihir Swan DO [Primary Care Provider] - Please follow up with your Primary Care Physician in: 1-2 weeks Please Follow Up With: Rashad Soto DO When: 1-2 weeks Medical Necessity - Tobacco Use Smoking Status: Former smoker Tobacco Use: Non-smoker Meaningful Use Info Meaningful Use Diagnoses (Choose all that apply): CHF - CHF SAADIA/ARB ordered at discharge?: Yes Documented LVEF (%): 55 <Wilver Storm - Last Filed: 08/09/17 15:51> Discharge Date and Diagnosis - Primary Discharge Diagnosis Active and Suspected Problems (Last Reviewed 08/02/17 @ 13:09 by Ana Garza) COPD exacerbation (Acute) Hypoxemia (Acute) Pleural effusion (Acute) Anemia (Acute) - Secondary Discharge Diagnosis Chronic Problems (Last Reviewed 08/02/17 @ 13:09 by Ana Garza) Monilial esophagitis (Chronic) Migraine (Chronic) Malnourished (Chronic) S/P cholecystectomy (Chronic) S/P bilateral oophorectomy (Chronic) S/P hysterectomy (Chronic) Radiation esophagitis (Chronic) Small cell lung cancer (Chronic) Pancytopenia (Chronic) Afib (Chronic) HTN (hypertension) (Chronic) GERD (gastroesophageal reflux disease) (Chronic) COPD (chronic obstructive pulmonary disease) (Chronic) Hospital Course and Treatment Imaging Results: 08/09/17 08:45 CXR [Chest 1 View (Portable)] [RAD] Urgent Summary of Care Provided: This patient was seen in conjunction with Khris BAEZ. I have independently interviewed and examined the patient and reviewed pertinent history, examination findings, laboratory and plan of management. I have reviewed the note and agree with the documented findings with the few additional points. In brief, patient is admitted for progressive worsening of shortness of breath, cough, increased oxygen demand and bilateral lower extremity edema consistent with CHF exacerbation with bilateral pleural effusion. She is diagnosed limited to small cell cancer and on chemotherapy and lung and brain radiotherapy. Discussed with Dr. Mays low hemoglobin and anemia most rarely due to chemotherapy and small cell lung cancer. Oncologist recommended discharge on ferrous sulfate 325 mg twice daily and follow-up CBC after 1 week in the oncology office. If hemoglobin does not improve, may require IV Venofer/PRBC transfusion as an outpatient. Discharge medication reconciliation done. Discharge follow-up instructions completed. Total time spent, exact 32 minutes on discharge meds reconciliation, examination, review of imaging and blood test and discussion with the patient on follow-up instructions. I have discussed my assessment with Khris BAEZ and orders have been reviewed. [] Code Visit Inpatient E&M: 62740 Disch Hosp
--- NOTE | 2017-08-09 14:48 | DS.PCM_ITS ---
Addendum entered and electronically signed by NESTOR Mares 08/09/17 14:51: Code Visit addendum: please also follow up with pulmonology in 2 weeks. Original Note: <Khris Church - Last Filed: 08/09/17 14:50> Discharge Date and Diagnosis - Problem List Patient Problems: Active and Suspected Problems (Last Reviewed 08/02/17 @ 13:09 by Ana Garza) COPD exacerbation (Acute) Hypoxemia (Acute) Pleural effusion (Acute) Anemia (Acute) Date of Admission: 08/08/17 Date of Discharge: 08/09/17 - Primary Discharge Diagnosis Active and Suspected Problems (Last Reviewed 08/02/17 @ 13:09 by Ana Garza) Acute mild diastolic CHF exacerbation with moderate BL pleural effusions Acute cystitis COPD PAF Chronic pancytopenia chronic oral pharyngeal dysphagia 2/2 radiation esophagitis SC lung CA HTN HLD Anx/Dep GERD Severe protein calorie malnutrition - Secondary Discharge Diagnosis Chronic Problems (Last Reviewed 08/02/17 @ 13:09 by Ana Garza) Monilial esophagitis (Chronic) Migraine (Chronic) Malnourished (Chronic) S/P cholecystectomy (Chronic) S/P bilateral oophorectomy (Chronic) S/P hysterectomy (Chronic) Radiation esophagitis (Chronic) Small cell lung cancer (Chronic) Pancytopenia (Chronic) Afib (Chronic) HTN (hypertension) (Chronic) GERD (gastroesophageal reflux disease) (Chronic) COPD (chronic obstructive pulmonary disease) (Chronic) Hospital Course and Treatment Imaging Results: RAD/Chest PA and Lateral IMPRESSION: No acute thoracic pathology. CT/CTA Chest W/WO Contrast IMPRESSION: No demonstrated pulmonary embolism or arterial dissection. Mild pulmonary edema. Moderate size bilateral pleural effusions. RAD/Chest 1 View (Portable) IMPRESSION: Persistent mild increased markings at the left lung base suggestive of left basilar atelectasis and/or early infiltrate. Follow-up is recommended. Consults: Masci - Oncology Brown - pulmonology Operations: None Procedures: None Summary of Care Provided: Physical exam on day of discharge: see daily progress note. Hospital course: The patient is a 66 year old F with a hx of small cell lung cancer s/p chemo with Dr. Soto, HTN, radiation esophagitis with dysphagia, pancytopenia, who presented to the ER with increased SOB, cough, palpitations, lightheadedness, intermittent BLE edema at home, and dysuria. She was found to have bilateral pleural effusions, elevated BNP, increased O2 demand, and a borderline UA. She was placed on low dose IV lasix for CHF and rocephin for UTI. Recent echo in May 2017 with EF 55%. She responded well to therapy and felt improvement by the following day. Pulmonology and oncology saw the patient and agreed with lasix for her SOB. Oncology also added that she should start PO iron, and have follow up CBC as an outpatient. She was placed on 3 more days of keflex to complete 5 days of therapy for UTI which at this time urine culture shows mixed GPCs. She should also have a BMP in one week as she will start lasix 20 PO BID. She was given a script to refill her albuterol and was also started on PO iron.. She remained in stable condition and was discharged home. She will need follow up with oncology and her PCP. This patient was seen by Khris Church PA-C under the supervision of Doctor Storm. [] Discharge Diet: 2000 mg Sodium Diet Discharge Activity: Return to Normal Activity Home Medications: Medications to take at Discharge Ondansetron [Zofran Odt] 4 mg PO Q8H PRN PRN #10 tab 06/13/16 Lisinopril 20 mg PO DAILY 05/05/17 Sertraline HCl [Zoloft] 25 mg PO DAILY 05/05/17 Tramadol HCl [Ultram] 50 mg PO Q6H PRN PRN 05/05/17 Sucralfate [Carafate] 10 ml PO TID 05/30/17 Na Biphos/Potassium Phosphate [Neutra-Phos Packet] 1 packet PO 4X/DAYCM #120 packet 06/06/17 cholecalciferol (vitamin D3) 5,000 unit capsule 5,000 unit PO DAILY 06/21/17 loratadine 10 mg tablet 10 mg PO DAILY PRN 06/21/17 metoprolol tartrate 50 mg tablet 100 mg PO DAILY 06/21/17 Fluticasone 0.05% [Flonase Nasal [place]] 2 spray NASAL DAILY 06/24/17 Pantoprazole Sodium [Protonix] 40 mg PO DAILY 06/24/17 Rivaroxaban [Xarelto] 20 mg PO DAILY 07/17/17 Divalproex Sodium [Depakote ER] 500 mg PO QHS #30 tab 07/18/17 Gabapentin [Neurontin] 100 mg PO TIDCM #90 cap 07/18/17 Sumatriptan Succinate [Imitrex] 50 mg PO Q2H PRN #9 tab 07/18/17 Magnesium Oxide [Mag-Ox 400] 400 mg PO DAILY 08/07/17 Potassium Chloride [K-Dur] 40 meq PO BID 08/07/17 Albuterol IH (ProAir) [Proair Hfa] 2 puff INHALATION Q4H PRN PRN #1 inhaler 01/18 Cephalexin [Keflex] 500 mg PO Q12H #6 cap 08/09/17 Ferrous Sulfate [Iron] 325 mg PO BID #60 tab 08/09/17 Furosemide [Lasix] 20 mg PO BIDLX #60 tab 08/09/17 Following Prescrptions Were Given to Patient: Albuterol IH (ProAir) [Proair Hfa] 2 puff INHALATION Q4H PRN PRN #1 inhaler PRN Reason: Shortness Of Breath Cephalexin [Keflex] 500 mg PO Q12H #6 cap Ferrous Sulfate [Iron] 325 mg PO BID #60 tab Furosemide [Lasix] 20 mg PO BIDLX #60 tab Primary Care Physician: Mihir Swan DO [Primary Care Provider] - Please follow up with your Primary Care Physician in: 1-2 weeks Please Follow Up With: Rashad Soto DO When: 1-2 weeks Medical Necessity - Tobacco Use Smoking Status: Former smoker Tobacco Use: Non-smoker Meaningful Use Info Meaningful Use Diagnoses (Choose all that apply): CHF - CHF SAADIA/ARB ordered at discharge?: Yes Documented LVEF (%): 55 <Wilver Storm - Last Filed: 08/09/17 15:51> Discharge Date and Diagnosis - Primary Discharge Diagnosis Active and Suspected Problems (Last Reviewed 08/02/17 @ 13:09 by Ana Garza) COPD exacerbation (Acute) Hypoxemia (Acute) Pleural effusion (Acute) Anemia (Acute) - Secondary Discharge Diagnosis Chronic Problems (Last Reviewed 08/02/17 @ 13:09 by Ana Garza) Monilial esophagitis (Chronic) Migraine (Chronic) Malnourished (Chronic) S/P cholecystectomy (Chronic) S/P bilateral oophorectomy (Chronic) S/P hysterectomy (Chronic) Radiation esophagitis (Chronic) Small cell lung cancer (Chronic) Pancytopenia (Chronic) Afib (Chronic) HTN (hypertension) (Chronic) GERD (gastroesophageal reflux disease) (Chronic) COPD (chronic obstructive pulmonary disease) (Chronic) Hospital Course and Treatment Imaging Results: 08/09/17 08:45 CXR [Chest 1 View (Portable)] [RAD] Urgent Summary of Care Provided: This patient was seen in conjunction with Khris BAEZ. I have independently interviewed and examined the patient and reviewed pertinent history, examination findings, laboratory and plan of management. I have reviewed the note and agree with the documented findings with the few additional points. In brief, patient is admitted for progressive worsening of shortness of breath, cough, increased oxygen demand and bilateral lower extremity edema consistent with CHF exacerbation with bilateral pleural effusion. She is diagnosed limited to small cell cancer and on chemotherapy and lung and brain radiotherapy. Discussed with Dr. Mays low hemoglobin and anemia most rarely due to chemotherapy and small cell lung cancer. Oncologist recommended discharge on ferrous sulfate 325 mg twice daily and follow-up CBC after 1 week in the oncology office. If hemoglobin does not improve, may require IV Venofer/ PRBC transfusion as an outpatient. Discharge medication reconciliation done. Discharge follow-up instructions completed. Total time spent, exact 32 minutes on discharge meds reconciliation, examination , review of imaging and blood test and discussion with the patient on follow-up instructions. I have discussed my assessment with Khris BAEZ and orders have been reviewed. [] Code Visit Inpatient E&M: 40879 Disch Hosp
[2017-08-10 11:01] LABS: Haptoglobin 162 mg/dL (34-200)
[2017-08-10 16:09] LABS: Folate, Hemolysate Test 281.4 ng/mL (Not Estab.); Folate, RBC (Hct) Test 21.4 % (34.0-46.6)
[2017-08-11 11:19] LABS: Folates, RBC Test 1315 ng/mL (>498)
--- NOTE | 2017-08-11 15:32 | CASEMGMT ---
RN CM DISCHARGE F/U PHONE CALL LACJosephine:Dylan STRATA: 3 CALL DATE: 08/11/17 DISCHARGE DATE: 08/09/17 TIME OF CALL: 1525 DURATION: 7 MINUTES ADM DX: DYSPNEA PT STATES HAS BEEN DOING 'PRETTY GOOD' SINCE DISCHARGE. PT STATES THAT NORMALLY USES HER OXYGEN PRN BUT HAS BEEN USING AT NIGHT AND MORE CONSISTENTLY DURING THE DAY IF NEEDED. PT ASKS IF DR HENNESSY'S OFFICE WILL BE CALLING HER TO SET UP APPOINTMENT AND ADVISED PT THAT SHE WILL NEED TO CALL TO MAKE APPOINTMENT AND PROVIDED WITH OFFICE NUMBER AT THIS TIME. THIS RN CM WENT OVER OTHER APPOINTMENT DATES/TIMES(WITH BRUNILDA AND JACQUELINE) THAT WERE MADE FOR PT PRIOR TO DISCHARGE, PT VOICES UNDERSTANDING. PT ASKS THIS RN CM IF THE KEFLEX IS FOR UTI AND ADVISED PT THAT THAT IS CORRECT. PT STATES NO OTHER QUESTIONS/CONCERNS REGARDING MEDS AT THIS TIME. PT STATES NO CONCERNS WITH RECENT VISIT AND STATES ' I AM JUST SO GLAD THAT GOT ME BREATHING BETTER.' PT PROVIDED WITH CONTACT NUMBER FOR THIS RN CM FOR ANY FURTHER QUESTIONS/CONCERNS OR IF SHE IS UNABLE TO CONTACT DR. HENNESSY'S OFFICE. PT VOICES NO FURTHER CONCERNS/NEEDS AT THIS TIME. SSTATEN RN CM
== END 2017-08-09 16:06 | disposition home or self-care (01) | DRG 291 ==
LOC: ED 08-08 03:20 → PCU 08-08 03:40
PROVIDERS: Internal Medicine; Physician Assistant; Specialist; Admitting Provider Family Medicine; Emergency Provider Emergency Medicine; Family Provider Family Medicine; PCP Family Medicine; Visit Provider Internal Medicine
DX: I11.0 Hypertensive heart disease with heart failure (principal); D61.810 Antineoplastic chemotherapy induced pancytopenia; E43 Unspecified severe protein-calorie malnutrition; C34.90 Malignant neoplasm of unspecified part of unspecified bronchus or lung; N30.00 Acute cystitis without hematuria; I50.31 Acute diastolic (congestive) heart failure; R09.02 Hypoxemia; Z87.891 Personal history of nicotine dependence; I48.0 Paroxysmal atrial fibrillation; K21.0 Gastro-esophageal reflux disease with esophagitis; G43.909 Migraine, unspecified, not intractable, without status migrainosus; Z68.25 Body mass index [BMI] 25.0-25.9, adult; F32.9 Major depressive disorder, single episode, unspecified; F41.9 Anxiety disorder, unspecified; T45.1X5A Adverse effect of antineoplastic and immunosuppressive drugs, initial encounter; Y84.2 Radiological procedure and radiotherapy as the cause of abnormal reaction of the patient, or of later complication, without mention of misadventure at the time of the procedure; Z90.49 Acquired absence of other specified parts of digestive tract; Z90.710 Acquired absence of both cervix and uterus; Z90.722 Acquired absence of ovaries, bilateral; Z99.81 Dependence on supplemental oxygen; Z79.01 Long term (current) use of anticoagulants; Z79.899 Other long term (current) drug therapy; J44.9 Chronic obstructive pulmonary disease, unspecified; R13.12 Dysphagia, oropharyngeal phase; Z93.1 Gastrostomy status
CPT/HCPCS: 36415; 36592; 71045; 71046; 71275; 80048; 80053; 81001; 82607; 82747; 83010; 83540; 83550; 83615; 83735; 83880; 84100; 85014; 85025; 85045; 87086; 87088; 87633; 92526; 93005; 94640; 94667; 94668; 97110; 97116; 97161; 97166; 97530; 97802; 99251; 99282; J7050; Q9967; A4216; G0463; J1940; J2405

== ENCOUNTER → 2017-08-24 09:29 | Outpatient (CLI) | payer MEDICARE, OTHER, SELFPAY ==
[2017-08-24] VITALS (7 sets, daily range): BP systolic 104–124; BP diastolic 56–72; PULSE 50–62; RESP 16; TEMP 36.3–36.8; O2SAT 99; BMI 23.4
[2017-08-24] MEDS: Acetaminophen 325 MG Tablet 650 MG PO (09:36)
== END ==
PROVIDERS: Family Provider Family Medicine; PCP Family Medicine; Visit Provider Internal Medicine Hematology & Oncology
DX: D46.4 Refractory anemia, unspecified (principal)
CPT/HCPCS: 36430; 86850; 86900; 86920; 86922; J7040; P9016; A4216

== ENCOUNTER 2017-09-02 10:34 | Outpatient (RCR) | payer MEDICARE, OTHER, SELFPAY ==
--- NOTE | 2017-09-02 10:42 | PCM.PR.HP ---
History of Present Illness Arrival date:: 09/02/17 Arrival time:: 10:42 Date of Referral:: 08/26/17 Date of Evaluation: 09/02/17 Referring Physician: Dr. Dave Sandoval Primary Diagnosis: Small cell lung carcinoma w/ COPD History of Present Illness: Patient is a 66 year old female patient who presents to pulmonary rehabilitation today under the care of Dr. Dave Sandoval. Patient was recently admitted to [facility] with bilateral pleural effusions. She is under the care of Dr. Soto for her radiation and chemotherapy treatments. mMRC Breathless Scale: When is the patient short of breath? Y/N Grade: Description of Breathlessness: 0 I only get breathless with strenuous exercise. 1 I get short of breath when hurrying on level ground or walking up a slight hill. 2 On level ground, I walk slower than people of the same age because of breathless, or have to stop for breath when walking at my own pace. 3 I stop for breath after walking 100 yards or after a few minutes on level ground. 4 I am too breathless to leave the house or I am breathless when dressing. Respiratory Problems: Yes: Fatigue, Wheezing, Able to Speak in Full Sentences, Anxiety, Panic, Cough with Secretions No: Dyspnea with Activity Home Medications: Home Medications Ondansetron [Zofran Odt] 4 mg PO Q8H PRN PRN #10 tab 06/13/16 Lisinopril 20 mg PO DAILY 05/05/17 Sertraline HCl [Zoloft] 25 mg PO DAILY 05/05/17 Tramadol HCl [Ultram] 50 mg PO Q6H PRN PRN 05/05/17 Sucralfate [Carafate] 10 ml PO TID 05/30/17 Na Biphos/Potassium Phosphate [Neutra-Phos Packet] 1 packet PO 4X/DAYCM #120 packet 06/06/17 cholecalciferol (vitamin D3) 5,000 unit capsule 5,000 unit PO DAILY 06/21/17 loratadine 10 mg tablet 10 mg PO DAILY PRN 06/21/17 metoprolol tartrate 50 mg tablet 100 mg PO DAILY 06/21/17 Fluticasone 0.05% [Flonase Nasal [place]] 2 spray NASAL DAILY 06/24/17 Pantoprazole Sodium [Protonix] 40 mg PO DAILY 06/24/17 Rivaroxaban [Xarelto] 20 mg PO DAILY 07/17/17 Divalproex Sodium [Depakote ER] 500 mg PO QHS #30 tab 07/18/17 Gabapentin [Neurontin] 100 mg PO TIDCM #90 cap 07/18/17 Sumatriptan Succinate [Imitrex] 50 mg PO Q2H PRN #9 tab 07/18/17 Magnesium Oxide [Mag-Ox 400] 400 mg PO DAILY 08/07/17 Potassium Chloride [K-Dur] 40 meq PO BID 08/07/17 Albuterol IH (ProAir) [Proair Hfa] 2 puff INHALATION Q4H PRN PRN #1 inhaler 08/09/17 Ferrous Sulfate [Iron] 325 mg PO BID #60 tab 08/09/17 Furosemide [Lasix] 20 mg PO BIDLX #60 tab 08/09/17 umeclidinium 62.5 mcg-vilanterol 25 mcg/actuation powdr for inhalation 1 inh INHALATION Q24H 08/25/17 Allergies/Adverse Reactions: Allergies oxycodone Adverse Reaction (Verified 08/25/17 12:40) Vomiting - Secretions Normal Color:: dry cough, but persistant A.T.C.: Yes Hx of Sleep Apnea: No Do you snore loudly (louder than talking or can be heard through closed doors)?: Yes Do you often feel tired/ fatigued/ sleepy during daytime?: Yes - basically do not sleep much at night; very disrupted sleep pattern. Has anyone observed you stop breathing during sleep?: No History of Hypertension (for STOP score): Yes STOP Results: Positive Medical Utilization Do you use a peak flow meter at home?: No Do you use a spacer device with your inhalers?: No Number of hospital visits in the last year?: 10 - <10; Life-flight to [facility] Apr. Do you see your physician on a regular schedule?: Yes Comments:: Dr. Soto every day if needed [facility] ; Dr. Kerr 2-3 months, Dr. Sandoval 3 months, Dr. Swan seen only one time and sent to specialty. Advanced Directives - Advanced Directives Power of Data Coder Operator: Yes Living Will: Yes Advance Directives on File: Yes DNR Order?:: Yes Past Medical History Medical History: Past Medical History (Last Reviewed 08/25/17 @ 12:42 by Ene Luke) Malnourished (Chronic) E46 Radiation esophagitis (Chronic) K20.8 Small cell lung cancer (Chronic) C34.90 Pancytopenia (Chronic) D61.818 Afib (Chronic) I48.91 HTN (hypertension) (Chronic) I10 GERD (gastroesophageal reflux disease) (Chronic) K21.9 COPD (chronic obstructive pulmonary disease) (Chronic) J44.9 Surgical History: Past Surgical History (Last Reviewed 08/25/17 @ 12:42 by Ene Luke) S/P cholecystectomy (Chronic) Z90.49 S/P bilateral oophorectomy (Chronic) Z90.722 S/P hysterectomy (Chronic) Z90.710 Family History: Family History (Last Reviewed 08/25/17 @ 12:42 by Ene Luke) Father Diabetes Heart disease Brother Heart disease Hypertension - Current/ Previous Services Pulmonary Rehab:: No Social History - Smoking History Smoking Status: Former smoker Years Smokin Packs Smoked per Day: 1.5 Hx Smoking Cessation Date: 2009 Hx Tobacco Use: Yes Hx Smoking Exposure: No - Alcohol Use Alcohol Usage: Yes - Beer with pizza maybe once a month - Substance Abuse Hx Substance Use: No - Occupation Occupation (List type of work in comments):: Retired - Hobbies, Recreation, Social Activities Hobbies: Sewing, Walking, Other - painting, crafts. Recreational Activities: I am able to engage in most, but not all activities - back to walking; take grandson and dogs on walks. Functioning ADL/IADL - Current Ability Current Ability: Independent Self-Care (e.g.,grooming, dressing, & bathing), Independent Ambulation, Independent Transfer, Independent Household tasks (e.g., light meal prep, laundry, shopping) - also cares for spouse who is diabetic Social Environment - Status Marital Status: - Current Living Arrangements Living Environment:: Spouse - Children How many children do you have?: 2 Do any of your children live nearby?: Yes - Safety Do you feel safe in your surroundings?: Yes - Assistance Do you need any assistance at home?: none Review of Systems Review of Systems: Right click = Denies (Slash). Left click = Reports (Lummi) Respiratory: Reports: Cough, Pleuritic Pain - if cough alot but it has been a while since that has happened., Wheezing - only occasionally, Appetite, Normal - fairly normal was back up to 161 but am back down to 154. Drinking 2-Boosts a day., Dizziness/Lightheadedness, Fatigue. Denies: Hemoptysis, SOB at Rest, SOB upon Exertion, Sputum production, Sexual changes, Sleep, Normal Is Patient Pain Free?: No Pain Location: none Risk Factor Assessment - Vital Signs Temperature: 98.7 F Pulse Rate: 57 Pulse Rhythm: Regular Respiratory Rate: 16 Pulse Ox: 97 Blood Pressure: 134/72 Nailbeds:: pink - Diabetes Nutrition Referral for Diabetes: No - Obesity Height: 5 ft 8 in Weight:: 154 lb Weight in Pounds: 154.0 lbs Weight Source: Standing Scale Body Mass Index (BMI): 23.4 Desired Body Weight: 158 Nutritional Referral for Obesity: Yes - Education on malnutrition and weight gain. - Physical Activity Physical Inactivity: None - Risk Stratification Risk Guidelines: Lowest Risk: Risk Factor for Smoking, Risk Factor for Dyslipidemia, Risk Factor for Diabetes, Risk Factor for Obesity - Malnutrition, Risk Factor for Hypertension, Risk Factor for Sedentary Lifestyle, Risk Factor for Depression - For Smoking Smoking Risk Guidelines: Smoking Low Risk: None or quit greater than 6 months ago. Smoking Moderate Risk: Smoker or quit 6 months or less ago. Smoking High Risk: Smoker - For Dyslipidemia Dyslipidemia Risk Guidelines: Low Risk: Moderate Risk: High Risk: 15-25% fat 25.1-29% fat >/= 30% fat. <7% sat fat 7-9% sat fat >9% sat fat. <150 mg chol 150-299 mg chol >/= 300 mg chol. LDL <100 LDL 100-129 LDL >/= 130. Chol/HDL ratio <5.0 Chol/HDL ratio 5.0-6.0 Chol/HDL ratio >6.0. Triglycerides <100 Triglycerides 100-149 Triglycerides >/= 150 - For Diabetes Mellitus Diabetes Risk Guidelines: Diabetes Low Risk: HgA1c <6.5% and/or FBG <120. Diabetes Moderate Risk: HgA1c 6.6-7.9% and/or FBG 120-180. Diabetes High Risk: HgA1c >/= 8% and/or FBG >180 - For Obesity/Overweight Obesity/Overweight Risk Guidelines: Obesity Low Risk: BMI <25.0. Obesity Moderate Risk: BMI 25-29.9. Obesity High Risk: BMI >/= 30.0 - For Hypertension Hypertension Risk Guidelines: Hypertension Low Risk: Systolic <120 and Diastolic <80. Hypertension Moderate Risk: Systolic 120-139 and Diastolic 80-89. Hypertension High Risk: Systolic >/= 140 and Diastolic >/= 90 - For Sedentary Lifestyle Sedentary Lifestyle Risk Guidelines: Sedentary Lifestyle Low Risk: >/= 1,500 kcal/week. Sedentary Lifestyle Moderate Risk: 700-1,499 kcal/week. Sedentary Lifestyle High Risk: < 700 kcal/week - For Depression Depression Risk Guidelines: Depression Low Risk: Not clinically depressed. Depression Moderate Risk: Mildly depressed. Depression High Risk: Clinically depressed Motivation - Motivation to Participate On a scale of 1 to 10, how prepared are you to commit to attending program?: 5 What do you see as barriers to successfully being able to complete the program?: none What do you see as the benefits of succesfully completing the program? In other words, what do you hope to get out of participating in the program?: being able to breathe better Are there issues you are dealing with that will interfere with completing the program?: Caring for . Do you have a spouse or signficant other, family or friends who will help support you to complete the program?: yes.
--- NOTE | 2017-09-02 10:53 | PR.HP_ITS ---
History of Present Illness Arrival date:: 09/02/17 Arrival time:: 10:42 Date of Referral:: 08/26/17 Date of Evaluation: 09/02/17 Referring Physician: Dr. Dave Sandoval Primary Diagnosis: Small cell lung carcinoma w/ COPD History of Present Illness: Patient is a 66 year old female patient who presents to pulmonary rehabilitation today under the care of Dr. Dave Sandoval. Patient was recently admitted to [facility] with bilateral pleural effusions. She is under the care of Dr. Soto for her radiation and chemotherapy treatments. mMRC Breathless Scale: When is the patient short of breath? Y/N Grade: Description of Breathlessness: 0 I only get breathless with strenuous exercise. 1 I get short of breath when hurrying on level ground or walking up a slight hill. 2 On level ground, I walk slower than people of the same age because of breathless, or have to stop for breath when walking at my own pace. 3 I stop for breath after walking 100 yards or after a few minutes on level ground. 4 I am too breathless to leave the house or I am breathless when dressing. Respiratory Problems: Yes: Fatigue, Wheezing, Able to Speak in Full Sentences, Anxiety, Panic, Cough with Secretions No: Dyspnea with Activity Home Medications: Home Medications Ondansetron [Zofran Odt] 4 mg PO Q8H PRN PRN #10 tab 06/13/16 Lisinopril 20 mg PO DAILY 05/05/17 Sertraline HCl [Zoloft] 25 mg PO DAILY 05/05/17 Tramadol HCl [Ultram] 50 mg PO Q6H PRN PRN 05/05/17 Sucralfate [Carafate] 10 ml PO TID 05/30/17 Na Biphos/Potassium Phosphate [Neutra-Phos Packet] 1 packet PO 4X/DAYCM #120 packet 06/06/17 cholecalciferol (vitamin D3) 5,000 unit capsule 5,000 unit PO DAILY 06/21/17 loratadine 10 mg tablet 10 mg PO DAILY PRN 06/21/17 metoprolol tartrate 50 mg tablet 100 mg PO DAILY 06/21/17 Fluticasone 0.05% [Flonase Nasal Triangle] 2 spray NASAL DAILY 06/24/17 Pantoprazole Sodium [Protonix] 40 mg PO DAILY 06/24/17 Rivaroxaban [Xarelto] 20 mg PO DAILY 07/17/17 Divalproex Sodium [Depakote ER] 500 mg PO QHS #30 tab 07/18/17 Gabapentin [Neurontin] 100 mg PO TIDCM #90 cap 07/18/17 Sumatriptan Succinate [Imitrex] 50 mg PO Q2H PRN #9 tab 07/18/17 Magnesium Oxide [Mag-Ox 400] 400 mg PO DAILY 08/07/17 Potassium Chloride [K-Dur] 40 meq PO BID 08/07/17 Albuterol IH (ProAir) [Proair Hfa] 2 puff INHALATION Q4H PRN PRN #1 inhaler 01/18 Ferrous Sulfate [Iron] 325 mg PO BID #60 tab 08/09/17 Furosemide [Lasix] 20 mg PO BIDLX #60 tab 08/09/17 umeclidinium 62.5 mcg-vilanterol 25 mcg/actuation powdr for inhalation 1 inh INHALATION Q24H 08/25/17 Allergies/Adverse Reactions: Allergies oxycodone Adverse Reaction (Verified 08/25/17 12:40) Vomiting - Secretions Normal Color:: dry cough, but persistant A.T.C.: Yes Hx of Sleep Apnea: No Do you snore loudly (louder than talking or can be heard through closed doors)? : Yes Do you often feel tired/ fatigued/ sleepy during daytime?: Yes - basically do not sleep much at night; very disrupted sleep pattern. Has anyone observed you stop breathing during sleep?: No History of Hypertension (for STOP score): Yes STOP Results: Positive Medical Utilization Do you use a peak flow meter at home?: No Do you use a spacer device with your inhalers?: No Number of hospital visits in the last year?: 10 - <10; [facility] to [facility] Apr. Do you see your physician on a regular schedule?: Yes Comments:: Dr. Soto every day if [facility] ; Dr. Kerr 2-3 months, Dr. Sandoval 3 months, Dr. Swan seen only one time and sent to specialty. Advanced Directives - Advanced Directives Power of Electric Meter Repairer: Yes Living Will: Yes Advance Directives on File: Yes DNR Order?:: Yes Past Medical History Medical History: Past Medical History (Last Reviewed 08/25/17 @ 12:42 by Ene Luke) Malnourished (Chronic) E46 Radiation esophagitis (Chronic) K20.8 Small cell lung cancer (Chronic) C34.90 Pancytopenia (Chronic) D61.818 Afib (Chronic) I48.91 HTN (hypertension) (Chronic) I10 GERD (gastroesophageal reflux disease) (Chronic) K21.9 COPD (chronic obstructive pulmonary disease) (Chronic) J44.9 Surgical History: Past Surgical History (Last Reviewed 08/25/17 @ 12:42 by Ene Luke) S/P cholecystectomy (Chronic) Z90.49 S/P bilateral oophorectomy (Chronic) Z90.722 S/P hysterectomy (Chronic) Z90.710 Family History: Family History (Last Reviewed 08/25/17 @ 12:42 by Ene Luke) Father Diabetes Heart disease Brother Heart disease Hypertension - Current/ Previous Services Pulmonary Rehab:: No Social History - Smoking History Smoking Status: Former smoker Years Smokin Packs Smoked per Day: 1.5 Hx Smoking Cessation Date: 2009 Hx Tobacco Use: Yes Hx Smoking Exposure: No - Alcohol Use Alcohol Usage: Yes - Beer with pizza maybe once a month - Substance Abuse Hx Substance Use: No - Occupation Occupation (List type of work in comments):: Retired - Hobbies, Recreation, Social Activities Hobbies: Sewing, Walking, Other - painting, crafts. Recreational Activities: I am able to engage in most, but not all activities - back to walking; take grandson and dogs on walks. Functioning ADL/IADL - Current Ability Current Ability: Independent Self-Care (e.g.,grooming, dressing, & bathing), Independent Ambulation, Independent Transfer, Independent Household tasks (e.g. , light meal prep, laundry, shopping) - also cares for spouse who is diabetic Social Environment - Status Marital Status: - Current Living Arrangements Living Environment:: Spouse - Children How many children do you have?: 2 Do any of your children live nearby?: Yes - Safety Do you feel safe in your surroundings?: Yes - Assistance Do you need any assistance at home?: none Review of Systems Review of Systems: Right click = Denies (Slash). Left click = Reports ([place]) Respiratory: Reports: Cough, Pleuritic Pain - if cough alot but it has been a while since that has happened., Wheezing - only occasionally, Appetite, Normal - fairly normal was back up to 161 but am back down to 154. Drinking 2-Boosts a day., Dizziness/Lightheadedness, Fatigue. Denies: Hemoptysis, SOB at Rest, SOB upon Exertion, Sputum production, Sexual changes, Sleep, Normal Is Patient Pain Free?: No Pain Location: none Risk Factor Assessment - Vital Signs Temperature: 98.7 F Pulse Rate: 57 Pulse Rhythm: Regular Respiratory Rate: 16 Pulse Ox: 97 Blood Pressure: 134/72 Nailbeds:: pink - Diabetes Nutrition Referral for Diabetes: No - Obesity Height: 5 ft 8 in Weight:: 154 lb Weight in Pounds: 154.0 lbs Weight Source: Standing Scale Body Mass Index (BMI): 23.4 Desired Body Weight: 158 Nutritional Referral for Obesity: Yes - Education on malnutrition and weight gain. - Physical Activity Physical Inactivity: None - Risk Stratification Risk Guidelines: Lowest Risk: Risk Factor for Smoking, Risk Factor for Dyslipidemia, Risk Factor for Diabetes, Risk Factor for Obesity - Malnutrition, Risk Factor for Hypertension, Risk Factor for Sedentary Lifestyle, Risk Factor for Depression - For Smoking Smoking Risk Guidelines: Smoking Low Risk: None or quit greater than 6 months ago. Smoking Moderate Risk: Smoker or quit 6 months or less ago. Smoking High Risk: Smoker - For Dyslipidemia Dyslipidemia Risk Guidelines: Low Risk: Moderate Risk: High Risk: 15-25% fat 25.1-29% fat >/= 30% fat. <7% sat fat 7-9% sat fat >9% sat fat. <150 mg chol 150-299 mg chol >/= 300 mg chol. LDL <100 LDL 100-129 LDL >/= 130. Chol/HDL ratio <5.0 Chol/HDL ratio 5.0-6.0 Chol/HDL ratio >6.0. Triglycerides <100 Triglycerides 100-149 Triglycerides >/= 150 - For Diabetes Mellitus Diabetes Risk Guidelines: Diabetes Low Risk: HgA1c <6.5% and/or FBG <120. Diabetes Moderate Risk: HgA1c 6.6-7.9% and/or FBG 120-180. Diabetes High Risk: HgA1c >/= 8% and/or FBG >180 - For Obesity/Overweight Obesity/Overweight Risk Guidelines: Obesity Low Risk: BMI <25.0. Obesity Moderate Risk: BMI 25-29.9. Obesity High Risk: BMI >/= 30.0 - For Hypertension Hypertension Risk Guidelines: Hypertension Low Risk: Systolic <120 and Diastolic <80. Hypertension Moderate Risk: Systolic 120-139 and Diastolic 80-89. Hypertension High Risk: Systolic >/= 140 and Diastolic >/= 90 - For Sedentary Lifestyle Sedentary Lifestyle Risk Guidelines: Sedentary Lifestyle Low Risk: >/= 1 ,500 kcal/week. Sedentary Lifestyle Moderate Risk: 700-1,499 kcal/week. Sedentary Lifestyle High Risk: < 700 kcal/week - For Depression Depression Risk Guidelines: Depression Low Risk: Not clinically depressed. Depression Moderate Risk: Mildly depressed. Depression High Risk: Clinically depressed Motivation - Motivation to Participate On a scale of 1 to 10, how prepared are you to commit to attending program?: 5 What do you see as barriers to successfully being able to complete the program? : none What do you see as the benefits of succesfully completing the program? In other words, what do you hope to get out of participating in the program?: being able to breathe better Are there issues you are dealing with that will interfere with completing the program?: Caring for . Do you have a spouse or signficant other, family or friends who will help support you to complete the program?: yes.
--- NOTE | 2017-09-02 10:53 | PR.ITP_ITS ---
General Information - General Information Admitting Diagnosis: Small cell lung carcinoma w/ COPD Moderate Stage II by GOLD Classification Gold Classification:: GOLD 2: Moderate Oxygen: 2 liters at HS for nocturnal hypoxemia - Education/Goals Barriers to Learning: Vision Impairment - wears reading glasses. Individual Counseling: Initial Assessment: Dyspnea control techniques at rest, activity, and ADLs, Exacerbation prevention & management, O2, Rx, system, safety , Panic & depression management, Nutrition & weight management Patient Goals: Breathe better: Initial Assessment, Increase endurance/stamina: Initial Assessment, Symptom management: Initial Assessment, Take medications correctly: Initial Assessment, Improve weight: Initial Assessment Exercise - Initial Assessment - Visit Date of Eval: 09/02/17 - established initial ITP - Problem/Goals Problems: Deconditioning, No regular exercise, Knowledge deficit exercise guidelines, Knowledge deficit exercise safety - Exercise Prescription Mode:: Treadmill, Biodyne, Airdyne, NuStep Frequency (x/week): 3 Duration:: 30 MET LEVEL:: 2 HR (bpm):: 116 - 108-116 THRR - Plan Plan and Plan to Review:: Benefits of exercise, Core components of exercise, How to measure dyspnea level, How to monitor dyspnea level, Exercise intensity, Exercise safety guideline, Home exercise guidelines, Zaida: 3-4/11-13 Disease Management - Initial - Problems/Goals-Hypoxemia Hypoxemia Problems:: Hypoxemia Hypoxemia Goals:: Hypoxemia managed - Problems/Goals-Medications Medication Goals: Adherence to prescribed medications, Correct technique/timing & care of MDI, DPI, nebulizer, and spacer. - Problems/Goals-Bronchial Hygiene Bronchial Hygiene Problems:: Ineffective secretion clearance, Respiratory infection Prevention/Management Bronchial Hygiene Goals:: Pt demonstrates effective cough, effective secretion clearance., Pt describes signs and symptoms of infection. - Initial Assessment FiO2:: 21 Medications: Yes MDI, No Spacer - Plans Reviewed prescribed medications:: Purpose, Schedule, Side effects, Importance of compliance Instruct correct technique/timing & care:: MDI, Return demo use of inhaler Bronchial Hygiene Plan: Controlled cough, Vibratory PEP device, Hydration, Hand hygiene, Signs/symptoms to report: Psychosocial - Initial Assess - Problems/Goals Problems: Depression, Impaired Q.O.L. Psychosocial Goals: Improved Q.O.L. - Psychosocial Test Depression:: Impaired QOL Referred to MD for counseling:: No - Plan Reviewed screening results: Yes Instructions given regarding:: Benefits of exercise, Relaxation techniques, Training in coping strategies Tobacco - Initial Assessment - Program Goals Tobacco Program Goals: Complete smoking cessation. Attend education classes. Improve Knowledge Test score - Stage of Change Stages of Change:: Action - Learning Barriers Learning Barriers: Vision - requires reading glasses, Ready to Learn - Family Support Do you have family support?: Yes - Tobacco Use Tobacco Use: Non-smoker - Former smoker How long ago did you quit using tobacco products?: Greater than or equal to 6 months ago Do you use smokeless tobacco?: No - Intervention Smoking Cessation Referral:: No Individual Education/Counseling:: No Education Schedule Given:: Yes - Education Gave Education Materials For:: Tobacco Triggers, Pulmonary Disease, Risk Factors , Breathing Techniques, Medical Compliance, Pulmonary A&P, Exacerbation Signs & Symptoms, Stress & Relaxation Nutrition/Wt Mgmt - Initial - Problems/Goals Problems: Underweight Goals: Prevent further wt loss - Weight Management Knowledge Deficit Management of:: Lack of vitamin D/Ca++ supplement Admit Height:: 5 ft 8 in Admit Weight:: 154 lb Admit BMI:: 23.4 - Diabetes Diabetes:: No Insulin: No Do you monitor your blood sugar at home?: No - Intervention Referral to dietitian:: Yes - Benefit from supplement education due to malnutrition Referral to Diabetic Clinic:: No Will attend diet classes:: Yes - Plan Nutrition Plan: Yes Review BMI or WC & identify target wt & strategies for wt control, Yes Nutrition education class:, Yes Weight control education class: Patient Health Questionnaire Initial Assessment 1. Little interest or pleasure in doing things: More than half the days 2. Feeling down, depressed, or hopeless: Not at all 3. Trouble falling or staying asleep, or sleeping too much: More than half the days 4. Feeling tired or having little energy: More than half the days 5. Poor appetite or overeating: Not at all 6. Feeling bad about yourself -- or that you are a failure or have let yourself or your family down: Not at all 7. Trouble concentrating on things, such as reading the newspaper or watching television: Not at all 8. Moving or speaking so slowly that other people could have noticed. Or the opposite - being so fidgety or restless that you have been moving around a lot more than usual: Not at all 9. Thoughts that you would be better off , or of hurting yourself in some way: Not at all How difficult have these problems made it for you to do your work, take care of things at home, or get along with other people?: Somewhat difficult Total Score: 6 COPD Knowledge Test Initial COPD is a lung disease that:: Makes it hard to breathe & gets worse over time In the [place] the term COPD describes 2 main lung conditions:: Emphysema & pulmonary hypertension The most common lung irritant that causes COPD is:: Cigarette smoke Common signs and symptoms of COPD include:: An ongoing cough/cough that produces a large amount of mucus, & SOB If you have COPD, what steps can you take?: Follow your treatment plan for COPD exactly as your doctor prescribes Swelling of the ankles is common in COPD:: True Fatigue [tiredness] is common in COPD:: True Wheezing is common in COPD:: True Crushing chest pain is common in COPD:: True Rapid weight loss is common in COPD:: False Breathlessness is a normal response to exercise: False Exercise should be avoided if it makes you short of breath: False All bronchodilators act within 10 minutes: True A spacer device increases the medication to the lungs: True Annual flu vaccine is recommended for pts w/lung disease: True COPD Knowledge Test Total Score:: 9 COPD Assessment Test [CAT] - Questions Never cough = 0, Cough all the time = 5: 3 No phlegm = 0, Chest full of phlegm = 5: 1 No chest tightness = 0, Chest very tight = 5: 1 No breathless w/exertion = 0, Very breathless w/exertion = 5: 3 No limitations w/activity = 0, Very limited w/activity = 5: 2 Confident leaving home = 0, Not at all confident = 5: 2 Sleep soundly = 0, Don't sleep soundly = 5: 1 Lots of energy = 0, No energy at all = 5: 2 Total CAT score:: 15 Self-Efficacy Initial Assessment We would like to know how confident you are in doing certain activities. Please select your confidence level for:: Select your confidence level for the following using the scale 1-10 where 1 is not at all confident and 10 is totally confident. Your score is the average of all 6 responses. Fatigue: How confident are you that you can keep the fatigue caused by your disease from interfering with the things you want to do? Select Number: 5 Physical Discomfort or Pain: How confident are you that you can keep the physical discomfort or pain of your disease from interfering with the things you want to do? Select Number: 5 Emotional Distress: How confident are you that you can keep the emotional distress caused by your disease from interfering with the things you want to do? Select Number: 5 Other Symptoms or Health Problems: How confident are you that you can keep other symptoms or health problems from interfering with the things you want to do? Select Number: 1 Different Tasks and Activities: How confident are you that you can do the different tasks and activities needed to manage your health condition so as to reduce your need to see a doctor? Select Number: 5 Medication: How confident are you that you can do things other than just taking medication to reduce how much your illness affects your everyday life? Select Number: 5 Total Score:: 4 Nutrition Survey - Nutrition Survey Instructions Scoring Instructions: Scoring is as follows: Yes = 1 points. No = 0 point. Patient score that is >/=12 is considered to be at potential nutritional risk and could benefit from a referral to a registered dietitian. - Nutrition Survey Initial Have you lost >10 lbs over the past 2 months without trying?: Yes Are you following a special diet at home for diabetes, low fat, or low salt?: No Are you interested in meeting with a dietitian for help understanding your diet? : No Do you eat less than 3 meals a day?: No Do you eat fatty meats (ahmadi, sausage, ribs, etc), fried foods, desserts, large amounts of salad dressings, margarine, butter, or cheese most days?: No Do you have food allergies? [Enter types in comment field]: No Do you eat in restaurants more than 3 times a week?: No Do you season food with salt, seasoning salt, or garlic salt?: No Do you used canned, boxed, frozen meals, or soups, seasoning packets?: Yes Total Score:: 2
[2017-09-02 11:24] VITALS: BP 134/72; PULSE 57; RESP 16; TEMP 37.1; O2SAT 97; BMI 23.4
[2017-09-02 12:02] VITALS: BMI 23.4
== END 2017-09-30 23:59 ==
LOC: PR 10:34
PROVIDERS: Family Provider Family Medicine; PCP Family Medicine; Visit Provider Internal Medicine Critical Care Medicine
DX: J44.9 Chronic obstructive pulmonary disease, unspecified (principal)
CPT/HCPCS: 97150; G0424

== ENCOUNTER → 2017-09-29 08:59 | Outpatient (CLI) | payer MEDICARE, OTHER, SELFPAY ==
[2017-09-29 09:13] VITALS: BP 103/66; PULSE 78; RESP 16; TEMP 36.3; O2SAT 100; BMI 22.3
[2017-09-29 10:06] VITALS: BP 116/68; PULSE 78; RESP 16; TEMP 36.4
[2017-09-29 11:57] VITALS: BP 142/75; PULSE 56; TEMP 36.3
[2017-09-29 12:15] VITALS: BP 130/67; PULSE 85; TEMP 36.6
[2017-09-29 13:49] VITALS: BP 125/68; PULSE 58; RESP 16; TEMP 36.7
== END ==
PROVIDERS: Family Provider Family Medicine; PCP Family Medicine; Visit Provider Internal Medicine Hematology & Oncology
DX: Z51.89 Encounter for other specified aftercare (principal); C34.90 Malignant neoplasm of unspecified part of unspecified bronchus or lung; D64.9 Anemia, unspecified
CPT/HCPCS: 36430; 86850; 86900; 86920; 86922; J7040; P9016; A4216

== ENCOUNTER 2017-10-22 09:39 | Emergency (ER) | payer MEDICARE, OTHER, SELFPAY ==
[2017-10-22 09:40] VITALS: BP 162/85; PULSE 72; RESP 15; TEMP 36.9; O2SAT 99; BMI 22.2
[2017-10-22 09:48] VITALS: BP 160/78; PULSE 62; RESP 17; O2SAT 99
--- NOTE | 2017-10-22 09:56 | NURSING ---
NO LW OR POA
[2017-10-22 10:33] LABS: Absolute Lymphocyte Count 0.35 X10^3/ul (0.83-4.51); Absolute Neutrophil Count 2.6 X10^3/uL (2.0-7.7); Basophil# 0.01 X10^3/uL; Basophil% 0.3 % (0-1); Differential Indicated SCAN CRITERIA MET; Eosinophil# 0.04 X10^3/uL; Eosinophils% 1.2 % (0-5); Hematocrit 24.2 % (37-47); Hemoglobin 8.3 g/dl (12.0-15.0); Lymphocyte # 0.35 X10^3/ul (4.0); Lymphocyte % 10.7 % (19-41); Mean Corp Hgb Conc 34.3 g/gl (32-36); Mean Corpuscular Hgb 32.4 pg (27.0-32.0); Mean Corpuscular Volume 94.5 fL (81-99); Mean Platelet Vol. 8.6 fl (6.2-12.0); Monocyte# 0.25 X10^3/uL; Monocyte% 7.6 % (0-10); Neutrophil # 2.63 X10^3/uL (2.7-7.7); Neutrophil % 80.2 % (47-70); POSITIVE COUNT NO; POSITIVE DIFFERENTIAL YES; POSITIVE MORPHOLOGY NO; Platelet Count 132 K/mm3 (150-450); RBC Distribution Width CV 14.2 % (11.6-14.6); RBC Distribution Width SD 49.1 fl (35.1-43.9); Red Blood Count 2.56 M/mm3 (4.2-5.4); White Blood Count 3.3 K/mm3 (4.4-11.0)
--- NOTE | 2017-10-22 10:35 | RAD_ITS ---
STUDY: X-RAY CHEST REASON FOR EXAM: Female, 67 years old. Cough. TECHNIQUE: PA and lateral views of the chest. COMPARISON: Comparison is made with prior study dated August 09, 2017. FINDINGS: EKG electrodes are seen. There now is evidence of infiltration in the left upper lobe. Radiographic follow-up is recommended until clearing. Hyperinflation. There is no demonstrated pleural abnormality. Normal size heart. Normal mediastinum and tj. Normal visualized pulmonary arteries. Normal visualized aortic arch and descending thoracic aorta. Normal visualized thoracic spine. Normal visualized ribs, clavicles, and shoulders. There is no demonstrated abnormality of the visualized soft tissue structures of the upper abdomen. RAD/Chest PA and Lateral IMPRESSION: Left upper lobe infiltrate. Radiographic follow-up is recommended till clear. Electronically Signed: Parminder Riggs MD at 11:00 EDT Tel [phone], Service support ,
[2017-10-22 10:44] LABS: AST(SGOT) 12 U/L (15-37); Alanine Aminotransfer ALT/SGPT 16 U/L (13-56); Albumin, Serum 2.9 g/dL (3.2-5.0); Alkaline Phosphatase 76 U/L (45-117); Anion Gap 6 (5-15); BUN 13 mg/dL (7-18); BUN/Creat Ratio 16.2 RATIO (10-20); Calcium,Total 8.6 mg/dL (8.5-10.1); Chloride 109 mmol/L (98-107); EST Glomerular Filtration Rate 76 mL/min (>60); Est Glom Filt Rate - Afr Amer 92 mL/min (>60); Estimated Creatinine Clearance 69.78 ml/min; Glucose 91 mg/dL (74-106); Potassium 3.6 mmol/L (3.5-5.1); Protein, Total 5.9 g/dL (6.4-8.2); Sodium Level 143 mmol/L (136-145)
--- NOTE | 2017-10-22 11:52 | ED.VISSUMM ---
- ER Visit Summary Date of Service: 10/22/17 Chief Complaint: Fever, cough History of Present Illness: The patient is a 67 F who has had a fever a cough since yesterday. She states her temperature was between 100.4 and 100.7?F. She has a cough which she states is also chronic. 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 Her last chemotherapy was in July and her last radiation treatment was in August. She was admitted to the hospital in August due to COPD and effusions. Physical Examination: Vital signs reviewed. HEENT exam unremarkable. Heart is regular rate and rhythm without murmurs. Lungs are clear to auscultation. Abdomen is soft and nontender. Extremities reveal no edema. Skin exam normal. Neurologic exam normal. Test Results: Laboratory studies are remarkable for a white blood cell count of 3.3, hemoglobin 8.3. Her chest x-ray does reveal left upper lobe infiltrate Emergency Department Course and Treatment: Patient's chest x-ray does reveal pneumonia. I will start her on IV Levaquin, as the patient does not want to stay in the hospital. I feel that this is appropriate as she is afebrile today, without any ibuprofen or Tylenol. She is currently not on chemotherapy at this time so she is not immunosuppressed. She still wants to go home after I gave her the option of staying in the hospital. I will give her oral Levaquin for home use as well. She will follow-up with her PCP Treatment Plan: [] Disposition: Discharge Impression: Pneumonia This note was generated with Colizer dictation software. It may contain incorrect words, spelling, and punctuation that were not noted in review of the chart prior to signing ED Disposition - Plan for ED Patient: Chief Complaint: Fever Referrals: Mihir Swan DO [Primary Care Provider] -
--- NOTE | 2017-10-22 11:54 | ED.DEP ---
ED Disposition - Plan for ED Patient: Disposition: Home or Assisted Living Chief Complaint: Fever Instructions: ED Pneumonia Adult Prescriptions: Levofloxacin [Levaquin] 750 mg PO DAILY #7 tab Referrals: Mihir Swan DO [Primary Care Provider] -
[2017-10-22 12:39] LABS: Bacteria 0 SEEN /hpf (None Seen); Mucous, Urine 0 SEEN /hpf (<or=2+); Squamous Epithelial Cells - UA 0 SEEN /hpf (5-10); White Blood Cells 0 SEEN /hpf (0-5)
[2017-10-22 12:41] LABS: Color, Urine Yellow (Yellow); Glucose, Dipstick Normal (Normal); Ketone-Dipstick 15 mg/dl (Negative); Leukocyte Esterase-Dipstick Negative /ul (Negative); Nitrite-Dipstick Negative (Negative); Occult Blood-Urine 10 /ul (Negative); Protein-Dipstick 500 mg/dl (Negative); Urine Bilirubin Dipstick Negative (Negative); Urine Clarity Clear (Clear); Urine Urobilinogen Normal (Normal)
[2017-10-22 12:47] LABS: Red Blood Cells-Urine 0-5 SEEN /hpf (0-5)
[2017-10-22 12:49] VITALS: RESP 16
[2017-10-22] MEDS: levoFLOXacin IV 750 MG/150 ML BAG 100 MG IV (12:49)
--- NOTE | 2017-10-22 14:18 | NURSING ---
NO LW OR POA
[2017-10-22 14:53] VITALS: BP 148/84; PULSE 71; RESP 16; RESP 18; O2SAT 97
== END 2017-10-22 14:54 | disposition home or self-care (01) ==
PROVIDERS: Emergency Provider Emergency Medicine; Family Provider Family Medicine; PCP Family Medicine
DX: J18.9 Pneumonia, unspecified organism (principal); J44.9 Chronic obstructive pulmonary disease, unspecified; Z85.118 Personal history of other malignant neoplasm of bronchus and lung; Z85.01 Personal history of malignant neoplasm of esophagus; Z79.899 Other long term (current) drug therapy
CPT/HCPCS: 36415; 71046; 80053; 81001; 85025; 87040; 87086; 87088; 96365; 96366; 99284; J7050; A4216

== ENCOUNTER 2017-11-05 07:50 | Outpatient (RCR) | payer MEDICARE, OTHER, SELFPAY ==
[2017-10-01 00:14] VITALS: PULSE 57; RESP 16; TEMP 37.1; O2SAT 97
== END 2017-11-30 23:59 ==
LOC: PR 07:50
PROVIDERS: Family Provider Family Medicine; PCP Family Medicine; Visit Provider Internal Medicine Critical Care Medicine
DX: J44.9 Chronic obstructive pulmonary disease, unspecified (principal)
CPT/HCPCS: 97150; G0424

== ENCOUNTER → 2017-11-08 11:02 | Outpatient (CLI) | payer MEDICARE, OTHER, SELFPAY ==
[2017-11-08 11:30] VITALS: PULSE 75; PULSE 77; PULSE 86; PULSE 87; PULSE 88; PULSE 90; O2SAT 92; O2SAT 93; O2SAT 94; O2SAT 96; O2SAT 97
--- NOTE | 2017-11-08 16:29 | WT_ITS ---
PSN 6 Minute Walk Test - 6 Minute Walk Test 6 Minute Walk Test: 6 Minute Walk Test PSN:6-Minute Walk Test Start: 11/08/17 11: 30 Freq: Status: Active Protocol: [id number] Document 11/08/17 11:30 ORLIN (Rec: 11/08/17 11:33 ORLIN [id number]) 6 Minute Walk Test Date Performed 11/08/17 Time Performed 11:15 Height 5 ft 8 in Weight: 67.132 kg Weight in Pounds 148.[address]: Dave Sandoval Assistive device used: None Pre-test Oxygen Delivery Method Room Air Pulse Ox (%) 97 Pulse Rate (60-100 beats/min) 75 Dyspnea Zaida Scale (0-10) 0 Exertion Zaida Scale (6-20) 6 1st minute Oxygen Delivery Method Room Air Pulse Ox (%) 97 Pulse Rate (60-100 beats/min) 86 2nd minute Oxygen Delivery Method Room Air Pulse Ox (%) 94 Pulse Rate (60-100 beats/min) 90 3rd minute Oxygen Delivery Method Room Air Pulse Ox (%) 92 Pulse Rate (60-100 beats/min) 90 Dyspnea Zaida Scale (0-10) 4 Number of Rests Taken 1 4th minute Oxygen Delivery Method Room Air Pulse Ox (%) 93 Pulse Rate (60-100 beats/min) 87 5th minute Oxygen Delivery Method Room Air Pulse Ox (%) 96 Pulse Rate (60-100 beats/min) 88 6th minute Oxygen Delivery Method Room Air Pulse Ox (%) 97 Pulse Rate (60-100 beats/min) 90 Dyspnea Zaida Scale (0-10) 3 Exertion Zaida Scale (6-20) 14 Post-test Oxygen Delivery Method Room Air Pulse Ox (%) 97 Pulse Rate (60-100 beats/min) 77 Full Laps Walked 10 Partial Lap, Number of Tiles Walked 0 Total Distance Walked (ft) 590 - Interpretation Interpretation: The patient was able to ambulate a total of 590 feet over the course of 6 minutes on room air with no assistive devices and one break. The patient did experience significant desaturation from a baseline of 97%, to as low as 92%. No significant tachycardia was noted. These findings are consistent with a respiratory limitation exercise tolerance. - Recommendations Recommendations: No supplemental oxygen is indicated at this time. However, patient did travel a minimal distance and sensitivity is extremely limited.
== END ==
PROVIDERS: Family Provider Family Medicine; PCP Family Medicine; Visit Provider Internal Medicine Critical Care Medicine
DX: J44.9 Chronic obstructive pulmonary disease, unspecified (principal)
CPT/HCPCS: 94618

== ENCOUNTER → 2017-11-17 10:53 | Outpatient (CLI) | payer MEDICARE, OTHER, SELFPAY ==
[2017-11-17] VITALS (8 sets, daily range): BP systolic 102–148; BP diastolic 59–93; PULSE 66–76; RESP 16–18; TEMP 36.1–36.8; O2SAT 99–100; BMI 22.5
== END ==
PROVIDERS: Family Provider Family Medicine; PCP Family Medicine; Visit Provider Internal Medicine Hematology & Oncology
DX: Z51.89 Encounter for other specified aftercare (principal); D64.9 Anemia, unspecified
CPT/HCPCS: 36430; 86850; 86900; 86920; 86922; J7040; P9016; A4216

== ENCOUNTER 2017-12-01 07:07 | Outpatient (RCR) | payer MEDICARE, OTHER, SELFPAY ==
[2017-12-01 00:10] VITALS: PULSE 57; RESP 16; TEMP 37.1; O2SAT 97
== END 2017-12-31 23:59 ==
LOC: PR 07:07
PROVIDERS: Family Provider Family Medicine; PCP Family Medicine; Visit Provider Internal Medicine Critical Care Medicine
DX: J44.9 Chronic obstructive pulmonary disease, unspecified (principal)
CPT/HCPCS: 97150; G0424

== ENCOUNTER 2018-01-05 06:42 | Outpatient (RCR) | payer MEDICARE, OTHER, SELFPAY ==
[2018-01-01 00:22] VITALS: PULSE 57; RESP 16; TEMP 37.1; O2SAT 97
== END 2018-01-30 23:59 ==
LOC: PR 06:42
PROVIDERS: Family Provider Family Medicine; PCP Family Medicine; Visit Provider Internal Medicine Critical Care Medicine
DX: J44.9 Chronic obstructive pulmonary disease, unspecified (principal)
CPT/HCPCS: 97150; G0424

== ENCOUNTER → 2018-02-08 07:58 | Outpatient (CLI) | payer MEDICARE, OTHER, SELFPAY ==
[2018-02-08] VITALS (11 sets, daily range): BP systolic 93–137; BP diastolic 57–76; PULSE 71–81; RESP 15–18; TEMP 36.1–37; O2SAT 96–100; BMI 20.2
== END ==
PROVIDERS: Family Provider Family Medicine; PCP Family Medicine
DX: D64.9 Anemia, unspecified (principal); C34.90 Malignant neoplasm of unspecified part of unspecified bronchus or lung
CPT/HCPCS: 36430; 86850; 86900; 86920; 86922; J7040; P9016; A4216

== ENCOUNTER 2018-04-27 12:33 | Emergency (ER) | payer MEDICARE, OTHER, SELFPAY ==
[2018-04-27] VITALS (7 sets, daily range): BP systolic 116–156; BP diastolic 80–111; PULSE 77–88; RESP 18–26; TEMP 36.6; O2SAT 95–99; BMI 25.2; BMI 20.9
[2018-04-27 13:46] LABS: Absolute Lymphocyte Count 0.21 X10^3/ul (0.83-4.51); Absolute Neutrophil Count 1.9 X10^3/uL (2.0-7.7); Basophil# 0.01 X10^3/uL; Basophil% 0.4 % (0-1); Eosinophil# 0.07 X10^3/uL; Eosinophils% 2.9 % (0-5); Hematocrit 20.5 % (37-47); Hemoglobin 6.3 g/dl (12.0-15.0); Lymphocyte # 0.21 X10^3/ul (4.0); Lymphocyte % 8.8 % (19-41); Mean Corp Hgb Conc 30.7 g/gl (32-36); Mean Corpuscular Volume 104.1 fL (81-99); Mean Platelet Vol. 9.3 fl (6.2-12.0); Monocyte# 0.17 X10^3/uL; Monocyte% 7.1 % (0-10); Neutrophil # 1.93 X10^3/uL (2.7-7.7); Neutrophil % 80.4 % (47-70); Platelet Count 72 K/mm3 (150-450); RBC Distribution Width SD 57.7 fl (35.1-43.9); Red Blood Count 1.97 M/mm3 (4.2-5.4); White Blood Count 2.4 K/mm3 (4.4-11.0)
[2018-04-27 13:47] LABS: Differential Indicated SCAN CRITERIA MET; POSITIVE COUNT NO; POSITIVE DIFFERENTIAL YES; POSITIVE MORPHOLOGY NO
--- NOTE | 2018-04-27 13:51 | ED.VISSUMM ---
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 Presents because she was told by her oncologist that she needs a blood transfusion. Last chemotherapy April 19. Apparently she got Procrit today. She reports dyspnea at rest, dyspnea with exertion and has a cough that is productive of clear sputum which she has had for approximate 1 year. She denies leg pain, swelling discoloration. She states she has not had a PE or DVT. She denies pleuritic chest pain or any type of chest pain. She states she is in an experimental protocol. She denies black, maroon or bloody stool. Physical Examination: Vital signs noted. HEENT exam is remarkable for pale conjunctival. Lungs revealed scattered rales. Heart is regular without murmur, gallop or rub. Abdomen soft nontender. There is no asymmetry, swelling, discoloration, leg vein distention, palpable cords or tenderness along the distribution of the deep venous system. She is alert oriented x3 with a nonfocal neurologic exam. Patient appears thin/cachectic. Test Results: Hemoglobin is 6.3. White count is 2.4 thousand. Two-view chest x-ray reveals improvement of left upper lung mass. Chronic changes noted. Port is new since prior x-ray. Penetration is different than prior x-ray as well. Potassium is 2.7 Emergency Department Course and Treatment: To evaluate patient's cough and dyspnea chest x-ray was obtained, blood work was obtained since none was available. She receives her care in [place]. Laboratory studies were faxed from the oncologist office and her hemoglobin is 6.7. White count is 2.3 with an absolute neutrophil count greater than 1500. INR is 2.1. Treatment Plan: Transfuse 1 unit of blood and discharge to home. Patient received 50 mEq potassium p.o. Disposition: Discharge to home after blood transfusion Impression: Symptomatic anemia History of small cell carcinoma Hypokalemia This note was generated with [employer] dictation software. It may contain incorrect words, spelling, and punctuation that were not noted in review of the chart prior to signing ED Disposition - Plan for ED Patient: Disposition: Home or Assisted Living Chief Complaint: Abn Labs Instructions: ED Potassium Deficiency, ED Anemia Type Not Specified Prescriptions: Potassium Chl Soln 20 meq PO BID #120 [facility] [place]errals: Mihir Swan DO [Primary Care Provider] - 1 Week Additional Instructions: You will need to make an appointment with Dr. Swan for repeat potassium level in 5-7 days. Your prescription was electronically transmitted to [facility] located on [facility]
--- NOTE | 2018-04-27 13:52 | RAD_ITS ---
STUDY: X-RAY CHEST REASON FOR EXAM: Female, 67 years old. TECHNIQUE: COMPARISON: October 22, 2017. FINDINGS: The heart is not enlarged. There is evidence of atelectasis and/or infiltrate noted in the left base a new finding since the previous examination. There is evidence also a suprahilar infiltrate that was somewhat diffuse before this could be somewhat chronic but superimposed acute infection in this area cannot be ruled out. There is Mediport catheter with the tip in the superior vena cava. Prominence of the suprahilar area on the right side present as well. No pleural effusion seen. No pneumothorax identified. The trachea is in the midline. The bony thorax is intact. RAD/Chest PA and Lateral IMPRESSION: Evidence of infiltration and/or atelectasis in the left base behind the heart Left suprahilar infiltrate. part of this could be chronic continued follow-up after treatment is needed. Electronically Signed: Maritza Mars, at 14:16 EST Tel , Service support ,
--- NOTE | 2018-04-27 13:54 | ED.DCSUM_ITS ---
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 Presents because she was told by her oncologist that she needs a blood transfusion. Last chemotherapy April 19. Apparently she got Procrit today. She reports dyspnea at rest, dyspnea with exertion and has a cough that is productive of clear sputum which she has had for approximate 1 year. She denies leg pain, swelling discoloration. She states she has not had a PE or DVT. She denies pleuritic chest pain or any type of chest pain. She states she is in an experimental protocol. She denies black, maroon or bloody stool. Physical Examination: Vital signs noted. HEENT exam is remarkable for pale conjunctival. Lungs revealed scattered rales. Heart is regular without murmur, gallop or rub. Abdomen soft nontender. There is no asymmetry, swelling, discoloration, leg vein distention, palpable cords or tenderness along the distribution of the deep venous system. She is alert oriented x3 with a nonfocal neurologic exam. Patient appears thin/cachectic. Test Results: Hemoglobin is 6.3. White count is 2.4 thousand. Two-view chest x-ray reveals improvement of left upper lung mass. Chronic changes noted. Port is new since prior x-ray. Penetration is different than prior x-ray as well. Potassium is 2.7 Emergency Department Course and Treatment: To evaluate patient's cough and dyspnea chest x-ray was obtained, blood work was obtained since none was available. She receives her care in [place]. Laboratory studies were faxed from the oncologist office and her hemoglobin is 6.7. White count is 2.3 with an absolute neutrophil count greater than 1500. INR is 2.1. Treatment Plan: Transfuse 1 unit of blood and discharge to home. Patient received 50 mEq potassium p.o. Disposition: Discharge to home after blood transfusion Impression: Symptomatic anemia History of small cell carcinoma Hypokalemia This note was generated with [employer] dictation software. It may contain incorrect words, spelling, and punctuation that were not noted in review of the chart prior to signing ED Disposition - Plan for ED Patient: Disposition: Home or Assisted Living Chief Complaint: Abn Labs Instructions: ED Potassium Deficiency, ED Anemia Type Not Specified Prescriptions: Potassium Chl Soln 20 meq PO BID #120 [facility] [place] Referrals: Mihir Swan DO [Primary Care Provider] - 1 Week Additional Instructions: You will need to make an appointment with Dr. Swan for repeat potassium level in 5-7 days. Your prescription was electronically transmitted to [facility] located on [facility]
--- NOTE | 2018-04-27 14:02 | ED.RN ---
potassium 2.[address] lab[address] dr snyder aware
[2018-04-27 14:03] LABS: Anion Gap 12 (5-15); BUN 17 mg/dL (7-18); BUN/Creat Ratio 20.7 RATIO (10-20); Calcium,Total 8.2 mg/dL (8.5-10.1); Chloride 110 mmol/L (98-107); Creatinine, Serum 0.82 mg/dL (0.55-1.02); EST Glomerular Filtration Rate 74 mL/min (>60); Est Glom Filt Rate - Afr Amer 90 mL/min (>60); Estimated Creatinine Clearance 66.69 ml/min; Glucose 97 mg/dL (74-106); Potassium 2.7 mmol/L (3.5-5.1); Sodium Level 143 mmol/L (136-145)
[2018-04-27 14:10] LABS: Anisocytosis 2+; Hypochromasia 2+
[2018-04-27 14:11] LABS: Platelet Estimate MOD DEC (ADEQ)
== END 2018-04-27 17:34 | disposition home or self-care (01) ==
PROVIDERS: Emergency Provider Emergency Medicine; Family Provider Family Medicine; PCP Family Medicine
DX: C34.12 Malignant neoplasm of upper lobe, left bronchus or lung (principal); D63.0 Anemia in neoplastic disease; E87.6 Hypokalemia; Z87.891 Personal history of nicotine dependence
CPT/HCPCS: 36430; 36591; 71046; 80048; 85025; 86850; 86900; 86920; 99282; J7050; P9040; A4216